=== PATIENT | female | born 1945 | race Caucasian/White ===

== ENCOUNTER 2019-04-17 06:57 | Day surgery (SDC) | payer OTHER ==
--- NOTE | 2019-04-16 11:23 | EKG ---
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
--- OUTSIDE RECORDS SUMMARY | 2019-04-17 07:00 | XMS REPORT | Clinical Summary ---
:1945 Author Organization [facility] Address [address] [place] [address] Care Team Providers Name Role Phone Parish Lopez MD Primary Care Provider Allergies Active Allergy Reactions Severity Noted Date Comments Cefdinir Clarithromycin Penicillins Swelling Low 02/12/2017 Sulfamethoxazole-Trimethoprim Medications Medication Sig Dispensed Refills Start Date End Date Status acyclovir Take 200 mg by 3 01/25/2017 Active (ZOVIRAX) 200 MG mouth once daily. capsule esomeprazole Take 40 mg by 11 01/18/2017 Active (NexIUM) 40 MG mouth once daily. capsule clindamycin TAKE 2 CAPSULES 2 11/21/2016 Active (CLEOCIN) 300 MG BY MOUTH 1 HOUR capsule BEFORE APPOINTMENT BREO ELLIPTA INHALE 1 PUFF BY 11 01/18/2017 Active 100-25 mcg/dose MOUTH EVERY DAY blister with device powder for inhalation gabapentin 0 02/10/2017 Active (NEURONTIN) 300 mg capsule levothyroxine Take 125 mcg by 1 11/21/2016 Active (SYNTHROID, mouth once daily. LEVOXYL) 125 mcg tablet PREPOPIK 10 mg-3.5 See Admin 0 12/27/2016 Active gram-12 gram Instructions. powder in packet SPIRIVA WITH USE 1 PUFF EACH 11 01/18/2017 Active HANDIHALER 18 mcg MORNING per inhalation capsule CALCIUM Take by mouth. 0 Active CARBONATE/VITAMIN D3 (CALCIUM 500 + D, D3, ORAL) vitamin B comp Take by mouth. 0 Active with C no.4 (SUPER B COMPLEX + C) 150 mg tablet [id number] Take by mouth. 0 Active sat sodium 26-1-11-120-50 [id number]-we-[id number]-mg-mg tablet cholecalciferol, Take 5,000 Units 0 Active vitamin D3, by mouth daily. (VITAMIN D3) 1,000 unit tablet HYDROcodone-acetam Take 1 tablet by 0 Active inophen (NORCO) mouth every 6 7.5-325 mg per (six) hours as tablet needed for moderate pain. albuterol (PROAIR Inhale 2 puffs 0 Active HFA) 90 every 6 (six) mcg/actuation hours as needed inhaler for wheezing. SOD CHLOR,SOD into each 0 Active BICARB/NETI POT nostril. (NEILMED NASAFLO NASL) simvastatin Take 1 tablet (40 90 tablet 3 04/09/2018 Active (ZOCOR) 40 MG mg total) by tablet mouth nightly. trimethoprim trimethoprim 100 mg tablet 0 Active (TRIMPEX) 100 mg TAKE 1 TABLET EVERY DAY tablet estradiol Yuvafem 10 mcg 0 Active (YUVAFEM) 10 mcg vaginal tablet vaginal tablet lisinopril-hydroch TAKE 1 TABLET BY 90 tablet 0 03/19/2019 Active lorothiazide MOUTH EVERY DAY (PRINZIDE,ZESTORET IC) 20-25 mg per tabletIndications: Essential hypertension lisinopril-hydroch TAKE 1 TABLET BY 90 tablet 2 03/27/2018 Discontinued lorothiazide MOUTH EVERY DAY 9 (PRINZIDE,ZESTORET IC) 20-25 mg per tabletIndications: Essential hypertension lisinopril-hydroch TAKE 1 TABLET BY 90 tablet 0 12/22/2018 Discontinued lorothiazide MOUTH EVERY DAY 9 (PRINZIDE,ZESTORET IC) 20-25 mg per tabletIndications: Essential hypertension Active Problems Problem Noted Date SOB (shortness of breath) 05/27/2018 Pure hypercholesterolemia 02/12/2017 Annual physical exam 02/12/2017 Essential hypertension 02/12/2017 Encounters Date Type Specialty Care Team Description 03/19/2019 Refill Cardiology Jarek Aldridge MD Med Refill 12/22/2018 Refill Cardiology Jarek Aldridge MD Med Refill 06/13/2018 Orders Only Cardiology Jarek Aldridge MD 05/27/2018 Office Visit Cardiology Jarek Aldridge MD SOB (shortness of breath) (Primary Dx); Essential hypertension after 04/16/2018 Family History Relation Name Status Comments Father Mother Social History Tobacco Use Types Packs/Day Years Used Date Former Smoker Cigarettes Smokeless Tobacco: Never Used Comments: 30 YRS AGO Alcohol Use Drinks/Week oz/Week Comments No Sex Assigned at Date Recorded Not on file Job Start Date Occupation Industry Not on file Not on file Not on file Travel History Travel Start Travel End No recent travel history available. Last Filed Vital Signs Vital Sign Reading Time Taken Blood Pressure 116/60 05/27/2018 8:59 AM CDT Pulse 80 05/27/2018 8:59 AM CDT Temperature - - Respiratory Rate - - Oxygen Saturation - - Inhaled Oxygen Concentration - - Weight 107 kg (236 lb) 05/27/2018 8:59 AM CDT Height 157.5 cm (5' 2") 05/27/2018 8:59 AM CDT Body Mass Index 43.16 05/27/2018 8:59 AM CDT Plan of Treatment Date Type Specialty Care Team Description 05/26/2019 Office Visit Cardiology Jarek Aldridge MD [address] [address] Health Maintenance Due Date Last Done Comments BREAST CANCER SCREENING 11/28/1995 COLONOSCOPY SCREENING 11/28/1995 SHINGLES VACCINES (#1) 11/28/1995 65+ PNEUMOCOCCAL VACCINE (1 of 2 - PCV13) 2010 INFLUENZA VACCINE 04/23/2019 Procedures Procedure Name Priority Date/Time Associated Diagnosis Comments ECHOCARDIOGRAM 2D Routine 06/16/2018 9:54 Essential Results for this COMPLETE W MMODE AM CDT hypertension procedure are in SPECTRAL COLOR DOPPLER SOB (shortness of the results (78849) breath) section. NM MYOCARDIAL Routine 06/12/2018 PERFUSION ECG 12-LEAD Routine 05/27/2018 8:02 Essential Results for this AM CDT hypertension procedure are in the results section. after 04/16/2018 Results Echocardiogram complete w contrast and 3D if needed (06/16/2018 9:54 AM CDT) Specimen Narrative Performed At [facility] Echocardiography Report Pat.Name:GRADY LUCIO Pat.ID:[id number] St.Date: 06/16/2018 Refer.MD:JAREK ALDRIDGE MD Exam Time: 10:12:00 AM Study Type:Routine Echo Height:62inWeight: 236lb BSA: 2.05 m2 DOBAge:1945,72Y Sex: FEMALEBP:116/60 HR:62 bpm Sonogrphr: EMERSON So FASE Pat. Stat.:OutpatientRoom:[facility] Study Status:Final Echo Event ID:[id number] Order ID:[id number] Reason for Study:Hypertension; suspected initial eval, SOB, suspected cardiac etiology Procedures:2D Echo, Colorflow Doppler Race:C SUMMARY: LV EF is normal. RV systolic function is normal. LA volume is moderately enlarged. LV filling pressure is normal. Estimated PA systolic pressure is 40 mmHg, assuming a mean RAP of 5 mmHg. FINDINGS: LV: LV size is normal. LV EF is normal. Overall wall motion is normal.Estimated EF is 60-64%. RV: RV size is normal. RV systolic function is normal. LA: LA volume is moderately enlarged. RA: RA size is normal. AO: Aortic root diameter is normal. MARY: No pericardial effusion. AV: Mild to moderate thickening and calcification of AV leaflets. MV: Moderate mitral annular calcification. Mild mitral regurgitation. PV: No structural PV abnormalities noted. TV: No structural TV abnormalities noted. Slade: LV relaxation is reduced, appropriate for age. LV filling pressureis normal. Other:Estimated PA systolic pressure is 40 mmHg, assuming a mean RAPof 5 mmHg. MEASUREMENTS: 2D Parasternal [place] LVOT 1.8 cmLA Ds4 cm LVIDd5.1 cmIndex2.5 cm/m Ao An1.8 cm LVIDs3 cmAo Rtd 2.9 cm Index1.4 cm/m LV%fs 40.4 % LV Wdjs218.9 g(87-129) IVSd 1.1 cmLVM Index 96.6 g/m2 LVPWd1 cmRWT0.4 LA Sng Plane LA Area 24.7 cm2(8.8-23.4) LA Vol82 ml Index40 ml/m LA LngAx 6.2 cm Signed 06/17/2018 04:36 PM John Gr M.D. Procedure Note Interface, Radiology Results In - 06/17/2018 4:36 PM CDT [facility] Echocardiography Report Pat.Name: GRADY LUCIO Pat.ID: [id number] .Date: 06/16/2018 Refer.MD: JAREK ALDRIDGE MD Exam Time: 10:12:00 AM Study Type:Routine Echo Height: 62in Weight: 236lb BSA: 2.05 m2 Age: 3 1945,72Y Sex: FEMALE BP: 116/60 HR: 62 bpm Sonogrphr: EMERSON So FASE Pat. Stat.:Outpatient Room: [facility] Study Status:Final Echo Event ID:[id number] Order ID: [id number] Reason for Study:Hypertension; suspected initial eval, SOB, suspected cardiac etiology Procedures:2D Echo, Colorflow Doppler Race: C SUMMARY: LV EF is normal. RV systolic function is normal. LA volume is moderately enlarged. LV filling pressure is normal. Estimated PA systolic pressure is 40 mmHg, assuming a mean RAP of 5 mmHg. FINDINGS: LV: LV size is normal. LV EF is normal. Overall wall motion is normal. Estimated EF is 60-64%. RV: RV size is normal. RV systolic function is normal. LA: LA volume is moderately enlarged. RA: RA size is normal. AO: Aortic root diameter is normal. MARY: No pericardial effusion. AV: Mild to moderate thickening and calcification of AV leaflets. MV: Moderate mitral annular calcification. Mild mitral regurgitation. PV: No structural PV abnormalities noted. TV: No structural TV abnormalities noted. [place]: LV relaxation is reduced, appropriate for age. LV filling pressure is normal. Other: Estimated PA systolic pressure is 40 mmHg, assuming a mean RAP of 5 mmHg. MEASUREMENTS: 2D Parasternal [place] LVOT 1.8 cm LA Ds 4 cm LVIDd 5.1 cm Index 2.5 cm/m Ao An 1.8 cm LVIDs 3 cm Ao Rtd 2.9 cm Index 1.4 cm/m LV%fs 40.4 % LV Mass 197.9 g (87-129) IVSd 1.1 cm LVM Index 96.6 g/m2 LVPWd 1 cm RWT 0.4 LA Sng Plane LA Area 24.7 cm2 (8.8-23.4) LA Vol 82 ml Index 40 ml/m LA LngAx 6.2 cm Signed 06/17/2018 04:36 PM John Gr M.D. Performing Organization Address City/State/Zipcode Phone Number [facility] [phone] [place] [address] Nm myocardial perfusion (06/12/2018) Narrative Performed At ECG 12 lead (05/27/2018 8:02 AM CDT) Ventricular rate 76 [facility] Atrial rate 76 [facility] IL interval 122 H [facility] QRSD interval 90 [facility] QT interval 372 [facility] QTC interval 418 [facility] P axis 1 70 [facility] QRS axis 1 46 [facility] T wave axis 50 [facility] EKG impression Normal sinus [facility] rhythm-Normal ECG-In automated comparison with ECG of 12-FEB-2017 09:06,-No significant change was found- Specimen Performing Organization Address City/State/Zipcode Phone Number [facility] [address] [place] [address] after 04/16/2018 Advance Directives Patient has advance care planning documents on file. For more information, please contact:Gene Hodge[address] [place] [address]
--- OUTSIDE RECORDS SUMMARY | 2019-04-17 07:00 | XMS REPORT ---
:1945 [facility] Address [address] [place] [address] Dr. Reynaga[address] [place] [id number] Care Team Providers Name Role Phone Unavailable Unavailable Unavailable Problems This patient has no known problems. Allergies, Adverse Reactions, Alerts This patient has no known allergies or adverse reactions. Medications This patient has no known medications.
[2019-04-17] MEDS ORDERED: Ringers Lactate 1,000 ML IV ONE (07:30)
[2019-04-17] MEDS ORDERED: LIDOCAINE 1.5% W/EPI AMP 5 ML ONE (07:46)
[2019-04-17] MEDS ORDERED: EPINEPHRINE/PF 1 MG/ML AMP ONE (07:46)
[2019-04-17] MEDS ORDERED: MIDAZOLAM HCL 2 MG/2 ML INJ ONE (08:05)
[2019-04-17] MEDS ORDERED: LIDOCAINE 2% MPF 5 ML VIAL ONE (08:12)
[2019-04-17] MEDS ORDERED: FENTANYL CITR 100 MCG/2 ML ONE (08:12)
[2019-04-17] MEDS ORDERED: PROPOFOL 200 MG/20 ML VIAL IV ONE (08:12)
[2019-04-17] MEDS ORDERED: ROCURONIUM 50 MG/5 ML VIAL IV ONE (08:42)
--- NOTE | 2019-04-17 08:59 | P.BOP ---
Preoperative diagnosis: L TVF lesion Postoperative diagnosis: same Primary procedure: DL with telescope and biopsy/removal of lesion Wire Dropper: NONE,NONE Estimated blood loss: <5ml Specimen: L TVF lesion for permanent Findings: round, pink lesion, lifted easy off VF Anesthesia: General Complications: None Fluids & blood products: crystalloid 750ml Transferred to: Recovery Room Condition: Good
[2019-04-17] MEDS ORDERED: GLYCOPYRROLATE 0.2 MG/ML SYR ONE (09:10)
[2019-04-17] MEDS ORDERED: dexAMETHasone 10 MG/ML VIAL ONE (09:10)
[2019-04-17] MEDS ORDERED: NEOSTIGMINE 1 MG/ML -10 ML VIAL ONE (09:12)
[2019-04-17] MEDS ORDERED: MORPHINE 4 MG/ML SYR ONE (09:54)
--- NOTE | 2019-04-17 18:39 | OP ---
Date of Procedure: 04/17/2019 Surgeon: Catherine Dotson MD Preoperative Diagnoses: Dysphonia, left vocal cord lesion. Postoperative Diagnoses: Dysphonia, left vocal cord lesion, pathology pending. Indication For Procedure: Ms. Lnea Lucio presented with chronic dysphonia and chronic cough. She w as evaluated in the clinic in December 2018 and noted to have bilateral vocal fold nodularity with moder ate irritation. She was placed on aggressive proton pump, GERD diet, and reflux precautions. On ree valuation in February, she was noted to have improvement in the overall appearance of inflammation and th e right vocal fold appeared less irritated. She had a persistent round reddish lesion on the anterio r third of the left true vocal fold on the phonating surface. The risks, benefits, and alternatives to the procedure were discussed with the patient. Procedure: Direct laryngoscopy with telescope and biopsy/removal of tumor. Description Of Procedure: A tooth guard was placed on the upper teeth and the [facility] laryngosc ope was fitted with appropriate telescope and used to perform a direct laryngoscopy. The exam was li mited somewhat by patient's body habitus and moderately limited mouth opening. The soft palate, uvul a, base of tongue, tip of the epiglottis, vallecula, and posterior pharyngeal wall were unremarkable. The postcricoid space was unremarkable. The piriform sinuses were difficult to visualize. The lar yngoscope was positioned near the glottic opening and placed in suspension. The posterior to midport ion of the vocal cords was visible. Anterior pressure externally on the larynx provided better visua lization of the anterior aspect of the vocal folds and a photodocumentation of the lesion of concern was obtained. After photo, the up-biting small laryngeal cup forceps was used to grasp the lesion an d the entire lesion was removed in a single bite. Epinephrine-soaked pledget was applied to the biop sy site, and after control of mild bleeding, the area was reexamined. There was no evidence of resid ual lesion and decision was made to forego frozen pathology. The patient was then returned to care o f Anesthesia for awakening and extubation in the operating room. Disposition: Patient will be discharged home later today in the care of her family with strict voice rest for 3 days followed by a confidential voice use only, and return to Dr. Dotson's office in 10 days for evaluation of healing. SH/IVORY Voice ID: [id number] Report ID: [id number]
== END 2019-04-17 10:58 | disposition home or self-care (01) ==
LOC: OR 06:57
PROVIDERS: ATTEND Otolaryngology
PROC: 0CBV8ZX Excision of Left Vocal Cord, Via Natural or Artificial Opening Endoscopic, Diagnostic (ICD-10-PCS; principal; 2019-04-17 08:30)
DX: J38.3 Other diseases of vocal cords (principal); R49.0 Dysphonia; E66.01 Morbid (severe) obesity due to excess calories; Z68.41 Body mass index [BMI] 40.0-44.9, adult; I10 Essential (primary) hypertension; J44.9 Chronic obstructive pulmonary disease, unspecified; K21.9 Gastro-esophageal reflux disease without esophagitis; Z79.82 Long term (current) use of aspirin; Z79.899 Other long term (current) drug therapy; Z86.39 Personal history of other endocrine, nutritional and metabolic disease
CPT/HCPCS: 31540; 93005; 88312; 88305; J2704; J2710; J0171; J2250; J3010; J1100; J2001

== ENCOUNTER 2020-09-16 11:49 | Inpatient (IN) | payer OTHER ==
--- OUTSIDE RECORDS SUMMARY | 2020-09-16 11:51 | XMS REPORT | Clinical Summary ---
:1945 Author Organization [facility] Address [address] [place] [address] Care Team Providers Name Role Phone MD John Primary Care Provider Allergies Active Allergy Reactions Severity Noted Date Comments Cefdinir Clarithromycin Penicillins Swelling Low 02/12/2017 Sulfamethoxazole-Trimethoprim Medications Medication Sig Dispensed Refills Start End Date Status Date acyclovir Take 200 mg by 3 Activ e (ZOVIRAX) 200 MG mouth once 7 capsule daily. esomeprazole Take 40 mg by 11 Act abhijeet (NexIUM) 40 MG mouth once 7 capsule daily. clindamycin TAKE 2 CAPSULES 2 Ac tive (CLEOCIN) 300 MG BY MOUTH 1 HOUR 7 capsule BEFORE APPOINTMENT BREO ELLIPTA INHALE 1 PUFF BY 11 Active 100-25 mcg/dose MOUTH EVERY DAY 7 blister with device powder for inhalation levothyroxine Take 125 mcg by 1 Active (SYNTHROID, mouth once 7 LEVOXYL) 125 mcg daily. tablet PREPOPIK 10 mg-3.5 See Admin 0 A ctive gram-12 gram Instructions. 7 powder in packet SPIRIVA WITH USE 1 PUFF EACH A ctive HANDIHALER 18 mcg MORNING 7 per inhalation capsule CALCIUM Take by mouth. 0 Activ e CARBONATE/VITAMIN D3 (CALCIUM 500 + D, D3, ORAL) vitamin B comp Take by mouth. 0 Active with C no.4 (SUPER B COMPLEX + C) 150 mg tablet [id number] Take by mouth. 0 Active sat sodium 13-2-04-120-50 rw-km-yps-mg-mg tablet cholecalciferol, Take 5,000 Units 0 Active [...] Active BICARB/NETI POT nostril. (NEILMED NASAFLO NASL) trimethoprim trimethoprim 100 mg tablet 0 Active (TRIMPEX) 100 mg TAKE 1 TABLET EVERY DAY tablet estradiol Yuvafem 10 mcg 0 Activ e (YUVAFEM) 10 mcg vaginal tablet vaginal tablet gabapentin gabapentin 600 mg tablet 0 Active (NEURONTIN) 600 mg TAKE 2 TABLETS BY MOUTH MARYCARMEN RY MORNING AND 3 TABLETS EVERY EVENING tablet lisinopriL-hydroch Take 1 tablet by 90 tablet 3 Active lorothiazide mouth daily. 0 (PRINZIDE) 10-12.5 mg per tablet simvastatin Take 1 tablet 90 tablet 3 Acti ve (ZOCOR) 40 mg (40 mg total) by 0 tablet mouth nightly. gabapentin 600 mg. 0 05/31/20 Discontin ued (NEURONTIN) 300 mg 7 20 capsule lisinopril-hydroch Take 1 tablet by 90 tablet 3 11/12 lorothiazide mouth daily. 9 20 (PRINZIDE,ZESTORET IC) 10-12.5 mg per tablet simvastatin TAKE 1 TABLET BY 90 tablet 3 06/24/20 D iscontinued (ZOCOR) 40 MG MOUTH EVERY DAY 9 20 (Reorder) tablet AT NIGHT lisinopriL-hydroch Take 1 tablet by 0 11/12 Discontinued lorothiazide mouth daily. 20 (Reo rder) (PRINZIDE) 10-12.5 mg per tablet Active Problems Problem Noted Date CAD in [place] artery 05/31/2020 Bilateral carotid bruits 05/31/2020 SOB (shortness of breath) 05/27/2018 Pure hypercholesterolemia 02/12/2017 Annual physical exam 02/12/2017 Essential hypertension 02/12/2017 Encounters Date Type Specialty Care Team Description 09/07/2020 Travel 06/28/2020 Travel 06/24/2020 Orders Only Cardiology Vinicius Abbott MA 05/31/2020 Office Visit Cardiology Kurtis Aldridge MD CAD in n ative artery (Primary Dx); Essential hyper tension; Bilateral carot id bruits 05/31/2020 Travel after 09/16/2019 Surgical History Surgery Date Site/Laterality Comments REPLACEMENT TOTAL KNEE 09/23/2007 - BOTH KNEE S 09/22/2008 ARTHROSCOPY, KNEE, 01/21/1998 - left knee OSTEOTOMY, INTERCONDYLAR 02/20/1998 TUBERCLE ARTHROSCOPY, KNEE, 08/23/1998 - right knee OSTEOTOMY, INTERCONDYLAR 09/22/1998 TUBERCLE LUNG REMOVAL, TWO LOBES 12/22/1989 - removel spot upper rt (BILOBECTOMY) 01/20/1990 lobe Medical History Medical History Date Comments Asthma Family History Relation Name Status Comments Father Mother Social History Tobacco Use Types Packs/Day Years Used Date Former Smoker Cigarettes Smokeless Tobacco: Never Used Comments: 30 YRS AGO Alcohol Use Drinks/Week oz/Week Comments No Sex Assigned at Date Recorded Not on file Job Start Date Occupation Industry Not on file Not on file Not on file COVID-19 Exposure Response Date Recorded In the last month, have you been in contact with No / Unsure 09/07/2020 10:41 AM [employer]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 Last Filed Vital Signs Vital Sign Reading Time Taken Comments Blood Pressure 129/61 05/31/2020 10:39 AM CDT Pulse 80 05/31/2020 10:39 AM CDT Temperature - - Respiratory Rate - - Oxygen Saturation - - Inhaled Oxygen Concentration - - Weight 112 kg (246 lb) 05/31/2020 10:39 AM CDT Height 157.5 cm (5' 2") 05/31/2020 10:39 AM CDT Body Mass Index 44.99 05/31/2020 10:39 AM CDT Plan of Treatment Date Type Specialty Care Team Description 09/29/2020 Speech & Language Eval Otolaryngology Hanh Martinez, [employer] [address] [facility] [address] [place], [place] [address] [phone] 09/29/2020 Office Visit Otolaryngology Cheryl Gonzalez MD [address] [place], [place] [address] [phone] 05/30/2021 Office Visit Cardiology Kurtis Aldridge MD [address] [place], [place] [address] [phone] Health Maintenance Due Date Last Done Comments COVID-19 VACCINE (#1) 1961 BREAST CANCER SCREENING 11/28/1995 COLONOSCOPY SCREENING 11/28/1995 SHINGLES VACCINES (#1) 11/28/1995 65+ PNEUMOCOCCAL VACCINE (1 of 1 - PPSV23) 2010 INFLUENZA VACCINE Completed 06/09/2020 Procedures Procedure Name Priority Date/Time Associated Diagnosis Comme nts US CAROTID DUPLEX Routine 06/28/2020 12:00 Bilateral carotid R esults for this BILATERAL PM CDT bruits procedure are in CAD in [place] artery the res ults section. ECG 12-LEAD Routine 05/30/2020 10:47 Essential Results for this PM CDT hypertension procedure are i n the results section. after 09/16/2019 Results Us carotid duplex (06/28/2020 12:00 PM CDT) Specimen Narrative Performed At [facility] Carotid [place] ry Ultrasound Report Pat.Name: GRADY LUCIO Pat.ID: [id number] .Date: 06/28/2020 Refer.MD: KURTIS ALDRIDGE MD Exam Time: 11:06:00 AM Study Type:Ca rotid Age: 3 1945,74Y Sex: FEMALE Sonogrphr: Amanda Evangelista RVT Pat. Stat.:Outp atient Room: [facility] ol: [place], CPT - 4: 44206 Echo Marycarmen nt ID:[id number] Order ID: [id number] Reason for Study:Carotid artery bruit, H x of HTN, CAD in [place] artery Race: C SUMMARY: CAROTID ARTERY SCAN RIGHT: There is smooth intimal lining in the common carotid artery. There is hard plaque noted in the bulb e xtending into the proximal internal carotid artery. Colorflow is disturbed in the mid internal carotid artery where the tortuosity is p resent. There is antegrade flow in the vertebral artery. LEFT: There is smooth intimal li maggie in the common carotid artery. There is hard plaque noted in th e bulb extending into the proximal internal and external carotid a rtery. Colorflow is undisturbed. There is antegrade flow i n the vertebral artery. PRELIMINARY FINDINGS 1. There is <50% stenosis in the bulb/ internal carotid artery, bilaterally. 2. There is antegrade flow in the vert ebral artery, bilaterally. PHYSICIAN INTERPRETATION Bilateral carotid duplex examination dem onstrated atherosclerotic plaques in the bulbs. Less than 50% stenosis in the bulb and t he internal carotid artery, bilaterally. There is tortuosity noted in the right m id internal carotid artery. Both vertebral arteries are antegrade. FINDINGS: Carotid Findings: Right Left Verteb.Flw Antegrade Antegrade Subclavian Triphasic Triphasic MEASUREMENTS: DOPPLER Right CCA Dist CCA Dist PSV 76.6 cm/s CCA Dist EDV 15.3 cm/s Right CCA Mid CCA Mid PSV 84.2 cm/s CCA Mid EDV 19.7 cm/s Right CCA Prox CCA Prox PSV 96.2 cm/s CCA Prox EDV 18.6 cm/s Right Bulb Bulb PSV 48.1 cm/s Bulb EDV 10.9 cm/s Right ECA ECA PSV 63.4 cm/s ECA EDV 6.56 cm/s Right ICA Dist ICA Dist PSV 95.1 cm/s ICA Dist EDV 25.7 cm/s Right ICA Mid ICA Mid PSV 119 cm/s ICA Mid EDV 24.8 cm/s Right ICA Prox ICA Prox PSV 60.1 cm/s ICA Prox EDV 12 cm/s Right Vertebral Vertebral PSV 32.7 cm/s Vertebral EDV 7.79 cm/s Right Subclavian Subclavian PSV 190 cm/s Subclavian EDV 0 cm/s Left CCA Dist CCA Dist PSV 56 cm/s CCA Dist EDV 13.7 cm/s Left CCA Prox CCA Prox PSV 89.7 cm/s CCA Prox EDV 19.7 cm/s Left Bulb Bulb PSV 65.9 cm/s Bulb EDV 16.2 cm/s Left ECA Prox ECA Prox PSV 60.9 cm/s ECA Prox EDV 7.46 cm/s Left ICA Dist ICA Dist PSV 72.6 cm/s ICA Dist EDV 27.1 cm/s Left ICA Mid ICA Mid PSV 72 cm/s ICA Mid EDV 12 cm/s Left ICA Prox ICA Prox PSV 79.6 cm/s ICA Prox EDV 22.4 cm/s Left Vertebral Vertebral PSV 49.4 cm/s Vertebral EDV 11.9 cm/s Left CCA Mid CCA Mid PSV 72 cm/s CCA Mid EDV 12 cm/s Right ECA Prox ECA Prox PSV 63 cm/s ECA Prox EDV 6 cm/s Right SCA Prox SCA Prox PSV 190 cm/s Left SCA Prox SCA Prox PSV 168 cm/s Right ICA/CCA Ratio ICA/CCA PSV 0.714 Left ICA/CCA Ratio ICA/CCA PSV 1.11 Signed 07/01/2020 09:25 AM Kurtis Aldridge MD Procedure Note Interface, Radiology Results In - 2019 9:25 AM CDT [facility] Carotid Artery Ultras ound Report Pat.Name: GRADY LUCIO Pat.I D: [id number] St.Date: 06/28/2020 Refer .MD: KURTIS ALDRIDGE MD Exam Time: 11:06:00 AM Study Type:Carotid Age: 3 1945,74Y Sex: FEMALE Sonogrphr: Amanda Evangelista RVT Pat. Stat.:Outpatient Room: [facility] Vol: [place], [facility] - 4: [address]2474 Echo Event ID:[id number] Order ID: [id number] Reason for Study:Carotid artery bruit, H x of HTN, CAD in [place] artery Race: C SUMMARY: CAROTID ARTERY SCAN RIGHT: There is smooth intimal lining i n the common carotid artery. There is hard plaque noted in the bulb e xtending into the proximal internal carotid artery. Colorflow is d isturbed in the mid internal carotid artery where the tortuosity is p resent. There is antegrade flow in the vertebral artery. LEFT: There is smooth intimal linin g in the common carotid artery. There is hard plaque noted in th e bulb extending into the proximal internal and external carotid a rtery. Colorflow is undisturbed. There is antegrade flow in the vertebral artery. PRELIMINARY FINDINGS 1. There is <50% stenosis in the bulb/i nternal carotid artery, bilaterally. 2. There is antegrade flow in the verte bral artery, bilaterally. PHYSICIAN INTERPRETATION Bilateral carotid duplex examination dem onstrated atherosclerotic plaques in the bulbs. Less than 50% stenosis in the bulb and t he internal carotid artery, bilaterally. There is tortuosity noted in the right m id internal carotid artery. Both vertebral arteries are antegrade. FINDINGS: Carotid Findings: Right Left Verteb.Flw Antegrade Antegrade Subclavian Triphasic Triphasic MEASUREMENTS: DOPPLER Right CCA Dist CCA Dist PSV 76.6 cm/s CCA Dist EDV 15.3 cm/s Right CCA Mid CCA Mid PSV 84.2 cm/s CCA Mid EDV 19.7 cm/s Right CCA Prox CCA Prox PSV 96.2 cm/s CCA Prox EDV 18.6 cm/s Right Bulb Bulb PSV 48.1 cm/s Bulb EDV 10.9 cm/s Right ECA ECA PSV 63.4 cm/s ECA EDV 6.56 cm/s Right ICA Dist ICA Dist PSV 95.1 cm/s ICA Dist EDV 25.7 cm/s Right ICA Mid ICA Mid PSV 119 cm/s ICA Mid EDV 24.8 cm/s Right ICA Prox ICA Prox PSV 60.1 cm/s ICA Prox EDV 12 cm/s Right Vertebral Vertebral PSV 32.7 cm/s Vert ebral EDV 7.79 cm/s Right Subclavian Subclavian PSV 190 cm/s Subc lavian EDV 0 cm/s Left CCA Dist CCA Dist PSV 56 cm/s CCA Dist EDV 13.7 cm/s Left CCA Prox CCA Prox PSV 89.7 cm/s CCA Prox EDV 19.7 cm/s Left Bulb Bulb PSV 65.9 cm/s Bulb EDV 16.2 cm/s Left ECA Prox ECA Prox PSV 60.9 cm/s ECA Prox EDV 7.46 cm/s Left ICA Dist ICA Dist PSV 72.6 cm/s ICA Dist EDV 27.1 cm/s Left ICA Mid ICA Mid PSV 72 cm/s ICA Mid EDV 12 cm/s Left ICA Prox ICA Prox PSV 79.6 cm/s ICA Prox EDV 22.4 cm/s Left Vertebral Vertebral PSV 49.4 cm/s Vert ebral EDV 11.9 cm/s Left CCA Mid CCA Mid PSV 72 cm/s CCA Mid EDV 12 cm/s Right ECA Prox ECA Prox PSV 63 cm/s ECA Prox EDV 6 cm/s Right SCA Prox SCA Prox PSV 190 cm/s Left SCA Prox SCA Prox PSV 168 cm/s Right ICA/CCA Ratio ICA/CCA PSV 0.714 Left ICA/CCA Ratio ICA/CCA PSV 1.11 Signed 07/01/2020 09:25 AM Kurtis Aldridge MD Performing Organization Address City/State/ZIP Code Phon e Number [facility] [address] [place] [address] ECG 12 lead (05/30/2020 10:47 PM CDT) Pathologist Sig nature Ventricular rate 74 [facility] Atrial rate 74 [facility] ID interval 126 [facility] QRSD interval 94 [facility] QT interval 384 [facility] QTC interval 426 [facility] P axis 1 62 [facility] QRS axis 1 36 [facility] T wave axis 32 [facility] EKG impression Normal sinus rhythm [facility] with sinus arrhythmia-Electronical ly Signed By Jonathan Akbar MD ([id number]) on 05/31/2020 2:27:56 PM Specimen Narrative Performed At This result has an attachment that is no t available. 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
--- OUTSIDE RECORDS SUMMARY | 2020-09-16 11:51 | XMS REPORT | Continuity of Care Document ---
:1945 Author Organization [facility] t Address [address] [place] [address] Care Team Providers Name Role Phone John BELL Primary Care Physician OLY Attending Clinician Unavailable Milena DIAZ Attending Clinician Unavailable Doctor Unassigned, Name Attending Clinician Unavailable Gal Jo Attending Clinician Unavailable Therapist, Pulmonary Attending Clinician Unavailable Payers Payer Name Policy Type Policy Effective Date Expiration Date Sour ce Number AETNA MEDICAREAETNA [id number] 2013 [place] MEDICARE HMO/PPO 00:00:00 Methodis t [id number] -PresentHMO Problems Condition Condition Condition Status Onset Resolution Last Treating Co mments Source Name Details Category Date Date Treatment Clinician Date CAD in CAD in Disease Active [place] apache 05-31 [facility] artery artery 00:00: st 00 Bilateral Bilateral Disease Active Lance ston carotid carotid 05-31 [facility] bruits bruits 00:00: st 00 SOB SOB Disease Active [place] (shortness (shortness 9-04 Me th[facility] of breath) of breath) 00:00: st 00 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 5-23 Me thodi sterolemia sterolemia 00:00: st 00 Annual Annual Disease Active [place] physical physical 5-23 Method i exam exam 00:00: st 00 Essential Essential Disease Active Lance ston hypertensi hypertensi 02-12 Me thodi on on 00:00: st 00 Allergies, Adverse Reactions, Alerts Allergy Allergy Status Severity Reaction(s) Onset Inactive Treating Comm ents Source Name Type Date Date Clinician Penicill DA Active MO 2019-09 [facility] [place] cephalex DA Active MO 2019- [facility] in 2-14 [facility] [place] sulfamet DA Active MO 2019-09 [facility] hoxazole 2-14 [facility] [place] trimetho DA Active MO 2019- [facility] prim 2-14 [facility] [place] cefdinir DA Active MO 2019- [facility] 2-14 [facility] [place] TAPE DA Active MO 2019- [facility] 2-14 [facility] [place] Penicill Propensi Active Swelling [place] ins ty to 02-12 [facility] adverse 00:00: st reaction 00 s to drug No Known DA Active U 2007-0 [facility] Contrast 8- [facility] [place] No Known DA Active U 2007-0 [facility] Food 8- [facility]erg[facility] [place] PENICILL DA Active U 2007-0 [facility] IN 8-27 [facility] [place] TAPE DA Active U 2007-0 [facility] 8-27 [facility] [place] Penicill DA Active U 2007-0 [facility] ins 6 [facility] [place] Cefdinir Propensi Active [place] ty to [facility] adverse st reaction s to drug Clarithr Propensi Active [place] omycin ty to Methodi adverse st reaction s to drug Sulfamet Propensi Active [place] hoxazole ty to Method[facility] -Trimeth adverse st oprim reaction s to drug Social History Social Habit Start Date Stop Date Quantity Comments Source History of Cigarette Smoker [facility] tobacco use Sex Assigned At [facility] M ethodist Exposure to Not sure [facility] Metho dist SARS-CoV-2 (event) Tobacco use and 2017-02-12 2017-02-12 Never used [facility] ethodist exposure 00:00:00 00:00:00 Alcohol intake 2017-02-12 2017-02-12 Current [facility] thodist 00:00:00 00:00:00 non-drinker of alcohol (finding) Tobacco Comment 2017-02-12 2017-02-12 30 YRS AGO [facility] ethodist 00:00:00 00:00:00 Smoking Status Start Date Stop Date Source Former smoker 2017-02-12 00:00:00 2017-02-12 00:00:00 [place] [facility] Medications Ordered Filled Start Stop Current Ordering Indication Dosage Frequency Signature Comments Components Source Medication Medication Date Date Medication? Clinician (SIG) Name Name lisinopriL- 2019- 2020- No 1{tbl} QD Take 1 [place] hydrochloro 0-02 10-02 tablet by Mn sunny thiazide 12:20: 00:[address] (PRINZIDE) 02 :00 daily. 10-12.5 mg per tablet lisinopriL- 2019-09 Yes 1{tbl} QD Take 1 [place] hydrochloro 0-02 tablet by Met hodi thiazide 00:00: mouth st (PRINZIDE) 00 daily. 10-12.5 mg per tablet simvastatin 2019- Yes 40mg QD Take 1 [place] (ZOCOR) 40 0-02 tablet (40 Met hodi mg tablet 00:00: mg total) st 00 by mouth nightly. CALCIUM 2020-0 Yes Take by [place] CARBONATE/V 05-31 mouth. Method i ITAMIN D3 10:44: st (CALCIUM 25 500 + D, D3, ORAL) iron-FA-B12 2020-0 Yes Take by Lance Ellingtondocusat 08 mouth. [facility]i sodium 10:44: st 120 25 -50 mg-mg-mcg-m g-mg tablet cholecalcif 2020-0 Yes 5000U QD Take 5,000 [place] ying, 9-08 Units by [facility] vitamin D3, 10:44: mouth st (VITAMIN 25 daily. D3) 1,000 unit tablet albuterol 2020-0 Yes 2{puff} Q6H Inhale 2 [place] (PROAIR 9-08 puffs Methodi HFA) 90 10:44: every 6 st mcg/actuati 25 (six) on inhaler hours as needed for wheezing. SOD 2019- Yes into each [facility] CHLOR,SOD 9-08 nostril. Method i BICARB/NETI 10:44: st POT 25 (NEILMED NASAFLO NASL) trimethopri 2019- Yes trimethopr [place] [facility] (TRIMPEX) 08 im 100 mg Met hodi 100 mg 10:44: tablet st tablet 25 TAKE 1 TABLET EVERY DAY gabapentin Yes gabapentin [place] (NEURONTIN) 908 600 mg Method i 600 mg 10:41: tablet st tablet 32 TAKE 2 TABLETS BY MOUTH EVERY MORNING AND 3 TABLETS EVERY EVENING simvastatin 2018-09 2020- No TAKE 1 Lance ston (ZOCOR) 40 0-01 10-02 TABLET BY Met hodi MG tablet 00:00: 00:[address] 00 :00 EVERY DAY AT NIGHT lisinopril- 2020- No 1{tbl} QD Take 1 [place] hydrochloro 905-25 tablet by Mn sunny thiazide 00:00: 23:[address] (PRINZIDE,Z 00 :00 daily. ESTORETIC) 10-12.5 mg per tablet estradiol Yes Yuvafem 10 [place] (YUVAFEM) 9-04 mcg Methodi 10 mcg 09:01: vaginal st vaginal 50 tablet tablet vitamin B Yes Take by Darnell on comp with C 5-23 mouth. Method i no.4 (SUPER 10:23: st B COMPLEX + 06 C) 150 mg tablet HYDROcodone Yes 1{tbl} Q6H Take 1 [place] -acetaminop 5-23 tablet by Met zackaryi hen (NORCO) 10:23: mouth st 7.5-325 mg 06 every 6 per tablet (six) hours as needed for moderate pain. gabapentin 2020- No 600mg 600 mg. [place] (NEURONTIN) 5-21 08 Method[facility] 300 mg 00:00: 00:00 st capsule 00 :00 acyclovir Yes 200mg QD Take 200 Lance ston (ZOVIRAX) 5-05 mg by [facility] 200 MG 00:00: mouth once st capsule 00 daily. esomeprazol Yes 40mg QD Take 40 mg [facility] e (NexIUM) 4-28 by mouth Metho di 40 MG 00:00: once st capsule 00 daily. BREO Yes INHALE 1 [facility] ELLIPTA 4-28 PUFF BY Methodi 100-25 00:00: MOUTH st mcg/dose 00 EVERY DAY blister with device powder for inhalation SPIRIVA Yes USE 1 PUFF [place] WITH 4-28 EACH Methodi HANDIHALER 00:00: MORNING st 18 mcg per 00 inhalation capsule PREPOPIK 10 Yes See Admin [place] mg-3.5 4-06 Instructio Methodi gram-12 00:00: ns. st gram powder 00 in packet clindamycin Yes TAKE 2 [place] (CLEOCIN) 3-01 CAPSULES Method i 300 MG 00:00: BY MOUTH 1 st capsule 00 HOUR BEFORE APPOINTMEN T levothyroxi Yes 125ug QD Take 125 [place] ne 3-01 mcg by Method[facility] (SYNTHROID, 00:00: mouth once st LEVOXYL) 00 daily. 125 mcg tablet Vital Signs Vital Name Observation Time Observation Value Comments Source Systolic blood 2020-05-31 10:39:00 129 mm[Hg] [place] n [facility] pressure Diastolic blood 2020-05-31 10:39:00 61 mm[Hg] D[place]ell on [facility] pressure Heart rate 2020-05-31 10:39:00 80 /min Gene Hodge Body height 2020-05-31 10:39:00 157.5 cm Gene Hodge Body weight 2020-05-31 10:39:00 111.585 kg Gene Hodge BMI 2020-05-31 10:39:00 44.99 kg/m2 Gene Hodge Procedures Procedure Date / Time Performed Performing Clinician [facility] e US CAROTID DUPLEX 2020-06-28 12:00:00 Kurtis [facility] thodist BILATERAL ECG 12-LEAD 2020-05-30 22:47:08 Kurtis Westbrook odist Plan of Care Planned Activity Planned Date Details Comments Source Future Scheduled 2010 65+ PNEUMOCOCCAL Gene [facility]addadist Test 00:00:00 VACCINE (1 of 1 - PPSV23) [code = 65+ PNEUMOCOCCAL VACCINE (1 of 1 - PPSV23)] Future Scheduled 1995-11-28 BREAST CANCER Gene Mn thodist Test 00:00:00 SCREENING [code = BREAST CANCER SCREENING] Future Scheduled 1995-11-28 COLONOSCOPY SCREENING [place] [facility] Test 00:00:00 [code = COLONOSCOPY SCREENING] Future Scheduled 1995-11-28 SHINGLES VACCINES (#1) [facility] [place] [facility] Test 00:00:00 [code = SHINGLES VACCINES (#1)] Future Scheduled 1961 COVID-19 VACCINE (#1) Ho [facility] Test 00:00:00 [code = COVID-19 VACCINE (#1)] Encounters Start End Encounter Admission Attending Care Care Encounter Source Date/Time Date/Time Type Type Clinicians Facility Department ID 2020-06-28 2020-06-28 [facility] [id number] [place] 00:00:00 00:00:00 KURTIS 125 Method i 2020-05-31 2020-05-31 [id number] [place] 00:00:00 00:00:00 KURTIS 104 Method i 2019-05-14 2019-05-14 Orders Doctor NIMO [id number] 00:00:00 00:00:00 Only Unassigned, JUSTINA [id number] [place] [id number] [phone] [id number] 2019-05-07 2019-05-07 Letter Lev [facility] [id number] 00:00:00 00:00:00 (Out) Linette Rivera [id number] [place] [id number] Professio [phone] [address] 2019-05-01 2019-05-01 Ancillary Therapist, [facility] [id number] 08:28:36 15:09:40 Visit Adc Nicole [id number] Pulmonary [place] [id number] Professio [phone] [address] 2019-03-31 2019-03-31 Orders Doctor NIMO [id number] 00:00:00 00:00:00 Only Unassigned, JUSTINA [id number] [place] [id number] [id number] Results Test Description Test Time Test Comments Results Result Comments Source COVID 19 Asymptomatic IH AG 2020-09-05 15:10:00 Test Item Value Reference Range Interpretation Comme nts COVID 19 Asymptomatic IH AG NEGATIVE NEGATIVE This test has been authorized only (test code = COVNONPUIAG) fo r the detection ofproteins from SARS-CoV-2, not for any other viruses orpatho gens. Negative results should be treated as presumptive and confirmed with a molecular assay , if necessary for patientmanageme nt. Negative results do not rule out COVID-19 andshould not be used as the sole basis for treatment orpat ient management decisions, incl uding infection controldecision s. Negative results should be consi dered in thecontext of a patient's recent exposures, history and the presence of clinical signs and sympt oms consistent withCOVID-19. T his test has not been FDA cleare d or approved; the test hasbeen au thorized by FDA under an Emerge ncy Use Authorization(E UA) for use by laboratories ce rtified under the CLIA thatmeet t he requirements to perform moderat e, high or waivedcomplexit y tests. This test is authorized f or use at thePoint of Care (POC), i.e., in patient care settingsop erating under a CLIA Certificate of Waiver, Certificate ofCompliance, o r Certificate of Accreditation. This test is only authorized for the duration of thedeclaration that circumstances exist justifyin g theauthorization of emergency us e of in vitro diagnostic test sfor detection and/or diagnosi s of COVID-19 under Xcadobg914(b)(1 ) of the Act, 21 U.S.C. 360bbb -3(b)(1), unless theauthorizatio n is terminated or revoked sooner. CHEMISTRY 7 [id number] 14:27:00 Test Item Value Reference Range Interpretation Comments SODIUM (test code = NA) 141 mEq/L 135-145 N POTASSIUM (test code = K) 4.4 mEq/L 3.5-5.0 N CHLORIDE (test code = CL) 101 mEq/L 100-115 N CARBON DIOXIDE (test code = CO2) 28 mEq/L 22-31 N ANION GAP (test code = GAP) 16.00 10-20 N GLUCOSE (test code = GLU) 94 mg/dL 65-110 N BLOOD UREA NITROGEN (test code = 16 mg/dL 7-18 N BUN) GLOMERULAR FILTRATION RATE (test 82 ml/min >60 N code = GFR) CREATININE (test code = CREAT) 0.7 mg/dL 0.5-1.0 N CALCIUM (test code = CA) 9.2 mg/dL 8.4-10.2 N HGB [id number] 14:11:00 Test Item Value Reference Range Interpretation Comments HEMOGLOBIN (test code = HGB) 13.5 g/dL 10.7-13.9 N HEMATOCRIT (test code = HCT) 42.9 % 32.1-42.1 H ECG 12 [id number] 14:28:00 Test Item Value Reference Range Interpretation Comments Ventricular rate (test 74 code = 253) Atrial rate (test code = 74 255) IL interval (test code = 126 266) QRSD interval (test code 94 = 260) QT interval (test code = 384 264) QTC interval (test code = 426 265) P axis 1 (test code = 62 267) QRS axis 1 (test code = 36 268) T wave axis (test code = 32 270) EKG impression (test code Normal sinus rhythm = 273) with sinus arrhythmia-Electroni bruce Signed By Jonathan Akbar MD ([id number]) on 05/31/2020 2:27:56 PM Gene Hodge
[2020-09-16 13:02] LABS: Absolute Lymphocytes (CBC) 0.9 K/uL (0.7-4.9); Basophils % 0.5 % (0-1.3); Hematocrit 39.1 % (36.0-45.0); Lymphocytes % 9.9 % (15.3-44.8); MPV 7.9 fL (7.6-11.3); RBC Red Blood Cell Count 4.19 M/uL (3.86-4.86)
[2020-09-16 13:06] LABS: Protime INR 1.24
--- NOTE | 2020-09-16 13:22 | RAD REPORT ---
EXAM DESCRIPTION: RAD - Chest Single View - 09/16/2020 12:59 pm CLINICAL HISTORY: SOB Chest pain. COMPARISON: Chest Pa And Lat (2 Views) dated 05/21/2019; Chest Pa And Lat (2 Views) dated 11/21/2018; C HEST PA AND LAT 2 VIEW dated 01/15/2013; CHEST PA AND LAT 2 VIEW dated 08/27/2011 FINDINGS: Portable technique limits examination quality. Moderate bilateral pulmonary opacities are seen which are worse on the left and may represent pulmona ry edema or pneumonia. The heart is moderately enlarged in size. No displaced fractures. IMPRESSION: Moderate CHF versus pneumonia pattern.
[2020-09-16 13:26] LABS: Albumin 3.4 g/dL (3.4-5.0); Bilirubin Direct 0.4 mg/dL (0-0.2); Bilirubin Total 0.7 mg/dL (0.2-1.0); Magnesium 2.8 mg/dL (1.8-2.4); Potassium 4.8 mmol/L (3.5-5.1); Protein, Total 8.2 g/dL (6.4-8.2)
[2020-09-16 13:30] LABS: Troponin (Emerg Dept Use Only) 0.68 ng/mL (0.0-0.045)
[2020-09-16] MEDS ORDERED: Levofloxacin 750mg IV 750 MG/150 ML BAG IV ONE (13:36)
[2020-09-16] MEDS ORDERED: NA CHLORIDE 0.9% 2,000 ML ONE (13:43)
[2020-09-16] MEDS ORDERED: ASPIRIN 81 MG CHEWABLE TABLET ONE (14:09)
--- NOTE | 2020-09-16 14:34 | EDPHYS ---
Physician Documentation [facility] Name: Lena Lucio Age: 74 yrs Sex: Female : 1945 Arrival Date: 09/16/2020 Time: 11:50 Bed 3 Private MD: Parish Lopez ED Physician Steve Costa HPI: 09/16 15:57 This 74 yrs old Female presents to ER via Wheelchair with complaints of kdr Breathing Difficulty. 15:57 The patient has shortness of breath at rest, with light activity. Onset: The kdr symptoms/episode began/occurred gradually, 4 day(s) ago. Duration: The symptoms are continuous, and are steadily getting worse. The patient's shortness of breath is aggravated by exertion, light activity, talking, walking, is alleviated by nothing. Associated signs and symptoms: Pertinent positives: nausea, Pertinent negatives: chest pain, non-productive cough, productive cough, diaphoresis, dizziness, fever, hemoptysis, loss of consciousness, numbness in extremities, visual changes, vomiting. Severity of symptoms: At their worst the symptoms were severe incapacitating in the emergency department the symptoms are unchanged. It is unknown whether or not the patient has had similar symptoms in the past. The patient has experienced similar episodes in the past, a few times. The patient has been recently seen by a physician:. The patient has been increasingly SOB the lats few days. Family noted PO at home last night of 85% on a couple of liters of oxygen. Today she seemed more SOB and so the family brought her to the ED. Historical: - Allergies: 12:40 PENICILLINS; aa5 12:40 CEPHALOSPORINS; aa5 12:40 sulfamethoxazole (bulk); aa5 12:40 Trimethoprim; aa5 - Home Meds: 12:59 levothyroxine 125 mcg tab 1 tab once daily [Active]; gabapentin 600 mg oral tab 1 tab 3 iw times per day [Active]; lisinopril-hydrochlorothiazide 10-12.5 mg oral tab 1 tab once daily [Active]; Nexium 20 mg Oral cpDR 1 cap once daily [Active]; simvastatin 40 mg Oral tab 1 tab once daily [Active]; acyclovir 200 mg Oral cap daily [Active]; trelegy ellipta inhaler [Active]; montelukast 10 mg oral tab 1 tab once daily [Active]; tramadol 50 mg Oral tab 1 tab as needed [Active]; ProAir HFA inhalation inhalation 1 puff every 4-6 hours [Active]; Albuterol Inhl as needed [Active]; clindamycin HCl 300 mg Oral cap 2 times per day [Active]; calcium [Active]; - PMHx: 12:40 COPD; Hypertension; aa5 - Immunization history:: Flu vaccine is up to date. - Social history:: Smoking status: Patient denies any tobacco usage or history of. ROS: 15:57 Constitutional: Negative for fever, chills, and weight loss, Eyes: Negative for injury, kdr pain, redness, and discharge, ENT: Negative for injury, pain, and discharge, Neck: Negative for injury, pain, and swelling, Cardiovascular: Negative for chest pain, palpitations, and edema, Abdomen/GI: Negative for abdominal pain, nausea, vomiting, diarrhea, and constipation, Back: Negative for injury and pain, : Negative for injury, bleeding, discharge, and swelling, MS/Extremity: Negative for injury and deformity, Skin: Negative for injury, rash, and discoloration, Neuro: Negative for headache, weakness, numbness, tingling, and seizure activity. Psych: Negative for depression, anxiety, suicide ideation, homicidal ideation, and hallucinations, Allergy/Immunology: Negative for hives, rash, and allergies, Endocrine: Negative for neck swelling, polydipsia, polyuria, polyphagia, and marked weight changes, Hematologic/Lymphatic: Negative for swollen nodes, abnormal bleeding, and unusual bruising. 15:57 Respiratory: Positive for shortness of breath, wheezing, Negative for dyspnea on exertion, hemoptysis, orthopnea, pleurisy, sputum production. Exam: 13:58 ECG was reviewed by the Attending Physician. kdr 16:09 Constitutional: This is a well developed, well nourished patient who is awake, alert, kdr and in moderate distress. Head/Face: Normocephalic, atraumatic. Eyes: Pupils equal round and reactive to light, extra-ocular motions intact. Lids and lashes normal. Conjunctiva and sclera are non-icteric and not injected. Cornea within normal limits. Periorbital areas with no swelling, redness, or edema. Neck: Trachea midline, no thyromegaly or masses palpated, and no cervical lymphadenopathy. Supple, full range of motion without nuchal rigidity, or vertebral point tenderness. No Meningismus. Chest/axilla: Normal chest wall appearance and motion. Nontender with no deformity. No lesions are appreciated. Cardiovascular: Regular rate and rhythm with a normal S1 and S2. No gallops, murmurs, or rubs. Normal PMI, no JVD. No pulse deficits. Abdomen/GI: Soft, non-tender, with normal bowel sounds. No distension or tympany. No guarding or rebound. No evidence of tenderness throughout. Back: No spinal tenderness. No costovertebral tenderness. Full range of motion. Skin: Warm, dry with normal turgor. Normal color with no rashes, no lesions, and no evidence of cellulitis. MS/ Extremity: Pulses equal, no cyanosis. Neurovascular intact. Full, normal range of motion. Neuro: Awake and alert, GCS 15, oriented to person, place, time, and situation. Cranial nerves II-XII grossly intact. Motor strength 5/5 in all extremities. Sensory grossly intact. Cerebellar exam normal. Normal gait. Psych: Awake, alert, with orientation to person, place and time. Behavior, mood, and affect are within normal limits. 16:09 Respiratory: moderate respiratory distress is noted, severe repiratory distress is noted, Respirations: labored breathing, that is mild, Breath sounds: rales, that are mild, are scattered. Vital Signs: 12:40 BP 97 / 46; Pulse 106; Resp 32; Temp 98.5; Pulse Ox 40% on 3 lpm NC; Weight 108.86 kg; aa5 Height 5 ft. 3 in. (160.02 cm); Pain 0/10; 13:14 BP 107 / 58; Pulse 93; Resp 24 S; Pulse Ox 97% on BiPAP; iw 15:48 BP 114 / 62; Pulse 81; Resp 20; Pulse Ox 95% on BiPAP; em 12:40 Body Mass Index 42.51 (108.86 kg, 160.02 cm) aa5 MDM: 14:33 Patient medically screened. kdr 16:10 Data reviewed: vital signs, nurses notes, lab test result(s), EKG, radiologic studies. kdr Counseling: I had a detailed discussion with the patient and/or guardian regarding: the historical points, exam findings, and any diagnostic results supporting the discharge/admit diagnosis, lab results, radiology results, the need for further work-up and treatment in the hospital. 09/16 12:33 Order name: Basic Metabolic Panel; Complete Time: 13:39 [facility] 09/16 12:33 Order name: CBC with Diff; Complete Time: 13:39 kdr 09/16 12:33 Order name: LFT's; Complete Time: 13:39 kdr 09/16 12:33 Order name: Magnesium; Complete Time: 13:39 kdr 09/16 12:33 Order name: NT PRO-BNP; Complete Time: 13:39 kdr 09/16 12:33 Order name: PT-INR; Complete Time: 13:39 kdr 09/16 12:33 Order name: Troponin (emerg Dept Use Only); Complete Time: 13:39 [facility] 09/16 12:49 Order name: Amylase, Serum 09/16 12:49 Order name: Blood Culture Adult (2) 09/16 12:49 Order name: Ckmb 09/16 12:49 Order name: CPK 09/16 12:49 Order name: Lactate; Complete Time: 13:39 09/16 12:49 Order name: Lipase 09/16 12:49 Order name: Procalcitonin; Complete Time: 13:39 09/16 12:33 Order name: XRAY Chest (1 view); Complete Time: 13:39 [facility] 09/16 12:49 Order name: Ptt, Activated 09/16 12:49 Order name: Urine Microscopic Only 09/16 12:54 Order name: COVID-19 09/16 12:54 Order name: Flu 09/16 12:54 Order name: Influenza Screen (A ; Complete Time: 14:16 [facility] 09/16 14:16 Order name: SARS-COV-2 RT PCR; Complete Time: 14:24 [facility] 09/16 16:20 Order name: C-Reactive Protein [facility] 09/16 16:20 Order name: Ferritin [facility] 09/16 16:20 Order name: Lactate [facility] 09/16 16:20 Order name: Protime (+INR) [facility] 09/16 16:20 Order name: PTT, Activated Partial Thromb [facility] 09/16 17:35 Order name: Lactate Sepsis 2 HR Follow-up [facility] 09/16 12:33 Order name: EKG; Complete Time: 12:34 [facility] 09/16 12:33 Order name: Cardiac monitoring; Complete Time: 13:36 kdr 09/16 12:33 Order name: EKG - Nurse/Tech; Complete Time: 13:24 kdr 09/16 12:33 Order name: IV Saline Lock; Complete Time: 13:36 kdr 09/16 12:33 Order name: Labs collected and sent; Complete Time: 13:36 kdr 09/16 12:33 Order name: O2 Per Protocol; Complete Time: 14:01 kdr 09/16 12:33 Order name: O2 Sat Monitoring; Complete Time: 14: kdr 09/16 12:35 Order name: EKG Electrocardiogram EDMS 09/16 12:49 Order name: Accucheck; Complete Time: 14:00 iw 09/16 12:49 Order name: IV Saline Lock - Large Bore; Complete Time: 12:53 iw 09/16 16:20 Order name: Respiratory Therapy Consult EDMS EC:58 Rate is 94 beats/min. Rhythm is regular, Normal Sinus Rhythm with No ectopy. QRS [place] kdr is Normal. MS interval is normal. QRS interval is normal. QT interval is normal. No Q waves. Clinical impression: NSR w/ Non-specific ST/T Changes. Administered Medications: 13:30 Drug: LevaQUIN 750 mg Volume: 150 ml; Route: IVPB; Infused Over: 90 mins; Site: left iw antecubital; 13:36 Drug: NS 0.9% (30 ml/kg) 30 ml/kg Route: IV; Rate: bolus; Site: left antecubital; iw 14:00 Drug: Aspirin Chewable Tablet 324 mg Route: PO; iw 15:00 Follow up: Response: No adverse reaction iw Disposition: 09/16/20 14:33 Hospitalization ordered by Lonnie Lux for Inpatient Admission. Preliminary diagnosis are Shortness of breath, Pneumonia, unspecified organism, Coronavirus infection, unspecified, Chronic systolic (congestive) heart failure, Non-ST elevation (NSTEMI) myocardial infarction. - Bed requested for Intensive Care Unit. - Status is Inpatient Admission. iw - Condition is Fair. - Problem is new. - Symptoms have improved. Signatures: Dispatcher [employer] [facility] Aleah Rush RN RN Steve Costa MD MD [facility] Amalia Vela RN RN Ocampo, Sylwia, RN RN aa5 Corrections: (The following items were deleted from the chart) 13:31 12:54 CORONAVIRUS ordered. [facility] EDMS 15:55 14:33 Hospitalization Ordered by Lonnie Lux DO for Inpatient Admission. Preliminary kdr diagnosis is Shortness of breath; Pneumonia, unspecified organism; Coronavirus infection, unspecified; Chronic systolic (congestive) heart failure. Bed requested for Telemetry/MedSurg (Inpatient). Status is Inpatient Admission. Condition is Fair. Problem is new. Symptoms have improved. kdr 16:19 13:32 BiPap ([employer] Only)+[id number] ordered. [facility] EDMS 16:31 15:55 09/16/2020 14:33 Hospitalization Ordered by Lonnie Lux DO for Inpatient iw Admission. Preliminary diagnosis is Shortness of breath; Pneumonia, unspecified organism; Coronavirus infection, unspecified; Chronic systolic (congestive) heart failure; Non-ST elevation (NSTEMI) myocardial infarction. Bed requested for Telemetry/MedSurg (Inpatient). Status is Inpatient Admission. Condition is Fair. Problem is new. Symptoms have improved. kdr 16:35 16:20 Blood Culture ordered. [facility] EDMS 17:43 16:31 09/16/2020 14:33 Hospitalization Ordered by Lonnie Lux DO for Inpatient dw Admission. Preliminary diagnosis is Shortness of breath; Pneumonia, unspecified organism; Coronavirus infection, unspecified; Chronic systolic (congestive) heart failure; Non-ST elevation (NSTEMI) myocardial infarction. Bed requested for [facility] ER HOLD. Status is Inpatient Admission. Condition is Fair. Problem is new. Symptoms have improved. iw 18:42 17:43 09/16/2020 14:33 Hospitalization Ordered by Lonnie Lux DO for Inpatient iw Admission. Preliminary diagnosis is Shortness of breath; Pneumonia, unspecified organism; Coronavirus infection, unspecified; Chronic systolic (congestive) heart failure; Non-ST elevation (NSTEMI) myocardial infarction. Bed requested for Intensive Care Unit. Status is Inpatient Admission. Condition is Fair. Problem is new. Symptoms have improved. dw
--- NOTE | 2020-09-16 14:34 | ER ---
Nurse's Notes [facility] Name: Lena Lucio Age: 74 yrs Sex: Female : 1945 Arrival Date: 09/16/2020 Time: 11:50 Bed 3 Private MD: Parish Lopez Diagnosis: Shortness of breath;Pneumonia, unspecified organism;Coronavirus infection, unspecified;Chronic systolic (congestive) heart failure;Non-ST elevation (NSTEMI) myocardial infarction Presentation: 09/16 12:40 Chief complaint: Patient states: SOB with any exertion for 4-5 days. Wearing home O2 aa5 constant now. Fever 102 once yesterday, none since. Coronavirus screen: Client denies travel out of the [place] in the last 14 days. difficulty breathing, shortness of breath, Client presents with at least one sign or symptom that may indicate coronavirus-19. Standard/surgical mask placed on the client. Ebola Screen: Patient denies travel to an Ebola-affected area in the 21 days before illness onset. Initial Sepsis Screen: Does the patient meet any 2 criteria? RR > 20 per min. HR > 90 bpm. Yes Does the patient have a suspected source of infection? Yes: Productive cough/pneumonia. Risk Assessment: Do you want to hurt yourself or someone else? Patient reports no desire to harm self or others. Onset of symptoms was September 11, 2020. 12:40 Method Of Arrival: Wheelchair aa5 12:40 Acuity: BILLY 2 aa5 Triage Assessment: 12:40 General: Appears distressed, Behavior is cooperative, anxious. Respiratory: Onset: The iw symptoms/episode began/occurred 4-5 days , the patient has severe shortness of breath. Historical: - Allergies: 12:40 PENICILLINS; aa5 12:40 CEPHALOSPORINS; aa5 12:40 sulfamethoxazole (bulk); aa5 12:40 Trimethoprim; aa5 - Home Meds: 12:59 levothyroxine 125 mcg tab 1 tab once daily [Active]; gabapentin 600 mg oral tab 1 tab 3 iw times per day [Active]; lisinopril-hydrochlorothiazide 10-12.5 mg oral tab 1 tab once daily [Active]; Nexium 20 mg Oral cpDR 1 cap once daily [Active]; simvastatin 40 mg Oral tab 1 tab once daily [Active]; acyclovir 200 mg Oral cap daily [Active]; trelegy ellipta inhaler [Active]; montelukast 10 mg oral tab 1 tab once daily [Active]; tramadol 50 mg Oral tab 1 tab as needed [Active]; ProAir HFA inhalation inhalation 1 puff every 4-6 hours [Active]; Albuterol Inhl as needed [Active]; clindamycin HCl 300 mg Oral cap 2 times per day [Active]; calcium [Active]; - PMHx: 12:40 COPD; Hypertension; aa5 - Immunization history:: Flu vaccine is up to date. - Social history:: Smoking status: Patient denies any tobacco usage or history of. Screenin:15 Abuse screen: Denies threats or abuse. Denies injuries from another. Nutritional iw screening: No deficits noted. Tuberculosis screening: No symptoms or risk factors identified. Assessment: 12:40 Reassessment: RT called to bedside to set up for BiPAP. iw 12:45 Cardiovascular: Rhythm is sinus tachycardia. Respiratory: Airway is patent Respiratory iw effort is labored, Breath sounds are diminished bilaterally. 13:14 Reassessment: symptoms improving, SpO2 up to 97% on BiPAP. iw 14:02 Reassessment: Patient appears in no apparent distress at this time. Patient and/or iw family updated on plan of care and expected duration. Pain level reassessed. Patient is alert, oriented x 3, equal unlabored respirations, skin warm/dry/pink. pt remains on BiPAP. family at bedside. 17:44 Reassessment: pt moved to recliner chair , per pt request, pt states she feels more iw comfortable sitting up in chair , VSS. SpO2 remains 95% on BiPAP. Vital Signs: 12:40 BP 97 / 46; Pulse 106; Resp 32; Temp 98.5; Pulse Ox 40% on 3 lpm NC; Weight 108.86 kg; aa5 Height 5 ft. 3 in. (160.02 cm); Pain 0/10; 13:14 BP 107 / 58; Pulse 93; Resp 24 S; Pulse Ox 97% on BiPAP; iw 15:48 BP 114 / 62; Pulse 81; Resp 20; Pulse Ox 95% on BiPAP; em 12:40 Body Mass Index 42.51 (108.86 kg, 160.02 cm) aa5 ED Course: 11:50 Patient arrived in ED. ag5 11:51 Parish Lopez MD is Private Physician. ag5 11:55 Steve Costa MD is Attending Physician. kdr 12:36 Amalia Vela, RN is Primary Nurse. iw 12:39 Arm band placed on Patient placed in an exam room, on a stretcher. aa5 12:42 Triage completed. aa5 12:42 Initial lab(s) drawn, by mt, sent to lab. Inserted saline lock: 20 gauge in left iw antecubital area, using aseptic technique. Blood collected. 12:50 Patient has correct armband on for positive identification. Placed in gown. Cardiac iw monitor on. Pulse ox on. NIBP on. 12:58 XRAY Chest (1 view) In Process Unspecified. EDMS 13:24 EKG done, by ED staff, reviewed by Steve Costa MD. em1 14:30 Lonnie Lux DO is Hospitalizing Provider. kdr 15:42 initiated transfer to [facility]. bd 16:02 pt denied at [facility] due to lack of capacity in ICU or IMU, per Neha. bd 17:47 No provider procedures requiring assistance completed. Patient admitted, IV remains in iw place. Administered Medications: 13:30 Drug: LevaQUIN 750 mg Volume: 150 ml; Route: IVPB; Infused Over: 90 mins; Site: left iw antecubital; 13:36 Drug: NS 0.9% (30 ml/kg) 30 ml/kg Route: IV; Rate: bolus; Site: left antecubital; iw 14:00 Drug: Aspirin Chewable Tablet 324 mg Route: PO; iw 15:00 Follow up: Response: No adverse reaction iw Outcome: 14:33 Decision to Hospitalize by Provider. kdr 18:41 Admitted to ICU accompanied by tech, via wheelchair, with oxygen. iw 18:41 Condition: good 18:41 Discharge instructions given to patient, family, Instructed on the need for admit. 18:42 Patient left the ED. iw Signatures: Dispatcher [employer] EDMS Carla Stern bd Steve Costa MD MD [facility] Leif Nagel, RN RN em Amalia Vela RN RN iw Dave Dorman em1 Sylwia Ocampo RN RN aa5 Jonathan Downing ag5
[2020-09-16 15:51] LABS: CKMB Creatine Kinase MB 13.2 ng/mL (0.3-3.6)
[2020-09-16] MEDS: OSELTAMIVIR PHOSPHATE 30 MG/5 ML SUSPENSION UD PO SCH (16:18)
[2020-09-16] MEDS: METHYLPREDNISOLONE 125 MG INJ IV SCH ×2 (16:18→21:07)
--- NOTE | 2020-09-16 16:25 | P.HP ---
Certification for Inpatient Patient admitted to: Inpatient With expected LOS: >2 Midnights Patient will require the following post-hospital care: None Practitioner: I am a practitioner with admitting privileges, knowledge of patient current condition, hospital course, and medical plan of care. Services: Services provided to patient in accordance with Admission requirements found in Title 42 Section 412.3 of the Code of Federal Regulations Patient History Date of Service: 09/16/20 Primary Care Provider: Dr. Lopez; Pulmonary-Dr. Cristobal; Cardiology-Dr. Westbrook Reason for admission: Shortness of breath History of Present Illness: 74-year-old female with history of hypothyroidism, hypertension, GERD, hyperlipidemia, shingles, COPD. Patient presented to the emergency room with increasing shortness of breath. She also reported cough. Shortness of breath had been present for several days in got worse today. Patient mentions that she has had a fever. No significant chest pain noted. No nausea, vomiting, diarrhea or constipation. Patient came to the ER for further evaluation and treatment. Patient was found to be hypoxic. In the ER patient was evaluated. Patient found to be slightly hypotensive. Fluid bolus given. Patient was found to be positive for influenza B and COVID 19. Chest x-ray shows COVID pattern. Lab significant for elevated BNP above 4000. Troponin 0.68. Lactic acid 3.6. Pro calcitonin 0.17. White count 9.5, hemoglobin 13. Platelet count 300. Sodium 133, potassium 4.8. BUN of 42, creatinine 2.14 with a GFR of 23. Glucose 153. As mentioned above patient given fluid bolus. Patient also started on Levaquin. Patient required BiPAP in the emergency room. Patient admitted for further evaluation and treatment. Prior to admission transfer to [facility] for continuity as the majority of her specialists are there. No beds available. Patient admitted to the hospital. When I saw the patient ER, patient appeared stable on BiPAP. Blood pressure 109 systolic. Patient appears stable. Family at bedside.. Allergies Cephalosporins Allergy (Verified 04/15/19 16:48) GI upset, diarrhea Penicillins Allergy (Verified 04/15/19 16:48) facial swelling, shortness of breath, itching sulfamethoxazole [From Bactrim] Allergy (Verified 04/15/19 16:48) swelling, itching trimethoprim [From Bactrim] Allergy (Verified 04/15/19 16:48) swelling, itching Home medications list reviewed: Yes Home Medications: Acyclovir [Zovirax] 200 mg PO BID 11/15/15 Albuterol Sulfate [Proair Hfa] 8.5 gm IH PRN PRN 11/15/15 Aspirin [Aspirin EC] 81 mg PO SEECOM 11/15/15 Calcium Carbonate/Vitamin D3 [Calcium 600 + D Tablet] 1 each PO BID 11/15/15 Cranberry Fruit Extract [Cranberry] 405 mg PO DAILY 11/15/15 Gabapentin [Gralise] 1,200 mg PO BID 11/15/15 Lisinopril/Hydrochlorothiazide [Zestoretic 20-25 mg Tablet] 1 each PO DAILY 11/15/15 Multivit-Min/Iron/Folic/Lutein [Centrum Silver Women Tablet] 1 each PO DAILY 11/15/15 Vit C/E/Zn/Coppr/Lutein/Zeaxan [Preservision Areds 2 Softgel] 1 each PO BID Zolpidem Tartrate [Ambien Cr] 6.25 mg PO BEDTIME 11/15/15 Albuterol Sulfate 1.25 mg IH Q6H 04/15/19 B-Complex with Vitamin C [Super B Complex-Vitamin C] 1 each PO DAILY 04/15/19 Cholecalciferol (Vitamin D3) [Vitamin D 5,000 Iu Cap] 5,000 unit PO DAILY 04/15/19 Cyanocobalamin (Vitamin B-12) [Vitamin B12] 2,500 mcg PO DAILY 04/15/19 D-Mannose 500 mg PO BID 04/15/19 Esomeprazole Magnesium [Nexium] 20 mg PO DAILY 04/15/19 Fluticasone/Umeclidin/Vilanter [Trelegy Ellipta 100-62.5-25] 1 each IH DAILY 04/15/19 Levothyroxine [Synthroid] 125 mcg PO [id number] 04/15/19 Magnesium Oxide [Magnesium] 500 mg PO BID 04/15/19 Simvastatin 40 mg PO DAILY 04/15/19 Sodium Chloride/Sodium Bicarb [Neilmed Sinus Rinse Kit Refill] 1 each NS PRN PRN 04/15/19 Tramadol HCl [Ultram] 50 mg PO PRN PRN 04/15/19 - Past Medical/Surgical History Diabetic: No -: Hypertension -: GERD -: Hypothyroidism -: COPD -: Chronic shingles -: Vocal cord nodule -: Patient has had lung spot removed to the right upper lung -: Bilateral knee replacements -: Removal of nodule to the vocal cord Psychosocial/ Personal History: Patient is a - Family History Family History: Reviewed- Non-Contributory - Social History Smoking Status: Unknown if ever smoked Alcohol use: No CD- Drugs: No Caffeine use: No Place of Residence: Home Review of Systems General: Fever, Chills, As per HPI Eyes: Unremarkable ENT: Nose Congestion, As per HPI Respiratory: Cough, Shortness of Breath, SOB with Excertion, As per HPI Cardiovascular: Unremarkable Gastrointestinal: Unremarkable Genitourinary: Unremarkable Musculoskeletal: Unremarkable Integumentary: Unremarkable Neurological: Unremarkable Lymphatics: Unremarkable Physical Examination - Physical Exam General: Alert, Oriented x3, Cooperative, Other (Patient on BiPAP. Patient appears stable) HEENT: Atraumatic, Other (Dry mucous membranes) Neck: Supple Respiratory: Expiratory wheezes (Bilateral) Cardiovascular: Normal pulses, Regular rate/rhythm Gastrointestinal: Normal bowel sounds, No tenderness, No masses, No rebound, No guarding Musculoskeletal: No erythema, No tenderness, No warmth Integumentary: No tenderness/swelling, No erythema, No warmth, No cyanosis Neurological: Normal speech, Normal strength at 5/5 x4 extr, Normal tone, Normal affect - Studies Laboratory Data (last 24 hrs) 09/16/20 12:50: APTT 28.0 09/16/20 12:50: PT 14.6 H, INR 1.24 09/16/20 12:50: WBC 9.5, Hgb 13.3, Hct 39.1, Plt Count 300 09/16/20 12:50: Sodium 133 L, Potassium 4.8, BUN 42 H, Creatinine 2.14 H, Glucose 153 H, Magnesium 2.8 H, Total Bilirubin 0.7, AST 132 H, ALT 76, Alkaline Phosphatase 67 09/16/20 12:49: Amylase 33, Lipase 131 Microbiology Data (last 24 hrs): 09/16/20 13:05 Nasopharnyx Influenza Type A Antigen Screen - Final 09/16/20 13:05 Nasopharnyx Influenza Type B Antigen Screen - Final Assessment and Plan - Plan Impression: Dyspnea secondary to acute respiratory failure related to Bilateral COVID19 pneumonia/Influenza B NSTEMI, suspect CAD Acute renal failure secondary to above Hypothyroidism Hyperlipidemia GERD History of chronic shingles History of vocal cord nodules Plan: Dyspnea secondary to acute respiratory failure related to Bilateral COVID19 pneumonia/Influenza B: Patient will be admitted to the hospital. Transfer was tried to [facility] as most of her specialists are there. No beds available. Patient given IV fluid bolus. Will provide another bolus of fluids. Will discuss with nephrology. Will try to keep the patient on the dry side due to her COVID. Patient given Levaquin in the emergency room. Will continue with IV Levaquin. Start Tamiflu. Will also start IV Solu-Medrol. Case discussed with pulmonology. Continue BiPAP in wean. Will continue monitor the patient closely. May need to give boluses of 250 cc if blood pressure drops. Case discussed with cardiology. Will start heparin drip, pharmacy to monitor and adjust. No need for intervention at this time due to her pneumonia. Will order echocardiogram to further evaluate. Case discussed with her PCP-Dr. Lopez. Continue with plan of care. Advanced care planning addressed-30 min. Patient is full code. I will turn the service over to the hospitalist team tomorrow. I will go plan of care with him. NSTEMI, suspect CAD: Case discussed with cardiology. Will start heparin drip. Pharmacy to monitor and adjust. Start aspirin and Lipitor. Will hold off on blood pressure medication due to hypotension related to dehydration. Once elevated will start beta-amol therapy. Acute renal failure secondary to above: Suspect dehydration. Patient given IV fluid bolus 1 L. Will give another 250 bolus. Patient does not appear septic at this time even though lactic acid elevated. This is likely from all above. Will monitor labs closely. As mentioned above will try to keep the patient on the dry side. Will consult nephrology for further recommendation. Hypothyroidism: Restart home medication. Hyperlipidemia: Restart home medication. GERD: Restart medication. History of chronic shingles: Will hold off on acyclovir since the patient will be on antiviral. History of vocal cord nodules: This was recently evaluated at [facility]. Patient to have surgery in the future for this. Discharge Plan: Home Plan to discharge in: Greater than 2 days - Advance Directives Does patient have a Living Will: Yes Does patient have a Durable POA for Healthcare: Yes - Code Status/Comfort Care Code Status Assessed: Yes (Patient is full code) Time Spent Managing Pts Care (In Minutes): 60
[2020-09-16] MEDS ORDERED: ONDANSETRON 4 MG/2 ML VIAL IV PRN (17:12)
[2020-09-16] MEDS ORDERED: ALBUTEROL 2.5 MG/3 ML NEB SOL NEB PRN (17:12)
[2020-09-16 17:26] LABS: Protime INR 1.32
[2020-09-16 18:13] LABS: C-Reactive Protein 63.4 mg/L (<3.00); Ferritin 1650.8 ng/mL (8-388)
[2020-09-16] MEDS ORDERED: METHYLPREDNISOLONE 125 MG INJ ONE (18:23)
[2020-09-16] MEDS ORDERED: OSELTAMIVIR PHOSPHATE 30 MG/5 ML SUSPENSION UD ONE (18:23)
[2020-09-16] MEDS: ARFORMOTEROL TARTRATE 15 MCG/2 ML VIAL.NEB NEB SCH (19:15)
[2020-09-16] MEDS ORDERED: ATORVASTATIN 20 MG TAB PO SCH (21:00)
[2020-09-16] MEDS: ASCORBIC ACID 500 MG TABLET PO SCH (21:08)
[2020-09-16 22:20] LABS: CKMB Creatine Kinase MB 19.6 ng/mL (0.3-3.6); Troponin I 0.52 ng/mL (0.0-0.045)
[2020-09-17 05:56] LABS: Absolute Lymphocytes (CBC) 0.8 K/uL (0.7-4.9); Basophils % 0.2 % (0-1.3); Hematocrit 36.4 % (36.0-45.0); Lymphocytes % 13.1 % (15.3-44.8); MPV 7.5 fL (7.6-11.3); RBC Red Blood Cell Count 3.95 M/uL (3.86-4.86)
[2020-09-17] MEDS: LEVOTHYROXINE SOD 0.125 MG TAB PO SCH (06:12)
[2020-09-17 06:33] LABS: Albumin 2.9 g/dL (3.4-5.0); Bilirubin Total 0.5 mg/dL (0.2-1.0); C-Reactive Protein 63.4 mg/L (<3.00); CKMB Creatine Kinase MB 20.4 ng/mL (0.3-3.6); Ferritin 1118.6 ng/mL (8-388); Magnesium 2.5 mg/dL (1.8-2.4); Potassium 4.6 mmol/L (3.5-5.1); Protein, Total 7.3 g/dL (6.4-8.2); Thyroid Stimulating Hormone 0.15 uIU/mL (0.360-3.740); Troponin I 0.42 ng/mL (0.0-0.045)
[2020-09-17] MEDS: IPRATROPIUM BROM 0.5MG/2.5ML NEB PRN ×2 (07:55→20:30)
[2020-09-17] MEDS: ARFORMOTEROL TARTRATE 15 MCG/2 ML VIAL.NEB NEB SCH ×2 (07:55→20:30)
[2020-09-17] MEDS: METHYLPREDNISOLONE 125 MG INJ IV SCH ×3 (09:00→21:41)
--- NOTE | 2020-09-17 09:57 | P.PN ---
Subjective Date of Service: 09/17/20 Primary Care Provider: Dr. Lopez; Pulmonary-Dr. Cristobal; Cardiology-Dr. Westbrook Chief Complaint: Shortness of breath Subjective: No new changes (patient feels a little better this morning. BIPAP overnight. On HFNC this morning, SpO2: ~85% while talking) Review of Systems 10-point ROS is otherwise unremarkable Physical Examination - Vital Signs Temperature: 96.9 F Blood Pressure: 97/46 Pulse: 69 Respirations: 18 Pulse Ox (%): 92 - Physical Exam General: Alert, In no apparent distress HEENT: Sclerae nonicteric Respiratory: Other (mildly labored on HFNC) Cardiovascular: No edema, Regular rate/rhythm Gastrointestinal: Soft and benign, No tenderness Musculoskeletal: No tenderness Neurological: Normal speech, Normal affect - Studies Laboratory Data (last 24 hrs) 09/16/20 12:50: APTT 28.0 09/16/20 12:50: PT 14.6 H, INR 1.24 09/16/20 12:50: WBC 9.5, Hgb 13.3, Hct 39.1, Plt Count 300 09/16/20 12:50: Sodium 133 L, Potassium 4.8, BUN 42 H, Creatinine 2.14 H, Glucose 153 H, Magnesium 2.8 H, Total Bilirubin 0.7, AST 132 H, ALT 76, Alkaline Phosphatase 67 09/16/20 12:49: Amylase 33, Lipase 131 Microbiology Data (last 24 hrs): 09/16/20 13:05 Nasopharnyx Influenza Type A Antigen Screen - Final 09/16/20 13:05 Nasopharnyx Influenza Type B Antigen Screen - Final Assessment & Plan Physician Review Additional Text: Dyspnea secondary to acute respiratory failure related to Bilateral COVID19 pneumonia/Influenza B NSTEMI, suspect CAD Acute renal failure secondary to above Hypothyroidism Hyperlipidemia GERD History of chronic shingles History of vocal cord nodules Plan: Dyspnea secondary to acute respiratory failure related to Bilateral COVID19 pneumonia/Influenza B: -continue IV Levaquin, Tamiflu -CRP same as yesterday, pt requiring HFNC/BIPAP, will increase Solumedrol 60 -> 80 TID -on HFNC, may need BIPAP if SpO2 continues to stay low / drop. Pulmonology following -trend CRP/ferritin NSTEMI, suspect CAD: Case discussed with cardiology. aspirin, lipitor echo ordered start lovenox hold off on BB for now, pt with hypotension - improved, but still remains, will start once BP improves Acute renal failure secondary to above: Nephrology consulted, seem prerenal - due to dehydration, improved significantly after IVF bolus yesterday. Received 1250 ml. Hypothyroidism, HLD, GERD, Chronic Shingles, h/o vocal cord nodules: appear stable, restart home meds once confirmed. Dispo: anticipate hospitalization > 2 days Time Spent Managing Pts Care (In Minutes): 40
[2020-09-17] MEDS: VITAMIN D 1000 UNIT TAB PO SCH (10:56)
[2020-09-17] MEDS: ASPIRIN EC 81 MG TAB PO SCH (10:57)
[2020-09-17] MEDS: FOLIC ACID 1 MG TABLET PO SCH (10:57)
[2020-09-17] MEDS: ENOXAPARIN 100 MG/ML SYR SQ SCH ×2 (10:57→21:40)
[2020-09-17] MEDS: ASCORBIC ACID 500 MG TABLET PO SCH ×3 (10:57→21:40)
[2020-09-17] MEDS: THIAMINE HCL 100 MG TABLET PO SCH (10:57)
[2020-09-17] MEDS ORDERED: METHYLPREDNISOLONE 40 MG INJ ONE (11:14)
--- NOTE | 2020-09-17 11:58 | P.CNS ---
Date of Consult: 09/17/20 Primary Care Provider: Dr. Lopez; Pulmonary-Dr. Cristobal; Cardiology-Dr. Westbrook Chief Complaint: Respiratory failure from parnell virus History of Present Illness: Patient is 74 years of age with history of hypothyroidism hypertension COPD presents with increasing shortness of breath he is parnell virus pneumonia initially found to be hypotensive evidence of some rhabdomyolysis elevated troponins she is still requiring high concentrations of oxygen alert responsive cooperative Allergies Cephalosporins Allergy (Verified 04/15/19 16:48) GI upset, diarrhea Penicillins Allergy (Verified 04/15/19 16:48) facial swelling, shortness of breath, itching sulfamethoxazole [From Bactrim] Allergy (Verified 04/15/19 16:48) swelling, itching trimethoprim [From Bactrim] Allergy (Verified 04/15/19 16:48) swelling, itching Home Medications: Acyclovir [Zovirax] 200 mg PO BEDTIME 09/17/20 Aspirin 81 mg PO DAILY 09/17/20 Calcium Carbonate/Vitamin D3 [Calcium 500 + Vit D 400 Tablet] 1 tab PO BID 09/17/20 Esomeprazole Mag Trihydrate [Nexium] 20 mg PO DAILY 09/17/20 Fluticasone/Umeclidin/Vilanter [Trelegy Ellipta 200-62.5-25] 1 puff IH DAILY 09/17/20 Gabapentin [Neurontin] 2 tab PO DAILY 09/17/20 Gabapentin [Neurontin] 3 tab PO BEDTIME 09/17/20 Levothyroxine [Synthroid] 125 mcg PO [id number] 09/17/20 Lisinopril/Hydrochlorothiazide [Lisinopril-Hctz 10-12.5 mg Tab] 1 each PO BEDTIME 09/17/20 Montelukast Sodium [Singulair] 10 mg PO BEDTIME 09/17/20 Simvastatin 40 mg PO BEDTIME 09/17/20 - Past Medical/Surgical History Diabetic: No -: Hypertension -: GERD -: Hypothyroidism -: COPD -: Chronic shingles -: Vocal cord nodule -: Patient has had lung spot removed to the right upper lung -: Bilateral knee replacements -: Removal of nodule to the vocal cord Psychosocial/ Personal History: Patient is a - Social History Alcohol use: No CD- Drugs: No Caffeine use: Yes Place of Residence: Home Review of Systems General: Weakness Respiratory: Cough, Shortness of Breath Physical Examination Temp Pulse Resp BP Pulse Ox 96.9 F 84 23 H 105/60 82 L 09/17/20 10:07 09/17/20 11:00 09/17/20 11:00 09/17/20 11:00 09/17/20 11:00 General: Alert, Moderate distress Respiratory: Expiratory wheezes Cardiovascular: No edema, Normal S1 S2 Laboratory Data (last 24 hrs) 09/16/20 12:50: APTT 28.0 09/16/20 12:50: PT 14.6 H, INR 1.24 09/16/20 12:50: WBC 9.5, Hgb 13.3, Hct 39.1, Plt Count 300 09/16/20 12:50: Sodium 133 L, Potassium 4.8, BUN 42 H, Creatinine 2.14 H, Glucose 153 H, Magnesium 2.8 H, Total Bilirubin 0.7, AST 132 H, ALT 76, Alkaline Phosphatase 67 09/16/20 12:49: Amylase 33, Lipase 131 - Problems (1) Acute respiratory failure due to severe acute respiratory syndrome coronavirus 2 (SARS-CoV-2) infection Current Visit: Yes Status: Acute Plan: Patient is 74 years of age admitted with ammonia from parnell virus she is very hypoxic appears to have rhabdo waited troponin also positive for influenza B blood pressure is stable on high concentrations of oxygen patient also has COPD ferritin levels declining due to rhabdomyolysis on IV fluid
[2020-09-17] MEDS ORDERED: NACHLORIDE 0.45% 1,000 ML IV SCH (12:00)
[2020-09-17] MEDS ORDERED: Remdesivir 200 MG in NA CHLORIDE 0.9% 250 ML IV ONE (13:15)
--- NOTE | 2020-09-17 13:41 | P.CNS ---
Date of Consult: 09/17/20 Reason for Consult: VIDAL Primary Care Provider: Dr. Lopez; Pulmonary-Dr. Cristobal; Cardiology-Dr. Westbrook Chief Complaint: Respiratory failure from parnell virus History of Present Illness: 74-year-old female with history of hypothyroidism, hypertension, GERD, hyperlipidemia, shingles, COPD on Home O2 Patient presented to the emergency room with increasing shortness of breath with Cough BP was borderline Fluid bolus given. Patient was found to be positive for influenza B and COVID 19. 4000. Troponin 0.68. Lactic acid 3.6. Pro calcitonin 0.17. White count 9.5, hemoglobin 13. Platelet count 300. Sodium 133, potassium 4.8. BUN of 42, creatinine 2.14 Review of Systems: Head and Neck: No red eye. No ear pain. GI: No nausea, no vomiting. : No polyuria, no dysuria, no hematuria. Crowning Inspector: Not applicable. Respiratory: shortness of breath improved Cardiovascular: No chest pain. Endocrine: No polydipsia. Skin: No rash. Neuro: Has neuropathy. Musculoskeletal: No back pain . Physical exam general: AAOX3, NAD , obese on oxygen Neck; Supple, No elevated JVD hear: RRR, normal S1,2 no murmur or rub Chest: CTAB, no rales or wheezes Abdomen: Soft , Nt Extremities trace edema, VIDAL possibly due to dehydration and rhabdo resolved will cont IVF for now renal dos meds rhabdomyolysis will hold statin IVF fluid carfeully monitor for fluid stastus NSTEMI cardiology consulted elevated CPK possibly due to ehabdomyolysis COVID 19 pneumnoia starte don steroids and Remdesiver COPD cont O2 biPAP prn elevated LFT will hold lipitor Allergies Cephalosporins Allergy (Verified 04/15/19 16:48) GI upset, diarrhea Penicillins Allergy (Verified 04/15/19 16:48) facial swelling, shortness of breath, itching sulfamethoxazole [From Bactrim] Allergy (Verified 04/15/19 16:48) swelling, itching trimethoprim [From Bactrim] Allergy (Verified 04/15/19 16:48) swelling, itching Home Medications: Acyclovir [Zovirax] 200 mg PO BEDTIME 09/17/20 Aspirin 81 mg PO DAILY 09/17/20 Calcium Carbonate/Vitamin D3 [Calcium 500 + Vit D 400 Tablet] 1 tab PO BID 09/17/20 Esomeprazole Mag Trihydrate [Nexium] 20 mg PO DAILY 09/17/20 Fluticasone/Umeclidin/Vilanter [Trelegy Ellipta 200-62.5-25] 1 puff IH DAILY 09/17/20 Gabapentin [Neurontin] 2 tab PO DAILY 09/17/20 Gabapentin [Neurontin] 3 tab PO BEDTIME 09/17/20 Levothyroxine [Synthroid] 125 mcg PO [id number] 09/17/20 Lisinopril/Hydrochlorothiazide [Lisinopril-Hctz 10-12.5 mg Tab] 1 each PO BEDTIME 09/17/20 Montelukast Sodium [Singulair] 10 mg PO BEDTIME 09/17/20 Simvastatin 40 mg PO BEDTIME 09/17/20 - Past Medical/Surgical History Diabetic: No -: Hypertension -: GERD -: Hypothyroidism -: COPD -: Chronic shingles -: Vocal cord nodule -: Patient has had lung spot removed to the right upper lung -: Bilateral knee replacements -: Removal of nodule to the vocal cord Psychosocial/ Personal History: Patient is a - Social History Alcohol use: No CD- Drugs: No Caffeine use: Yes Place of Residence: Home Physical Examination Temp Pulse Resp BP Pulse Ox 96.9 F 84 23 H 105/60 82 L 09/17/20 10:07 09/17/20 11:00 09/17/20 11:00 09/17/20 11:00 09/17/20 11:00 Laboratory Data (last 24 hrs) 09/16/20 12:50: APTT 28.0 09/16/20 12:49: Amylase 33, Lipase 131
[2020-09-17] MEDS: OSELTAMIVIR PHOSPHATE 30 MG/5 ML SUSPENSION UD PO SCH (13:52)
[2020-09-17] MEDS: NA CHLORIDE 0.9% 1,000 ML IV SCH (14:39)
--- NOTE | 2020-09-17 18:57 | CON ---
Date of Consultation: 09/17/2020 Reason For Consultation: Elevated troponin. History Of Present Illness: A 74-year-old female was admitted with respiratory failure due to bilate ral pneumonia, COVID-19, and influenza B induced, admitted to ICU on high-pressure BiPAP and high-amber w oxygen. She found to have elevated troponin at 0.5 and hence, I was consulted. Patient is having some chest discomfort. She has shortness of breath and coughing. Past Medical History: Dyslipidemia, acid reflux, hypertension, hypothyroidism, COPD. Medication: Refer to reconciliation sheet for detailed list. Allergies: CEPHALOSPORIN, PENICILLIN, SULFA, AND TRIMETHOPRIM. Family History: No premature coronary artery disease or cancer. Social History: Does not smoke or drink. Does not use any drugs. Review of Systems: All systems were reviewed and they were negative except what mentioned in the HPI. Physical Examination: Vital Signs: Temperature is 97.2, pulse 82, breathing at 19, blood pressure 106/66, saturating 92%. General: This is an elderly female, in no apparent distress. Head and Neck: Pupils are equal, react to light. Intact eye movements. No JVD. No cervical lymphadenopathy. Neck: Supple. Thyroid is not enlarged. LUNGS: Decreased breathing sounds with rhonchi. Heart: Regular rate and rhythm. No extra sounds. Abdomen: Soft, nontender. Bowel sounds positive. No organomegaly. No masses or hernia. No rigidi ty or rebound. Extremities: No edema, clubbing, cyanosis. Intact pulses. SKIN: No rashes. Neurologic: Alert, awake, and oriented x3. No acute focal deficits appreciated. Investigations: Troponin peaked at 0.52 and it is coming down. Creatinine 1.02. CRP is 63. White blood cell count 6, hemoglobin 12.4. Assessment And Plan: Elevated troponin suggesting non-ST elevation myocardial infarction, likely thi s is demand ischemia. Recommend to obtain echocardiogram to evaluate for wall motion abnormality and once the patient is more stable, a nuclear stress test to further evaluate for the presence of a amber w-limiting coronary artery disease. Started on aspirin. Recommend anticoagulation with heparin or L ovenox, and oxygen therapy. Thank you for the consult. /IVORY Voice ID: [id number] Report ID: [id number]
[2020-09-17] MEDS ORDERED: ATORVASTATIN 20 MG TAB PO SCH (21:00)
[2020-09-17] MEDS: MELATONIN 5 MG TABLET PO SCH (21:00)
[2020-09-18] MEDS: NA CHLORIDE 0.9% 1,000 ML IV SCH ×3 (03:20→10:49)
[2020-09-18 05:26] LABS: Absolute Lymphocytes (CBC) 0.9 K/uL (0.7-4.9); Basophils % 0.1 % (0-1.3); Hematocrit 38.1 % (36.0-45.0); Lymphocytes % 8.4 % (15.3-44.8); MPV 7.5 fL (7.6-11.3); RBC Red Blood Cell Count 4.12 M/uL (3.86-4.86)
[2020-09-18] MEDS: LEVOTHYROXINE SOD 0.125 MG TAB PO SCH (05:29)
[2020-09-18 06:01] LABS: Albumin 2.8 g/dL (3.4-5.0); Bilirubin Total 0.5 mg/dL (0.2-1.0); C-Reactive Protein 32.5 mg/L (<3.00); Ferritin 829.4 ng/mL (8-388); Magnesium 2.7 mg/dL (1.8-2.4); Potassium 4.6 mmol/L (3.5-5.1); Protein, Total 7.2 g/dL (6.4-8.2)
--- NOTE | 2020-09-18 07:47 | RAD REPORT ---
EXAM DESCRIPTION: RAD - Chest Single View - 09/18/2020 7:08 am CLINICAL HISTORY: SOB, COVID COMPARISON: Portable September 16 TECHNIQUE: AP portable chest image was obtained 09/18/2020 7:08 am . FINDINGS: Bilateral interstitial and airspace opacities are present generally sparing the right uppe r lobe. Pattern is improved slightly but significant opacification remains. Heart and vasculature are normal. No measurable pleural effusion and no pneumothorax. No acute bony abnormality seen. No acute aortic findings suspected. IMPRESSION: Slight improvement in the bilateral airspace opacification since September 16.
[2020-09-18] MEDS: ARFORMOTEROL TARTRATE 15 MCG/2 ML VIAL.NEB NEB SCH ×2 (08:00→20:30)
[2020-09-18] MEDS: ASCORBIC ACID 500 MG TABLET PO SCH ×3 (09:00→20:08)
[2020-09-18] MEDS: FOLIC ACID 1 MG TABLET PO SCH (09:00)
[2020-09-18] MEDS: ENOXAPARIN 100 MG/ML SYR SQ SCH ×2 (09:36→20:08)
[2020-09-18] MEDS: Remdesivir 100 MG in NA CHLORIDE 0.9% 250 ML IV SCH (09:36)
[2020-09-18] MEDS: VITAMIN D 1000 UNIT TAB PO SCH (09:37)
[2020-09-18] MEDS: THIAMINE HCL 100 MG TABLET PO SCH (09:37)
[2020-09-18] MEDS: METHYLPREDNISOLONE 125 MG INJ IV SCH ×3 (09:37→20:08)
[2020-09-18] MEDS: ASPIRIN EC 81 MG TAB PO SCH (09:37)
[2020-09-18] MEDS: OSELTAMIVIR PHOSPHATE 30 MG/5 ML SUSPENSION UD PO SCH (10:19)
[2020-09-18] MEDS ORDERED: FUROSEMIDE 40 MG/4 ML VIAL IV ONE (10:49)
--- NOTE | 2020-09-18 10:51 | P.PN ---
Subjective Date of Service: 09/18/20 Primary Care Provider: Dr. Lopez; Pulmonary-Dr. Cristobal; Cardiology-Dr. Westbrook Chief Complaint: Respiratory failure from parnell virus Subjective: No new changes (reports feeling about same, on BIPAP since yesterday, reportedly unable to tolerate HFNC last night denies any new complaints, no n/v/d) Review of Systems 10-point ROS is otherwise unremarkable Physical Examination - Vital Signs Temperature: 97.4 F Blood Pressure: 147/79 Pulse: 95 Respirations: 25 Pulse Ox (%): 89 - Physical Exam General: Alert HEENT: Sclerae nonicteric Respiratory: Other (nonlabored, on BIPAP) Cardiovascular: No edema, Other (sinus tachycardia 90s) Gastrointestinal: Soft and benign, Non-distended, No tenderness Musculoskeletal: No tenderness Integumentary: No significant lesion Neurological: Normal speech, Normal affect Assessment & Plan Physician Review Additional Text: Dyspnea secondary to acute respiratory failure related to Bilateral COVID19 pneumonia/Influenza B NSTEMI, suspect CAD Acute renal failure secondary to above Hypothyroidism Hyperlipidemia GERD History of chronic shingles History of vocal cord nodules Plan: Dyspnea secondary to acute respiratory failure related to Bilateral COVID19 pneumonia/Influenza B: -continue IV Levaquin, Tamiflu -CRP & Ferritin improving, however she is still requiring BIPAP -CXR ordered for this morning -continue high dose solumedrol, started remdesevir yesterday -trend CRP/ferritin -pulmonology following NSTEMI, suspect CAD: Case discussed with cardiology. aspirin statin dc'd due to rhabdo echo ordered continue lovenox 1mg/kg BID BP improved, will start beta amol Acute renal failure secondary to above: Nephrology consulted, improved with IVF Hypothyroidism, HLD, GERD, Chronic Shingles, h/o vocal cord nodules: appear stable, restarted home meds Dispo: anticipate hospitalization > 2 days Time Spent Managing Pts Care (In Minutes): 35
--- NOTE | 2020-09-18 10:52 | P.PN ---
Subjective Date of Service: 09/18/20 Primary Care Provider: Dr. Lopez; Pulmonary-Dr. Cristobal; Cardiology-Dr. Westbrook Chief Complaint: Respiratory failure from parnell virus 74-year-old female with history of hypothyroidism, hypertension, GERD, hyperlipidemia, shingles, COPD on Home O2 Patient presented to the emergency room with increasing shortness of breath with Cough BP was borderline Fluid bolus given. Patient was found to be positive for influenza B and COVID 19. 4000. Troponin 0.68. Lactic acid 3.6. Pro calcitonin 0.17. White count 9.5, hemoglobin 13. Platelet count 300. Sodium 133, potassium 4.8. BUN of 42, creatinine 2.14 Today Started on BiPAP CXr reviewed CPK trending down , will reduce IVF rate lasix X1 Review of Systems: Head and Neck: No red eye. No ear pain. GI: No nausea, no vomiting. : No polyuria, no dysuria, no hematuria. Methods Examiner: Not applicable. Respiratory: shortness of breath improved Cardiovascular: No chest pain. Endocrine: No polydipsia. Skin: No rash. Neuro: Has neuropathy. Musculoskeletal: No back pain . Physical exam general: AAOX3, NAD , obese on oxygen Neck; Supple, No elevated JVD hear: RRR, normal S1,2 no murmur or rub Chest: CTAB, no rales or wheezes Abdomen: Soft , Nt Extremities trace edema, VIDAL possibly due to dehydration and rhabdo resolved will reduce IVF rate for now and consider to stop tomorrow if CPK <1000 renal dos meds rhabdomyolysis will hold statin will reduce IVF rate for now and consider to stop tomorrow if CPK <1000 carfeully monitor for fluid stastus NSTEMI cardiology consulted elevated CPK possibly due to ehabdomyolysis COVID 19 pneumnoia starte don steroids and Remdesiver COPD cont O2 biPAP prn elevated LFT will hold lipitor total time spent 35min Physical Examination - Vital Signs Temperature: 97.4 F Blood Pressure: 147/79 Pulse: 95 Respirations: 25 Pulse Ox (%): 89
[2020-09-18] MEDS ORDERED: Levofloxacin500mg IV 500 MG/100 ML BAG IV SCH (12:00)
[2020-09-18] MEDS: METOPROLOL TAR 25 MG TAB PO SCH (17:30)
[2020-09-18] MEDS: MELATONIN 5 MG TABLET PO SCH (20:08)
[2020-09-18] MEDS ORDERED: HOME MED 1 EA UNK (Simvastatin [Simvastatin] 40 MG Tablet) PO SCH (21:00)
[2020-09-19] MEDS: LEVOTHYROXINE SOD 0.125 MG TAB PO SCH (06:20)
[2020-09-19] MEDS: METOPROLOL TAR 25 MG TAB PO SCH ×2 (06:20→17:12)
[2020-09-19] MEDS: NA CHLORIDE 0.9% 1,000 ML IV SCH (06:28)
[2020-09-19 06:50] LABS: Absolute Lymphocytes (CBC) 0.9 K/uL (0.7-4.9); Basophils % 0.1 % (0-1.3); Hematocrit 39.1 % (36.0-45.0); Lymphocytes % 6.8 % (15.3-44.8); MPV 7.6 fL (7.6-11.3); RBC Red Blood Cell Count 4.19 M/uL (3.86-4.86)
[2020-09-19 07:23] LABS: Albumin 2.7 g/dL (3.4-5.0); Bilirubin Total 0.6 mg/dL (0.2-1.0); C-Reactive Protein 15.8 mg/L (<3.00); Ferritin 486.2 ng/mL (8-388); Magnesium 2.3 mg/dL (1.8-2.4); Potassium 4.1 mmol/L (3.5-5.1); Protein, Total 6.9 g/dL (6.4-8.2)
[2020-09-19 09:59] LABS: Blood Morphology Comment NOT SEEN (NOT SEEN); Platelet Estimate ADEQ
[2020-09-19] MEDS: ARFORMOTEROL TARTRATE 15 MCG/2 ML VIAL.NEB NEB SCH ×2 (10:10→20:00)
[2020-09-19] MEDS: METHYLPREDNISOLONE 125 MG INJ IV SCH ×3 (10:25→21:28)
[2020-09-19] MEDS: OSELTAMIVIR PHOSPHATE 30 MG/5 ML SUSPENSION UD PO SCH (10:25)
[2020-09-19] MEDS: FOLIC ACID 1 MG TABLET PO SCH (10:26)
[2020-09-19] MEDS: ASPIRIN EC 81 MG TAB PO SCH (10:26)
[2020-09-19] MEDS: ENOXAPARIN 100 MG/ML SYR SQ SCH ×2 (10:26→21:27)
[2020-09-19] MEDS: ASCORBIC ACID 500 MG TABLET PO SCH ×3 (10:26→21:27)
[2020-09-19] MEDS: VITAMIN D 1000 UNIT TAB PO SCH (10:26)
[2020-09-19] MEDS: THIAMINE HCL 100 MG TABLET PO SCH (10:26)
[2020-09-19] MEDS: Remdesivir 100 MG in NA CHLORIDE 0.9% 250 ML IV SCH (10:27)
--- NOTE | 2020-09-19 11:37 | P.PN ---
Subjective Date of Service: 09/19/20 Primary Care Provider: Dr. Lopez; Pulmonary-Dr. Cristobal; Cardiology-Dr. Westbrook Chief Complaint: Respiratory failure from parnell virus Subjective: Improving (Patient is improving feeling better) Review of Systems General: Weakness Respiratory: Shortness of Breath Physical Examination - Vital Signs Temperature: 97.4 F Blood Pressure: 144/73 Pulse: 99 Respirations: 28 Pulse Ox (%): 84 - Physical Exam General: Alert, In no apparent distress, Oriented x3 Assessment & Plan - Problems (Diagnosis) (1) Acute respiratory failure due to severe acute respiratory syndrome coronavirus 2 (SARS-CoV-2) infection Current Visit: Yes Status: Acute Plan: Patient admitted with respiratory failure due to parnell virus CRP and ferritin levels have improved significantly chest x-rays also improving continue with prone position ventilation change to Eliquis all the inflammatory parameters are improving month likely patient had a non STEMI continue with full anticoagulation on Lovenox
--- NOTE | 2020-09-19 17:46 | P.PN ---
Subjective Date of Service: 09/19/20 Primary Care Provider: Dr. Lopez; Pulmonary-Dr. Cristobal; Cardiology-Dr. Westbrook Chief Complaint: Respiratory failure from parnell virus Subjective: No new changes (Patient reports feeling better. Requiring BiPAP, SpO2: mid 80s despite this) Review of Systems 10-point ROS is otherwise unremarkable Physical Examination - Vital Signs Temperature: 97.0 F Blood Pressure: 163/86 Pulse: 99 Respirations: 31 Pulse Ox (%): 85 - Physical Exam General: Alert, In no apparent distress HEENT: Other (facial flushing), Sclerae nonicteric Respiratory: Other (labored on BIPAP) Cardiovascular: Regular rate/rhythm Gastrointestinal: Soft and benign, No tenderness Musculoskeletal: No tenderness Assessment & Plan Physician Review Additional Text: Dyspnea secondary to acute respiratory failure related to Bilateral COVID19 pneumonia/Influenza B NSTEMI, suspect CAD Acute renal failure secondary to above Hypothyroidism Hyperlipidemia GERD History of chronic shingles History of vocal cord nodules Plan: Dyspnea secondary to acute respiratory failure related to Bilateral COVID19 pneumonia/Influenza B: -continue IV Levaquin, Tamiflu -CRP & Ferritin improving, however she is still requiring BIPAP -continue high dose solumedrol, started remdesevir 09/17 -trend CRP/ferritin -pulmonology following NSTEMI, suspect CAD: Case discussed with cardiology. aspirin statin dc'd due to rhabdo echo ordered continue lovenox 1mg/kg BID BP improved, on beta amol Acute renal failure secondary to above: Nephrology consulted, improved with IVF Hypothyroidism, HLD, GERD, Chronic Shingles, h/o vocal cord nodules: stable, restarted home meds Dispo: anticipate hospitalization > 2 days Time Spent Managing Pts Care (In Minutes): 35
[2020-09-19] MEDS: MELATONIN 5 MG TABLET PO SCH (21:28)
--- NOTE | 2020-09-19 22:06 | PN ---
Date of Progress Note: 09/19/2020 Chief Complaint: Acute kidney injury. History Of Present Illness: The patient is a 74-year-old woman with history of hypothyroidism, hyper tension, GERD, hyperlipidemia, shingles, COPD on home oxygen. The patient presented to emergency heath with progressively worse shortness of breath associated with cough. Blood pressure was borderline hypotensive episode, was treated with fluid bolus. The patient was found to have test positive for i nfluenza B and COVID-19. Troponin level was 0.68 and there was elevated lactic acid. Creatinine lev el was up to 2.14, BUN 42, sodium 133, potassium 4.8. The patient is started on BiPAP. She has acut e on chronic kidney injury. The patient received IV fluids. Subsequently, fluids were stopped due t o mild fluid overload and Lasix dose was administered. Review of Systems: No chest pain. No shortness of breath today. No PND or orthopnea. Physical Examination: Heart: Regular rate and rhythm. S1, S2. Abdomen: Soft, benign. Extremities: Trace edema. Impression And Plan: 1.Acute kidney injury secondary to volume depletion and rhabdomyolysis. IV fluids rate is reduced a nd the patient would be weaned off IV fluid due to mild fluid overload. CPK level is trending down. Continue to monitor. The patient developed acute kidney injury secondary to rhabdomyolysis. Statin is on hold. Lasix dose was administered from fluid overload. 2.The patient was found to have non-ST elevation myocardial infarction. Cardiology consultation is obtained. 3.COVID pneumonia. The patient is on steroids and remdesivir. Continue treatment. 4.Chronic obstructive pulmonary disease. Continue O2 and BiPAP. EB/MODL Voice ID: [id number] Report ID: [id number]
[2020-09-20 05:23] LABS: Absolute Lymphocytes (CBC) 0.7 K/uL (0.7-4.9); Basophils % 0.2 % (0-1.3); Hematocrit 40.3 % (36.0-45.0); Lymphocytes % 5.4 % (15.3-44.8); MPV 7.5 fL (7.6-11.3); RBC Red Blood Cell Count 4.36 M/uL (3.86-4.86)
[2020-09-20 05:44] LABS: ALT/SGPT 57 U/L (12-78); AST/SGOT 53 U/L (15-37); Albumin 2.7 g/dL (3.4-5.0); Alkaline Phosphatase 185 U/L (45-117); BUN Blood Urea Nitrogen 24 mg/dL (7-18); Bicarbonate 30 mmol/L (21-32); Bilirubin Total 0.6 mg/dL (0.2-1.0); Creatine Phosphokinase 151 U/L (26-192); Ferritin 469.7 ng/mL (8-388); Glucose Level 145 mg/dL (74-106); Magnesium 2.4 mg/dL (1.8-2.4); Potassium 4.1 mmol/L (3.5-5.1); Protein, Total 6.9 g/dL (6.4-8.2); Sodium Level 142 mmol/L (136-145)
[2020-09-20] MEDS: METOPROLOL TAR 25 MG TAB PO SCH ×2 (06:21→17:06)
[2020-09-20] MEDS: LEVOTHYROXINE SOD 0.125 MG TAB PO SCH (06:52)
[2020-09-20] MEDS: ARFORMOTEROL TARTRATE 15 MCG/2 ML VIAL.NEB NEB SCH ×2 (08:00→19:38)
--- NOTE | 2020-09-20 08:12 | ECHO ---
HEIGHT: 5 ft 3 in WEIGHT: 240 lb 14.4 oz DATE OF STUDY: 09/19/[address]: Lonnie Lux DO 2-DIMENSIONAL: YES M.MODE: YES DOPPLER: YES COLOR FLOW: YES TDS: PORTABLE: DEFINITY: BUBBLE STUDY: DIAGNOSIS: NON ST ELEVATION MYOCARDIAL INFARCTION CARDIAC HISTORY: CATHERIZATION: SURGERY: PROSTHETIC VALVE: PACEMAKER: MEASUREMENTS (cm) DIASTOLIC (NORMALS) SYSTOLIC (NORMALS) IVSd 1.1 (0.6-1.2) LA Diam 3.2 (1.9-4.0) LVEF 63% LVIDd 4.4 (3.5-5.7) LVIDs 2.9 (2.0-3.5) %FS 34% LVPWd 1.1 (0.6-1.2) Ao Diam 2.8 (2.0-3.7) 2 DIMENSIONAL ASSESSMENT: RIGHT ATRIUM: NORMAL LEFT ATRIUM: NORMAL RIGHT VENTRICLE: NORMAL LEFT VENTRICLE: NORMAL TRICUSPID VALVE: NORMAL MITRAL VALVE: MITRAL ANNULAR CALCIFICATION, MODERATE MITRAL STENOSIS, MILD MITRAL REGURGITATION PULMONIC VALVE: NORMAL AORTIC VALVE: MILD AORTIC STENOSIS PERICARDIAL EFFUSION: NONE AORTIC ROOT: NORMAL LEFT VENTRICULAR WALL MOTION: NORMAL DOPPLER/COLOR FLOW: SEE BELOW COMMENTS: NORMAL LEFT VENTRICULAR EJECTION FRACTION 55-60% WITH NORMAL WALL MOTION. MITRAL ANNULAR CALCIFICATION WITH MILD TO MODERATE MITRAL STENOSIS. MILD AORTIC STENOSIS. PULMONARY HYPERTENSION (MODERATE) WITH RIGHT VENTRICULAR SYSTOLIC PRESSURE OF 50-55mmHg. DIASTOLIC DYSFUNCTION. TECHNOLOGIST: FLY SOLANO
[2020-09-20] MEDS: METHYLPREDNISOLONE 125 MG INJ IV SCH ×3 (08:22→20:18)
[2020-09-20] MEDS: THIAMINE HCL 100 MG TABLET PO SCH (08:22)
[2020-09-20] MEDS: ASPIRIN EC 81 MG TAB PO SCH (08:22)
[2020-09-20] MEDS: FOLIC ACID 1 MG TABLET PO SCH (08:22)
[2020-09-20] MEDS: VITAMIN D 1000 UNIT TAB PO SCH (08:22)
[2020-09-20] MEDS: ENOXAPARIN 100 MG/ML SYR SQ SCH (08:23)
[2020-09-20] MEDS: ASCORBIC ACID 500 MG TABLET PO SCH ×4 (08:23→20:17)
[2020-09-20] MEDS: Remdesivir 100 MG in NA CHLORIDE 0.9% 250 ML IV SCH (08:40)
[2020-09-20] MEDS: FUROSEMIDE 20 MG/ 2ML VIAL IV SCH (09:00)
--- NOTE | 2020-09-20 11:34 | P.PN ---
Subjective Date of Service: 09/20/20 Primary Care Provider: Dr. Lopez; Pulmonary-Dr. Cristobal; Cardiology-Dr. Westbrook Chief Complaint: Respiratory failure from parnell virus No change patient is feeling better still requiring significant amount of oxygen inflammatory parameters are improving significant desat off BiPAP Review of Systems General: Weakness Respiratory: Cough, Shortness of Breath Physical Examination - Vital Signs Temperature: 96.6 F Blood Pressure: 141/90 Pulse: 86 Respirations: 27 Pulse Ox (%): 93 Assessment & Plan - Problems (Diagnosis) (1) Acute respiratory failure due to severe acute respiratory syndrome coronavirus 2 (SARS-CoV-2) infection Current Visit: Yes Status: Acute Plan: Respiratory failure subjectively feeling better chest x-ray still show significant changes will repeat 1 tomorrow inflammatory parameters or declining stable cardiovascular function I have added small dose of Lasix in [place] his slight negative fluid balance and trial of for Dobhoff tube for feeding continue with steroids full anticoagulation
[2020-09-20] MEDS ORDERED: FUROSEMIDE 40 MG/4 ML VIAL IV ONE (11:58)
--- NOTE | 2020-09-20 12:04 | P.PN ---
Subjective Date of Service: 09/20/20 Primary Care Provider: Dr. Lopez; Pulmonary-Dr. Cristobal; Cardiology-Dr. Westbrook Chief Complaint: Respiratory failure from parnell virus 74-year-old female with history of hypothyroidism, hypertension, GERD, hyperlipidemia, shingles, COPD on Home O2 Patient presented to the emergency room with increasing shortness of breath with Cough BP was borderline Fluid bolus given. Patient was found to be positive for influenza B and COVID 19. 4000. Troponin 0.68. Lactic acid 3.6. Pro calcitonin 0.17. White count 9.5, hemoglobin 13. Platelet count 300. Sodium 133, potassium 4.8. BUN of 42, creatinine 2.14 Now Hypoxic , on BiPAP , started Remdisver Today Still on BiPPA will give extra dose of lasix CXR tomorrow Physical exam general: AAOX3, in moderate distress ,on BiPAP Neck; Supple, No elevated JVD hear: RRR, normal S1,2 no murmur or rub Chest: increase Echophony Abdomen: Soft , Nt Extremities No edema, VIDAL possibly due to dehydration and rhabdomyolysis resolved off IVF renal dos meds rhabdomyolysis off statin resolved NSTEMI cardiology consulted elevated CPK possibly due to rahabdomyolysis COVID 19 pneumonia started on steroids and Remdesiver COPD cont O2 biPAP prn cont lasix elevated LFT improving total time spent 35min Physical Examination - Vital Signs Temperature: 96.6 F Blood Pressure: 141/90 Pulse: 86 Respirations: 27 Pulse Ox (%): 93
--- NOTE | 2020-09-20 14:04 | P.PN ---
Subjective Date of Service: 09/20/20 Primary Care Provider: Dr. Lopez; Pulmonary-Dr. Cristobal; Cardiology-Dr. Westbrook Chief Complaint: Respiratory failure from parnell virus No major changes from yesterday. Patient is on BiPAP. She has not tolerated high-flow oxygen today. Physical Examination - Vital Signs Temperature: 96.6 F Blood Pressure: 141/90 Pulse: 86 Respirations: 27 Pulse Ox (%): 93 - Physical Exam General: Alert, Moderate distress Neck: Supple Respiratory: Crackles/rales (Bibasilar) Cardiovascular: No edema, Regular rate/rhythm, Normal S1 S2 Gastrointestinal: Soft and benign, Non-distended Musculoskeletal: No swelling Integumentary: No rashes Neurological: Normal strength at 5/5 x4 extr, Cranial nerves 3-12 intact Assessment And Plan - Current Problems (Diagnosis) (1) Pneumonia due to COVID-19 virus Current Visit: Yes Status: Acute (2) Influenza B Current Visit: Yes Status: Acute (3) NSTEMI (non-ST elevated myocardial infarction) Current Visit: Yes Status: Acute (4) Acute respiratory failure due to severe acute respiratory syndrome coronavirus 2 (SARS-CoV-2) infection Current Visit: Yes Status: Acute (5) Acute kidney injury Current Visit: Yes Status: Acute Physician Review Additional Text: Dyspnea secondary to acute respiratory failure related to Bilateral COVID19 pneumonia/Influenza B NSTEMI, suspect CAD Acute renal failure secondary to above Hypothyroidism Hyperlipidemia GERD History of chronic shingles History of vocal cord nodules Plan: Dyspnea secondary to acute respiratory failure related to Bilateral COVID19 pneumonia/Influenza B: -continue IV Levaquin for possible bacterial superinfection, Tamiflu -CRP & Ferritin improving, -patient requiring BiPAP. She is not tolerating high-flow oxygen -continue high dose solumedrol, started remdesevir 09/17 -trend CRP/ferritin -pulmonology following NSTEMI, suspect CAD: -aspirin statin dc'd due to rhabdo echo ordered Change Lovenox to Eliquis Acute renal failure secondary to above: Acute renal failure resolved. Hypothyroidism, HLD, GERD, Chronic Shingles, h/o vocal cord nodules: stable, continue home meds
[2020-09-20] MEDS: OSELTAMIVIR PHOSPHATE 30 MG/5 ML SUSPENSION UD PO SCH (14:22)
[2020-09-20] MEDS ORDERED: ARFORMOTEROL TARTRATE 15 MCG/2 ML VIAL.NEB ONE (19:50)
[2020-09-20] MEDS: MELATONIN 5 MG TABLET PO SCH (20:17)
[2020-09-20] MEDS: APIXABAN 5 MG TABLET PO SCH (20:17)
[2020-09-21 05:05] LABS: Absolute Lymphocytes (CBC) 0.6 K/uL (0.7-4.9); Hematocrit 39.9 % (36.0-45.0); MPV 7.5 fL (7.6-11.3); RBC Red Blood Cell Count 4.34 M/uL (3.86-4.86)
[2020-09-21 05:34] LABS: Albumin 2.5 g/dL (3.4-5.0); Bilirubin Total 0.6 mg/dL (0.2-1.0); C-Reactive Protein 18.4 mg/L (<3.00); Ferritin 623.2 ng/mL (8-388); Magnesium 2.4 mg/dL (1.8-2.4); Protein, Total 6.8 g/dL (6.4-8.2)
[2020-09-21] MEDS: LEVOTHYROXINE SOD 0.125 MG TAB PO SCH (06:10)
[2020-09-21] MEDS: METOPROLOL TAR 25 MG TAB PO SCH ×2 (06:10→17:15)
--- NOTE | 2020-09-21 07:51 | RAD REPORT ---
EXAM DESCRIPTION: Deepthi Single View09/21/2020 5:53 am CLINICAL HISTORY: Shortness of breath COMPARISON: September 18 FINDINGS: No significant change in moderate bilateral pulmonary opacities. The heart remains enlarge d
[2020-09-21] MEDS: THIAMINE HCL 100 MG TABLET PO SCH (08:02)
[2020-09-21] MEDS: METHYLPREDNISOLONE 125 MG INJ IV SCH ×3 (08:02→20:05)
[2020-09-21] MEDS: APIXABAN 5 MG TABLET PO SCH ×2 (08:02→20:04)
[2020-09-21] MEDS: ASPIRIN EC 81 MG TAB PO SCH (08:02)
[2020-09-21] MEDS: FUROSEMIDE 20 MG/ 2ML VIAL IV SCH (08:02)
[2020-09-21] MEDS: ASCORBIC ACID 500 MG TABLET PO SCH ×3 (08:02→20:04)
[2020-09-21] MEDS: FOLIC ACID 1 MG TABLET PO SCH (08:02)
[2020-09-21] MEDS: VITAMIN D 1000 UNIT TAB PO SCH (08:02)
[2020-09-21] MEDS: OSELTAMIVIR PHOSPHATE 30 MG/5 ML SUSPENSION UD PO SCH (09:00)
[2020-09-21] MEDS: Remdesivir 100 MG in NA CHLORIDE 0.9% 250 ML IV SCH (10:01)
--- NOTE | 2020-09-21 11:40 | PN ---
We have followed Mrs. Lucio for respiratory failure COVID related, elevated troponin, non-ST elevatio n myocardial infarction considered to be demand ischemia with plan to do an echocardiogram and a stre ss test as an outpatient. The patient was on aspirin, oxygen. Echocardiogram was ordered by Dr. Himanshu rios. It showed normal left ventricular ejection fraction of 60%. She had [id number] mitral st enosis, mild aortic stenosis, moderate pulmonary hypertension with a right ventricular systolic press ure of 50-55 mmHg as well as diastolic dysfunction. There were no focal wall motion abnormalities. We agreed with her present regimen. No plan for any workup at this point from a coronary standpoint. We will plan to do an outpatient stress test after she goes home. GERARDO/IVORY Voice ID: [id number] Report ID: [id number]
--- NOTE | 2020-09-21 11:56 | P.PN ---
Subjective Date of Service: 09/30/20 Primary Care Provider: Dr. Lopez; Pulmonary-Dr. Cristobal; Cardiology-Dr. Westbrook Chief Complaint: Respiratory failure from parnell virus Not doing well still requiring high concentrations of oxygen ferritin level is increased slightly white count declining alert refused NG tube Review of Systems Respiratory: Shortness of Breath Physical Examination - Vital Signs Temperature: 97.6 F Blood Pressure: 132/80 Pulse: 83 Respirations: 23 Pulse Ox (%): 82 Assessment & Plan - Problems (Diagnosis) (1) Acute respiratory failure due to severe acute respiratory syndrome coronavirus 2 (SARS-CoV-2) infection Current Visit: Yes Status: Acute Plan: Respiratory failure still requiring high concentrations of oxygen increase Solu-Medrol to 125 IV q.8 ferritin level still elevated labs reviewed white count is declining chest x-ray no change
--- NOTE | 2020-09-21 15:00 | P.PN ---
Subjective Date of Service: 09/21/20 Primary Care Provider: Dr. Lopez; Pulmonary-Dr. Cristobal; Cardiology-Dr. Westbrook Chief Complaint: Respiratory failure from parnell virus No major changes from yesterday. Patient is on BiPAP. She does not tolerate high-flow oxygen. She has been afebrile. Physical Examination - Vital Signs Temperature: 99.8 F Blood Pressure: 139/90 Pulse: 87 Respirations: 29 Pulse Ox (%): 84 - Physical Exam General: Alert, In no apparent distress Respiratory: Crackles/rales Cardiovascular: No edema, Regular rate/rhythm Gastrointestinal: Soft and benign, Non-distended Musculoskeletal: No swelling Integumentary: No rashes - Studies Microbiology Data (last 24 hrs): 09/16/20 13:10 Blood - Blood Aerobic Blood Culture - Final No growth in 5 days. 09/16/20 13:10 Blood - Blood Anaerobic Blood Culture - Final No growth in 5 days. 09/16/20 12:50 Blood - Blood Aerobic Blood Culture - Final No growth in 5 days. 09/16/20 12:50 Blood - Blood Anaerobic Blood Culture - Final No growth in 5 days. Assessment And Plan - Current Problems (Diagnosis) (1) Pneumonia due to COVID-19 virus Current Visit: Yes Status: Acute (2) Influenza B Current Visit: Yes Status: Acute (3) NSTEMI (non-ST elevated myocardial infarction) Current Visit: Yes Status: Acute (4) Acute respiratory failure due to severe acute respiratory syndrome coronavirus 2 (SARS-CoV-2) infection Current Visit: Yes Status: Acute (5) Acute kidney injury Current Visit: Yes Status: Acute Physician Review Additional Text: Dyspnea secondary to acute respiratory failure related to Bilateral COVID19 pneumonia/Influenza B NSTEMI, suspect CAD Acute renal failure secondary to above Hypothyroidism Hyperlipidemia GERD History of chronic shingles History of vocal cord nodules Plan: Dyspnea secondary to acute respiratory failure related to Bilateral COVID19 pneumonia/Influenza B: -continue antibiotics and Tamiflu -CRP significantly improved but not translating into improvement in shortness of breath. -continue BiPAP. -weaned off BiPAP to high-flow as tolerated -continue high dose solumedrol. -trend CRP/ferritin -pulmonology following -social service to evaluate for LTAC placement. NSTEMI, suspect CAD: -aspirin -Echo: Normal EF, moderate pulmonary hypertension. statin dc'd due to rhabdo Continue Eliquis Acute renal failure secondary to above: Acute renal failure resolved. Hypothyroidism, HLD, GERD, Chronic Shingles, h/o vocal cord nodules: stable, continue home meds
[2020-09-21] MEDS: MELATONIN 5 MG TABLET PO SCH (20:04)
--- NOTE | 2020-09-21 21:53 | PN ---
Date of Progress Note: 09/21/2020 Chief Complaint: Acute kidney injury. Subjective: The patient is currently 74-year-old woman with history of hypothyroidism, hypertension, GERD, hyperlipidemia, COPD, on home oxygen. She presented to emergency room with progressively worse shortness of breath associated with nonproductive cough. Blood pressure was borderline low and the patient received IV fluids to prevent acute kidney injury, although creatinine level was elevated up to 2.14. Sodium was 133, potassium 4.8, BUN 42. The patient was positive for influenza B and COVID-19. Troponin was up to 0.68. The patient had lactic acidosis. The patient is on BiPAP and was started on remdesivir. Objective: Cardiovascular: S1, S2. Extremities: No edema. Impression And Plan: 1. Acute kidney injury, possibly due to volume depletion and rhabdomyolysis in the setting COVID infection. Currently, the patient is off IV fluids, acute kidney injury secondary to rhabdomyolysis. Currently, off statin to prevent worsening of the rhabdomyolysis. CK level is improving. 2. Non ST elevation myocardial infarction. Continue recommendation from Cardiology. 3. COVID-19 pneumonia. The patient is on steroids and remdesivir. 4. Elevated liver function test, improving. Workup for liver function test. 5. Chronic obstructive pulmonary disease. Continue Lasix for volume control. EB/MODL Voice ID: [id number] Report ID: [id number] KEVIN
[2020-09-22] MEDS: METOPROLOL TAR 25 MG TAB PO SCH ×2 (05:15→17:06)
[2020-09-22] MEDS: LEVOTHYROXINE SOD 0.125 MG TAB PO SCH (05:15)
[2020-09-22 05:38] LABS: C-Reactive Protein 13.4 mg/L (<3.00); Ferritin 633.7 ng/mL (8-388); Magnesium 2.6 mg/dL (1.8-2.4); Potassium 4.1 mmol/L (3.5-5.1)
[2020-09-22] MEDS: THIAMINE HCL 100 MG TABLET PO SCH (08:19)
[2020-09-22] MEDS: METHYLPREDNISOLONE 125 MG INJ IV SCH ×3 (08:19→20:17)
[2020-09-22] MEDS: VITAMIN D 1000 UNIT TAB PO SCH (08:19)
[2020-09-22] MEDS: ASPIRIN EC 81 MG TAB PO SCH (08:19)
[2020-09-22] MEDS: APIXABAN 5 MG TABLET PO SCH ×2 (08:19→20:16)
[2020-09-22] MEDS: FUROSEMIDE 20 MG/ 2ML VIAL IV SCH (08:19)
[2020-09-22] MEDS: ASCORBIC ACID 500 MG TABLET PO SCH ×3 (08:19→20:16)
[2020-09-22] MEDS: FOLIC ACID 1 MG TABLET PO SCH (08:19)
--- NOTE | 2020-09-22 08:44 | RAD REPORT ---
EXAM DESCRIPTION: RAD - Chest Single View - 09/22/2020 6:04 am CLINICAL HISTORY: Pneumonia Chest pain. COMPARISON: Chest Single View dated 09/21/2020; Chest Single View dated 09/18/2020; Chest Single Vie w dated 09/16/2020; Chest Pa And Lat (2 Views) dated 05/21/2019 FINDINGS: Portable technique limits examination quality. Moderate bilateral pulmonary opacities are again noted, unchanged. The heart is mildly enlarged in si ze. No displaced fractures. IMPRESSION: Stable chest since 09/21/2020.
--- NOTE | 2020-09-22 11:18 | P.PN ---
Subjective Date of Service: 09/22/20 Primary Care Provider: Dr. Lopez; Pulmonary-Dr. Cristobal; Cardiology-Dr. Westbrook Chief Complaint: Respiratory failure from parnell virus Feeling somewhat better oxygen requirements have decreased compliant with BiPAP better on her sides Review of Systems Respiratory: Shortness of Breath Physical Examination - Vital Signs Temperature: 98 F Blood Pressure: 120/72 Pulse: 97 Respirations: 29 Pulse Ox (%): 93 - Studies Microbiology Data (last 24 hrs): 09/16/20 13:10 Blood - Blood Aerobic Blood Culture - Final No growth in 5 days. 09/16/20 13:10 Blood - Blood Anaerobic Blood Culture - Final No growth in 5 days. 09/16/20 12:50 Blood - Blood Aerobic Blood Culture - Final No growth in 5 days. 09/16/20 12:50 Blood - Blood Anaerobic Blood Culture - Final No growth in 5 days. Assessment & Plan - Problems (Diagnosis) (1) Acute respiratory failure due to severe acute respiratory syndrome coronavirus 2 (SARS-CoV-2) infection Current Visit: Yes Status: Acute Plan: Respiratory failure continue with weaning down on oxygen patient subjectively feels better ferritin levels no chain CRP is declining white count is also declining chest x-ray no change renal function normal
--- NOTE | 2020-09-22 13:47 | P.PN ---
Subjective Date of Service: 09/22/20 Primary Care Provider: Dr. Lopez; Pulmonary-Dr. Cristobal; Cardiology-Dr. Westbrook Chief Complaint: Respiratory failure from parnell virus Respiratory therapy is weaning down FiO2. Patient is maintained on BiPAP. She was seen sitting by the side of her bed. Physical Examination - Vital Signs Temperature: 98.2 F Blood Pressure: 129/76 Pulse: 86 Respirations: 28 Pulse Ox (%): 95 - Physical Exam General: Alert, In no apparent distress HEENT: Other (BiPAP) Respiratory: Crackles/rales Cardiovascular: No edema, Regular rate/rhythm, Normal S1 S2 Gastrointestinal: Soft and benign, Non-distended Musculoskeletal: No swelling Integumentary: No rashes Neurological: Normal strength at 5/5 x4 extr - Studies Microbiology Data (last 24 hrs): 09/16/20 13:10 Blood - Blood Aerobic Blood Culture - Final No growth in 5 days. 09/16/20 13:10 Blood - Blood Anaerobic Blood Culture - Final No growth in 5 days. 09/16/20 12:50 Blood - Blood Aerobic Blood Culture - Final No growth in 5 days. 09/16/20 12:50 Blood - Blood Anaerobic Blood Culture - Final No growth in 5 days. Assessment And Plan - Current Problems (Diagnosis) (1) Pneumonia due to COVID-19 virus Current Visit: Yes Status: Acute (2) Influenza B Current Visit: Yes Status: Acute (3) NSTEMI (non-ST elevated myocardial infarction) Current Visit: Yes Status: Acute (4) Acute respiratory failure due to severe acute respiratory syndrome coronavirus 2 (SARS-CoV-2) infection Current Visit: Yes Status: Acute (5) Acute kidney injury Current Visit: Yes Status: Acute Physician Review Additional Text: Dyspnea secondary to acute respiratory failure related to Bilateral COVID19 pneumonia/Influenza B NSTEMI, suspect CAD Acute renal failure secondary to above Hypothyroidism Hyperlipidemia GERD History of chronic shingles History of vocal cord nodules Plan: Dyspnea secondary to acute respiratory failure related to Bilateral COVID19 pneumonia/Influenza B: -patient completed antibiotics and Tamiflu. -CRP significantly improved but not translating into improvement in shortness of breath. -continue BiPAP. Wean FiO2 and he eventually BiPAP as tolerated. -continue high dose solumedrol. -trend CRP/ferritin -pulmonology following -social service evaluating for LTAC placement. NSTEMI, suspect CAD: -aspirin -Echo: Normal EF, moderate pulmonary hypertension. -Continue Eliquis Acute renal failure secondary to above: Acute renal failure resolved. Hypothyroidism, HLD, GERD, Chronic Shingles, h/o vocal cord nodules: stable, continue home meds
--- NOTE | 2020-09-22 19:54 | PN ---
Date of Progress Note: 09/22/2020 Chief Complaint: Acute kidney injury. Subjective: The patient has multiple medical problems including history of hypothyroidism, hypertension, hyperlipidemia, GERD, COPD, on home oxygen. She presented to emergency room with progressively worse shortness of breath associated with nonproductive cough. Blood pressure was on low side. The patient received IV fluids for volume resuscitation to prevent renal hypoperfusion and acute kidney injury. On a preliminary workup, creatinine level was 2.14. Baseline creatinine level is 1.1, BUN was 48. The patient has prerenal azotemia, nonoliguric acute tubular necrosis. The patient has positive test for influenza B and COVID-19. Troponin level was up to 0.68. The patient had lactic acidosis. Subsequently, she responded to IV fluids and fluid balance is adequately controlled and the patient completed treatment for flu and completed antibiotics. She has been followed by Pulmonary team. Objective: Extremities: No edema. Cardiovascular: S1, S2. The patient is on BiPAP. She was started on remdesivir. Impression And Plan: 1. Acute kidney injury, possibly due to volume depletion and rhabdomyolysis in setting of COVID infection. Currently, the patient is off IV fluids. Acute kidney injury is secondary to rhabdomyolysis, is resolving gradually. Currently, the patient is off statin to prevent worsening of the rhabdomyolysis. CK level is improving. 2. Non ST elevation myocardial infarction. Continue recommendations from Cardiology. 3. COVID pneumonia. The patient is on steroids and remdesivir. 4. Elevated liver function test, improving. 5. Chronic obstructive pulmonary disease. Continue Lasix for volume control. EB/MODL Voice ID: [id number] Report ID: [id number] [facility]
[2020-09-22] MEDS: MELATONIN 5 MG TABLET PO SCH (20:17)
[2020-09-23] MEDS: LORazepam 2 MG/ML VIAL IV PRN ×2 (01:39→21:56)
[2020-09-23] MEDS: METOPROLOL TAR 25 MG TAB PO SCH ×2 (06:12→17:22)
[2020-09-23] MEDS: LEVOTHYROXINE SOD 0.125 MG TAB PO SCH (06:17)
--- NOTE | 2020-09-23 07:17 | RAD REPORT ---
EXAM DESCRIPTION: RAD - Chest Single View - 09/23/2020 6:56 am CLINICAL HISTORY: Pneumonia COMPARISON: September 22, September 21 TECHNIQUE: AP portable chest image was obtained 09/23/2020 6:56 am . FINDINGS: Lung volume is reduced. Interstitial and alveolar opacities are present in both lower lung rivas with increased interstitial prominence in the upper lung rivas. Mild enlargement of the card iac silhouette is present similar to comparison. No pneumothorax or enlarging pleural effusion. No ac ced bony abnormality seen. No acute aortic findings suspected. IMPRESSION: Stable chest September 22.
[2020-09-23] MEDS: VITAMIN D 1000 UNIT TAB PO SCH (09:01)
[2020-09-23] MEDS: ASCORBIC ACID 500 MG TABLET PO SCH ×3 (09:04→21:00)
[2020-09-23] MEDS: FUROSEMIDE 20 MG/ 2ML VIAL IV SCH (09:04)
[2020-09-23] MEDS: ASPIRIN EC 81 MG TAB PO SCH (09:04)
[2020-09-23] MEDS: APIXABAN 5 MG TABLET PO SCH ×2 (09:04→21:00)
[2020-09-23] MEDS: THIAMINE HCL 100 MG TABLET PO SCH (09:04)
[2020-09-23] MEDS: FOLIC ACID 1 MG TABLET PO SCH (09:04)
[2020-09-23] MEDS: METHYLPREDNISOLONE 125 MG INJ IV SCH ×3 (09:05→21:56)
--- NOTE | 2020-09-23 09:25 | P.PN ---
Subjective Date of Service: 09/30/20 Primary Care Provider: Dr. Lopez; Pulmonary-Dr. Cristobal; Cardiology-Dr. Westbrook Chief Complaint: Respiratory failure from parnell virus No change still experiencing significant desaturation Review of Systems Respiratory: Cough, Shortness of Breath Physical Examination - Vital Signs Temperature: 97.4 F Blood Pressure: 109/62 Pulse: 69 Respirations: 20 Pulse Ox (%): 90 Assessment & Plan - Problems (Diagnosis) (1) Acute respiratory failure due to severe acute respiratory syndrome coronavirus 2 (SARS-CoV-2) infection Current Visit: Yes Status: Acute Plan: Respiratory failure from coronal viral I have increased her steroids still very hypoxic white count is declining I have added Diflucan patient is is slight negative fluid balance labs chest x-ray reviewed still has bilateral haziness
--- NOTE | 2020-09-23 09:59 | P.PN ---
Subjective Date of Service: 09/23/20 Primary Care Provider: Dr. Lopez; Pulmonary-Dr. Cristobal; Cardiology-Dr. Westbrook Chief Complaint: Respiratory failure from parnell virus No major changes from yesterday Patient is maintained on BiPAP. Physical Examination - Vital Signs Temperature: 97.4 F Blood Pressure: 109/62 Pulse: 69 Respirations: 20 Pulse Ox (%): 90 - Physical Exam General: In no apparent distress, Oriented x3 Respiratory: Crackles/rales Cardiovascular: No edema, Regular rate/rhythm, Normal S1 S2 Gastrointestinal: Soft and benign, Non-distended Musculoskeletal: No swelling Integumentary: No rashes Neurological: Normal speech, Normal strength at 5/5 x4 extr Assessment And Plan - Current Problems (Diagnosis) (1) Pneumonia due to COVID-19 virus Current Visit: Yes Status: Acute (2) Influenza B Current Visit: Yes Status: Acute (3) NSTEMI (non-ST elevated myocardial infarction) Current Visit: Yes Status: Acute (4) Acute respiratory failure due to severe acute respiratory syndrome coronavirus 2 (SARS-CoV-2) infection Current Visit: Yes Status: Acute (5) Acute kidney injury Current Visit: Yes Status: Acute Physician Review Additional Text: Dyspnea secondary to acute respiratory failure related to Bilateral COVID19 pneumonia/Influenza B NSTEMI, suspect CAD Acute renal failure secondary to above Hypothyroidism Hyperlipidemia GERD History of chronic shingles History of vocal cord nodules Plan: Dyspnea secondary to acute respiratory failure related to Bilateral COVID19 pn e[place]/Influenza B: -patient completed antibiotics and Tamiflu. -continue BiPAP. Wean FiO2 and he eventually BiPAP as tolerated. -continue high dose solumedrol. -trend CRP/ferritin -pulmonology following -social service evaluating for LTAC placement. NSTEMI, suspect CAD: -aspirin -Echo: Normal EF, moderate pulmonary hypertension. -Continue Eliquis Acute renal failure secondary to above: Acute renal failure resolved. Hypothyroidism, HLD, GERD, Chronic Shingles, h/o vocal cord nodules: stable, continue home meds
[2020-09-23 10:42] LABS: Absolute Lymphocytes (CBC) 0.7 K/uL (0.7-4.9); Basophils % 0.1 % (0-1.3); Hematocrit 41.7 % (36.0-45.0); Lymphocytes % 5.3 % (15.3-44.8); MPV 7.7 fL (7.6-11.3); RBC Red Blood Cell Count 4.48 M/uL (3.86-4.86)
[2020-09-23 10:55] LABS: Albumin 2.5 g/dL (3.4-5.0); Bilirubin Total 0.6 mg/dL (0.2-1.0); C-Reactive Protein 8.7 mg/L (<3.00); Ferritin 591.7 ng/mL (8-388)
[2020-09-23] MEDS: FLUCONAZOLE 100 MG TAB PO SCH (12:29)
[2020-09-23 15:32] LABS: Arterial Blood Carboxyhemoglob 1.5 % (0-1.5); Blood Gas Oxyhemoglobin 86.1 % (94-97); Blood O2 Saturation 88.2 % (92-98.5)
[2020-09-23] MEDS: MELATONIN 5 MG TABLET PO SCH (21:00)
--- NOTE | 2020-09-23 22:16 | PN ---
Date of Progress Note: 09/23/2020 Chief Complaint: Acute on chronic kidney injury. History Of Present Illness: Patient is in ICU. She has multiple medical problems including GERD, [place] on home oxygen, hypothyroidism, hypertension. Patient has positive test for influenza B and COVID -19. Troponin level was up to 0.68. Renal function has declined and prior to this admission, creati nine level was up to 2.14 and improved subsequently to 1.1. BUN is elevated and there is high BUN/cr eatinine ratio. Patient has lactic acidosis and responded to IV fluids with volume resuscitation. R enal function has improved. Objective: Extremities: No edema. Cardiovascular: S1 and S2. Patient is on BiPAP. Impression And Plan: 1.Acute on chronic kidney injury due to volume depletion and complicated by rhabdomyolysis in settin g of COVID infection. Patient is currently off IV fluids. Monitor CK level. 2.Non ST elevation myocardial infarction, cardiorenal syndrome. Continue recommendation from Cardio logy. 3.COVID pneumonia. The patient is on steroids and remdesivir. 4.Elevated liver function tests likely in the setting of infection and [facility]. 5.Hypertensive kidney disease, chronic kidney disease, stage 3. Avoid nephrotoxic medication. 6.Acute respiratory failure due to severe acute respiratory syndrome, coronavirus 2, SARS-CoV-2 infe ction. Patient is on steroid. White count is declining. Patient is currently started on Diflucan. Chest x-ray showed bilateral infiltrates. Pulmonary service is following the patient. MEMO/IVORY Voice ID: [id number] Report ID: [id number]
[2020-09-24 05:15] LABS: C-Reactive Protein 7.05 mg/L (<3.00); Ferritin 650.9 ng/mL (8-388)
[2020-09-24] MEDS: METOPROLOL TAR 25 MG TAB PO SCH ×2 (06:15→17:14)
[2020-09-24] MEDS: LEVOTHYROXINE SOD 0.125 MG TAB PO SCH (06:16)
--- NOTE | 2020-09-24 08:26 | RAD REPORT ---
EXAM DESCRIPTION: Deepthi Single View09/24/2020 6:21 am CLINICAL HISTORY: Shortness of breath COMPARISON: September 23, 2020 FINDINGS: No significant change in the bilateral pulmonary opacities. Heart is mildly enlarged
[2020-09-24] MEDS: ASPIRIN EC 81 MG TAB PO SCH (08:33)
[2020-09-24] MEDS: VITAMIN D 1000 UNIT TAB PO SCH (08:33)
[2020-09-24] MEDS: APIXABAN 5 MG TABLET PO SCH ×2 (08:34→20:17)
[2020-09-24] MEDS: FLUCONAZOLE 100 MG TAB PO SCH (08:34)
[2020-09-24] MEDS: ASCORBIC ACID 500 MG TABLET PO SCH ×3 (08:34→20:17)
[2020-09-24] MEDS: FOLIC ACID 1 MG TABLET PO SCH (08:34)
[2020-09-24] MEDS: FUROSEMIDE 20 MG/ 2ML VIAL IV SCH ×3 (08:35→17:14)
[2020-09-24] MEDS: METHYLPREDNISOLONE 125 MG INJ IV SCH ×2 (08:36→20:17)
[2020-09-24] MEDS: THIAMINE HCL 100 MG TABLET PO SCH (09:00)
--- NOTE | 2020-09-24 11:19 | P.PN ---
Subjective Date of Service: 09/24/20 Primary Care Provider: Dr. Lopez; Pulmonary-Dr. Cristobal; Cardiology-Dr. Westbrook Chief Complaint: Respiratory failure from parnell virus No major changes. Patient is still requiring BiPAP with 100% FiO2. Physical Examination - Vital Signs Temperature: 96.5 F Blood Pressure: 143/100 Pulse: 87 Respirations: 28 Pulse Ox (%): 88 - Physical Exam General: Alert, In no apparent distress Respiratory: Diminished, Crackles/rales Cardiovascular: Regular rate/rhythm, Normal S1 S2 Gastrointestinal: Soft and benign, Non-distended Musculoskeletal: No swelling Integumentary: No rashes Neurological: Other (Nonfocal) Assessment And Plan - Current Problems (Diagnosis) (1) Pneumonia due to COVID-19 virus Current Visit: Yes Status: Acute (2) Influenza B Current Visit: Yes Status: Acute (3) NSTEMI (non-ST elevated myocardial infarction) Current Visit: Yes Status: Acute (4) Acute respiratory failure due to severe acute respiratory syndrome coronavirus 2 (SARS-CoV-2) infection Current Visit: Yes Status: Acute (5) Acute kidney injury Current Visit: Yes Status: Acute Physician Review Additional Text: Dyspnea secondary to acute respiratory failure related to Bilateral COVID19 pneumonia/Influenza B NSTEMI, suspect CAD Acute renal failure secondary to above Hypothyroidism Hyperlipidemia GERD History of chronic shingles History of vocal cord nodules Plan: Dyspnea secondary to acute respiratory failure related to Bilateral COVID19 pneumonia/Influenza B: -continue BiPAP. Wean FiO2 and he eventually BiPAP as tolerated. -continue high dose solumedrol. -trend CRP/ferritin -social service evaluating for LTAC placement. NSTEMI, suspect CAD: -aspirin -Echo: Normal EF, moderate pulmonary hypertension. -Continue Eliquis Acute renal failure secondary to above: Acute renal failure resolved. Hypothyroidism, HLD, GERD, Chronic Shingles, h/o vocal cord nodules: stable, continue home meds
--- NOTE | 2020-09-24 18:08 | RAD REPORT ---
EXAM DESCRIPTION: RAD - Chest Single View - 09/24/2020 5:51 pm CLINICAL HISTORY: Device placement PICC line placement IMPRESSION: PICC line with its tip 1 centimeter into the right atrium
[2020-09-24] MEDS: MELATONIN 5 MG TABLET PO SCH (20:17)
[2020-09-24] MEDS ORDERED: METHYLPREDNISOLONE 40 MG INJ IV SCH (21:00)
[2020-09-25] MEDS: CEFTRIAXONE 1 GM/NS 50 ML 1 GM/50 ML BAG IV SCH ×2 (01:00→01:59)
[2020-09-25] MEDS ORDERED: VANCOMYCIN 1.5 GM in NA CHLORIDE 0.9% 500 ML IVPB SCH (01:00)
[2020-09-25] MEDS ORDERED: CEFTRIAXONE/SWI 1gm 1 GM/10 ML SYR IV SCH (02:00)
[2020-09-25] MEDS ORDERED: VANCOMYCIN 1 GM/VIAL ONE (02:11)
[2020-09-25] MEDS ORDERED: CEFTRIAXONE/SWI 1gm 1 GM/10 ML SYR ONE (02:12)
[2020-09-25] MEDS ORDERED: NA CHLORIDE 0.9% 500 ML ONE (02:13)
[2020-09-25] MEDS: METOPROLOL TAR 25 MG TAB PO SCH ×2 (05:35→17:26)
[2020-09-25] MEDS: LEVOTHYROXINE SOD 0.125 MG TAB PO SCH (05:35)
[2020-09-25 06:12] LABS: ALT/SGPT 52 U/L (12-78); AST/SGOT 38 U/L (15-37); Albumin 2.2 g/dL (3.4-5.0); Alkaline Phosphatase 119 U/L (45-117); BUN Blood Urea Nitrogen 25 mg/dL (7-18); Bicarbonate 40 mmol/L (21-32); Bilirubin Total 0.6 mg/dL (0.2-1.0); Ferritin 636.8 ng/mL (8-388); Glucose Level 203 mg/dL (74-106); Magnesium 2.3 mg/dL (1.8-2.4); Potassium 4.3 mmol/L (3.5-5.1); Protein, Total 6.5 g/dL (6.4-8.2); Sodium Level 139 mmol/L (136-145)
[2020-09-25 07:43] LABS: Absolute Lymphocytes (CBC) 0.3 K/uL (0.7-4.9); Basophils % 0.2 % (0-1.3); Hematocrit 40.4 % (36.0-45.0); Lymphocytes % 2.4 % (15.3-44.8); MPV 7.8 fL (7.6-11.3); RBC Red Blood Cell Count 4.36 M/uL (3.86-4.86)
[2020-09-25] MEDS: APIXABAN 5 MG TABLET PO SCH ×2 (08:50→20:08)
[2020-09-25] MEDS: THIAMINE HCL 100 MG TABLET PO SCH (08:50)
[2020-09-25] MEDS: ASPIRIN EC 81 MG TAB PO SCH (08:50)
[2020-09-25] MEDS: FLUCONAZOLE 100 MG TAB PO SCH (08:50)
[2020-09-25] MEDS: VITAMIN D 1000 UNIT TAB PO SCH (08:51)
[2020-09-25] MEDS: FOLIC ACID 1 MG TABLET PO SCH (08:51)
[2020-09-25] MEDS: METHYLPREDNISOLONE 125 MG INJ IV SCH ×2 (08:51→20:11)
[2020-09-25] MEDS: ASCORBIC ACID 500 MG TABLET PO SCH ×3 (08:51→20:09)
[2020-09-25] MEDS: FUROSEMIDE 20 MG/ 2ML VIAL IV SCH ×2 (08:51→17:26)
[2020-09-25] MEDS ORDERED: VANCOMYCIN 2 GM in NA CHLORIDE 0.9% 500 ML IVPB SCH (09:00)
--- NOTE | 2020-09-25 10:20 | P.PN ---
Subjective Date of Service: 09/25/20 Primary Care Provider: Dr. Lopez; Pulmonary-Dr. Cristobal; Cardiology-Dr. Westbrook Chief Complaint: Respiratory failure from parnell virus AIt has been difficult to wean down FiO2 from 100% Patient is still requiring BiPAP too. Physical Examination - Vital Signs Temperature: 97.3 F Blood Pressure: 132/62 Pulse: 84 Respirations: 25 Pulse Ox (%): 89 - Physical Exam General: Alert, Moderate distress Respiratory: Diminished, Crackles/rales Cardiovascular: No edema, Regular rate/rhythm, Normal S1 S2 Gastrointestinal: Soft and benign, Non-distended Musculoskeletal: No swelling Integumentary: No rashes Neurological: Normal speech, Normal strength at 5/5 x4 extr Assessment And Plan - Current Problems (Diagnosis) (1) Pneumonia due to COVID-19 virus Current Visit: Yes Status: Acute (2) Influenza B Current Visit: Yes Status: Acute (3) NSTEMI (non-ST elevated myocardial infarction) Current Visit: Yes Status: Acute (4) Acute respiratory failure due to severe acute respiratory syndrome coronavirus 2 (SARS-CoV-2) infection Current Visit: Yes Status: Acute (5) Acute kidney injury Current Visit: Yes Status: Acute Physician Review Additional Text: Dyspnea secondary to acute respiratory failure related to Bilateral COVID19 pneumonia/Influenza B NSTEMI, suspect CAD Acute renal failure secondary to above Hypothyroidism Hyperlipidemia GERD History of chronic shingles History of vocal cord nodules Plan: Dyspnea secondary to acute respiratory failure related to Bilateral COVID19 pneumonia/Influenza B: -continue BiPAP. Wean FiO2 from 100% as possible. -continue high dose solumedrol. -trend CRP/ferritin -social service evaluating for LTAC placement. -pulmonary is following. NSTEMI -aspirin -Echo: Normal EF, moderate pulmonary hypertension. -Continue Eliquis Acute renal failure secondary to above: Acute renal failure resolved. Hypothyroidism, HLD, GERD, Chronic Shingles, h/o vocal cord nodules: stable, continue home meds
[2020-09-25 10:53] LABS: Blood Morphology Comment NOT SEEN (NOT SEEN); Platelet Estimate ADEQ; White Blood Cell Scan OK (OK)
[2020-09-25] MEDS ORDERED: ENSURE HIGH PROTEIN 237 ML CAN PO PRN (12:07)
--- NOTE | 2020-09-25 12:57 | RAD REPORT ---
EXAM DESCRIPTION: RAD - Chest Single View - 09/25/2020 7:19 am CLINICAL HISTORY: covid Chest pain. COMPARISON: Chest Single View dated 09/24/2020; Chest Single View dated 09/24/2020; Chest Single View da niurka 09/23/2020; Chest Single View dated 09/22/2020 FINDINGS: Portable technique limits examination quality. Moderate improvement lung aeration is seen since comparative study with mild interstitial opacities p ersisting. The heart is moderately enlarged. Right-sided PICC line is stable. IMPRESSION: Mild improvement in lung aeration is noted since comparative study.
[2020-09-25] MEDS: LORazepam 2 MG/ML VIAL IV PRN ×2 (13:02→18:24)
[2020-09-25] MEDS: VANCOMYCIN 2 GM in NA CHLORIDE 0.9% 500 ML IVPB SCH (13:02)
--- NOTE | 2020-09-25 19:27 | P.PN ---
Subjective Date of Service: 09/30/20 Primary Care Provider: Dr. Lopez; Pulmonary-Dr. Cristobal; Cardiology-Dr. Westbrook Chief Complaint: Respiratory failure from parnell virus No change requiring significant amount of oxygen Review of Systems Respiratory: Shortness of Breath Physical Examination - Vital Signs Temperature: 97.4 F Blood Pressure: 122/75 Pulse: 95 Respirations: 28 Pulse Ox (%): 87 Assessment & Plan - Problems (Diagnosis) (1) Acute respiratory failure due to severe acute respiratory syndrome coronavirus 2 (SARS-CoV-2) infection Current Visit: Yes Status: Acute Plan: Respiratory failure still requiring significant amount of oxygen ferritin levels is CRP levels declining chest x-ray shows an improvement no change
[2020-09-25] MEDS: MELATONIN 5 MG TABLET PO SCH (20:09)
--- NOTE | 2020-09-25 22:24 | PN ---
Date of Progress Note: 09/24/2020 Chief Complaint: Acute on chronic kidney injury, nonoliguric. Patient did not require dialysis. Kameron crawford has had multiple medical problems including GERD. She is admitted to ICU for COVID pneumonia. She has had history of COPD, on home oxygen; hypothyroidism; hypertension; renal function has gradually improved and stabilized. Upon admission, creatinine level was up to 2.14, improved subsequently to 1 .1, but her BUN/creatinine ratio corresponding with prerenal azotemia. Patient although responded to IV fluids and lactic acidosis resolved with IV fluids and volume resuscitation. Review of Systems: Unobtainable. Impression And Plan: 1.Acute on chronic kidney injury due to volume depletion and complicated by rhabdomyolysis in settin g of COVID infection. Patient is currently off IV fluids. Monitor CK level. 2.Non ST elevation myocardial infarction, cardiorenal syndrome. Continue recommendation from Cardio logy. 3.COVID pneumonia. The patient is on steroids and remdesivir. 4.Elevated liver function tests likely in the setting of infection and [facility] 5.Acute respiratory failure due to severe acute respiratory syndrome, coronavirus 2, SARS-CoV-2 infe ction. Treatment via primary team. Patient is on steroids. Patient is started on Diflucan. EB/MODL Voice ID: [id number] Report ID: [id number]
--- NOTE | 2020-09-26 00:23 | PN ---
Date of Progress Note: 09/25/2020 Chief Complaint: Acute on chronic kidney injury, nonoliguric. History Of Present Illness: The patient did not require dialysis. She has multiple medical problems including history pf COVID pneumonia. She remains in ICU. She has advanced COPD on home oxygen, hy pothyroidism, hypertension. Renal function has gradually improved, stabilized. Creatinine level is at baseline. There is high BUN and creatinine ratio corresponding with prerenal azotemia. Lactic ac idosis resolved after IV fluids and volume resuscitation was ordered. Review of Systems: Unobtainable. Impression And Plan: 1.Acute on chronic kidney injury due to volume depletion, complicated by rhabdomyolysis in the setti ng of COVID infection. The patient is currently is off IV fluids. Monitor CK level and fluid balanc e. 2.Non-ST elevation myocardial infarction and cardiorenal syndrome. Continue recommendation from Car diology. 3.COVID pneumonia. The patient is on steroids and remdesivir. 4.Acute respiratory failure due to severe pneumonia secondary to COVID-19 infection. Treatment by [facility] team. MEMO/HARLEYL Voice ID: [id number] Report ID: [id number]
[2020-09-26] MEDS: VANCOMYCIN 2 GM in NA CHLORIDE 0.9% 500 ML IVPB SCH ×2 (01:29→14:44)
[2020-09-26 05:22] LABS: Absolute Lymphocytes (CBC) 0.2 K/uL (0.7-4.9); Basophils % 0.3 % (0-1.3); Hematocrit 39.1 % (36.0-45.0); Lymphocytes % 1.2 % (15.3-44.8); RBC Red Blood Cell Count 4.23 M/uL (3.86-4.86)
[2020-09-26] MEDS: METOPROLOL TAR 25 MG TAB PO SCH ×2 (05:34→18:22)
[2020-09-26] MEDS: LEVOTHYROXINE SOD 0.125 MG TAB PO SCH (05:35)
[2020-09-26 05:57] LABS: ALT/SGPT 65 U/L (12-78); AST/SGOT 44 U/L (15-37); Albumin 2.1 g/dL (3.4-5.0); Alkaline Phosphatase 115 U/L (45-117); BUN Blood Urea Nitrogen 28 mg/dL (7-18); Bicarbonate 40 mmol/L (21-32); Bilirubin Total 0.5 mg/dL (0.2-1.0); Glucose Level 206 mg/dL (74-106); Potassium 4.7 mmol/L (3.5-5.1); Protein, Total 6.4 g/dL (6.4-8.2); Sodium Level 139 mmol/L (136-145)
[2020-09-26] MEDS: APIXABAN 5 MG TABLET PO SCH ×2 (09:43→20:49)
[2020-09-26] MEDS: VITAMIN D 1000 UNIT TAB PO SCH (09:43)
[2020-09-26] MEDS: FLUCONAZOLE 100 MG TAB PO SCH (09:43)
[2020-09-26] MEDS: METHYLPREDNISOLONE 125 MG INJ IV SCH ×2 (09:43→20:51)
[2020-09-26] MEDS: ASCORBIC ACID 500 MG TABLET PO SCH ×3 (09:43→20:51)
[2020-09-26] MEDS: THIAMINE HCL 100 MG TABLET PO SCH (09:43)
[2020-09-26] MEDS: FUROSEMIDE 20 MG/ 2ML VIAL IV SCH ×2 (09:44→18:23)
[2020-09-26] MEDS: ASPIRIN EC 81 MG TAB PO SCH (09:44)
[2020-09-26] MEDS: FOLIC ACID 1 MG TABLET PO SCH (09:44)
--- NOTE | 2020-09-26 14:53 | P.PN ---
Subjective Date of Service: 09/26/20 Primary Care Provider: Dr. Lopez; Pulmonary-Dr. Cristobal; Cardiology-Dr. Westbrook Chief Complaint: Respiratory failure from parnell virus It has been difficult to wean down FiO2 from 100% Patient is still requiring BiPAP. No major changes over the last several days. Physical Examination - Vital Signs Temperature: 96.8 F Blood Pressure: 131/72 Pulse: 113 Respirations: 24 Pulse Ox (%): 91 - Physical Exam General: Alert, In no apparent distress, Obese Respiratory: Diminished Cardiovascular: Regular rate/rhythm, Normal S1 S2 (Tachycardic) Gastrointestinal: Soft and benign, Non-distended Musculoskeletal: No swelling Integumentary: No rashes Neurological: Normal strength at 5/5 x4 extr Assessment And Plan - Current Problems (Diagnosis) (1) Pneumonia due to COVID-19 virus Current Visit: Yes Status: Acute (2) Influenza B Current Visit: Yes Status: Acute (3) NSTEMI (non-ST elevated myocardial infarction) Current Visit: Yes Status: Acute (4) Acute respiratory failure due to severe acute respiratory syndrome coronavirus 2 (SARS-CoV-2) infection Current Visit: Yes Status: Acute (5) Acute kidney injury Current Visit: Yes Status: Acute Physician Review Additional Text: Dyspnea secondary to acute respiratory failure related to Bilateral COVID19 pneumonia/Influenza B NSTEMI, suspect CAD Acute renal failure secondary to above Hypothyroidism Hyperlipidemia GERD History of chronic shingles History of vocal cord nodules Plan: Dyspnea secondary to acute respiratory failure related to Bilateral COVID19 pneumonia/Influenza B: -continue BiPAP. Wean FiO2 from 100% as possible. -continue high dose solumedrol. -trend CRP/ferritin -social service evaluating for LTAC placement. -pulmonary is following. -I had a discussion with the patient regarding intubation and CPR. -patient stated she wants to remain full code and wanted her son to decide on intubation -I called her son Wallace at [phone] and discussed intubation and mechanical ventilation. -Wallace stated he had a discussion with her other son regarding intubation and mechanical ventilation. -they want all aggressive measures including intubation and mechanical ventilation to be done if needed. NSTEMI -aspirin -Echo: Normal EF, moderate pulmonary hypertension. -Continue Eliquis Acute renal failure secondary to above: Acute renal failure resolved. Hypothyroidism, HLD, GERD, Chronic Shingles, h/o vocal cord nodules: stable, continue home meds
[2020-09-26] MEDS: MELATONIN 5 MG TABLET PO SCH (20:50)
--- NOTE | 2020-09-26 20:51 | PN ---
Date of Progress Note: 09/26/2020 Subjective: Acute on chronic kidney injury, nonoliguric. Patient did not require dialysis. Renal f unction has improved gradually. There is high BUN and creatinine ratio corresponding with prerenal a zotemia, although overall kidney function has significantly improved over last several days. Patient has COVID pneumonia. She remains in ICU. She has advanced COPD and on home oxygen, hypertension, h ypothyroidism. Review of Systems: Unobtainable. Impression And Plan: 1.Acute on chronic kidney injury complicated by rhabdomyolysis in the setting of COVID infection. P alvaro was currently on IV fluids. Monitor CK level and fluid balance. 2.Non-ST elevation myocardial infarction and cardiorenal syndrome. Continue recommendation from [facility] diology. The patient may benefit from Lasix. 3.COVID pneumonia. Continue steroids and remdesivir. 4.Acute respiratory failure due to severe COVID pneumonia infection with COVID-19 treatment by [facility]. EB/MODL Voice ID: [id number] Report ID: [id number]
[2020-09-27] MEDS: VANCOMYCIN 2 GM in NA CHLORIDE 0.9% 500 ML IVPB SCH (01:18)
[2020-09-27 05:21] LABS: Absolute Lymphocytes (CBC) 0.2 K/uL (0.7-4.9); Basophils % 0.6 % (0-1.3); Lymphocytes % 1.5 % (15.3-44.8); MPV 8.2 fL (7.6-11.3); RBC Red Blood Cell Count 4.02 M/uL (3.86-4.86)
[2020-09-27] MEDS: METOPROLOL TAR 25 MG TAB PO SCH ×2 (05:44→17:54)
[2020-09-27] MEDS: LEVOTHYROXINE SOD 0.125 MG TAB PO SCH (05:44)
[2020-09-27 05:54] LABS: BUN Blood Urea Nitrogen 34 mg/dL (7-18); Ferritin 776.8 ng/mL (8-388); Glucose Level 235 mg/dL (74-106); Magnesium 2.4 mg/dL (1.8-2.4); Sodium Level 140 mmol/L (136-145)
[2020-09-27 05:56] LABS: Bicarbonate 43 mmol/L (21-32)
[2020-09-27] MEDS: FUROSEMIDE 20 MG/ 2ML VIAL IV SCH (09:00)
[2020-09-27 10:09] LABS: Arterial Blood Carboxyhemoglob 1.6 % (0-1.5); Blood Gas Oxyhemoglobin 84.7 % (94-97)
[2020-09-27] MEDS: FUROSEMIDE 40 MG/4 ML VIAL IV SCH ×2 (11:41→17:54)
[2020-09-27] MEDS: APIXABAN 5 MG TABLET PO SCH ×2 (11:42→20:51)
[2020-09-27] MEDS: METHYLPREDNISOLONE 125 MG INJ IV SCH ×2 (11:42→20:51)
[2020-09-27] MEDS: FOLIC ACID 1 MG TABLET PO SCH (11:42)
[2020-09-27] MEDS: VITAMIN D 1000 UNIT TAB PO SCH (11:42)
[2020-09-27] MEDS: FLUCONAZOLE 100 MG TAB PO SCH (11:42)
[2020-09-27] MEDS: ASCORBIC ACID 500 MG TABLET PO SCH ×3 (11:43→20:51)
[2020-09-27] MEDS: ASPIRIN EC 81 MG TAB PO SCH (11:43)
[2020-09-27] MEDS: THIAMINE HCL 100 MG TABLET PO SCH (11:43)
--- NOTE | 2020-09-27 12:04 | P.PN ---
Subjective Date of Service: 09/27/20 Primary Care Provider: Dr. Lopez; Pulmonary-Dr. Cristobal; Cardiology-Dr. Westbrook Chief Complaint: Respiratory failure from parnell virus Patient is 74 years of age with respiratory failure is not improving becoming more hypercapnic his if her ferritin levels are declining Review of Systems is unable to be obtained Physical Examination - Vital Signs Temperature: 96.8 F Blood Pressure: 124/62 Pulse: 84 Respirations: 21 Pulse Ox (%): 92 - Physical Exam General: Alert, Moderate distress Respiratory: Clear to auscultation bilaterally Cardiovascular: No edema, Normal S1 S2 Gastrointestinal: Normal bowel sounds, Soft and benign Assessment & Plan - Problems (Diagnosis) (1) Acute respiratory failure due to severe acute respiratory syndrome coronavirus 2 (SARS-CoV-2) infection Current Visit: Yes Status: Acute Plan: Respiratory failure still requiring significant amount of oxygen ferritin levels is CRP levels declining chest x-ray shows an improvement no change discuss with family regarding intubation becoming progressive more hypercapnic patient on 100% FiO2 recommend Dobhoff with tube feeds
--- NOTE | 2020-09-27 13:02 | PN ---
Date of Progress Note: 09/27/2020 Subjective: The patient was admitted to the hospital with COVID pneumonia, rhabdomyolysis, acute kid keren injury secondary to COVID nephropathy/rhabdo. The patient still in respiratory distress. The jemma haddad required increasing her FiO2. The patient on BiPAP currently. Objective: Vital Signs: When I saw the patient, blood pressure 124/62, pulse of 82, afebrile. The patient had good urine output of 2300, negative of 700. Chest: Crackles bilateral. Heart: S1, S2. Systolic murmur. Abdomen: Soft, nontender, obese. Extremities: +1 edema. Neurologic: Alert, oriented, nonfocal. Laboratory Data: WBC 13.3, H and H 12.1/38, platelet 233. Sodium 140, potassium 5, bicarb 43, BUN 3 4, creatinine 0.5, calcium of 8.4, magnesium 2.4. Ferritin 776. C-reactive protein trending down to 15. TSH of 0.1. ABG done today, pH 7.38, CO2 74, O2 53. Chest x-ray done day before yesterday on the showing congestion with marginal cardiomegaly. Current Medications: The patient on include: 1.Fluconazole. 2.Aspirin. 3.Eliquis. 4.Metoprolol 12.5. 5.Lasix 20 b.i.d. 6.Folic acid. 7.Levothyroxine. 8.Solu-Medrol. 9.Thiamine. 10.Cholecalciferol. Assessment And Plan: 1.Acute kidney injury, multifactorial secondary to COVID nephropathy/rhabdomyolysis, recover, [facility] ed. Currently, looks to me on the over volume side. I am going to go ahead and increase her Lasix t o 40 mg b.i.d. We will go ahead and send for UA and urine electrolyte to evaluate the fluid status f or the patient and I am going to send for uric acid. 2.Rhabdomyolysis, resolved. 3.Alkalosis compensation for the respiratory acidosis. We will follow up with Pulmonary. 4.Hyperkalemia, marginal, resolved. 5.Non ST elevation myocardial infarction. Follow up with Cardiology. 6.Respiratory failure, multifactorial, secondary to chronic obstructive pulmonary disease exacerbati on/COVID pneumonia/over volume. We will try to establish better volume control. Follow up with Pulm santhosh. Follow up with hospitalist. Time spent discussing the case with the patient [id number], placing order, discussing the case with the other subspecialty including Pulmonary and hospitalist, 45 minutes. MARQUITA Voice ID: [id number] Report ID: [id number]
--- NOTE | 2020-09-27 13:05 | RAD REPORT ---
EXAM DESCRIPTION: RAD - Abdomen 1 View (KUB) - 09/27/2020 12:51 pm CLINICAL HISTORY: Dobbhoff placement COMPARISON: <Comparisons> FINDINGS: Feeding tube has been placed. Tip is in the medial aspect of the left upper quadrant corre sponding to body of the stomach. No bowel obstruction. No free air or pneumatosis. IMPRESSION: Feeding tube has been placed with tip in the body of the stomach.
[2020-09-27] MEDS ORDERED: JEVITY 1.5 CAL LIQUID 1,000 ML BOT RTH SCH (14:00)
[2020-09-27] MEDS: VITAL HP 1,000 ML BOT RTH SCH (17:55)
--- NOTE | 2020-09-27 18:22 | P.PN ---
Subjective Date of Service: 09/27/20 Primary Care Provider: Dr. Lopez; Pulmonary-Dr. Cristobal; Cardiology-Dr. Westbrook Chief Complaint: Respiratory failure from parnell virus Subjective: No new changes (continues to require BIPAP, unable to wean, feels about the same, denies pain) Review of Systems 10-point ROS is otherwise unremarkable Physical Examination - Vital Signs Temperature: 96.8 F Blood Pressure: 136/83 Pulse: 97 Respirations: 24 Pulse Ox (%): 90 - Physical Exam General: Alert, In no apparent distress HEENT: Sclerae nonicteric Respiratory: Other (labored, on BIPAP) Cardiovascular: Regular rate/rhythm Gastrointestinal: Soft and benign, No tenderness Musculoskeletal: No tenderness Integumentary: No rashes Neurological: Other (frustrated) Assessment & Plan Physician Review Additional Text: Dyspnea secondary to acute respiratory failure related to Bilateral COVID19 pneumonia/Influenza B NSTEMI, suspect CAD Acute renal failure secondary to above Hypothyroidism Hyperlipidemia GERD History of chronic shingles History of vocal cord nodules Plan: Dyspnea secondary to acute respiratory failure related to Bilateral COVID19 pneumonia/Influenza B: -continue BiPAP. Wean FiO2 from 100% as possible. continue solumedrol, trend CRP / ferritin -SS eval for LTAC placement -pulmonology following. ABG today with elevated CO2, review of past few days show CO2 trending up -had long discussion regarding intubation/mechanical ventilation with Jagjit (son) - said had prior conversations, and continue to want aggressive measures, but decision is up to their mom -discussed with patient, she was very tearful, unsure what she wants, stated she will talk to her sons. For now she remains full code / intubate if necessary - pt agreed NSTEMI -aspirin, Echo: Normal EF, moderate pulmonary hypertension. -Continue Eliquis Acute renal failure secondary to above: Acute renal failure resolved. Nephrology following, appreciate assistance Hypothyroidism, HLD, GERD, Chronic Shingles, h/o vocal cord nodules: stable, continue home meds Dispo: poor prognosis / guarded right now. may need intubation if CO2 continues to climb Time Spent Managing Pts Care (In Minutes): 50
[2020-09-27] MEDS: LORazepam 2 MG/ML VIAL IV PRN (20:51)
[2020-09-27] MEDS: MELATONIN 5 MG TABLET PO SCH (20:51)
[2020-09-27 21:59] LABS: Urine Appearance CLEAR; Urine Bilirubin NEGATIVE (NEG); Urine Blood NEGATIVE (NEG); Urine Color YELLOW; Urine Glucose NEGATIVE (NEG); Urine Microscopic Reflex NO UMIC; Urine Protein NEGATIVE (NEG); Urine Urobilinogen 0.2 mg/dL (0.2-1.0)
[2020-09-27 22:06] LABS: Urine Protein/Creatinine Ratio 0.47 ratio (<0.15)
[2020-09-28 06:06] LABS: Absolute Lymphocytes (CBC) 0.2 K/uL (0.7-4.9); Basophils % 0.4 % (0-1.3); Hematocrit 38.6 % (36.0-45.0); Lymphocytes % 1.6 % (15.3-44.8); MPV 8.2 fL (7.6-11.3); RBC Red Blood Cell Count 4.09 M/uL (3.86-4.86)
[2020-09-28] MEDS: METOPROLOL TAR 25 MG TAB PO SCH ×2 (06:13→16:59)
[2020-09-28] MEDS: LEVOTHYROXINE SOD 0.125 MG TAB PO SCH (06:13)
[2020-09-28 06:32] LABS: Albumin 2.2 g/dL (3.4-5.0); BUN Blood Urea Nitrogen 42 mg/dL (7-18); C-Reactive Protein 8.44 mg/L (<3.00); Ferritin 677.3 ng/mL (8-388); Glucose Level 281 mg/dL (74-106); Phosphorus 4.7 mg/dL (2.5-4.9); Potassium 4.6 mmol/L (3.5-5.1); Sodium Level 139 mmol/L (136-145); Uric Acid 4.7 mg/dL (2.6-6.0)
[2020-09-28 06:35] LABS: Platelet Estimate ADEQ; White Blood Cell Scan OK (OK)
[2020-09-28 06:36] LABS: Blood Morphology Comment NOT SEEN (NOT SEEN)
[2020-09-28 06:47] LABS: Bicarbonate > 45 mmol/L (21-32)
--- NOTE | 2020-09-28 07:40 | RAD REPORT ---
EXAM DESCRIPTION: RAD - Chest Single View - 09/28/2020 7:18 am CLINICAL HISTORY: covid, pneumonia COMPARISON: Portable September 25 TECHNIQUE: AP portable chest image was obtained 09/28/2020 7:18 am . FINDINGS: Bilateral interstitial and alveolar opacities are still present. Findings are not substant ially different from the comparison. Feeding tube has been placed extending below the diaphragm, off the field of view. Heart and vasculature are normal. No measurable pleural effusion and no pneumothor ax. No acute bony abnormality seen. No acute aortic findings suspected. IMPRESSION: Bilateral lung infiltrates are not substantially different from September 25.
[2020-09-28] MEDS: FLUCONAZOLE 100 MG TAB PO SCH (08:52)
[2020-09-28] MEDS: ASCORBIC ACID 500 MG TABLET PO SCH ×3 (08:53→20:17)
[2020-09-28] MEDS: APIXABAN 5 MG TABLET PO SCH ×2 (08:53→20:17)
[2020-09-28] MEDS: VITAMIN D 1000 UNIT TAB PO SCH (08:54)
[2020-09-28] MEDS: ASPIRIN EC 81 MG TAB PO SCH (08:54)
[2020-09-28] MEDS: THIAMINE HCL 100 MG TABLET PO SCH (08:54)
[2020-09-28] MEDS: FOLIC ACID 1 MG TABLET PO SCH (08:54)
[2020-09-28] MEDS: METHYLPREDNISOLONE 125 MG INJ IV SCH ×2 (08:56→20:17)
[2020-09-28] MEDS: NACHLORIDE 0.45% 1,000 ML IV SCH ×2 (09:04→20:18)
--- NOTE | 2020-09-28 12:08 | P.PN ---
Subjective Date of Service: 09/28/20 Primary Care Provider: Dr. Lopez; Pulmonary-Dr. Cristobal; Cardiology-Dr. Westbrook Chief Complaint: Respiratory failure from parnell virus Nor change patient is eating better still on high concentrations of oxygen in tube feeds Review of Systems Respiratory: Shortness of Breath Physical Examination - Vital Signs Temperature: 96.9 F Blood Pressure: 122/78 Pulse: 79 Respirations: 18 Pulse Ox (%): 92 Assessment & Plan - Problems (Diagnosis) (1) Acute respiratory failure due to severe acute respiratory syndrome coronavirus 2 (SARS-CoV-2) infection Current Visit: Yes Status: Acute Plan: Respiratory failure from parnell virus and patient's bicarbonate is very elevated probably due to contraction alkalosis start on IV fluids Dc Lasix patient's ferritin level is declining continue with present treatment tolerating tube feeds no progression
--- NOTE | 2020-09-28 17:56 | P.PN ---
Subjective Date of Service: 09/28/20 Primary Care Provider: Dr. Lopez; Pulmonary-Dr. Cristobal; Cardiology-Dr. Westbrook Chief Complaint: Respiratory failure from parnell virus Subjective: No new changes (doing ok this morning, reports feeling the same, CXR unchanged) Review of Systems 10-point ROS is otherwise unremarkable Physical Examination - Vital Signs Temperature: 97.2 F Blood Pressure: 127/75 Pulse: 83 Respirations: 18 Pulse Ox (%): 93 - Physical Exam General: Alert, In no apparent distress HEENT: Sclerae nonicteric Respiratory: Other (on BIPAP) Cardiovascular: No edema, Regular rate/rhythm Gastrointestinal: Soft and benign, No tenderness Integumentary: No rashes Assessment & Plan Physician Review Additional Text: Dyspnea secondary to acute respiratory failure related to Bilateral COVID19 pneumonia/Influenza B NSTEMI, suspect CAD Acute renal failure secondary to above Hypothyroidism Hyperlipidemia GERD History of chronic shingles History of vocal cord nodules Plan: Dyspnea secondary to acute respiratory failure related to Bilateral COVID19 pneumonia/Influenza B: -continue BiPAP. Wean FiO2 from 100% as possible. continue solumedrol, trend CRP / ferritin -pulmonology following. -prior discussion with family/patient, ok for intubation if needed for last resort, confirmed today with patient, full code -elevated CO2 from retention/respiratory and possibly contraction alkalosis, started on IVF NSTEMI -aspirin, Echo: Normal EF, moderate pulmonary hypertension. -Continue Eliquis Acute renal failure secondary to above, resolved: Acute renal failure resolved. Nephrology following, appreciate assistance Hypothyroidism, HLD, GERD, Chronic Shingles, h/o vocal cord nodules: stable, continue home meds Dispo: poor prognosis / guarded right now. may need intubation if CO2 continues to climb Time Spent Managing Pts Care (In Minutes): 35
[2020-09-28] MEDS: MELATONIN 5 MG TABLET PO SCH (20:17)
[2020-09-28] MEDS: LORazepam 2 MG/ML VIAL IV PRN (20:53)
--- NOTE | 2020-09-28 22:06 | PN ---
Date of Progress Note: 09/28/2020 Subjective: The patient was admitted with COVID pneumonia, over volume, respiratory failure. The pa tient did not require any intubation. The patient had borderline COPD and had acute kidney injury. Physical Examination: Vital Signs: When I saw the patient, blood pressure 128/73, pulse of 86, afebrile. The patient is s till on BiPAP, but her FiO2 better. The patient had urine output of 3400, negative of 2800. Chest: Faint rales bilateral. Heart: S1, S2. Systolic murmur. Abdomen: Soft, nontender. Extremities: Plus edema. Neuro: Alert, oriented follow full command. No focality. Laboratory Data: WBC 12.2, H and H 12.3/38.6, platelets 246. Sodium 139, potassium 4.6, bicarb abov e 45, BUN 42, creatinine 0.6, uric acid 4.7, calcium 8.6 phos 4.7, ferritin 677. C-reactive protein 8.4, albumin 2.2. ABG; pH 7.38, CO2 74, O2 53. Current Medications: The patient on include: 1.Aspirin. 2.Fluconazole. 3.Eliquis. 4.Metoprolol 12.5 mg b.i.d. 5.Ensure. 6.Jevity. 7.Zofran. 8.Folic acid. 9.Half normal at 70 per hour. 10.Levothyroxine. 11.Solu-Medrol. 12.Vitamin C. 13.Thiamine. 14.Ergocalciferol. Assessment And Plan: 1.Acute kidney injury, multi factorial secondary to COVID nephropathy/toxic acute tubular necrosis/r habdomyolysis, recover, resolve. Currently, close to normal volume. I agree with holding the Lasix given the severe alkalosis. We will monitor the patient. 2.Rhabdomyolysis, resolved. 3.Alkalosis secondary compensation to hypercapnic respiratory acidosis. The patient on BiPAP. The patient was switch to half-normal to decrease the chloride load. I am going to give the patient acet azolamide to assist and we will follow up. 4.Hyperkalemia, resolve. 5.Severe disproportion BUN creatinine secondary to catabolic state superimposed with steroid use. N o uremic symptoms. We will monitor. 6.Respiratory failure secondary to COVID pneumonia, chronic obstructive pulmonary disease exacerbati on. We will follow up with Pulmonary. Continue current treatment. Time spent discussing the case with the staff, examining the patient face to face, placing order, dis cussing the case with the other consulting including hospitalist and Pulmonary, 45 minutes. MARQUITA Voice ID: [id number] Report ID: [id number]
[2020-09-29 05:35] LABS: Absolute Lymphocytes (CBC) 0.2 K/uL (0.7-4.9); Basophils % 0.2 % (0-1.3); Hematocrit 37.5 % (36.0-45.0); Lymphocytes % 1.4 % (15.3-44.8); MPV 8.3 fL (7.6-11.3); RBC Red Blood Cell Count 4.01 M/uL (3.86-4.86)
[2020-09-29] MEDS: LEVOTHYROXINE SOD 0.125 MG TAB PO SCH (05:46)
[2020-09-29] MEDS: METOPROLOL TAR 25 MG TAB PO SCH ×2 (05:46→17:22)
[2020-09-29 05:49] LABS: Albumin 2.2 g/dL (3.4-5.0); BUN Blood Urea Nitrogen 34 mg/dL (7-18); C-Reactive Protein 3.47 mg/L (<3.00); Glucose Level 339 mg/dL (74-106); Magnesium 2.3 mg/dL (1.8-2.4); Phosphorus 3.7 mg/dL (2.5-4.9); Sodium Level 136 mmol/L (136-145)
[2020-09-29 05:50] LABS: Bicarbonate > 45 mmol/L (21-32)
[2020-09-29] MEDS: METHYLPREDNISOLONE 125 MG INJ IV SCH ×2 (08:44→20:47)
[2020-09-29] MEDS: FOLIC ACID 1 MG TABLET PO SCH (08:44)
[2020-09-29] MEDS: THIAMINE HCL 100 MG TABLET PO SCH (08:45)
[2020-09-29] MEDS: FLUCONAZOLE 100 MG TAB PO SCH (08:45)
[2020-09-29] MEDS: ACETAZOLAMIDE 500 MG IV IV SCH ×2 (08:45→20:46)
[2020-09-29] MEDS: ASCORBIC ACID 500 MG TABLET PO SCH ×3 (08:45→20:46)
[2020-09-29] MEDS: APIXABAN 5 MG TABLET PO SCH ×2 (08:45→20:46)
--- NOTE | 2020-09-29 08:57 | RAD REPORT ---
EXAM DESCRIPTION: RAD - Chest Single View - 09/29/2020 6:42 am CLINICAL HISTORY: covid Chest pain. COMPARISON: Chest Single View dated 09/28/2020; Abdomen 1 View (KUB) dated 09/27/2020; Chest Single View dated 09/25/2020; Chest Single View dated 09/24/2020 FINDINGS: Portable technique limits examination quality. Interstitial lung opacities are noted bilaterally, unchanged. The heart is upper limit normal in size . Enteric tube descends into the stomach. Right-sided PICC line is unchanged in position. IMPRESSION: Stable chest since yesterday's examination.
[2020-09-29 09:30] LABS: Blood Morphology Comment NOT SEEN (NOT SEEN); Platelet Estimate ADEQ; White Blood Cell Scan OK (OK)
[2020-09-29] MEDS: VITAMIN D 1000 UNIT TAB PO SCH (09:38)
[2020-09-29] MEDS: ASPIRIN 81 MG CHEWABLE TABLET PO SCH (09:38)
[2020-09-29] MEDS ORDERED: GLUCAGON 1 MG/VIAL IM PRN (10:08)
[2020-09-29] MEDS ORDERED: D50W 25 GM/50 ML SYRINGE IV PRN (10:08)
[2020-09-29 11:54] LABS: Arterial Blood Carboxyhemoglob 1.6 % (0-1.5); Blood Gas Oxyhemoglobin 87.3 % (94-97); Blood O2 Saturation 89.8 % (92-98.5)
--- NOTE | 2020-09-29 12:30 | PN ---
Date of Progress Note: 09/29/2020 Subjective: The patient was admitted with COVID pneumonia. The patient had respiratory failure, did not require intubation; the patient on BiPAP. The patient had severe alkalosis yesterday. We changed IV fluid to half normal, started on acetazolamide. Did not receive any dose yet started today. Physical Examination: Vital Signs: When I saw the patient, blood pressure 137/85, pulse of 89. The patient had good urine output of 3400, negative of 2800. Medications: Current medication the patient on includes; fluconazole, aspirin, Eliquis, metoprolol 12.5, Jevity, folic acid, Solu-Medrol, levothyroxine, normal saline 70, acetazolamide, cholecalciferol, thiamine. Assessment And Plan: 1. Acute kidney injury secondary to multifactorial prerenal dehydration superimposed with COVID nephropathy and rhabdomyolysis. Continue to recover. Currently, kidney function normal. Normal volume. I agree with current IV fluid. Continue acetazolamide and we will monitor the patient closely. 2. Rhabdomyolysis, resolved. 3. Alkalosis secondary to hypercapnic respiratory failure. Continue BiPAP. The patient just started on acetazolamide. Continue half-normal to overcome the hyperchloremia. 4. Hyperkalemia, resolved. No need to change the feeding. 5. Severe disproportion BUN and creatinine secondary to catabolic state/steroid. No uremic symptoms. Continue to monitor. Continue IV fluid. 6. Respiratory failure, multifactorial, secondary to COVID pneumonia, chronic obstructive pulmonary disease. The patient's requirement of FiO2 has been decreased. Continue current antibiotic treatment. Follow up with Pulmonary. Time spent discussing with the patient, [id number], using the translation, discussing with the staff and placing an order, discussing with over subspecialty and hospitalist 45 minutes. MARQUITA Voice ID: [id number] Report ID: [id number] KEVIN
[2020-09-29] MEDS: INSULIN -REGULAR HUMAN 50 UNIT/0.5 ML ML SQ SCH ×2 (12:33→17:27)
--- NOTE | 2020-09-29 12:34 | P.PN ---
Subjective Date of Service: 09/30/20 Primary Care Provider: Dr. Lopez; Pulmonary-Dr. Cristobal; Cardiology-Dr. Westbrook Chief Complaint: Respiratory failure from parnell virus Patient feels is slightly better oxygen requirements have been declining bicarbonate very elevated Review of Systems Respiratory: Shortness of Breath Physical Examination - Vital Signs Temperature: 97.3 F Blood Pressure: 137/85 Pulse: 89 Respirations: 18 Pulse Ox (%): 89 Assessment & Plan - Problems (Diagnosis) (1) Acute respiratory failure due to severe acute respiratory syndrome coronavirus 2 (SARS-CoV-2) infection Current Visit: Yes Status: Acute Plan: Respiratory failure from parnell virus bicarbonate very elevated probably a combination of volume depletion of stop the Lasix start on PEG tube flushes Diamox has been added continue with IV fluids
[2020-09-29] MEDS: NACHLORIDE 0.45% 1,000 ML IV SCH (14:13)
--- NOTE | 2020-09-29 15:29 | P.PN ---
Subjective Date of Service: 09/29/20 Primary Care Provider: Dr. Lopez; Pulmonary-Dr. Cristobal; Cardiology-Dr. Westbrook Chief Complaint: Respiratory failure from parnell virus Subjective: Other (feels slightly better this morning. Fio2 down to 90% on BIPAP. no other complaints, receiving tube feeds via NG) Review of Systems 10-point ROS is otherwise unremarkable Physical Examination - Vital Signs Temperature: 97.3 F Blood Pressure: 126/69 Pulse: 84 Respirations: 23 Pulse Ox (%): 90 - Physical Exam General: Alert, In no apparent distress HEENT: Sclerae nonicteric Respiratory: Other (nonlabored on BIPAP) Cardiovascular: No edema, Regular rate/rhythm Gastrointestinal: Soft and benign, No tenderness Musculoskeletal: No tenderness Integumentary: No rashes Neurological: Normal speech Assessment & Plan Physician Review Additional Text: Dyspnea secondary to acute respiratory failure related to Bilateral COVID19 pneumonia/Influenza B NSTEMI, suspect CAD Acute renal failure secondary to above Hypothyroidism Hyperlipidemia GERD History of chronic shingles History of vocal cord nodules Plan: Dyspnea secondary to acute respiratory failure related to Bilateral COVID19 pneumonia/Influenza B: -continue BiPAP. Wean FiO2 / BIPAP. continue solumedrol -pulmonology following. on IVF and diamox for elevated CO2 - possible contraction alkalosis -prior discussion with family/patient, ok for intubation if needed for last resort NSTEMI -aspirin, Echo: Normal EF, moderate pulmonary hypertension. no plans for further intervention at this time -Continue Eliquis Acute renal failure secondary to above, resolved: Acute renal failure resolved. Nephrology following, appreciate assistance Hypothyroidism, HLD, GERD, Chronic Shingles, h/o vocal cord nodules: stable, continue home meds Dispo: hospitalization > 2 days, somewhat improved today, possible LTAC once better Time Spent Managing Pts Care (In Minutes): 35
[2020-09-29] MEDS: MELATONIN 5 MG TABLET PO SCH (20:46)
[2020-09-29] MEDS: LORazepam 2 MG/ML VIAL IV PRN (20:47)
[2020-09-29] MEDS: VITAL HP 1,000 ML BOT RTH SCH (20:48)
[2020-09-30] MEDS: INSULIN -REGULAR HUMAN 50 UNIT/0.5 ML ML SQ SCH ×5 (00:17→17:50)
[2020-09-30] MEDS: LORazepam 2 MG/ML VIAL IV PRN (00:18)
[2020-09-30] MEDS ORDERED: METOPROLOL TARTRATE 5 MG/5 ML INJ IV ONE ×2 (03:55→04:11)
[2020-09-30] MEDS: NACHLORIDE 0.45% 1,000 ML IV SCH (04:48)
[2020-09-30] MEDS: METOPROLOL TAR 25 MG TAB PO SCH ×2 (05:37→17:51)
[2020-09-30] MEDS: LEVOTHYROXINE SOD 0.125 MG TAB PO SCH (05:38)
[2020-09-30 06:13] LABS: Albumin 2.3 g/dL (3.4-5.0); BUN Blood Urea Nitrogen 32 mg/dL (7-18); Bicarbonate 39 mmol/L (21-32); Ferritin 963.2 ng/mL (8-388); Glucose Level 359 mg/dL (74-106); Phosphorus 3.8 mg/dL (2.5-4.9); Potassium 4.3 mmol/L (3.5-5.1); Sodium Level 137 mmol/L (136-145)
[2020-09-30 06:14] LABS: C-Reactive Protein < 2.90 mg/L (<3.00)
--- NOTE | 2020-09-30 09:16 | RAD REPORT ---
EXAM DESCRIPTION: RAD - Chest Single View - 09/30/2020 6:38 am CLINICAL HISTORY: covid Chest pain. COMPARISON: Chest Single View dated 09/29/2020; Chest Single View dated 09/28/2020; Abdomen 1 View (KUB) dated 09/27/2020; Chest Single View dated 09/25/2020 FINDINGS: Portable technique limits examination quality. Mild bilateral interstitial lung opacities are present, unchanged. Enteric tube descends into the sto mach. Right-sided PICC line is stable in position. The heart is mildly enlarged in size No displaced fractures. IMPRESSION: Stable chest since 09/29/2020.
[2020-09-30] MEDS: APIXABAN 5 MG TABLET PO SCH ×2 (09:38→21:42)
[2020-09-30] MEDS: METHYLPREDNISOLONE 125 MG INJ IV SCH ×2 (09:38→21:42)
[2020-09-30] MEDS: FLUCONAZOLE 100 MG TAB PO SCH (09:39)
[2020-09-30] MEDS: ACETAZOLAMIDE 500 MG IV IV SCH (09:39)
[2020-09-30] MEDS: ASCORBIC ACID 500 MG TABLET PO SCH ×3 (09:39→21:42)
[2020-09-30] MEDS: FOLIC ACID 1 MG TABLET PO SCH (09:39)
[2020-09-30] MEDS: VITAMIN D 1000 UNIT TAB PO SCH (09:39)
[2020-09-30] MEDS: THIAMINE HCL 100 MG TABLET PO SCH (09:39)
[2020-09-30] MEDS: ASPIRIN 81 MG CHEWABLE TABLET PO SCH (09:39)
--- NOTE | 2020-09-30 11:08 | P.PN ---
Subjective Date of Service: 09/30/20 Primary Care Provider: Dr. Lopez; Pulmonary-Dr. Cristobal; Cardiology-Dr. Westbrook Chief Complaint: Respiratory failure from parnell virus Patient is feeling better oxygen requirements are down slightly she is down to 80% Review of Systems General: Weakness Respiratory: Shortness of Breath Physical Examination - Vital Signs Temperature: 97.1 F Blood Pressure: 137/74 Pulse: 88 Respirations: 20 Pulse Ox (%): 89 Assessment & Plan - Problems (Diagnosis) (1) Acute respiratory failure due to severe acute respiratory syndrome coronavirus 2 (SARS-CoV-2) infection Current Visit: Yes Status: Acute Plan: Respiratory failure continue with Diamox blood sugars are very high any to be controlled aggressively patient is hypoxic hypercapnic patient is at a peep of 16
--- NOTE | 2020-09-30 12:16 | P.PN ---
Subjective Date of Service: 09/30/20 Primary Care Provider: Dr. Lopez; Pulmonary-Dr. Cristobal; Cardiology-Dr. Westbrook Chief Complaint: Respiratory failure from parnell virus 74-year-old female with history of hypothyroidism, hypertension, GERD, hyperlipidemia, shingles, COPD on Home O2 Patient presented to the emergency room with increasing shortness of breath with Cough BP was borderline Fluid bolus given. Patient was found to be positive for influenza B and COVID 19. 4000. Troponin 0.68. Lactic acid 3.6. Pro calcitonin 0.17. White count 9.5, hemoglobin 13. Platelet count 300. Sodium 133, potassium 4.8. BUN of 42, creatinine 2.14 Now Hypoxic , on BiPAP , started Remdisver Today Still on BiPAP will dc IVF cont tube feeding awaiting LTAC acceptance Bicarb elevated but stable Physical exam general: Alert ,on BiPAP Neck; Supple, No elevated JVD hear: RRR, normal S1,2 no murmur or rub Chest: increase Echophony Abdomen: Soft , Nt Extremities No edema, VIDAL possibly due to dehydration and rhabdomyolysis resolved off IVF renal dos meds rhabdomyolysis off statin resolved NSTEMI cardiology consulted elevated CPK possibly due to rahabdomyolysis COVID 19 pneumonia started on steroids and Remdesiver COPD cont O2 biPAP prn cont lasix elevated LFT resolved total time spent 35min Physical Examination - Vital Signs Temperature: 97.1 F Blood Pressure: 137/74 Pulse: 88 Respirations: 20 Pulse Ox (%): 89
[2020-09-30] MEDS ORDERED: FLEET ENEMA ADULT PR ONE (12:58)
[2020-09-30] MEDS ORDERED: D50W 25 GM/50 ML VIAL IV PRN (17:32)
[2020-09-30] MEDS: VITAL HP 1,000 ML BOT RTH SCH (18:30)
--- NOTE | 2020-09-30 20:30 | P.PN ---
Subjective Date of Service: 09/30/20 Primary Care Provider: Dr. Lopez; Pulmonary-Dr. Cristobal; Cardiology-Dr. Westbrook Chief Complaint: Respiratory failure from parnell virus Subjective: Improving (feels slighty better this morning, down to 80% FIo2 on bipap. nursing report pt had 1 small hard stool last night, concern for impaction) Review of Systems 10-point ROS is otherwise unremarkable Physical Examination - Vital Signs Temperature: 98.7 F Blood Pressure: 151/113 Pulse: 100 Respirations: 30 Pulse Ox (%): 86 - Physical Exam General: Alert, In no apparent distress, Obese HEENT: Sclerae nonicteric Respiratory: Other (nonlabored on BIPAP) Cardiovascular: No edema, Regular rate/rhythm Gastrointestinal: Soft and benign, Non-distended, No tenderness Musculoskeletal: No tenderness Integumentary: No rashes Neurological: Normal speech, Normal affect Assessment & Plan Physician Review Additional Text: Dyspnea secondary to acute respiratory failure related to Bilateral COVID19 pneumonia/Influenza B Hyperglycemia Constipation Acute renal failure,resolved Hypothyroidism Hyperlipidemia GERD History of chronic shingles History of vocal cord nodules Plan: Dyspnea secondary to acute respiratory failure related to Bilateral COVID19 pneumonia/Influenza B: -continue BiPAP. Wean FiO2 / BIPAP. continue solumedrol -pulmonology following. diamox for elevated CO2 - possible contraction alkalosis -prior discussion with family/patient, ok for intubation if needed for last resort Hyperglycemia -secondary to steroids and worsened with recent initiation of tube feeds -increase SSI in medium dosing, start lantus 15 u BID, titrate for better glc control Constipation -patient has not gotten out of bed in several days due to desaturations with movement -will order enema, discussed with pharmacy unable to give stool softeners via tube NSTEMI -aspirin, Echo: Normal EF, moderate pulmonary hypertension. no plans for further intervention at this time -Continue Eliquis Acute renal failure secondary to above, resolved: Acute renal failure resolved. Nephrology following, appreciate assistance Hypothyroidism, HLD, GERD, Chronic Shingles, h/o vocal cord nodules: stable, continue home meds Dispo: hospitalization > 2 days, slight improvement today. LTAC once better - was denied, waiting for call Time Spent Managing Pts Care (In Minutes): 40
[2020-09-30] MEDS ORDERED: INSULIN GLARGINE 100 UNITS/ML SQ SCH (21:00)
[2020-09-30] MEDS: INSULIN GLARGINE 100 UNITS/ML SQ SCH (21:00)
[2020-09-30] MEDS: MELATONIN 5 MG TABLET PO SCH (21:42)
[2020-09-30] MEDS: acetaZOLAMIDE 250 MG TAB PO SCH (21:52)
[2020-10-01] MEDS: INSULIN -REGULAR HUMAN 50 UNIT/0.5 ML ML SQ SCH ×4 (00:26→17:41)
[2020-10-01] MEDS: ACETAMINOPHEN 500 MG TAB PO PRN (01:34)
[2020-10-01] MEDS: METOPROLOL TAR 25 MG TAB PO SCH ×2 (06:11→17:43)
[2020-10-01] MEDS: LEVOTHYROXINE SOD 0.125 MG TAB PO SCH (06:12)
--- NOTE | 2020-10-01 08:45 | RAD REPORT ---
EXAM DESCRIPTION: RAD - Chest Single View - 10/01/2020 6:26 am CLINICAL HISTORY: covid COMPARISON: Portable September 30 TECHNIQUE: AP portable chest image was obtained 10/01/2020 6:26 am . FINDINGS: Right-sided PICC line and enteric tube remain in place. Bilateral interstitial and alveola r opacities are still present. Exam is degraded by respiratory motion. Lung parenchyma not clearly di fferent from prior day study. Heart and vasculature are normal. No measurable pleural effusion and no pneumothorax. No acute bony abnormality seen. No acute aortic findings suspected. IMPRESSION: Stable chest.
[2020-10-01 08:53] LABS: ALT/SGPT 113 U/L (12-78); AST/SGOT 50 U/L (15-37); Albumin 2.4 g/dL (3.4-5.0); Alkaline Phosphatase 84 U/L (45-117); BUN Blood Urea Nitrogen 34 mg/dL (7-18); Bicarbonate 38 mmol/L (21-32); Bilirubin Total 0.7 mg/dL (0.2-1.0); Ferritin 1035.4 ng/mL (8-388); Glucose Level 333 mg/dL (74-106); Magnesium 2.2 mg/dL (1.8-2.4); Phosphorus 3.6 mg/dL (2.5-4.9); Potassium 4.3 mmol/L (3.5-5.1); Protein, Total 6.3 g/dL (6.4-8.2); Sodium Level 138 mmol/L (136-145)
[2020-10-01 08:56] LABS: C-Reactive Protein < 2.90 mg/L (<3.00)
[2020-10-01] MEDS: FLUCONAZOLE 100 MG TAB PO SCH (08:56)
[2020-10-01] MEDS: APIXABAN 5 MG TABLET PO SCH ×2 (08:56→20:32)
[2020-10-01] MEDS: acetaZOLAMIDE 250 MG TAB PO SCH ×2 (08:56→20:32)
[2020-10-01] MEDS: ASCORBIC ACID 500 MG TABLET PO SCH ×3 (08:57→20:32)
[2020-10-01] MEDS: THIAMINE HCL 100 MG TABLET PO SCH (08:57)
[2020-10-01] MEDS: FOLIC ACID 1 MG TABLET PO SCH (08:57)
[2020-10-01] MEDS: ASPIRIN 81 MG CHEWABLE TABLET PO SCH (08:57)
[2020-10-01] MEDS: VITAMIN D 1000 UNIT TAB PO SCH (08:57)
[2020-10-01] MEDS: METHYLPREDNISOLONE 125 MG INJ IV SCH ×2 (08:57→20:33)
[2020-10-01] MEDS: INSULIN GLARGINE 100 UNITS/ML SQ SCH ×2 (09:03→20:33)
[2020-10-01] MEDS ORDERED: INSULIN -REGULAR HUMAN 50 UNIT/0.5 ML ML SQ SCH (10:07)
--- NOTE | 2020-10-01 11:10 | P.PN ---
Subjective Date of Service: 10/01/20 Primary Care Provider: Dr. Lopez; Pulmonary-Dr. Cristobal; Cardiology-Dr. Westbrook Chief Complaint: Respiratory failure from parnell virus Subjective: No new changes (continues with feeling about the same, reports some slight restlessness this morning. Fio2 down to 80%) Review of Systems 10-point ROS is otherwise unremarkable Physical Examination - Vital Signs Temperature: 97.2 F Blood Pressure: 120/63 Pulse: 105 Respirations: 27 Pulse Ox (%): 91 - Physical Exam General: Alert HEENT: Sclerae nonicteric Respiratory: Other (on BIPAP, non-labored) Cardiovascular: No edema, Regular rate/rhythm Gastrointestinal: Soft and benign, No tenderness Musculoskeletal: No tenderness Integumentary: No rashes Neurological: Normal speech Assessment & Plan Physician Review Additional Text: Dyspnea secondary to acute respiratory failure related to Bilateral COVID19 pneumonia/Influenza B Hyperglycemia Constipation Acute renal failure,resolved Hypothyroidism Hyperlipidemia GERD History of chronic shingles History of vocal cord nodules Plan: Dyspnea secondary to acute respiratory failure related to Bilateral COVID19 pneumonia/Influenza B: -continue BiPAP. Wean FiO2 / BIPAP. continue solumedrol -pulmonology following. diamox for elevated CO2 - possible contraction alkalosis -patient/family have stated ok with intubation if absolutely needed -ferritin increasing Hyperglycemia -secondary to steroids and worsened with recent initiation of tube feeds -increase SSI further to aggressive. received 15u lantus yesterday, start 15u BID, may need to increase further Constipation -patient has not gotten out of bed in several days due to desaturations with movement -enema yesterday, had BM yesterday, pt reports feeling better -will discuss with pharmacy for stool softener via tube. Will start daily laxative for daily to every other day BM NSTEMI -aspirin, Echo: Normal EF, moderate pulmonary hypertension. no plans for further intervention at this time -Continue Eliquis Acute renal failure secondary to above, resolved: Acute renal failure resolved. Nephrology following, appreciate assistance Hypothyroidism, HLD, GERD, Chronic Shingles, h/o vocal cord nodules: stable, continue home meds Dispo: guarded prognosis, hospitalization > 2 days. LTAC once better - was denied, waiting for call Time Spent Managing Pts Care (In Minutes): 40
--- NOTE | 2020-10-01 17:09 | P.PN ---
Subjective Date of Service: 10/01/20 Primary Care Provider: Dr. Lopez; Pulmonary-Dr. Cristobal; Cardiology-Dr. Westbrook Chief Complaint: Respiratory failure from parnell virus 74-year-old female with history of hypothyroidism, hypertension, GERD, hyperlipidemia, shingles, COPD on Home O2 Patient presented to the emergency room with increasing shortness of breath with Cough BP was borderline Fluid bolus given. Patient was found to be positive for influenza B and COVID 19. 4000. Troponin 0.68. Lactic acid 3.6. Pro calcitonin 0.17. White count 9.5, hemoglobin 13. Platelet count 300. Sodium 133, potassium 4.8. BUN of 42, creatinine 2.14 Now Hypoxic , on BiPAP , started Remdisver Today Still on BiPAP awaiting LTAC acceptance Bicarb elevated but stable , Cont diamox Physical exam general: Alert ,on BiPAP Neck; Supple, No elevated JVD hear: RRR, normal S1,2 no murmur or rub Chest: increase Echophony Abdomen: Soft , Nt Extremities No edema, VIDAL possibly due to dehydration and rhabdomyolysis resolved off IVF renal dos meds rhabdomyolysis off statin resolved NSTEMI cardiology consulted elevated CPK possibly due to rahabdomyolysis COVID 19 pneumonia started on steroids and Remdesiver COPD cont O2 biPAP prn cont lasix elevated LFT resolved total time spent 35min Physical Examination - Vital Signs Temperature: 97.2 F Blood Pressure: 136/81 Pulse: 109 Respirations: 24 Pulse Ox (%): 91
[2020-10-01] MEDS: MELATONIN 5 MG TABLET PO SCH (20:32)
[2020-10-01] MEDS: LORazepam 2 MG/ML VIAL IV PRN (20:45)
[2020-10-01] MEDS ORDERED: POLYETHYL GLY 3350 17 GM/DOSE PO PRN (21:00)
[2020-10-02] MEDS: INSULIN -REGULAR HUMAN 50 UNIT/0.5 ML ML SQ SCH ×4 (00:28→17:40)
[2020-10-02] MEDS: METOPROLOL TAR 25 MG TAB PO SCH ×2 (06:22→17:43)
[2020-10-02] MEDS: LEVOTHYROXINE SOD 0.125 MG TAB PO SCH (06:22)
[2020-10-02 07:24] LABS: Albumin 2.5 g/dL (3.4-5.0); BUN Blood Urea Nitrogen 31 mg/dL (7-18); Bicarbonate 35 mmol/L (21-32); Ferritin 1375.4 ng/mL (8-388); Glucose Level 316 mg/dL (74-106); Phosphorus 2.6 mg/dL (2.5-4.9); Sodium Level 135 mmol/L (136-145)
[2020-10-02] MEDS: ASPIRIN 81 MG CHEWABLE TABLET PO SCH (07:58)
[2020-10-02] MEDS: THIAMINE HCL 100 MG TABLET PO SCH (07:58)
[2020-10-02] MEDS: FLUCONAZOLE 100 MG TAB PO SCH (07:58)
[2020-10-02] MEDS: APIXABAN 5 MG TABLET PO SCH ×2 (07:58→20:45)
[2020-10-02] MEDS: FOLIC ACID 1 MG TABLET PO SCH (07:58)
[2020-10-02] MEDS: acetaZOLAMIDE 250 MG TAB PO SCH ×2 (07:59→20:45)
[2020-10-02] MEDS: ASCORBIC ACID 500 MG TABLET PO SCH ×3 (07:59→20:46)
[2020-10-02] MEDS: METHYLPREDNISOLONE 125 MG INJ IV SCH (07:59)
[2020-10-02] MEDS: VITAMIN D 1000 UNIT TAB PO SCH (07:59)
[2020-10-02] MEDS: INSULIN GLARGINE 100 UNITS/ML SQ SCH ×2 (08:24→20:45)
--- NOTE | 2020-10-02 11:42 | P.PN ---
Subjective Date of Service: 10/02/20 Primary Care Provider: Dr. Lopez; Pulmonary-Dr. Cristobal; Cardiology-Dr. Westbrook Chief Complaint: Respiratory failure from parnell virus No changes patient has a sweating the left parotid regain use: Very tender Review of Systems General: Weakness Respiratory: Shortness of Breath Physical Examination - Vital Signs Temperature: 97.8 F Blood Pressure: 150/90 Pulse: 98 Respirations: 25 Pulse Ox (%): 90 - Physical Exam General: Alert Respiratory: Clear to auscultation bilaterally Cardiovascular: No edema, Regular rate/rhythm Assessment & Plan - Problems (Diagnosis) (1) Acute respiratory failure due to severe acute respiratory syndrome coronavirus 2 (SARS-CoV-2) infection Current Visit: Yes Status: Acute Plan: Patient has got swelling in the left parotid region probably infected gland agree with broad-spectrum antibiotics including Mr SA coverage he she is on 75% FiO2 will recheck blood gases continue with Diamox repeat ABGs consult ENT
--- NOTE | 2020-10-02 11:52 | P.PN ---
Subjective Date of Service: 10/02/20 Primary Care Provider: Dr. Lopez; Pulmonary-Dr. Cristobal; Cardiology-Dr. Westbrook Chief Complaint: Respiratory failure from parnell virus Not doing well still requiring high concentrations of oxygen ferritin level is increased slightly white count declining alert refused NG tube Physical Examination - Vital Signs Temperature: 97.8 F Blood Pressure: 150/90 Pulse: 98 Respirations: 25 Pulse Ox (%): 90 Assessment & Plan - Problems (Diagnosis) (1) Acute respiratory failure due to severe acute respiratory syndrome coronavirus 2 (SARS-CoV-2) infection Current Visit: Yes Status: Acute Plan: Respiratory failure still requiring high concentrations of oxygen increase Solu- Medrol to 125 IV q.8 ferritin level still elevated labs reviewed white count is declining chest x-ray no change Physician Review Additional Text: Dyspnea secondary to acute respiratory failure related to Bilateral COVID19 pneumonia/Influenza B Hyperglycemia Constipation Acute renal failure,resolved Hypothyroidism Hyperlipidemia GERD History of chronic shingles History of vocal cord nodules Plan: Dyspnea secondary to acute respiratory failure related to Bilateral COVID19 pneumonia/Influenza B: -continue BiPAP. Wean FiO2 / BIPAP. continue solumedrol -pulmonology following. diamox for elevated CO2 - possible contraction alkalosis -patient/family have stated ok with intubation if absolutely needed -ferritin increasing Hyperglycemia -secondary to steroids and worsened with recent initiation of tube feeds -increase SSI further to aggressive. received 15u lantus yesterday, start 15u BID, may need to increase further Constipation -patient has not gotten out of bed in several days due to desaturations with movement -enema yesterday, had BM yesterday, pt reports feeling better -will discuss with pharmacy for stool softener via tube. Will start daily laxative for daily to every other day BM NSTEMI -aspirin, Echo: Normal EF, moderate pulmonary hypertension. no plans for further intervention at this time -Continue Eliquis Acute renal failure secondary to above, resolved: Acute renal failure resolved. Nephrology following, appreciate assistance Hypothyroidism, HLD, GERD, Chronic Shingles, h/o vocal cord nodules: stable, continue home meds Dispo: guarded prognosis, hospitalization > 2 days. LTAC once better - was denied, waiting for call
--- NOTE | 2020-10-02 12:34 | P.PN ---
Subjective Date of Service: 10/02/20 Primary Care Provider: Dr. Lopez; Pulmonary-Dr. Cristobal; Cardiology-Dr. Westbrook Chief Complaint: Respiratory failure from parnell virus 74-year-old female with history of hypothyroidism, hypertension, GERD, hyperlipidemia, shingles, COPD on Home O2 Patient presented to the emergency room with increasing shortness of breath with Cough BP was borderline Fluid bolus given. Patient was found to be positive for influenza B and COVID 19. 4000. Troponin 0.68. Lactic acid 3.6. Pro calcitonin 0.17. White count 9.5, hemoglobin 13. Platelet count 300. Sodium 133, potassium 4.8. BUN of 42, creatinine 2.14 Now Hypoxic , on BiPAP , started Remdisver Today Still on BiPAP 75% FIO Now Lt facial swelling, started on Abx , pending US Cont current management Physical exam general: Alert ,on BiPAP Neck; Supple, No elevated JVD hear: RRR, normal S1,2 no murmur or rub Chest: increase Echophony Abdomen: Soft , Nt Extremities No edema, VIDAL possibly due to dehydration and rhabdomyolysis resolved off IVF renal dos meds rhabdomyolysis off statin resolved NSTEMI cardiology consulted elevated CPK possibly due to rahabdomyolysis COVID 19 pneumonia started on steroids and Remdesiver COPD cont O2 biPAP prn cont lasix elevated LFT resolved Lt parotid swelling? F/u US cont Abx total time spent 35min Physical Examination - Vital Signs Temperature: 97.8 F Blood Pressure: 150/90 Pulse: 98 Respirations: 25 Pulse Ox (%): 90
[2020-10-02] MEDS: Meropenem 1,000 MG in NA CHLORIDE 0.9% 100 ML IV SCH ×2 (12:55→20:48)
[2020-10-02] MEDS: VANCOMYCIN 2 GM in NA CHLORIDE 0.9% 500 ML IVPB SCH (13:04)
[2020-10-02] MEDS ORDERED: METOPROLOL TARTRATE 5 MG/5 ML INJ IV PRN (14:17)
[2020-10-02] MEDS: METOPROLOL TARTRATE 5 MG/5 ML INJ IV STA ×2 (14:30)
--- NOTE | 2020-10-02 14:30 | P.PN ---
Subjective Date of Service: 10/02/20 Primary Care Provider: Dr. Lopez; Pulmonary-Dr. Cristobal; Cardiology-Dr. Westbrook Chief Complaint: Respiratory failure from parnell virus Subjective: Other (Feels a little better, oxygen requirement slightly decreased. Now well with left facial swelling and pain in the parotid area, very tender. denies ear pain or decreased hearing. Had a bowel movement yesterday) Review of Systems 10-point ROS is otherwise unremarkable Physical Examination - Vital Signs Temperature: 97.8 F Blood Pressure: 139/79 Pulse: 112 Respirations: 28 Pulse Ox (%): 86 - Physical Exam General: Alert, In no apparent distress HEENT: Other (Significant swelling and tenderness to left face / jaw, warm, no erythema) Respiratory: Other (nonlabored on BIPAP) Cardiovascular: No edema, Regular rate/rhythm Gastrointestinal: Soft and benign, No tenderness Musculoskeletal: No tenderness Integumentary: No rashes Assessment & Plan Physician Review Additional Text: Dyspnea secondary to acute respiratory failure related to Bilateral COVID19 pneumonia/Influenza B Hyperglycemia L facial swelling Constipation Acute renal failure,resolved Hypothyroidism Hyperlipidemia GERD History of chronic shingles History of vocal cord nodules Plan: Dyspnea secondary to acute respiratory failure related to Bilateral COVID19 pneumonia/Influenza B: -continue BiPAP. Wean FiO2 / BIPAP. Decrease Solu-Medrol to 40 b.i.d. -pulmonology following -patient/family have stated ok with intubation if absolutely needed -ferritin increasing Hyperglycemia -secondary to steroids and worsened with recent initiation of tube feeds -continue aggressive sliding scale, increased from 15 units to 25 units b.i.d. Lantus, will further adjust as needed L facial swelling Concern for parotitis will obtain stat U/S for further evaluation will start merropenem and vanc - given pt's allergies and hospital acquired (if parotitis) Constipation -patient has not gotten out of bed in several days due to desaturations with movement -improved with enema, daily laxative NSTEMI -aspirin, Echo: Normal EF, moderate pulmonary hypertension. no plans for further intervention at this time -Continue Eliquis Acute renal failure secondary to above, resolved: Acute renal failure resolved. Nephrology following, appreciate assistance Hypothyroidism, HLD, GERD, Chronic Shingles, h/o vocal cord nodules: stable, continue home meds Dispo: guarded prognosis, hospitalization > 2 days. LTAC once better - was denied, still waiting for call back Time Spent Managing Pts Care (In Minutes): 35
--- NOTE | 2020-10-02 14:35 | RAD REPORT ---
EXAM DESCRIPTION: US - Thyroid Para Parotid Gland - 10/02/2020 1:05 pm CLINICAL HISTORY: L facial swelling, pain, tenderness Left parotid gland pain and swelling COMPARISON: No comparisons FINDINGS: Limited sonographic evaluation of the left parotid gland is submitted. No fluid collection or mass id entified. IMPRESSION: Negative study.
[2020-10-02 14:49] LABS: Arterial Blood Carboxyhemoglob 1.7 % (0-1.5); Blood Gas Oxyhemoglobin 86.1 % (94-97); Blood O2 Saturation 88.1 % (92-98.5)
[2020-10-02] MEDS ORDERED: Meropenem 1000 MG/VIAL IV SCH (17:00)
[2020-10-02] MEDS: LORazepam 2 MG/ML VIAL IV PRN (18:32)
[2020-10-02] MEDS: METHYLPREDNISOLONE 40 MG INJ IV SCH (20:46)
[2020-10-02] MEDS: CALCIUM CARBONATE 500 MG TAB PO SCH (20:46)
[2020-10-02] MEDS: MELATONIN 5 MG TABLET PO SCH (20:46)
[2020-10-02] MEDS ORDERED: INSULIN GLARGINE 100 UNITS/ML SQ ONE (21:30)
[2020-10-03] MEDS: INSULIN -REGULAR HUMAN 50 UNIT/0.5 ML ML SQ SCH ×5 (00:16→23:56)
[2020-10-03 05:55] LABS: Absolute Lymphocytes (CBC) 0.5 K/uL (0.7-4.9); Basophils % 0.4 % (0-1.3); Hematocrit 39.6 % (36.0-45.0); Lymphocytes % 1.6 % (15.3-44.8); MPV 8.6 fL (7.6-11.3); RBC Red Blood Cell Count 4.26 M/uL (3.86-4.86)
[2020-10-03] MEDS: LEVOTHYROXINE SOD 0.125 MG TAB PO SCH (06:18)
[2020-10-03] MEDS: METOPROLOL TAR 25 MG TAB PO SCH ×2 (06:19→18:13)
[2020-10-03 06:26] LABS: BUN Blood Urea Nitrogen 31 mg/dL (7-18); Bicarbonate 36 mmol/L (21-32); Ferritin 1239.6 ng/mL (8-388); Glucose Level 289 mg/dL (74-106); Magnesium 2.1 mg/dL (1.8-2.4); Potassium 4.4 mmol/L (3.5-5.1); Sodium Level 133 mmol/L (136-145)
[2020-10-03] MEDS: VITAMIN D 1000 UNIT TAB PO SCH (08:24)
[2020-10-03] MEDS: acetaZOLAMIDE 250 MG TAB PO SCH ×2 (08:24→20:36)
[2020-10-03] MEDS: CALCIUM CARBONATE 500 MG TAB PO SCH ×2 (08:24→20:39)
[2020-10-03] MEDS: ASCORBIC ACID 500 MG TABLET PO SCH ×3 (08:24→20:40)
[2020-10-03] MEDS: THIAMINE HCL 100 MG TABLET PO SCH (08:24)
[2020-10-03] MEDS: FOLIC ACID 1 MG TABLET PO SCH (08:25)
[2020-10-03] MEDS: FLUCONAZOLE 100 MG TAB PO SCH (08:25)
[2020-10-03] MEDS: APIXABAN 5 MG TABLET PO SCH ×2 (08:25→20:37)
[2020-10-03] MEDS: INSULIN GLARGINE 100 UNITS/ML SQ SCH ×2 (08:25→20:37)
[2020-10-03] MEDS: ASPIRIN 81 MG CHEWABLE TABLET PO SCH (08:25)
[2020-10-03] MEDS: Meropenem 1,000 MG in NA CHLORIDE 0.9% 100 ML IV SCH ×2 (08:26→20:39)
[2020-10-03] MEDS: METHYLPREDNISOLONE 40 MG INJ IV SCH ×2 (08:27→20:39)
[2020-10-03 09:57] LABS: Blood Morphology Comment NOT SEEN (NOT SEEN); Platelet Estimate DECR
[2020-10-03] MEDS: VANCOMYCIN 2 GM in NA CHLORIDE 0.9% 500 ML IVPB SCH (12:16)
--- NOTE | 2020-10-03 12:21 | P.PN ---
Subjective Date of Service: 10/03/20 Primary Care Provider: Dr. Lopez; Pulmonary-Dr. Cristobal; Cardiology-Dr. Westbrook Chief Complaint: Respiratory failure from parnell virus Condition stable oxygen requirements are declining Review of Systems General: Weakness Respiratory: Shortness of Breath Physical Examination - Vital Signs Temperature: 97.1 F Blood Pressure: 124/78 Pulse: 92 Respirations: 22 Pulse Ox (%): 97 - Physical Exam General: Alert, Moderate distress Respiratory: Clear to auscultation bilaterally, Diminished Cardiovascular: Normal S1 S2, Edema Assessment & Plan - Problems (Diagnosis) (1) Acute respiratory failure due to severe acute respiratory syndrome coronavirus 2 (SARS-CoV-2) infection Current Visit: Yes Status: Acute Plan: Respiratory failure ferritin levels are declining her white count is elevated in maybe infection of for parotid gland continue with broad-spectrum antibiotics the left side of the face is very swollen ENT has been consulted renal function is now normal ferritin level is declining oxygen requirement is now down to 85%
--- NOTE | 2020-10-03 17:02 | P.PN ---
Subjective Date of Service: 10/03/20 Primary Care Provider: Dr. Lopez; Pulmonary-Dr. Cristobal; Cardiology-Dr. Westbrook Chief Complaint: Respiratory failure from parnell virus Subjective: Other (More tired today, left facial swelling continues, tender, denies ear pain, denies hearing loss) Review of Systems 10-point ROS is otherwise unremarkable Physical Examination - Vital Signs Temperature: 97.1 F Blood Pressure: 99/50 Pulse: 95 Respirations: 21 Pulse Ox (%): 94 - Physical Exam General: Alert, Other (appears tired) HEENT: Other (L facial swelling, warm to touch, TTP, overling L jaw) Respiratory: Other (labored on BIPAP) Cardiovascular: No edema, Regular rate/rhythm Gastrointestinal: Soft and benign, No tenderness Integumentary: No rashes Assessment & Plan Physician Review Additional Text: Dyspnea secondary to acute respiratory failure related to Bilateral COVID19 pneumonia/Influenza B Hyperglycemia L facial swelling Constipation Acute renal failure,resolved Hypothyroidism Hyperlipidemia GERD History of chronic shingles History of vocal cord nodules Plan: Dyspnea secondary to acute respiratory failure related to Bilateral COVID19 pneumonia/Influenza B: -continue BiPAP. Wean FiO2 / BIPAP. Solu-Medrol to 40 b.i.d. -pulmonology following -patient/family have stated ok with intubation if absolutely needed -ferritin remains elevated Hyperglycemia -secondary to steroids and worsened with recent initiation of tube feeds -continue aggressive sliding scale, increased Lantus -switch tube feeds to glucerna, consult billet heater L facial swelling Concern for parotitis U/S yesterday without evidence of mass/abscess contniue meropenem and vanc - given pt's allergies and hospital acquired (if parotitis) Constipation -patient has not gotten out of bed in several days due to desaturations with movement -improved with enema, continue daily laxative NSTEMI -aspirin, Echo: Normal EF, moderate pulmonary hypertension. no plans for further intervention at this time -Continue Eliquis Acute renal failure secondary to above, resolved: Acute renal failure resolved. Hypothyroidism, HLD, GERD, Chronic Shingles, h/o vocal cord nodules: stable, continue home meds Dispo: guarded prognosis, hospitalization > 2 days. LTAC once better/stable - was denied, still waiting for call back Time Spent Managing Pts Care (In Minutes): 35
[2020-10-03] MEDS: MELATONIN 5 MG TABLET PO SCH (20:37)
[2020-10-03] MEDS ORDERED: GLUCERNA 1.2 CAL 1,000 ML BOT FT SCH (21:00)
[2020-10-04 05:17] LABS: Absolute Lymphocytes (CBC) 0.4 K/uL (0.7-4.9); Basophils % 0.3 % (0-1.3); Hematocrit 36.4 % (36.0-45.0); Lymphocytes % 1.9 % (15.3-44.8); MPV 9.2 fL (7.6-11.3); RBC Red Blood Cell Count 3.95 M/uL (3.86-4.86)
[2020-10-04 05:40] LABS: BUN Blood Urea Nitrogen 28 mg/dL (7-18); Bicarbonate 37 mmol/L (21-32); Ferritin 1482.7 ng/mL (8-388); Glucose Level 211 mg/dL (74-106); Magnesium 2.2 mg/dL (1.8-2.4); Potassium 4.4 mmol/L (3.5-5.1); Sodium Level 135 mmol/L (136-145)
[2020-10-04] MEDS: METOPROLOL TAR 25 MG TAB PO SCH ×2 (06:00→18:06)
[2020-10-04] MEDS: INSULIN -REGULAR HUMAN 50 UNIT/0.5 ML ML SQ SCH ×3 (06:00→18:27)
[2020-10-04] MEDS: LEVOTHYROXINE SOD 0.125 MG TAB PO SCH (06:02)
--- NOTE | 2020-10-04 07:37 | RAD REPORT ---
EXAM DESCRIPTION: RAD - Chest Single View - 10/04/2020 6:15 am CLINICAL HISTORY: hypoxia, COVID COMPARISON: October 01 TECHNIQUE: AP portable chest image was obtained 10/04/2020 6:15 am . FINDINGS: Lung volumes are very low. Patchy airspace opacification in both lung rivas not substanti ally different when adjusting for the low lung volumes. Low lung volumes also accentuate each hilar r egion. Heart and vasculature are normal. No measurable pleural effusion and no pneumothorax. No acute bony abnormality seen. No acute aortic findings suspected. IMPRESSION: Bilateral infiltrates accentuated by shallow inspiration. No substantial change from comparison.
[2020-10-04] MEDS: FLUCONAZOLE 100 MG TAB PO SCH (08:23)
[2020-10-04] MEDS: THIAMINE HCL 100 MG TABLET PO SCH (08:23)
[2020-10-04] MEDS: METHYLPREDNISOLONE 40 MG INJ IV SCH ×2 (08:23→20:46)
[2020-10-04] MEDS: VITAMIN D 1000 UNIT TAB PO SCH (08:23)
[2020-10-04] MEDS: acetaZOLAMIDE 250 MG TAB PO SCH (08:30)
[2020-10-04] MEDS: CALCIUM CARBONATE 500 MG TAB PO SCH ×2 (08:30→20:45)
[2020-10-04] MEDS: APIXABAN 5 MG TABLET PO SCH ×2 (08:30→20:45)
[2020-10-04] MEDS: ASCORBIC ACID 500 MG TABLET PO SCH ×3 (08:30→20:46)
[2020-10-04] MEDS: ASPIRIN 81 MG CHEWABLE TABLET PO SCH (08:30)
[2020-10-04] MEDS: INSULIN GLARGINE 100 UNITS/ML SQ SCH ×2 (08:32→20:44)
[2020-10-04] MEDS: FOLIC ACID 1 MG TABLET PO SCH (08:32)
[2020-10-04] MEDS: Meropenem 1,000 MG in NA CHLORIDE 0.9% 100 ML IV SCH ×2 (08:33→20:44)
--- NOTE | 2020-10-04 11:26 | P.PN ---
Subjective Date of Service: 10/04/20 Primary Care Provider: Dr. Lopez; Pulmonary-Dr. Cristobal; Cardiology-Dr. Westbrook Chief Complaint: Respiratory failure from parnell virus Patient is gradually improving oxygen requirements are declining feels a little better Review of Systems General: Weakness Respiratory: Shortness of Breath Physical Examination - Vital Signs Temperature: 97.0 F Blood Pressure: 90/62 Pulse: 106 Respirations: 27 Pulse Ox (%): 86 Assessment & Plan - Problems (Diagnosis) (1) Acute respiratory failure due to severe acute respiratory syndrome coronavirus 2 (SARS-CoV-2) infection Current Visit: Yes Status: Acute Plan: Respiratory failure continue to titrate O2 down patient he is eating ferritin level still high white count declining chest x-rays labs reviewed vital signs stable reduce dose of Diamox renal function is normal chest x-ray no significant chain
--- NOTE | 2020-10-04 12:26 | P.PN ---
Subjective Date of Service: 10/04/20 Primary Care Provider: Dr. Lopez; Pulmonary-Dr. Cristobal; Cardiology-Dr. Westbrook Chief Complaint: Respiratory failure from parnell virus No major changes. Patient is still on BiPAP and tolerating 80% FiO2. Physical Examination - Vital Signs Temperature: 97.0 F Blood Pressure: 90/62 Pulse: 106 Respirations: 27 Pulse Ox (%): 86 - Physical Exam General: In no apparent distress, Oriented x3 Neck: Supple Cardiovascular: No edema, Normal S1 S2, Other (Tachycardic) Gastrointestinal: Non-distended Musculoskeletal: No swelling, No erythema Integumentary: No rashes Neurological: Other (No focal deficit.) Assessment And Plan - Current Problems (Diagnosis) (1) Pneumonia due to COVID-19 virus Current Visit: Yes Status: Acute (2) Influenza B Current Visit: Yes Status: Acute (3) NSTEMI (non-ST elevated myocardial infarction) Current Visit: Yes Status: Acute (4) Acute respiratory failure due to severe acute respiratory syndrome coronavirus 2 (SARS-CoV-2) infection Current Visit: Yes Status: Acute (5) Acute kidney injury Current Visit: Yes Status: Acute Physician Review Additional Text: Dyspnea secondary to acute respiratory failure related to Bilateral COVID19 pneumonia/Influenza B Hyperglycemia L facial swelling Constipation Acute renal failure,resolved Hypothyroidism Hyperlipidemia GERD History of chronic shingles History of vocal cord nodules Plan: Dyspnea secondary to acute respiratory failure related to Bilateral COVID19 pneumonia/Influenza B: -continue BiPAP. Wean FiO2 / BIPAP. Solu-Medrol to 40 b.i.d. -pulmonology following -patient/family have stated ok with intubation if absolutely needed Hyperglycemia -secondary to steroids and worsened with recent initiation of tube feeds -continue aggressive sliding scale, titrate Lantus -Glucerna. L facial swelling Concern for parotitis U/S yesterday without evidence of mass/abscess contniue meropenem and vanc - given pt's allergies and hospital acquired (if parotitis) -consult to ENT. Constipation -patient has not gotten out of bed in several days due to desaturations with movement -improved with enema, continue daily laxative NSTEMI -aspirin, Echo: Normal EF, moderate pulmonary hypertension. no plans for further intervention at this time -Continue Eliquis Acute renal failure secondary to above, resolved: Acute renal failure resolved. Hypothyroidism, HLD, GERD, Chronic Shingles, h/o vocal cord nodules: stable, continue home meds Dispo: guarded prognosis, hospitalization > 2 days. LTAC once better/stable. Social service looking at appealing the LTAC denial.
[2020-10-04] MEDS: VANCOMYCIN 2 GM in NA CHLORIDE 0.9% 500 ML IVPB SCH ×2 (13:00→15:32)
[2020-10-04] MEDS: HYDROCODONE/APAP 5/325 MG TAB PO PRN (14:03)
[2020-10-04] MEDS: MELATONIN 5 MG TABLET PO SCH (20:44)
[2020-10-04] MEDS: ACETAMINOPHEN 500 MG TAB PO PRN ×2 (20:50)
[2020-10-05] MEDS: INSULIN -REGULAR HUMAN 50 UNIT/0.5 ML ML SQ SCH ×4 (00:10→17:19)
[2020-10-05] MEDS: VANCOMYCIN 2 GM in NA CHLORIDE 0.9% 500 ML IVPB SCH ×2 (03:00→14:56)
[2020-10-05 05:32] LABS: Absolute Lymphocytes (CBC) 0.4 K/uL (0.7-4.9); Basophils % 0.4 % (0-1.3); Hematocrit 36.9 % (36.0-45.0); MPV 8.9 fL (7.6-11.3); RBC Red Blood Cell Count 3.94 M/uL (3.86-4.86)
[2020-10-05 05:46] LABS: BUN Blood Urea Nitrogen 27 mg/dL (7-18); Bicarbonate 39 mmol/L (21-32); Glucose Level 189 mg/dL (74-106); Potassium 4.5 mmol/L (3.5-5.1); Sodium Level 138 mmol/L (136-145)
[2020-10-05] MEDS: METOPROLOL TAR 25 MG TAB PO SCH ×2 (05:59→17:12)
[2020-10-05] MEDS: LEVOTHYROXINE SOD 0.125 MG TAB PO SCH (06:00)
[2020-10-05] MEDS: THIAMINE HCL 100 MG TABLET PO SCH (07:24)
[2020-10-05] MEDS: acetaZOLAMIDE 250 MG TAB PO SCH (07:24)
[2020-10-05] MEDS: CALCIUM CARBONATE 500 MG TAB PO SCH ×2 (07:24→20:16)
[2020-10-05] MEDS: ASCORBIC ACID 500 MG TABLET PO SCH ×3 (07:24→20:16)
[2020-10-05] MEDS: VITAMIN D 1000 UNIT TAB PO SCH (07:24)
[2020-10-05] MEDS: ASPIRIN 81 MG CHEWABLE TABLET PO SCH (07:24)
[2020-10-05] MEDS: FOLIC ACID 1 MG TABLET PO SCH (07:25)
[2020-10-05] MEDS: FLUCONAZOLE 100 MG TAB PO SCH (07:25)
[2020-10-05] MEDS: Meropenem 1,000 MG in NA CHLORIDE 0.9% 100 ML IV SCH ×2 (07:25→20:16)
[2020-10-05] MEDS: APIXABAN 5 MG TABLET PO SCH ×2 (07:25→20:15)
[2020-10-05] MEDS: INSULIN GLARGINE 100 UNITS/ML SQ SCH ×2 (07:25→20:18)
[2020-10-05] MEDS: METHYLPREDNISOLONE 40 MG INJ IV SCH ×2 (07:28→20:16)
--- NOTE | 2020-10-05 11:33 | P.PN ---
Subjective Date of Service: 10/05/20 Primary Care Provider: Dr. Lopez; Pulmonary-Dr. Cristobal; Cardiology-Dr. Westbrook Chief Complaint: Respiratory failure from parnell virus Patient is improving oxygen requirements are declining Review of Systems Respiratory: Shortness of Breath Physical Examination - Vital Signs Temperature: 98.1 F Blood Pressure: 126/72 Pulse: 86 Respirations: 17 Pulse Ox (%): 93 Assessment & Plan - Problems (Diagnosis) (1) Acute respiratory failure due to severe acute respiratory syndrome coronavirus 2 (SARS-CoV-2) infection Current Visit: Yes Status: Acute Plan: Respiratory failure oxygen levels declining consider transfer to the 4th floor patient is stable white count is declining blood sugars are still elevated awaiting ENT consult still experiencing significant desaturation
--- NOTE | 2020-10-05 13:06 | P.PN ---
Subjective Date of Service: 10/05/20 Primary Care Provider: Dr. Lopez; Pulmonary-Dr. Cristobal; Cardiology-Dr. Westbrook Chief Complaint: Respiratory failure from parnell virus No major changes. Patient tolerated high-flow oxygen briefly this morning and later switched to BiPAP. FiO2 is being weaned down. Physical Examination - Vital Signs Temperature: 97.0 F Blood Pressure: 110/71 Pulse: 99 Respirations: 30 Pulse Ox (%): 87 - Physical Exam General: Alert, Mild distress Respiratory: Diminished Cardiovascular: No edema, Regular rate/rhythm Gastrointestinal: Soft and benign, Non-distended Musculoskeletal: No swelling Neurological: Other (No focal deficits) Assessment And Plan - Current Problems (Diagnosis) (1) Pneumonia due to COVID-19 virus Current Visit: Yes Status: Acute (2) Influenza B Current Visit: Yes Status: Acute (3) NSTEMI (non-ST elevated myocardial infarction) Current Visit: Yes Status: Acute (4) Acute respiratory failure due to severe acute respiratory syndrome coronavirus 2 (SARS-CoV-2) infection Current Visit: Yes Status: Acute (5) Acute kidney injury Current Visit: Yes Status: Acute Physician Review Additional Text: Dyspnea secondary to acute respiratory failure related to Bilateral COVID19 pneumonia/Influenza B Hyperglycemia L facial swelling Constipation Acute renal failure,resolved Hypothyroidism Hyperlipidemia GERD History of chronic shingles History of vocal cord nodules Plan: Dyspnea secondary to acute respiratory failure related to Bilateral COVID19 pneumonia/Influenza B: -continue BiPAP. Wean FiO2 / BIPAP. Continue Solu-Medrol to 40 b.i.d. -pulmonology following Hyperglycemia -secondary to steroids and worsened with recent initiation of tube feeds -continue aggressive sliding scale, titrate Lantus -Glucerna. L facial swelling Concern for parotitis U/S without evidence of mass/abscess contniue meropenem and vanc - given pt's allergies and hospital acquired (if parotitis) -ENT evaluation is pending. Constipation -patient has not gotten out of bed in several days due to desaturations with movement -improved with enema, continue daily laxative NSTEMI -aspirin, Echo: Normal EF, moderate pulmonary hypertension. no plans for further intervention at this time -Continue Eliquis Acute renal failure secondary to above, resolved: Acute renal failure resolved. Hypothyroidism, HLD, GERD, Chronic Shingles, h/o vocal cord nodules: stable, continue home meds Dispo: guarded prognosis, hospitalization > 2 days. LTAC once better/stable. Social service assisting with appeal for the LTAC denial.
[2020-10-05] MEDS: MELATONIN 5 MG TABLET PO SCH (20:16)
[2020-10-06] MEDS: VANCOMYCIN 2 GM in NA CHLORIDE 0.9% 500 ML IVPB SCH (03:00)
[2020-10-06] MEDS: LEVOTHYROXINE SOD 0.125 MG TAB PO SCH (06:09)
[2020-10-06] MEDS: INSULIN -REGULAR HUMAN 50 UNIT/0.5 ML ML SQ SCH ×4 (06:10→17:39)
[2020-10-06] MEDS: METOPROLOL TAR 25 MG TAB PO SCH ×2 (06:10→17:39)
[2020-10-06 06:33] LABS: Absolute Lymphocytes (CBC) 0.5 K/uL (0.7-4.9); Basophils % 0.1 % (0-1.3); Hematocrit 33.5 % (36.0-45.0); Lymphocytes % 3.3 % (15.3-44.8); MPV 8.4 fL (7.6-11.3)
[2020-10-06 06:56] LABS: BUN Blood Urea Nitrogen 23 mg/dL (7-18); Bicarbonate 39 mmol/L (21-32); Glucose Level 168 mg/dL (74-106); Potassium 4.6 mmol/L (3.5-5.1); Sodium Level 138 mmol/L (136-145)
[2020-10-06 07:56] LABS: Platelet Estimate DECR; White Blood Cell Scan OK (OK)
[2020-10-06 07:57] LABS: Blood Morphology Comment NOT SEEN (NOT SEEN)
[2020-10-06] MEDS ORDERED: IVERMECTIN 3 MG TABLETS PO ONE (08:15)
[2020-10-06] MEDS: INSULIN GLARGINE 100 UNITS/ML SQ SCH ×2 (08:40→20:28)
[2020-10-06] MEDS: ASPIRIN 81 MG CHEWABLE TABLET PO SCH (08:40)
[2020-10-06] MEDS: FOLIC ACID 1 MG TABLET PO SCH (08:40)
[2020-10-06] MEDS: CALCIUM CARBONATE 500 MG TAB PO SCH (08:40)
[2020-10-06] MEDS: FLUCONAZOLE 100 MG TAB PO SCH (08:40)
[2020-10-06] MEDS: acetaZOLAMIDE 250 MG TAB PO SCH (08:40)
[2020-10-06] MEDS: APIXABAN 5 MG TABLET PO SCH ×2 (08:40→20:26)
[2020-10-06] MEDS: METHYLPREDNISOLONE 40 MG INJ IV SCH ×2 (08:41→20:25)
[2020-10-06] MEDS: Meropenem 1,000 MG in NA CHLORIDE 0.9% 100 ML IV SCH ×2 (08:41→22:26)
[2020-10-06] MEDS: THIAMINE 200 MG/2 ML INJ IVP SCH ×2 (08:41→20:26)
[2020-10-06] MEDS: VITAMIN D 1000 UNIT TAB PO SCH (10:47)
[2020-10-06] MEDS: ASCORBIC ACID 500 MG TABLET PO SCH ×3 (10:47→20:31)
--- NOTE | 2020-10-06 12:41 | P.PN ---
Subjective Date of Service: 10/06/20 Primary Care Provider: Dr. Lopez; Pulmonary-Dr. Cristobal; Cardiology-Dr. Westbrook Chief Complaint: Respiratory failure from parnell virus patient is still requiring BiPAP significant desaturation off BiPAP otherwise she is very alert Review of Systems General: Weakness Respiratory: Shortness of Breath Physical Examination - Vital Signs Temperature: 97 F Blood Pressure: 106/55 Pulse: 85 Respirations: 22 Pulse Ox (%): 92 Assessment & Plan - Problems (Diagnosis) (1) Acute respiratory failure due to severe acute respiratory syndrome coronavirus 2 (SARS-CoV-2) infection Current Visit: Yes Status: Acute Plan: respiratory failure from coronal virus white count is declining patient had a swelling on the left parotid region the ENT consult pending on maximum therapy right not trial of invermectin still on high concentrations of oxygen
[2020-10-06 15:18] LABS: Arterial Blood Carboxyhemoglob 1.9 % (0-1.5); Blood Gas Oxyhemoglobin 77.4 % (94-97); Blood O2 Saturation 79.7 % (92-98.5)
--- NOTE | 2020-10-06 15:39 | P.PN ---
Subjective Date of Service: 10/06/20 Primary Care Provider: Dr. Lopez; Pulmonary-Dr. Cristobal; Cardiology-Dr. Westbrook Chief Complaint: Respiratory failure from parnell virus No major changes. Patient tolerated high-flow oxygen only briefly and was back on BiPAP. She has been tolerating 70% FiO2. Physical Examination - Vital Signs Temperature: 97 F Blood Pressure: 110/67 Pulse: 93 Respirations: 23 Pulse Ox (%): 93 - Physical Exam General: In no apparent distress, Oriented x3 Neck: Supple Respiratory: Diminished Cardiovascular: No edema, Regular rate/rhythm Gastrointestinal: Soft and benign, Non-distended Musculoskeletal: No swelling Integumentary: No rashes Neurological: Other (No focal deficit.) Assessment And Plan - Current Problems (Diagnosis) (1) Pneumonia due to COVID-19 virus Current Visit: Yes Status: Acute (2) Influenza B Current Visit: Yes Status: Acute (3) NSTEMI (non-ST elevated myocardial infarction) Current Visit: Yes Status: Acute (4) Acute respiratory failure due to severe acute respiratory syndrome coronavirus 2 (SARS-CoV-2) infection Current Visit: Yes Status: Acute (5) Acute kidney injury Current Visit: Yes Status: Acute Physician Review Additional Text: Dyspnea secondary to acute respiratory failure related to Bilateral COVID19 pneumonia/Influenza B Hyperglycemia L facial swelling Constipation Acute renal failure,resolved Hypothyroidism Hyperlipidemia GERD History of chronic shingles History of vocal cord nodules Plan: Dyspnea secondary to acute respiratory failure related to Bilateral COVID19 pneumonia/Influenza B: -continue BiPAP. Wean FiO2 / BIPAP. Continue Solu-Medrol to 40 b.i.d. -pulmonology following Hyperglycemia -steroid induced. -continue aggressive sliding scale, titrate Lantus L facial swelling Concern for parotitis U/S without evidence of mass/abscess contniue meropenem and vanc - given pt's allergies and hospital acquired (if parotitis) -ENT seen patient. Hot compresses recommended. Constipation -improved with enema, continue daily laxative NSTEMI -aspirin, Echo: Normal EF, moderate pulmonary hypertension. no plans for further intervention at this time -Continue Eliquis Acute renal failure secondary to above, resolved: Acute renal failure resolved. Hypothyroidism, HLD, GERD, Chronic Shingles, h/o vocal cord nodules: stable, continue home meds Dispo: guarded prognosis. LTAC once better/stable. Social service assisting with appeal for the LTAC denial.
--- NOTE | 2020-10-06 19:47 | P.CNS ---
Date of Consult: 10/05/20 Reason for Consult: parotitis Primary Care Provider: Dr. Lopez; Pulmonary-Dr. Cristobal; Cardiology-Dr. Westbrook Chief Complaint: Consult requested for parotitis History of Present Illness: Patient admitted for respiratory distress from [facility]. She is known to me from outpatient practice and vocal cord lesions. She does have a history of being difficult to intubate with a small mouth and jaw, limited mouth opening and anterior placed larynx. If she required intubation in the future, I recommend having a [place] Scope or similar assisting device available. She is not able to provide history at this time due to fatigue and use of BiPAP. The medical records, including outpatient and inpatient records and nurses are questioned to provide history. She was noted to have some left parotid swelling on Saturday and was started on antibiotics. She underwent an ultrasound which demonstrates soft tissue swelling without organized fluid collection. There was no mention of any shadowing that would suggest a sialolith. Allergies Cephalosporins Allergy (Verified 04/15/19 16:48) GI upset, diarrhea Penicillins Allergy (Verified 04/15/19 16:48) facial swelling, shortness of breath, itching sulfamethoxazole [From Bactrim] Allergy (Verified 04/15/19 16:48) swelling, itching trimethoprim [From Bactrim] Allergy (Verified 04/15/19 16:48) swelling, itching Home medications list reviewed: No Home Medications: Acyclovir [Zovirax] 200 mg PO BEDTIME 09/17/20 Albuterol Inhaler [Ventolin Inhaler] 2 puff IH Q6H PRN 09/17/20 Albuterol Sulfate [Proair Hfa] 8.5 gm IH Q6HP PRN 09/17/20 Aspirin 81 mg PO DAILY 09/17/20 B-Complex with Vitamin C [Super B Complex-Vitamin C] 1 each PO DAILY 09/17/20 Calcium Carbonate/Vitamin D3 [Calcium 500 + Vit D 400 Tablet] 1 tab PO BID 09/17/20 Cholecalciferol (Vitamin D3) [Vitamin D 5,000 Iu Cap] 5,000 unit PO DAILY 09/17/20 Cranberry Fruit Extract [Cranberry] 425 mg PO BID 09/17/20 Cyanocobalamin (Vitamin B-12) [Vitamin B12] 2,500 mcg PO DAILY 09/17/20 Esomeprazole Mag Trihydrate [Nexium] 20 mg PO DAILY 09/17/20 Fluticasone/Umeclidin/Vilanter [Trelegy Ellipta 200-62.5-25] 1 puff IH DAILY 1 11/18/19 Gabapentin [Neurontin] 2 tab PO DAILY 09/17/20 Gabapentin [Neurontin] 3 tab PO BEDTIME 09/17/20 Levothyroxine [Synthroid] 125 mcg PO [id number] 09/17/20 Lisinopril/Hydrochlorothiazide [Lisinopril-Hctz 10-12.5 mg Tab] 1 each PO BEDTIME 09/17/20 Magnesium Oxide 500 mg PO DAILY 09/17/20 Montelukast Sodium [Singulair] 10 mg PO BEDTIME 09/17/20 Simvastatin 40 mg PO BEDTIME 09/17/20 Sodium Chloride/Sodium Bicarb [Neilmed Sinus Rinse Kit Refill] 1 each NS PRN PRN 09/17/20 Tramadol HCl [Ultram] 50 mg PO DAILYPRN PRN 09/17/20 Viteyes Areds 2 1 tab PO BID 09/17/20 - Past Medical/Surgical History Diabetic: No -: Hypertension -: GERD -: Hypothyroidism -: COPD -: Chronic shingles -: Vocal cord nodule -: Patient has had lung spot removed to the right upper lung -: Bilateral knee replacements -: Removal of nodule to the vocal cord Psychosocial/ Personal History: Patient is a - Social History Smoking Status: Never smoker Alcohol use: No CD- Drugs: No Caffeine use: Yes Place of Residence: Home Physical Examination Temp Pulse Resp BP Pulse Ox 97 F 96 H 23 H 122/97 H 95 10/06/20 16:00 10/06/20 18:00 10/06/20 18:00 10/06/20 18:00 10/06/20 18:00 General: Alert HEENT: Atraumatic, Other (BiPAP in place and oral exam not performed. ) Neck: Other (right parotid soft with slight enlargement. left parotid firm. No redness of overlying skin. Consistant with parotitis) Imagings Data: US from Saturday10/02/20 report and images reviewed - Problems (1) Parotitis not due to mumps Current Visit: Yes Status: Acute Plan: Warm compresses to left side of face x 20 minutes every 4 hours Firm massage starting behind the mass/swelling and pushing firmly toward the corner of the mouth as often as feasible - this helps "milk" the gland toward/along the drainage pathway Oral/salivary stimulation - as clinically possible, use of hard or sour candies, oral swabs, chewing gum, sip or water/PO intake to help stimulate flow of saliva will help to "flush" the gland. Continue Antibiotics Due to lack of fluid collection on imaging, no surgical intervention is indicated I reviewed my findings and recommendations in detail with the nurses on duty Oral exam is limited due to clinical condition Conclusions/Impression: Acute parotitis
[2020-10-06] MEDS: MELATONIN 5 MG TABLET PO SCH (20:26)
[2020-10-06] MEDS: HYDROCODONE/APAP 5/325 MG TAB PO PRN (22:21)
[2020-10-07] MEDS: INSULIN -REGULAR HUMAN 50 UNIT/0.5 ML ML SQ SCH ×4 (00:15→17:54)
[2020-10-07 06:00] LABS: Absolute Lymphocytes (CBC) 0.5 K/uL (0.7-4.9); Basophils % 0.3 % (0-1.3); Hematocrit 36.5 % (36.0-45.0); Lymphocytes % 2.4 % (15.3-44.8); MPV 8.8 fL (7.6-11.3); RBC Red Blood Cell Count 3.88 M/uL (3.86-4.86)
[2020-10-07 06:03] LABS: BUN Blood Urea Nitrogen 25 mg/dL (7-18); Bicarbonate 38 mmol/L (21-32); Glucose Level 190 mg/dL (74-106); Potassium 4.7 mmol/L (3.5-5.1); Sodium Level 138 mmol/L (136-145)
[2020-10-07] MEDS: METOPROLOL TAR 25 MG TAB PO SCH ×2 (06:20→06:22)
[2020-10-07] MEDS: LEVOTHYROXINE SOD 0.125 MG TAB PO SCH (06:30)
--- NOTE | 2020-10-07 07:48 | RAD REPORT ---
EXAM DESCRIPTION: Deepthi Single View10/07/2020 5:50 am CLINICAL HISTORY: Respiratory failure COMPARISON: October 04 FINDINGS: No significant change in the bilateral pulmonary opacities. The heart remains enlarged. Feeding tube enters the stomach. The tip is not included in the field of view IMPRESSION: No significant change in the bilateral pulmonary opacities
[2020-10-07] MEDS: INSULIN GLARGINE 100 UNITS/ML SQ SCH ×2 (09:00→21:18)
[2020-10-07] MEDS: APIXABAN 5 MG TABLET PO SCH ×2 (09:04→21:03)
[2020-10-07] MEDS: ASPIRIN 81 MG CHEWABLE TABLET PO SCH (09:04)
[2020-10-07] MEDS: FOLIC ACID 1 MG TABLET PO SCH (09:04)
[2020-10-07] MEDS: ASCORBIC ACID 500 MG TABLET PO SCH ×3 (09:04→21:03)
[2020-10-07] MEDS: acetaZOLAMIDE 250 MG TAB PO SCH (09:04)
[2020-10-07] MEDS: THIAMINE 200 MG/2 ML INJ IVP SCH ×2 (09:04→21:01)
[2020-10-07] MEDS: METHYLPREDNISOLONE 40 MG INJ IV SCH ×2 (09:04→21:01)
[2020-10-07] MEDS: VITAMIN D 1000 UNIT TAB PO SCH (09:04)
[2020-10-07] MEDS: Meropenem 1,000 MG in NA CHLORIDE 0.9% 100 ML IV SCH ×2 (09:07→21:01)
--- NOTE | 2020-10-07 13:51 | P.PN ---
Subjective Date of Service: 10/07/20 Primary Care Provider: Dr. Lopez; Pulmonary-Dr. Cristobal; Cardiology-Dr. Westbrook Chief Complaint: Respiratory failure Patient is still very hypoxic Review of Systems is unable to be obtained Physical Examination - Vital Signs Temperature: 96.9 F Blood Pressure: 117/62 Pulse: 92 Respirations: 20 Pulse Ox (%): 84 Assessment & Plan - Problems (Diagnosis) (1) Acute respiratory failure due to severe acute respiratory syndrome coronavirus 2 (SARS-CoV-2) infection Current Visit: Yes Status: Acute Plan: Respiratory failure continue with supportive therapy she is on maximum multi vitamin supplementation better acute parotitis is improving change to p.o. doxycycline count elevated will requiring high concentrations of oxygen chest x-ray no significant change
[2020-10-07] MEDS ORDERED: VANCOMYCIN 2 GM in NA CHLORIDE 0.9% 500 ML IVPB SCH ×4 (15:00)
[2020-10-07] MEDS: ACETAMINOPHEN 500 MG TAB PO PRN (21:02)
[2020-10-07] MEDS: MELATONIN 5 MG TABLET PO SCH (21:02)
[2020-10-07] MEDS: DOXYCYCLINE 100 MG CAP PO SCH (21:03)
--- NOTE | 2020-10-07 21:09 | P.PN ---
Subjective Date of Service: 10/07/20 Primary Care Provider: Dr. Lopez; Pulmonary-Dr. Cristobal; Cardiology-Dr. Westbrook Chief Complaint: Respiratory failure 74-year-old female with history of hypothyroidism, hypertension, GERD, hyperlipidemia, shingles, COPD on Home O2 Patient presented to the emergency room with increasing shortness of breath with Cough BP was borderline Fluid bolus given. Patient was found to be positive for influenza B and COVID 19. 4000. Troponin 0.68. Lactic acid 3.6. Pro calcitonin 0.17. White count 9.5, hemoglobin 13. Platelet count 300. Sodium 133, potassium 4.8. BUN of 42, creatinine 2.14 Now Hypoxic , on BiPAP , started Remdisver Today Still on BiPAP WBC elevated , possibly setroids induced Bicarb stable Cont current management Physical exam general:NAD ,on BiPAP Neck; Supple, No elevated JVD hear: RRR, normal S1,2 no murmur or rub Chest: increase Echophony Abdomen: Soft , Nt Extremities No edema, VIDAL possibly due to dehydration and rhabdomyolysis resolved off IVF renal dos meds COVID 19 pneumonia started on steroids completed Remdesiver cont to require BiPAP COPD cont O2 and biPAP elevated LFT resolved Lt facial swelling US no mass cont Abx total time spent 35min Physical Examination - Vital Signs Temperature: 98 F Blood Pressure: 123/74 Pulse: 101 Respirations: 24 Pulse Ox (%): 98
[2020-10-08] MEDS: INSULIN -REGULAR HUMAN 50 UNIT/0.5 ML ML SQ SCH ×4 (05:30→18:00)
[2020-10-08] MEDS: METOPROLOL TAR 25 MG TAB PO SCH ×2 (05:31→18:42)
[2020-10-08] MEDS: LEVOTHYROXINE SOD 0.125 MG TAB PO SCH (05:32)
[2020-10-08 05:41] LABS: Absolute Lymphocytes (CBC) 0.6 K/uL (0.7-4.9); Basophils % 0.1 % (0-1.3); Hematocrit 35.2 % (36.0-45.0); Lymphocytes % 3.4 % (15.3-44.8); MPV 8.5 fL (7.6-11.3); RBC Red Blood Cell Count 3.73 M/uL (3.86-4.86)
[2020-10-08 06:00] LABS: BUN Blood Urea Nitrogen 29 mg/dL (7-18); Bicarbonate 39 mmol/L (21-32); Ferritin 783.2 ng/mL (8-388); Glucose Level 188 mg/dL (74-106); Potassium 4.6 mmol/L (3.5-5.1); Sodium Level 138 mmol/L (136-145)
[2020-10-08 06:01] LABS: C-Reactive Protein < 2.90 mg/L (<3.00)
[2020-10-08] MEDS: THIAMINE 200 MG/2 ML INJ IVP SCH (09:00)
[2020-10-08] MEDS: DOXYCYCLINE 100 MG CAP PO SCH ×2 (09:30→20:22)
[2020-10-08] MEDS: HYDROCODONE/APAP 5/325 MG TAB PO PRN ×2 (09:31→20:54)
[2020-10-08] MEDS: METHYLPREDNISOLONE 40 MG INJ IV SCH ×2 (09:31→20:24)
[2020-10-08] MEDS: ASPIRIN 81 MG CHEWABLE TABLET PO SCH (09:31)
[2020-10-08] MEDS: ASCORBIC ACID 500 MG TABLET PO SCH ×3 (09:32→20:24)
[2020-10-08] MEDS: FOLIC ACID 1 MG TABLET PO SCH (09:32)
[2020-10-08] MEDS: APIXABAN 5 MG TABLET PO SCH ×2 (09:32→20:23)
[2020-10-08] MEDS: acetaZOLAMIDE 250 MG TAB PO SCH (09:32)
[2020-10-08] MEDS: Meropenem 1,000 MG in NA CHLORIDE 0.9% 100 ML IV SCH ×2 (09:39→20:22)
[2020-10-08] MEDS: INSULIN GLARGINE 100 UNITS/ML SQ SCH ×2 (09:40→20:24)
--- NOTE | 2020-10-08 11:02 | P.PN ---
Subjective Date of Service: 10/08/20 Primary Care Provider: Dr. Lopez; Pulmonary-Dr. Cristobal; Cardiology-Dr. Westbrook Chief Complaint: Respiratory failure No changes from yesterday Patient sometimes tolerate high-flow oxygen but remain BiPAP most of the day. Physical Examination - Vital Signs Temperature: 97.9 F Blood Pressure: 113/56 Pulse: 83 Respirations: 21 Pulse Ox (%): 92 - Physical Exam General: Alert, In no apparent distress HEENT: Other (BiPAP applied) Neck: Supple Respiratory: Diminished Cardiovascular: No edema, Regular rate/rhythm Gastrointestinal: Soft and benign, Non-distended Musculoskeletal: No swelling Integumentary: No rashes Neurological: Normal strength at 5/5 x4 extr, Other (Nonfocal) Assessment And Plan - Current Problems (Diagnosis) (1) Pneumonia due to COVID-19 virus Current Visit: Yes Status: Acute (2) Influenza B Current Visit: Yes Status: Acute (3) NSTEMI (non-ST elevated myocardial infarction) Current Visit: Yes Status: Acute (4) Acute respiratory failure due to severe acute respiratory syndrome coronavirus 2 (SARS-CoV-2) infection Current Visit: Yes Status: Acute (5) Acute kidney injury Current Visit: Yes Status: Acute Physician Review Additional Text: Dyspnea secondary to acute respiratory failure related to Bilateral COVID19 pneumonia/Influenza B Hyperglycemia L facial swelling Constipation Acute renal failure,resolved Hypothyroidism Hyperlipidemia GERD History of chronic shingles History of vocal cord nodules Plan: Dyspnea secondary to acute respiratory failure related to Bilateral COVID19 pneumonia/Influenza B: -continue BiPAP. Wean FiO2 / BIPAP. Continue Solu-Medrol to 40 b.i.d. -pulmonology following Hyperglycemia -steroid induced. -continue aggressive sliding scale, titrate Lantus L facial swelling Concern for parotitis U/S without evidence of mass/abscess contniue meropenem and vanc - given pt's allergies and hospital acquired (if parotitis) -ENT seen patient. Hot compresses recommended. Constipation -improved with enema, continue daily laxative NSTEMI -aspirin, Echo: Normal EF, moderate pulmonary hypertension. no plans for further intervention at this time -Continue Eliquis Acute renal failure secondary to above, resolved: Acute renal failure resolved. Hypothyroidism, HLD, GERD, Chronic Shingles, h/o vocal cord nodules: stable, continue home meds Dispo: guarded prognosis. LTAC once better/stable. Social service assisting with appeal for the LTAC denial.
[2020-10-08] MEDS: VITAMIN D 1000 UNIT TAB PO SCH (13:49)
[2020-10-08] MEDS ORDERED: VANCOMYCIN 2 GM in NA CHLORIDE 0.9% 500 ML IVPB SCH (15:00)
[2020-10-08] MEDS: MELATONIN 5 MG TABLET PO SCH (20:24)
[2020-10-09] MEDS: MORPHINE 2 MG/ML SYR IV PRN (01:12)
[2020-10-09] MEDS: INSULIN -REGULAR HUMAN 50 UNIT/0.5 ML ML SQ SCH ×4 (05:25→17:22)
[2020-10-09] MEDS: LEVOTHYROXINE SOD 0.125 MG TAB PO SCH (05:25)
[2020-10-09] MEDS: METOPROLOL TAR 25 MG TAB PO SCH ×2 (05:25→17:45)
[2020-10-09 05:46] LABS: Absolute Lymphocytes (CBC) 0.5 K/uL (0.7-4.9); Basophils % 0.1 % (0-1.3); Hematocrit 35.3 % (36.0-45.0); MPV 8.3 fL (7.6-11.3); RBC Red Blood Cell Count 3.74 M/uL (3.86-4.86)
[2020-10-09 06:03] LABS: BUN Blood Urea Nitrogen 29 mg/dL (7-18); Bicarbonate 39 mmol/L (21-32); Glucose Level 194 mg/dL (74-106); Potassium 4.6 mmol/L (3.5-5.1); Sodium Level 137 mmol/L (136-145)
[2020-10-09 06:13] LABS: C-Reactive Protein < 2.90 mg/L (<3.00)
[2020-10-09 07:10] LABS: Blood Morphology Comment NOTED (NOT SEEN); Platelet Estimate ADEQ; Polychromasia 1+; Stomatocytes 1+; White Blood Cell Scan OK (OK)
[2020-10-09] MEDS: ASCORBIC ACID 500 MG TABLET PO SCH ×3 (08:19→20:47)
[2020-10-09] MEDS: acetaZOLAMIDE 250 MG TAB PO SCH (08:20)
[2020-10-09] MEDS: APIXABAN 5 MG TABLET PO SCH ×2 (08:20→20:26)
[2020-10-09] MEDS: ASPIRIN 81 MG CHEWABLE TABLET PO SCH (08:20)
[2020-10-09] MEDS: VITAMIN D 1000 UNIT TAB PO SCH (08:20)
[2020-10-09] MEDS: THIAMINE HCL 100 MG TABLET PO SCH (08:20)
[2020-10-09] MEDS: FOLIC ACID 1 MG TABLET PO SCH (08:21)
[2020-10-09] MEDS: METHYLPREDNISOLONE 40 MG INJ IV SCH ×2 (08:21→20:26)
[2020-10-09] MEDS: DOXYCYCLINE 100 MG CAP PO SCH (08:21)
[2020-10-09] MEDS: INSULIN GLARGINE 100 UNITS/ML SQ SCH ×2 (08:21→20:26)
[2020-10-09] MEDS: Meropenem 1,000 MG in NA CHLORIDE 0.9% 100 ML IV SCH (09:50)
--- NOTE | 2020-10-09 09:53 | P.PN ---
Subjective Date of Service: 10/09/20 Primary Care Provider: Dr. Lopez; Pulmonary-Dr. Cristobal; Cardiology-Dr. Westbrook Chief Complaint: Respiratory failure Patient sometimes tolerate high-flow oxygen but remain BiPAP most of the day. Physical Examination - Vital Signs Temperature: 96.7 F Blood Pressure: 110/62 Pulse: 86 Respirations: 14 Pulse Ox (%): 93 - Physical Exam General: Alert, In no apparent distress HEENT: Other (BiPAP applied) Respiratory: Diminished Cardiovascular: Regular rate/rhythm Gastrointestinal: Soft and benign, No tenderness Musculoskeletal: No swelling Integumentary: No rashes Neurological: Other (No focal deficit) Assessment And Plan - Current Problems (Diagnosis) (1) Pneumonia due to COVID-19 virus Current Visit: Yes Status: Acute (2) Influenza B Current Visit: Yes Status: Acute (3) NSTEMI (non-ST elevated myocardial infarction) Current Visit: Yes Status: Acute (4) Acute respiratory failure due to severe acute respiratory syndrome coronavirus 2 (SARS-CoV-2) infection Current Visit: Yes Status: Acute (5) Acute kidney injury Current Visit: Yes Status: Acute Physician Review Additional Text: Dyspnea secondary to acute respiratory failure related to Bilateral COVID19 pneumonia/Influenza B Hyperglycemia L facial swelling Constipation Acute renal failure,resolved Hypothyroidism Hyperlipidemia GERD History of chronic shingles History of vocal cord nodules Plan: Dyspnea secondary to acute respiratory failure related to Bilateral COVID19 pneumonia/Influenza B: -continue BiPAP and high-flow oxygen. Difficult to wean. Continue Solu-Medrol to 40 b.i.d. -pulmonology following Hyperglycemia -steroid induced. -blood sugar readings are better. -continue aggressive sliding scale, titrate Lantus L facial swelling Concern for parotitis U/S without evidence of mass/abscess continue meropenem and vanc - given pt's allergies and hospital acquired (if parotitis) -ENT seen patient. Hot compresses recommended. Constipation -improved with enema, continue daily laxative NSTEMI -aspirin, Echo: Normal EF, moderate pulmonary hypertension. no plans for further intervention at this time -Continue Eliquis Acute renal failure secondary to above, resolved: Acute renal failure resolved. Hypothyroidism, HLD, GERD, Chronic Shingles, h/o vocal cord nodules: stable, continue home meds Dispo: guarded prognosis. LTAC once better/stable. Social service assisting with appeal for the LTAC denial.
--- NOTE | 2020-10-09 10:31 | P.PN ---
Subjective Date of Service: 10/09/20 Primary Care Provider: Dr. Lopez; Pulmonary-Dr. Cristobal; Cardiology-Dr. Westbrook Chief Complaint: Respiratory failure Patient is still very hypoxic/condition is improving still less some swelling on the left side Review of Systems Respiratory: Shortness of Breath Physical Examination - Vital Signs Temperature: 96.7 F Blood Pressure: 110/62 Pulse: 86 Respirations: 14 Pulse Ox (%): 93 - Physical Exam General: Alert, Oriented x1, Moderate distress Respiratory: Clear to auscultation bilaterally, Diminished Assessment And Plan - Current Problems (Diagnosis) (1) Acute respiratory failure due to severe acute respiratory syndrome coronavirus 2 (SARS-CoV-2) infection Current Visit: Yes Status: Acute Plan: Respiratory failure from parnell virus oxygen requirements have been declining still has some swelling on the left side of the face change to Levaquin another dose of ivermectin labs reviewed add low-dose Diflucan for fungal prophylaxis patient is on Diamox
[2020-10-09] MEDS ORDERED: SPECIAL ORDER MED 1 EA UNK PO ONE (16:00)
[2020-10-09] MEDS: MELATONIN 5 MG TABLET PO SCH (20:26)
[2020-10-09] MEDS ORDERED: ASCORBIC ACID 500 MG TABLET ONE (20:54)
[2020-10-10] MEDS: MORPHINE 2 MG/ML SYR IV PRN (00:08)
[2020-10-10 05:08] LABS: Absolute Lymphocytes (CBC) 0.4 K/uL (0.7-4.9); Basophils % 0.1 % (0-1.3); Hematocrit 33.2 % (36.0-45.0); Lymphocytes % 3.3 % (15.3-44.8); MPV 8.2 fL (7.6-11.3); RBC Red Blood Cell Count 3.53 M/uL (3.86-4.86)
[2020-10-10 05:34] LABS: BUN Blood Urea Nitrogen 30 mg/dL (7-18); Bicarbonate 40 mmol/L (21-32); Ferritin 756.6 ng/mL (8-388); Glucose Level 175 mg/dL (74-106); Potassium 4.3 mmol/L (3.5-5.1); Sodium Level 136 mmol/L (136-145)
[2020-10-10] MEDS: LEVOTHYROXINE SOD 0.125 MG TAB PO SCH (05:40)
[2020-10-10] MEDS: METOPROLOL TAR 25 MG TAB PO SCH ×2 (05:41→17:21)
[2020-10-10 05:43] LABS: C-Reactive Protein < 2.90 mg/L (<3.00)
[2020-10-10] MEDS: INSULIN -REGULAR HUMAN 50 UNIT/0.5 ML ML SQ SCH ×5 (06:21→23:59)
[2020-10-10] MEDS: acetaZOLAMIDE 250 MG TAB PO SCH (08:32)
[2020-10-10] MEDS: FLUCONAZOLE 100 MG TAB PO SCH (08:32)
[2020-10-10] MEDS: APIXABAN 5 MG TABLET PO SCH (08:32)
[2020-10-10] MEDS: VITAMIN D 1000 UNIT TAB PO SCH (08:32)
[2020-10-10] MEDS: ASPIRIN 81 MG CHEWABLE TABLET PO SCH (08:32)
[2020-10-10] MEDS: FOLIC ACID 1 MG TABLET PO SCH (08:33)
[2020-10-10] MEDS: THIAMINE HCL 100 MG TABLET PO SCH (08:33)
[2020-10-10] MEDS: METHYLPREDNISOLONE 40 MG INJ IV SCH ×2 (08:33→20:19)
[2020-10-10] MEDS: ASCORBIC ACID 500 MG TABLET PO SCH ×3 (08:36→20:19)
[2020-10-10] MEDS: levoFLOXacin 500 MG TAB PO SCH (08:36)
[2020-10-10] MEDS: INSULIN GLARGINE 100 UNITS/ML SQ SCH ×2 (08:37→21:00)
--- NOTE | 2020-10-10 12:08 | P.PN ---
Subjective Date of Service: 10/10/20 Primary Care Provider: Dr. Lopez; Pulmonary-Dr. Cristobal; Cardiology-Dr. Westbrook Chief Complaint: Respiratory failure No change patient is non 85% FiO2 requiring high doses of BiPAP Review of Systems General: Weakness Respiratory: Shortness of Breath Physical Examination - Vital Signs Temperature: 97.7 F Blood Pressure: 124/66 Pulse: 103 Respirations: 20 Pulse Ox (%): 94 Assessment & Plan - Problems (Diagnosis) (1) Acute respiratory failure due to severe acute respiratory syndrome coronavirus 2 (SARS-CoV-2) infection Current Visit: Yes Status: Acute Plan: Respiratory failure no change continued titrate oxygen down on maximum therapy patient's ferritin level is declining white count is also declining blood sugars under control no change in present therapy
[2020-10-10] MEDS ORDERED: VITAL HP 1,000 ML BOT RTH SCH (13:00)
--- NOTE | 2020-10-10 13:09 | P.PN ---
Subjective Date of Service: 10/10/20 Primary Care Provider: Dr. Lopez; Pulmonary-Dr. Cristobal; Cardiology-Dr. Westbrook Chief Complaint: Respiratory failure Patient seen tolerate high-flow oxygen and 100% non-rebreather mask. She appears comfortable. Physical Examination - Vital Signs Temperature: 97.7 F Blood Pressure: 124/66 Pulse: 103 Respirations: 20 Pulse Ox (%): 94 - Physical Exam General: Alert, In no apparent distress, Obese Neck: Supple, JVD not distended Respiratory: Diminished Cardiovascular: No edema, Regular rate/rhythm, Normal S1 S2 Gastrointestinal: Soft and benign, Non-distended, No tenderness Musculoskeletal: No swelling, No tenderness Integumentary: No rashes Neurological: Normal strength at 5/5 x4 extr Assessment And Plan - Current Problems (Diagnosis) (1) Pneumonia due to COVID-19 virus Current Visit: Yes Status: Acute (2) Influenza B Current Visit: Yes Status: Acute (3) NSTEMI (non-ST elevated myocardial infarction) Current Visit: Yes Status: Acute (4) Acute respiratory failure due to severe acute respiratory syndrome co ronavirus 2 (SARS-CoV-2) infection Current Visit: Yes Status: Acute (5) Acute kidney injury Current Visit: Yes Status: Acute Physician Review Additional Text: Dyspnea secondary to acute respiratory failure related to Bilateral COVID19 pneumonia/Influenza B Hyperglycemia L facial swelling Constipation Acute renal failure,resolved Hypothyroidism Hyperlipidemia GERD History of chronic shingles History of vocal cord nodules Plan: Dyspnea secondary to acute respiratory failure related to Bilateral COVID19 pneumonia/Influenza B: -continue BiPAP and high-flow oxygen. Difficult to wean. Continue Solu-Medrol to 40 b.i.d. -pulmonology following Hyperglycemia -steroid induced. -blood sugar readings are better. Patient is getting tube feeding in addition to oral feeding. -continue aggressive sliding scale, titrate Lantus L facial swelling Concern for parotitis U/S without evidence of mass/abscess continue meropenem and vanc - given pt's allergies and hospital acquired (if parotitis) -ENT seen patient. Hot compresses recommended. -clinically improved. Constipation -improved with enema, continue daily laxative NSTEMI -aspirin, Echo: Normal EF, moderate pulmonary hypertension. no plans for further intervention at this time -Continue Eliquis Acute renal failure secondary to above, resolved: Acute renal failure resolved. Hypothyroidism, HLD, GERD, Chronic Shingles, h/o vocal cord nodules: stable, continue home meds Dispo: guarded prognosis. LTAC once better/stable. Social service assisting with appeal for the LTAC denial.
[2020-10-10 19:18] LABS: Protime INR 1.33
[2020-10-10] MEDS: MELATONIN 5 MG TABLET PO SCH (20:19)
[2020-10-10] MEDS: ACETAMINOPHEN 500 MG TAB PO PRN (21:45)
[2020-10-10] MEDS: hydrOXYzine HCL 25 MG TAB PO PRN (23:41)
[2020-10-11 04:52] LABS: Absolute Lymphocytes (CBC) 0.2 K/uL (0.7-4.9); Basophils % 0.1 % (0-1.3); Hematocrit 32.6 % (36.0-45.0); RBC Red Blood Cell Count 3.47 M/uL (3.86-4.86)
[2020-10-11] MEDS: METOPROLOL TAR 25 MG TAB PO SCH ×2 (05:09→17:20)
[2020-10-11 05:11] LABS: BUN Blood Urea Nitrogen 27 mg/dL (7-18); Bicarbonate 37 mmol/L (21-32); Ferritin 883.5 ng/mL (8-388); Glucose Level 224 mg/dL (74-106); Potassium 4.1 mmol/L (3.5-5.1); Sodium Level 136 mmol/L (136-145)
[2020-10-11] MEDS: LEVOTHYROXINE SOD 0.125 MG TAB PO SCH (05:40)
[2020-10-11] MEDS: INSULIN -REGULAR HUMAN 50 UNIT/0.5 ML ML SQ SCH ×3 (05:40→17:18)
[2020-10-11] MEDS: ASPIRIN 81 MG CHEWABLE TABLET PO SCH (08:14)
[2020-10-11] MEDS: FLUCONAZOLE 100 MG TAB PO SCH (08:14)
[2020-10-11] MEDS: levoFLOXacin 500 MG TAB PO SCH (08:17)
[2020-10-11] MEDS: acetaZOLAMIDE 250 MG TAB PO SCH (08:17)
[2020-10-11] MEDS: VITAMIN D 1000 UNIT TAB PO SCH (08:17)
[2020-10-11] MEDS: THIAMINE HCL 100 MG TABLET PO SCH (08:18)
[2020-10-11] MEDS: FOLIC ACID 1 MG TABLET PO SCH (08:18)
[2020-10-11] MEDS: METHYLPREDNISOLONE 40 MG INJ IV SCH ×2 (08:18→21:20)
[2020-10-11] MEDS: INSULIN GLARGINE 100 UNITS/ML SQ SCH ×2 (08:19→21:21)
[2020-10-11] MEDS: ASCORBIC ACID 500 MG TABLET PO SCH ×3 (08:24→21:20)
--- NOTE | 2020-10-11 09:00 | P.PN ---
Subjective Date of Service: 10/11/20 Primary Care Provider: Dr. Lopez; Pulmonary-Dr. Cristobal; Cardiology-Dr. Westbrook Chief Complaint: Respiratory failure Subjective: Other (no significant changes. feeling slightly better. slowly seems to need less O2, however desats quickly with minimal movement. reporting buttock discomfort) Physical Examination - Vital Signs Temperature: 97.5 F Blood Pressure: 110/67 Pulse: 103 Respirations: 23 Pulse Ox (%): 93 Assessment & Plan Physician Review Additional Text: Physical Exam: HEENT: no scleral icterus, swelling of L face improved, no tenderness Pulm: non-labored on BIPAP CV: RRR, no edema Abd: soft, nontender, nondistended Ext: no rash Neuro: AAOx3 Problem List: Dyspnea secondary to acute respiratory failure related to Bilateral COVID19 pneumonia/Influenza B Hyperglycemia Partotitis Constipation, resolved Acute renal failure,resolved Hypothyroidism Hyperlipidemia GERD History of chronic shingles History of vocal cord nodules Plan: Dyspnea secondary to acute respiratory failure related to Bilateral COVID19 pneumonia/Influenza B: -continue BiPAP and high-flow oxygen. Difficult to wean. Continue Solu-Medrol to 40 b.i.d. -pulmonology following Hyperglycemia -steroid induced. -blood sugar readings are better. continue tube feeds -continue aggressive sliding scale, titrate Lantus Parotitis U/S without evidence of mass/abscess ENT consulted - recommended hot compresses clinically improved Constipation, resolved -reports 2 BM yesterday NSTEMI -aspirin, Echo: Normal EF, moderate pulmonary hypertension. no plans for further intervention at this time -Continue Eliquis Acute renal failure secondary to above, resolved: Acute renal failure resolved. Hypothyroidism, HLD, GERD, Chronic Shingles, h/o vocal cord nodules: stable, continue home meds Dispo: guarded prognosis. LTAC once better/stable. SS/CM consulted - working on appeal for LTAC denial Time Spent Managing Pts Care (In Minutes): 35
--- NOTE | 2020-10-11 11:14 | P.PN ---
Subjective Date of Service: 10/11/20 Primary Care Provider: Dr. Lopez; Pulmonary-Dr. Cristobal; Cardiology-Dr. Westbrook Chief Complaint: Respiratory failure 74-year-old female with history of hypothyroidism, hypertension, GERD, hyperlipidemia, shingles, COPD on Home O2 Patient presented to the emergency room with increasing shortness of breath with Cough BP was borderline Fluid bolus given. Patient was found to be positive for influenza B and COVID 19. 4000. Troponin 0.68. Lactic acid 3.6. Pro calcitonin 0.17. White count 9.5, hemoglobin 13. Platelet count 300. Sodium 133, potassium 4.8. BUN of 42, creatinine 2.14 Now Hypoxic , on BiPAP , started Remdisver Today no change in clinical status Cr stable awaiting for LTAC bed Physical exam general: NAD, obese ,on BiPAP Neck; Supple, No elevated JVD hear: RRR, normal S1,2 no murmur or rub Chest: increase Echophony Abdomen: Soft , Nt Extremities No edema, Assessment and plan VIDAL resolved off IVF renal dos meds COVID 19 pneumonia started on steroids completed Remdesiver cont to require BiPAP COPD cont O2 and biPAP elevated LFT resolved Lt facial swelling US no mass cont Abx total time spent 35min Physical Examination - Vital Signs Temperature: 97.5 F Blood Pressure: 128/76 Pulse: 89 Respirations: 23 Pulse Ox (%): 95
--- NOTE | 2020-10-11 11:44 | P.PN ---
Subjective Date of Service: 10/11/20 Primary Care Provider: Dr. Lopez; Pulmonary-Dr. Cristobal; Cardiology-Dr. Westbrook Chief Complaint: Respiratory failure Patient's condition and has not changed still on high concentrations of oxygen seems to be improving Review of Systems is unable to be obtained Physical Examination - Vital Signs Temperature: 97.5 F Blood Pressure: 128/76 Pulse: 89 Respirations: 23 Pulse Ox (%): 95 Assessment & Plan - Problems (Diagnosis) (1) Acute respiratory failure due to severe acute respiratory syndrome coronavirus 2 (SARS-CoV-2) infection Current Visit: Yes Status: Acute Plan: Respiratory failure continue to titrate oxygen down white count is normal continue titrate O2 to sat of 88-90%
[2020-10-11] MEDS: MELATONIN 5 MG TABLET PO SCH (21:20)
[2020-10-12] MEDS: hydrOXYzine HCL 25 MG TAB PO PRN (00:15)
[2020-10-12] MEDS: INSULIN -REGULAR HUMAN 50 UNIT/0.5 ML ML SQ SCH ×5 (00:15→23:32)
[2020-10-12 05:14] LABS: Absolute Lymphocytes (CBC) 0.2 K/uL (0.7-4.9); Basophils % 0.1 % (0-1.3); Hematocrit 31.9 % (36.0-45.0); Lymphocytes % 2.1 % (15.3-44.8); RBC Red Blood Cell Count 3.37 M/uL (3.86-4.86)
[2020-10-12 05:26] LABS: BUN Blood Urea Nitrogen 26 mg/dL (7-18); Bicarbonate 38 mmol/L (21-32); Ferritin 731.8 ng/mL (8-388); Glucose Level 197 mg/dL (74-106); Magnesium 2.2 mg/dL (1.8-2.4); Potassium 4.1 mmol/L (3.5-5.1); Sodium Level 138 mmol/L (136-145)
[2020-10-12] MEDS: METOPROLOL TAR 25 MG TAB PO SCH ×2 (06:01→17:25)
[2020-10-12] MEDS: LEVOTHYROXINE SOD 0.125 MG TAB PO SCH (06:01)
[2020-10-12] MEDS: ACETAMINOPHEN 500 MG TAB PO PRN ×2 (06:05→21:13)
[2020-10-12] MEDS: acetaZOLAMIDE 250 MG TAB PO SCH (08:36)
[2020-10-12] MEDS: FLUCONAZOLE 100 MG TAB PO SCH (08:36)
[2020-10-12] MEDS: VITAMIN D 1000 UNIT TAB PO SCH (08:36)
[2020-10-12] MEDS: THIAMINE HCL 100 MG TABLET PO SCH (08:36)
[2020-10-12] MEDS: ASPIRIN 81 MG CHEWABLE TABLET PO SCH (08:36)
[2020-10-12] MEDS: METHYLPREDNISOLONE 40 MG INJ IV SCH ×2 (08:36→21:13)
[2020-10-12] MEDS: FOLIC ACID 1 MG TABLET PO SCH (08:37)
[2020-10-12] MEDS: INSULIN GLARGINE 100 UNITS/ML SQ SCH ×2 (08:37→21:14)
[2020-10-12] MEDS: ASCORBIC ACID 500 MG TABLET PO SCH ×3 (08:37→21:14)
[2020-10-12] MEDS: levoFLOXacin 500 MG TAB PO SCH (09:00)
--- NOTE | 2020-10-12 09:45 | P.PN ---
Subjective Date of Service: 10/12/20 Primary Care Provider: Dr. Lopez; Pulmonary-Dr. Cristobal; Cardiology-Dr. Westbrook Chief Complaint: Respiratory failure Subjective: No new changes (no significant changes, feels ok this morning, without any new complaints FiO2 at 85%) Review of Systems 10-point ROS is otherwise unremarkable Physical Examination - Vital Signs Temperature: 97.2 F Blood Pressure: 109/55 Pulse: 89 Respirations: 24 Pulse Ox (%): 89 Assessment & Plan Physician Review Additional Text: Physical Exam: Gen: NAD HEENT: no scleral icterus, no tenderness of L face Pulm: non-labored on BIPAP CV: RRR, no edema Abd: soft, nontender, nondistended Ext: no rash Neuro: AAOx3 Problem List: Dyspnea secondary to acute respiratory failure related to Bilateral COVID19 pneumonia/Influenza B Hyperglycemia Partotitis Constipation, resolved Acute renal failure,resolved Hypothyroidism Hyperlipidemia GERD History of chronic shingles History of vocal cord nodules Plan: Dyspnea secondary to acute respiratory failure related to Bilateral COVID19 pneumonia/Influenza B: -continue BiPAP and high-flow oxygen. Difficult/slow to wean. Continue Solu- Medrol to 40 b.i.d. -ferritin/CRP downtrending -pulmonology following Hyperglycemia -steroid induced. -blood sugar readings are better. continue tube feeds -continue aggressive sliding scale, titrate Lantus, currently 35u BID Parotitis U/S without evidence of mass/abscess ENT consulted - recommended hot compresses clinically improved Constipation, resolved -miralax PRN NSTEMI -aspirin, Echo: Normal EF, moderate pulmonary hypertension. no plans for further intervention at this time -Continue Eliquis Acute renal failure secondary to above, resolved: Acute renal failure resolved. Hypothyroidism, HLD, GERD, Chronic Shingles, h/o vocal cord nodules: stable, continue home meds Dispo: slowly improving now. LTAC once better/stable. SS/CM consulted - working on appeal for LTAC denial Time Spent Managing Pts Care (In Minutes): 35
--- NOTE | 2020-10-12 16:40 | P.PN ---
Subjective Date of Service: 10/14/20 Primary Care Provider: Dr. Lopez; Pulmonary-Dr. Cristobal; Cardiology-Dr. Westbrook Chief Complaint: Respiratory failure No change. Weaning Fio2 Review of Systems is unable to be obtained Physical Examination - Vital Signs Temperature: 97.4 F Blood Pressure: 116/68 Pulse: 85 Respirations: 15 Pulse Ox (%): 90 - Physical Exam General: Alert Respiratory: Clear to auscultation bilaterally Cardiovascular: No edema, Regular rate/rhythm Assessment & Plan - Problems (Diagnosis) (1) Acute respiratory failure due to severe acute respiratory syndrome coronavirus 2 (SARS-CoV-2) infection Current Visit: Yes Status: Acute Plan: Stable. Slight improvement, Ferrtin livels declining. WBC normal
[2020-10-12] MEDS: MELATONIN 5 MG TABLET PO SCH (21:13)
[2020-10-13] MEDS: ACETAMINOPHEN 500 MG TAB PO PRN (02:12)
[2020-10-13] MEDS: hydrOXYzine HCL 25 MG TAB PO PRN ×2 (02:13→22:37)
[2020-10-13] MEDS: METOPROLOL TAR 25 MG TAB PO SCH ×2 (05:13→18:00)
[2020-10-13] MEDS: LEVOTHYROXINE SOD 0.125 MG TAB PO SCH (05:13)
[2020-10-13] MEDS: INSULIN -REGULAR HUMAN 50 UNIT/0.5 ML ML SQ SCH ×3 (05:14→18:00)
[2020-10-13 05:32] LABS: BUN Blood Urea Nitrogen 33 mg/dL (7-18); Bicarbonate 37 mmol/L (21-32); C-Reactive Protein 4.52 mg/L (<3.00); Ferritin 617.7 ng/mL (8-388); Glucose Level 190 mg/dL (74-106); Potassium 4.6 mmol/L (3.5-5.1); Sodium Level 141 mmol/L (136-145)
--- NOTE | 2020-10-13 07:22 | RAD REPORT ---
EXAM DESCRIPTION: RAD - Chest Single View - 10/13/2020 5:40 am CLINICAL HISTORY: hypoxia, COVID pneumonia COMPARISON: Portable October 07 TECHNIQUE: AP portable chest image was obtained 10/13/2020 5:40 am . FINDINGS: Partial clearing of the right-side infiltrate since October 07. Left lung field is not sub stantially different. Feeding tube remains in place. Tip is below the diaphragm, off the field of view. Heart and vasculatu re are normal. No measurable pleural effusion and no pneumothorax. IMPRESSION: Partial clearing of right-sided pneumonia findings. Left lung field is not significantly different.
[2020-10-13] MEDS: FOLIC ACID 1 MG TABLET PO SCH (08:18)
[2020-10-13] MEDS: METHYLPREDNISOLONE 40 MG INJ IV SCH ×2 (08:18→20:44)
[2020-10-13] MEDS: ASCORBIC ACID 500 MG TABLET PO SCH ×3 (08:19→20:44)
[2020-10-13] MEDS: ASPIRIN 81 MG CHEWABLE TABLET PO SCH (08:19)
[2020-10-13] MEDS: FLUCONAZOLE 100 MG TAB PO SCH (08:19)
[2020-10-13] MEDS: VITAMIN D 1000 UNIT TAB PO SCH (08:21)
[2020-10-13] MEDS: THIAMINE HCL 100 MG TABLET PO SCH (08:21)
[2020-10-13] MEDS: acetaZOLAMIDE 250 MG TAB PO SCH (08:22)
[2020-10-13] MEDS: INSULIN GLARGINE 100 UNITS/ML SQ SCH ×2 (08:24→20:56)
[2020-10-13] MEDS: levoFLOXacin 500 MG TAB PO SCH (09:00)
--- NOTE | 2020-10-13 11:57 | P.PN ---
Subjective Date of Service: 10/14/20 Primary Care Provider: Dr. Lopez; Pulmonary-Dr. Cristobal; Cardiology-Dr. Westbrook Chief Complaint: Respiratory failure No change. Weaning Fio2, s/p ivermectin Physical Examination - Vital Signs Temperature: 96.9 F Blood Pressure: 126/70 Pulse: 100 Respirations: 25 Pulse Ox (%): 90 Assessment & Plan - Problems (Diagnosis) (1) Acute respiratory failure due to severe acute respiratory syndrome coronavirus 2 (SARS-CoV-2) infection Current Visit: Yes Status: Acute Plan: Stable. Slight improvement, Ferrtin livels declining. WBC normal, NC Labs reviewed, Yulissa was DC on 10/10. Need to resume ALICIA. FER Brown
--- NOTE | 2020-10-13 15:16 | P.PN ---
Subjective Date of Service: 10/13/20 Primary Care Provider: Dr. Lopez; Pulmonary-Dr. Cristobal; Cardiology-Dr. Westbrook Chief Complaint: Respiratory failure Subjective: Other (NAD, tolerated HFNC/Nonrebreather for short times, +BM, no new complaints/issues per patient) Physical Examination - Vital Signs Temperature: 96.9 F Blood Pressure: 126/70 Pulse: 100 Respirations: 25 Pulse Ox (%): 90 Assessment & Plan Physician Review Additional Text: Physical Exam: Gen: NAD HEENT: no scleral icterus, no swelling/tenderness of L face Pulm: non-labored on BIPAP CV: RRR, no edema Abd: soft, nontender, nondistended Ext: no rash Problem List: Dyspnea secondary to acute respiratory failure related to Bilateral COVID19 pneumonia/Influenza B Hyperglycemia Partotitis Constipation, resolved Acute renal failure,resolved Hypothyroidism Hyperlipidemia GERD History of chronic shingles History of vocal cord nodules Plan: Dyspnea secondary to acute respiratory failure related to Bilateral COVID19 pneumonia/Influenza B: -continue BiPAP and high-flow oxygen as tolerated. Continue Solu-Medrol to 40 b.i.d. -ferritin/CRP downtrending, on levaquin per Pulm -pulmonology following Hyperglycemia -steroid induced. -blood sugar readings are better. continue tube feeds -continue aggressive sliding scale, titrate Lantus, currently 35u BID Parotitis U/S without evidence of mass/abscess, ENT consulted - recommended hot compresses clinically improved, resolved Constipation, resolved -miralax PRN NSTEMI -aspirin, Echo: Normal EF, moderate pulmonary hypertension. no plans for further intervention at this time -Continue Eliquis - review of EMR reveals this was dc'd for unknown reason 3 days ago, restart today Acute renal failure secondary to above, resolved: Acute renal failure resolved. Hypothyroidism, HLD, GERD, Chronic Shingles, h/o vocal cord nodules: stable, continue home meds Dispo: slowly improving now. LTAC once better/stable. SS/CM consulted - working on appeal for LTAC denial, no updates yet Time Spent Managing Pts Care (In Minutes): 40
[2020-10-13] MEDS: MELATONIN 5 MG TABLET PO SCH (20:44)
[2020-10-13] MEDS: APIXABAN 5 MG TABLET PO SCH (20:44)
[2020-10-14] MEDS: METOPROLOL TAR 25 MG TAB PO SCH ×2 (06:25→18:34)
[2020-10-14] MEDS: LEVOTHYROXINE SOD 0.125 MG TAB PO SCH (06:26)
[2020-10-14] MEDS: INSULIN -REGULAR HUMAN 50 UNIT/0.5 ML ML SQ SCH ×4 (06:54→18:37)
[2020-10-14] MEDS: VITAMIN D 1000 UNIT TAB PO SCH (08:22)
[2020-10-14] MEDS: THIAMINE HCL 100 MG TABLET PO SCH (08:22)
[2020-10-14] MEDS: levoFLOXacin 500 MG TAB PO SCH (08:22)
[2020-10-14] MEDS: APIXABAN 5 MG TABLET PO SCH ×2 (08:23→22:20)
[2020-10-14] MEDS: FLUCONAZOLE 100 MG TAB PO SCH (08:23)
[2020-10-14] MEDS: acetaZOLAMIDE 250 MG TAB PO SCH (08:23)
[2020-10-14] MEDS: INSULIN GLARGINE 100 UNITS/ML SQ SCH ×2 (08:23→22:20)
[2020-10-14] MEDS: FOLIC ACID 1 MG TABLET PO SCH (08:23)
[2020-10-14] MEDS: ASPIRIN 81 MG CHEWABLE TABLET PO SCH (08:23)
[2020-10-14] MEDS: ASCORBIC ACID 500 MG TABLET PO SCH ×3 (08:23→22:20)
[2020-10-14] MEDS: METHYLPREDNISOLONE 40 MG INJ IV SCH (09:48)
--- NOTE | 2020-10-14 10:30 | P.PN ---
Subjective Date of Service: 10/14/20 Primary Care Provider: Dr. Lopez; Pulmonary-Dr. Cristobal; Cardiology-Dr. Westbrook Chief Complaint: Respiratory failure 74-year-old female with history of hypothyroidism, hypertension, GERD, hyperlipidemia, shingles, COPD on Home O2 Patient presented to the emergency room with increasing shortness of breath with Cough BP was borderline Fluid bolus given. Patient was found to be positive for influenza B and COVID 19. 4000. Troponin 0.68. Lactic acid 3.6. Pro calcitonin 0.17. White count 9.5, hemoglobin 13. Platelet count 300. Sodium 133, potassium 4.8. BUN of 42, creatinine 2.14 Now Hypoxic , on BiPAP , started Remdisver Today no overnight events Bicarb elevatd but stable Cont Diamox Physical exam general: NAD, obese ,on BiPAP Neck; Supple, No elevated JVD hear: RRR, normal S1,2 no murmur or rub Chest: increase Echophony Abdomen: Soft , Nt Extremities No edema, Assessment and plan VIDAL resolved off IVF renal dos meds COVID 19 pneumonia started on steroids completed Remdesiver cont to require BiPAP COPD cont O2 and biPAP elevated LFT resolved Lt facial swellingdue to parotitis US no mass cont Abx total time spent 35min Physical Examination - Vital Signs Temperature: 98.9 F Blood Pressure: 117/79 Pulse: 98 Respirations: 29 Pulse Ox (%): 100
--- NOTE | 2020-10-14 11:39 | P.PN ---
Subjective Date of Service: 10/14/20 Primary Care Provider: Dr. Lopez; Pulmonary-Dr. Cristobal; Cardiology-Dr. Westbrook Chief Complaint: Respiratory failure Patient is improving oxygen requirements are declining she is very alert still little short of breath Review of Systems General: Weakness Respiratory: Shortness of Breath Physical Examination - Vital Signs Temperature: 97.4 F Blood Pressure: 116/68 Pulse: 85 Respirations: 15 Pulse Ox (%): 90 Assessment & Plan - Problems (Diagnosis) (1) Acute respiratory failure due to severe acute respiratory syndrome coronavirus 2 (SARS-CoV-2) infection Current Visit: Yes Status: Acute Plan: Respiratory failure doing much better oxygen requirements are declining repeat parnell virus test patient can be transferred added to the 4th of the 2nd floor depending upon the status of her test ferritin levels declining repeated another dose of ivermectin/change to p.o. prednisone
[2020-10-14] MEDS ORDERED: IVERMECTIN 3 MG TABLET PO ONE (12:00)
--- NOTE | 2020-10-14 21:49 | P.PN ---
Subjective Date of Service: 10/14/20 Primary Care Provider: Dr. Lopez; Pulmonary-Dr. Cristobal; Cardiology-Dr. Westbrook Chief Complaint: Respiratory failure Subjective: Improving (feeling better, no complaints, tolerating HFNC/nonrebreather for short periods of time) Review of Systems 10-point ROS is otherwise unremarkable Physical Examination - Vital Signs Temperature: 97.1 F Blood Pressure: 116/68 Pulse: 76 Respirations: 16 Pulse Ox (%): 86 Assessment & Plan Physician Review Additional Text: Physical Exam: Gen: NAD HEENT: no scleral icterus, no swelling/tenderness of L face Pulm: non-labored on BIPAP CV: RRR, no edema Abd: soft, nontender, nondistended Ext: no rash Problem List: Dyspnea secondary to acute respiratory failure related to Bilateral COVID19 pneumonia/Influenza B Hyperglycemia Partotitis, resolved Constipation, resolved Acute renal failure,resolved Hypothyroidism Hyperlipidemia GERD History of chronic shingles History of vocal cord nodules Plan: Dyspnea secondary to acute respiratory failure related to Bilateral COVID19 pneumonia/Influenza B: -continue BiPAP and high-flow oxygen as tolerated. decrease steroids to prednisone 20 BID -ferritin/CRP downtrending - repeat tomorrow, on levaquin x 7 days per Pulm -pulmonology following Hyperglycemia -steroid induced. -continue tube feeds -continue aggressive sliding scale, titrate Lantus, currently 35u BID Parotitis clinically improved, resolved, to complete 7 days total of levaquin Constipation, resolved -miralax PRN NSTEMI -aspirin, Echo: Normal EF, moderate pulmonary hypertension. no plans for further intervention at this time -Continue Eliquis Acute renal failure secondary to above, resolved: Acute renal failure resolved. Hypothyroidism, HLD, GERD, Chronic Shingles, h/o vocal cord nodules: stable, continue home meds Dispo: slowly improving now. Is very appropriate for LTAC, however denied by insurance, no peer to peer done, no reason given despite appeals likely transfer to floor later today Time Spent Managing Pts Care (In Minutes): 40
[2020-10-14] MEDS: predniSONE 20 MG TAB PO SCH (22:20)
[2020-10-14] MEDS: ACETAMINOPHEN 500 MG TAB PO PRN (22:20)
[2020-10-14] MEDS: MELATONIN 5 MG TABLET PO SCH (22:20)
[2020-10-14] MEDS: hydrOXYzine HCL 25 MG TAB PO PRN ×2 (22:20)
[2020-10-15] MEDS: LEVOTHYROXINE SOD 0.125 MG TAB PO SCH (05:28)
[2020-10-15] MEDS: METOPROLOL TAR 25 MG TAB PO SCH ×2 (05:38→19:12)
[2020-10-15] MEDS ORDERED: LEVOTHYROXINE SOD 0.125 MG TAB ONE (05:42)
[2020-10-15] MEDS: INSULIN -REGULAR HUMAN 50 UNIT/0.5 ML ML SQ SCH ×4 (06:00→18:00)
[2020-10-15 06:46] LABS: Absolute Lymphocytes (CBC) 0.8 K/uL (0.7-4.9); Basophils % 0.1 % (0-1.3); Hematocrit 31.6 % (36.0-45.0); Lymphocytes % 12.8 % (15.3-44.8); MPV 7.8 fL (7.6-11.3); RBC Red Blood Cell Count 3.32 M/uL (3.86-4.86)
[2020-10-15 07:06] LABS: BUN Blood Urea Nitrogen 27 mg/dL (7-18); Bicarbonate 38 mmol/L (21-32); C-Reactive Protein 4.09 mg/L (<3.00); Ferritin 653.6 ng/mL (8-388); Glucose Level 140 mg/dL (74-106); Magnesium 2.1 mg/dL (1.8-2.4); Sodium Level 137 mmol/L (136-145)
[2020-10-15 08:51] LABS: Platelet Estimate ADEQ
[2020-10-15 08:52] LABS: Anisocytosis 1+; Basophilic Stippling 1+; Blood Morphology Comment NOTED (NOT SEEN); Polychromasia 1+; Stomatocytes 1+
[2020-10-15] MEDS: FLUCONAZOLE 100 MG TAB PO SCH (10:14)
[2020-10-15] MEDS: predniSONE 20 MG TAB PO SCH ×2 (10:14→21:59)
[2020-10-15] MEDS: levoFLOXacin 500 MG TAB PO SCH (10:14)
[2020-10-15] MEDS: APIXABAN 5 MG TABLET PO SCH (10:14)
[2020-10-15] MEDS: VITAMIN D 1000 UNIT TAB PO SCH (10:14)
[2020-10-15] MEDS: ASCORBIC ACID 500 MG TABLET PO SCH ×3 (10:15→21:59)
[2020-10-15] MEDS: ASPIRIN 81 MG CHEWABLE TABLET PO SCH (10:15)
[2020-10-15] MEDS: THIAMINE HCL 100 MG TABLET PO SCH (10:15)
[2020-10-15] MEDS: FOLIC ACID 1 MG TABLET PO SCH (10:15)
[2020-10-15] MEDS: INSULIN GLARGINE 100 UNITS/ML SQ SCH ×2 (10:15→21:59)
[2020-10-15] MEDS: acetaZOLAMIDE 250 MG TAB PO SCH (10:15)
--- NOTE | 2020-10-15 16:42 | P.PN ---
Subjective Date of Service: 10/15/20 Primary Care Provider: Dr. Lopez; Pulmonary-Dr. Cristobal; Cardiology-Dr. Westbrook Chief Complaint: Respiratory failure 74-year-old female with history of hypothyroidism, hypertension, GERD, hyperlipidemia, shingles, COPD on Home O2 Patient presented to the emergency room with increasing shortness of breath with Cough BP was borderline Fluid bolus given. Patient was found to be positive for influenza B and COVID 19. 4000. Troponin 0.68. Lactic acid 3.6. Pro calcitonin 0.17. White count 9.5, hemoglobin 13. Platelet count 300. Sodium 133, potassium 4.8. BUN of 42, creatinine 2.14 Now Hypoxic , on BiPAP , started Remdisver Today no overnight events less o2 requirements today cont O2 weaning Physical exam general: AAOX3, NAD , on o2 Neck; Supple, No elevated JVD hear: RRR, normal S1,2 no murmur or rub Chest: increase Echophony Abdomen: Soft , Nt Extremities No edema, Assessment and plan VIDAL resolved off IVF renal dos meds COVID 19 pneumonia completed Remdesiver now requiress less O2 COPD cont O2 and biPAP elevated LFT resolved Lt facial swellingdue to parotitis US no mass cont Abx total time spent 35min Physical Examination - Vital Signs Temperature: 97.6 F Blood Pressure: 102/56 Pulse: 97 Respirations: 24 Pulse Ox (%): 94
--- NOTE | 2020-10-15 20:08 | P.PN ---
Subjective Date of Service: 10/15/20 Primary Care Provider: Dr. Lopez; Pulmonary-Dr. Cristobal; Cardiology-Dr. Westbrook Chief Complaint: Respiratory failure Subjective: Improving (feeling better, breathing better, had good night of sleep last night. nursing report patient had small maroon blood with BM early this morning) Review of Systems 10-point ROS is otherwise unremarkable Physical Examination - Vital Signs Temperature: 97.6 F Blood Pressure: 102/56 Pulse: 97 Respirations: 24 Pulse Ox (%): 94 Assessment & Plan Physician Review Additional Text: Physical Exam: Gen: NAD HEENT: no scleral icterus, no swelling/tenderness of L face Pulm: non-labored on BIPAP CV: RRR, no edema Abd: soft, nontender, nondistended Ext: no rash Problem List: Dyspnea secondary to acute respiratory failure related to Bilateral COVID19 pneumonia/Influenza B possible Lower GI bleed Hyperglycemia Partotitis, resolved Constipation, resolved Acute renal failure,resolved Hypothyroidism Hyperlipidemia GERD History of chronic shingles History of vocal cord nodules Plan: Dyspnea secondary to acute respiratory failure related to Bilateral COVID19 pneumonia/Influenza B: -continue BiPAP and high-flow oxygen as tolerated. prednisone 20 BID -ferritin/CRP downtrending - repeat tomorrow, on levaquin x 7 days per Pulm -pulmonology following -transferred out of ICU yesterday possible Lower GI bleed on aspirin and eliquis will dc aspirin, pt at high risk of clotting will send stool to confirm blood if worsens, may need to hold eliquis Hyperglycemia -steroid induced. -continue tube feeds -continue aggressive sliding scale, titrate Lantus, currently 35u BID Parotitis clinically improved, resolved, to complete 7 days total of levaquin Constipation, resolved -miralax PRN NSTEMI -Echo: Normal EF, moderate pulmonary hypertension. no plans for further intervention at this time Acute renal failure secondary to above, resolved: Acute renal failure resolved. Hypothyroidism, HLD, GERD, Chronic Shingles, h/o vocal cord nodules: stable, continue home meds Dispo: improving. . Is very appropriate for LTAC, however denied by insurance, no peer to peer done, no reason given despite appeals Time Spent Managing Pts Care (In Minutes): 35
[2020-10-15] MEDS: hydrOXYzine HCL 25 MG TAB PO PRN (21:59)
[2020-10-15] MEDS: MELATONIN 5 MG TABLET PO SCH (21:59)
[2020-10-15] MEDS: ACETAMINOPHEN 500 MG TAB PO PRN (22:01)
[2020-10-16 04:58] LABS: Absolute Lymphocytes (CBC) 0.8 K/uL (0.7-4.9); Basophils % 0.5 % (0-1.3); Hematocrit 34.7 % (36.0-45.0); Lymphocytes % 12.4 % (15.3-44.8); MPV 7.7 fL (7.6-11.3); RBC Red Blood Cell Count 3.61 M/uL (3.86-4.86)
[2020-10-16 05:47] LABS: BUN Blood Urea Nitrogen 28 mg/dL (7-18); Bicarbonate 36 mmol/L (21-32); Ferritin 669.6 ng/mL (8-388); Glucose Level 168 mg/dL (74-106); Potassium 4.4 mmol/L (3.5-5.1); Sodium Level 136 mmol/L (136-145)
[2020-10-16] MEDS: METOPROLOL TAR 25 MG TAB PO SCH ×2 (06:28→17:00)
[2020-10-16] MEDS: INSULIN -REGULAR HUMAN 50 UNIT/0.5 ML ML SQ SCH ×4 (06:29→16:53)
[2020-10-16] MEDS: LEVOTHYROXINE SOD 0.125 MG TAB PO SCH (06:29)
[2020-10-16] MEDS ORDERED: LEVOTHYROXINE SOD 0.125 MG TAB ONE (06:36)
[2020-10-16 07:22] LABS: Platelet Estimate ADEQ
[2020-10-16 07:24] LABS: Anisocytosis SLIGHT; Basophilic Stippling 1+; Blood Morphology Comment NOTED (NOT SEEN); Polychromasia 1+; Stomatocytes 1+
[2020-10-16] MEDS: VITAMIN D 1000 UNIT TAB PO SCH (09:38)
[2020-10-16] MEDS: FLUCONAZOLE 100 MG TAB PO SCH (09:38)
[2020-10-16] MEDS: THIAMINE HCL 100 MG TABLET PO SCH (09:38)
[2020-10-16] MEDS: FOLIC ACID 1 MG TABLET PO SCH (09:39)
[2020-10-16] MEDS: levoFLOXacin 500 MG TAB PO SCH (09:39)
[2020-10-16] MEDS: predniSONE 20 MG TAB PO SCH ×2 (09:39→21:14)
[2020-10-16] MEDS: acetaZOLAMIDE 250 MG TAB PO SCH (09:39)
[2020-10-16] MEDS: ASCORBIC ACID 500 MG TABLET PO SCH ×3 (09:40→21:14)
[2020-10-16] MEDS: INSULIN GLARGINE 100 UNITS/ML SQ SCH ×2 (10:04→21:14)
--- NOTE | 2020-10-16 10:44 | P.PN ---
Subjective Date of Service: 10/16/20 Primary Care Provider: Dr. Lopez; Pulmonary-Dr. Cristobal; Cardiology-Dr. Westbrook Chief Complaint: Respiratory failure 74-year-old female with history of hypothyroidism, hypertension, GERD, hyperlipidemia, shingles, COPD on Home O2 Patient presented to the emergency room with increasing shortness of breath with Cough BP was borderline Fluid bolus given. Patient was found to be positive for influenza B and COVID 19. 4000. Troponin 0.68. Lactic acid 3.6. Pro calcitonin 0.17. White count 9.5, hemoglobin 13. Platelet count 300. Sodium 133, potassium 4.8. BUN of 42, creatinine 2.14 Now Hypoxic , on BiPAP , started Remdisver Today no overnight events On Vapotherm now still on tube feeding Cr stable Physical exam general: AAOX3, NAD , on o2 Neck; Supple, No elevated JVD hear: RRR, normal S1,2 no murmur or rub Chest: increase Echophony Abdomen: Soft , Nt Extremities No edema, Assessment and plan VIDAL resolved off IVF renal dos meds COVID 19 pneumonia completed Remdesiver now requiress less O2 COPD cont O2 and biPAP elevated LFT resolved Lt facial swellingdue to parotitis US no mass cont Abx total time spent 35min Physical Examination - Vital Signs Temperature: 97.2 F Blood Pressure: 125/60 Pulse: 76 Respirations: 17 Pulse Ox (%): 88
--- NOTE | 2020-10-16 12:29 | P.PN ---
Subjective Date of Service: 10/16/20 Primary Care Provider: Dr. Lopez; Pulmonary-Dr. Cristobal; Cardiology-Dr. Westbrook Chief Complaint: Respiratory failure Subjective: No new changes (No acute events overnight. Patient reports not sleeping well. Tolerating short periods of high-flow nasal cannula.) Review of Systems 10-point ROS is otherwise unremarkable Physical Examination - Vital Signs Temperature: 97.2 F Blood Pressure: 125/60 Pulse: 76 Respirations: 17 Pulse Ox (%): 88 Assessment & Plan Physician Review Additional Text: Physical Exam: Gen: NAD HEENT: no swelling/tenderness of L face CV: RRR, no edema Pulm: non-labored on BIPAP Abd: soft, nontender, nondistended Ext: no rash Problem List: Dyspnea secondary to acute respiratory failure related to Bilateral COVID19 pneumonia/Influenza B possible Lower GI bleed Hyperglycemia Partotitis, resolved Constipation, resolved Acute renal failure,resolved Hypothyroidism Hyperlipidemia GERD History of chronic shingles History of vocal cord nodules Plan: Dyspnea secondary to acute respiratory failure related to Bilateral COVID19 pneumonia/Influenza B: -continue BiPAP and high-flow oxygen as tolerated. prednisone 20 BID. improved -ferritin/CRP downtrending -, completed 7 days levaquin per Pulm -pulmonology following -transferred out of ICU on 10/14 possible Lower GI bleed reported 2-3 small maroonish clots on aspirin and eliquis will dc aspirin, pt at high risk of clotting. discussed risks/benefits. Hgb stable. H/o hemorrhoids if worsens, may need to hold eliquis Hyperglycemia -steroid induced. -continue tube feeds -continue aggressive sliding scale, titrate Lantus, currently 35u BID Parotitis, resolved resolved, completed 7 days total of levaquin Constipation, resolved -miralax PRN NSTEMI -Echo: Normal EF, moderate pulmonary hypertension. no plans for further intervention at this time Acute renal failure secondary to above, resolved: Acute renal failure resolved. Hypothyroidism, HLD, GERD, Chronic Shingles, h/o vocal cord nodules: stable, continue home meds Dispo: improving. Pt is very appropriate for LTAC, however denied by insurance, no peer to peer done, no reason given despite appeals Time Spent Managing Pts Care (In Minutes): 35
[2020-10-16 13:33] LABS: Arterial Blood Carboxyhemoglob 2.8 % (0-1.5); Blood Gas Oxyhemoglobin 87.3 % (94-97); Blood O2 Saturation 90.7 % (92-98.5)
[2020-10-16] MEDS ORDERED: HYDROCODONE/APAP 5/325 MG TAB PO ONE (20:58)
[2020-10-16] MEDS: MELATONIN 5 MG TABLET PO SCH (21:14)
[2020-10-17] MEDS ORDERED: VITAL FT SCH (00:13)
[2020-10-17] MEDS: hydrOXYzine HCL 25 MG TAB PO PRN ×2 (00:55→22:27)
[2020-10-17 05:55] LABS: BUN Blood Urea Nitrogen 21 mg/dL (7-18); Bicarbonate 36 mmol/L (21-32); C-Reactive Protein 5.79 mg/L (<3.00); Ferritin 621.2 ng/mL (8-388); Glucose Level 142 mg/dL (74-106); Potassium 4.3 mmol/L (3.5-5.1); Sodium Level 134 mmol/L (136-145)
[2020-10-17 05:58] LABS: Hematocrit 33.3 % (36.0-45.0); MPV 7.6 fL (7.6-11.3); RBC Red Blood Cell Count 3.44 M/uL (3.86-4.86)
[2020-10-17] MEDS: INSULIN -REGULAR HUMAN 50 UNIT/0.5 ML ML SQ SCH ×4 (06:00→17:53)
[2020-10-17] MEDS: LEVOTHYROXINE SOD 0.125 MG TAB PO SCH (06:08)
[2020-10-17] MEDS: METOPROLOL TAR 25 MG TAB PO SCH ×2 (06:08→17:08)
[2020-10-17] MEDS: ASCORBIC ACID 500 MG TABLET PO SCH ×3 (07:47→21:16)
[2020-10-17] MEDS: VITAMIN D 1000 UNIT TAB PO SCH (07:47)
[2020-10-17] MEDS: acetaZOLAMIDE 250 MG TAB PO SCH (07:48)
[2020-10-17] MEDS: THIAMINE HCL 100 MG TABLET PO SCH (07:48)
[2020-10-17] MEDS: predniSONE 20 MG TAB PO SCH ×2 (07:48→21:15)
[2020-10-17] MEDS: FOLIC ACID 1 MG TABLET PO SCH (07:49)
[2020-10-17] MEDS: INSULIN GLARGINE 100 UNITS/ML SQ SCH ×2 (07:49→21:16)
[2020-10-17] MEDS: APIXABAN 5 MG TABLET PO SCH ×2 (09:34→21:13)
[2020-10-17] MEDS ORDERED: GLUCERNA 1.2 CAL 1,000 ML BOT FT SCH (15:00)
--- NOTE | 2020-10-17 15:07 | P.PN ---
Subjective Date of Service: 10/17/20 Primary Care Provider: Dr. Lopez; Pulmonary-Dr. Cristobal; Cardiology-Dr. Westbrook Chief Complaint: Respiratory failure Subjective: No new changes (on HFNC most of yesterday and overnight. Patient reports feeling well, maybe a little bit tired. Nursing reports 2 bowel movement overnight without any blood.) Review of Systems 10-point ROS is otherwise unremarkable Physical Examination - Vital Signs Temperature: 98.1 F Blood Pressure: 121/60 Pulse: 89 Respirations: 17 Pulse Ox (%): 95 Assessment & Plan Physician Review Additional Text: Physical Exam: Gen: NAD HEENT: no swelling CV: RRR, no edema Pulm: non-labored on BIPAP Abd: soft, nontender, nondistended Ext: no rash Problem List: Dyspnea secondary to acute respiratory failure related to Bilateral COVID19 pneumonia/Influenza B Lower GI bleed Hyperglycemia Partotitis, resolved Constipation, resolved Acute renal failure,resolved Hypothyroidism Hyperlipidemia GERD History of chronic shingles History of vocal cord nodules Plan: Dyspnea secondary to acute respiratory failure related to Bilateral COVID19 pneumonia/Influenza B: -continue BiPAP and high-flow oxygen as tolerated. prednisone 20 BID. improved -ferritin/CRP downtrending -, completed 7 days levaquin per Pulm -pulmonology following -transferred out of ICU on 10/14 possible Lower GI bleed reported 2-3 small maroonish clots a few days ago on aspirin and eliquis dc'd aspirin, pt at high risk of clotting. discussed risks/benefits. Hgb stable. H/o hemorrhoids eliquis held for a day, restarted Hyperglycemia -steroid induced. -continue tube feeds -continue aggressive sliding scale, titrate Lantus, currently 35u BID Parotitis, resolved resolved, completed initial IV Abx and then 7 days total of levaquin Constipation, resolved -miralax PRN NSTEMI -Echo: Normal EF, moderate pulmonary hypertension. no plans for further intervention at this time Acute renal failure secondary to above, resolved: Acute renal failure resolved. Hypothyroidism, HLD, GERD, Chronic Shingles, h/o vocal cord nodules: stable, continue home meds Dispo: improving. Pt is very appropriate for LTAC, however denied by insurance, no peer to peer done, no reason given despite appeals Time Spent Managing Pts Care (In Minutes): 35
[2020-10-17] MEDS: MELATONIN 5 MG TABLET PO SCH (21:14)
--- NOTE | 2020-10-17 21:16 | PN ---
Date of Progress Note: 10/17/2020 Chief Complaint: Acute on chronic kidney injury. History Of Present Illness: The patient has multiple medical problems including history of COVID inf ection, COPD. The patient has chronic COPD with home oxygen requirement. The patient came to this h ospital because of shortness of breath and cough. She was found to have influenza B and COVID infect ion. Procalcitonin was 0.17. Lactic acid was up to 3.6. Sodium level was 133, BUN 42, creatinine 2 .14. The patient was started on remdesivir. Review of Systems: Denies complaints. Physical Examination: LUNGS: Normal respiratory effort. Heart: S1, S2. Abdomen: Soft, benign. Extremities: No edema. Impression And Plan: 1.Acute kidney injury. Renal function stabilized at baseline. The patient currently is off IV flui ds. Continue renally adjusted medication. 2.COVID-19 pneumonia. The patient requires less oxygen and monitor pulse oximeter. 3.Elevated liver function test due to COVID infection, possible shock liver. Improvement of liver f unction test over last several days was already observed. 4.Hypertension. Blood pressure controlled. Continue current treatment. EB/MODL Voice ID: [id number] Report ID: [id number]
[2020-10-17] MEDS: HYDROCODONE/APAP 5/325 MG TAB PO PRN (22:26)
[2020-10-18 05:12] LABS: BUN Blood Urea Nitrogen 19 mg/dL (7-18); Bicarbonate 38 mmol/L (21-32); C-Reactive Protein 8.59 mg/L (<3.00); Ferritin 589.1 ng/mL (8-388); Glucose Level 122 mg/dL (74-106); Potassium 4.4 mmol/L (3.5-5.1); Sodium Level 134 mmol/L (136-145)
[2020-10-18] MEDS: METOPROLOL TAR 25 MG TAB PO SCH ×2 (05:48→16:39)
[2020-10-18] MEDS: INSULIN -REGULAR HUMAN 50 UNIT/0.5 ML ML SQ SCH ×5 (05:50→22:51)
[2020-10-18] MEDS: predniSONE 20 MG TAB PO SCH (08:35)
[2020-10-18] MEDS: ASCORBIC ACID 500 MG TABLET PO SCH ×3 (08:35→22:50)
[2020-10-18] MEDS: APIXABAN 5 MG TABLET PO SCH ×2 (08:35→22:50)
[2020-10-18] MEDS: acetaZOLAMIDE 250 MG TAB PO SCH (08:36)
[2020-10-18] MEDS: THIAMINE HCL 100 MG TABLET PO SCH (08:36)
[2020-10-18] MEDS: FOLIC ACID 1 MG TABLET PO SCH (08:36)
[2020-10-18] MEDS: VITAMIN D 1000 UNIT TAB PO SCH (08:36)
[2020-10-18] MEDS: INSULIN GLARGINE 100 UNITS/ML SQ SCH ×2 (09:00→21:00)
--- NOTE | 2020-10-18 16:25 | PN ---
Date of Progress Note: 10/18/2020 Subjective: The patient was admitted with acute kidney injury secondary to COVID nephropathy, non-ST elevation TN, severe alkalosis, and hyperkalemia. The patient recovered very well. Physical Examination: Vital Signs: Blood pressure 111/52, pulse of 100, afebrile. Chest: Crackles bilateral base. Heart: S1, S2. Regular. Abdomen: Soft, nontender. Extremities: Trace edema. Neuro: The patient is sleepy. Laboratory Data: WBC 4.9, H and H 11/33.3. Sodium 134, potassium 4.4, bicarb 38, BUN 19, creatinine 0.2, calcium 8.1. Current Medications: The patient on include hydroxyzine, Eliquis, metoprolol 25 b.i.d., acetazolamide 250 daily, insulin, thiamin, vitamin D. Assessment And Plan: 1. 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 2. Hyponatremia, resolved. 3. Hyperkalemia, resolved. 4. Anasarca. Continue current diuresis. 5. Alkalosis secondary to hypercapnic respiratory acidosis. Continue acetazolamide. 6. COVID pneumonia. Follow up with primary. The patient cleared from the Renal standpoint for discharge planning. time spend discussing with the patient face to face , placing order , discusse with the patient and other crew team member including hospitalist 45 min. MARQUITA Voice ID: [id number] Report ID: [id number] KEVIN
--- NOTE | 2020-10-18 17:07 | P.PN ---
Subjective Date of Service: 10/18/20 Primary Care Provider: Dr. Lopez; Pulmonary-Dr. Cristobal; Cardiology-Dr. Westbrook Chief Complaint: Respiratory failure Patient patient tolerating non-rebreather mask. Patient appeared depressed from the protracted course of her illness. Nursing staff report patient made a statement about pursuing comfort measures. I had a discussion with the patient and explained the comfort measure process. Patient stated she does not want want to pursue comfort measures and . She also wishes to remain full code. Physical Examination - Vital Signs Temperature: 97.6 F Blood Pressure: 109/59 Pulse: 101 Respirations: 26 Pulse Ox (%): 86 - Physical Exam General: Alert, Mild distress, Obese, Other (Awake) HEENT: Other (Wound on bridge of nose from constant BIPAP use.) Neck: Supple Respiratory: Diminished Cardiovascular: No edema, Normal S1 S2, Other (Tachycardia) Gastrointestinal: Soft and benign, Non-distended Musculoskeletal: No swelling Integumentary: No rashes Neurological: Normal strength at 5/5 x4 extr Assessment And Plan - Current Problems (Diagnosis) (1) Pneumonia due to COVID-19 virus Current Visit: Yes Status: Acute (2) Influenza B Current Visit: Yes Status: Acute (3) NSTEMI (non-ST elevated myocardial infarction) Current Visit: Yes Status: Acute (4) Acute respiratory failure due to severe acute respiratory syndrome coronavirus 2 (SARS-CoV-2) infection Current Visit: Yes Status: Acute (5) Acute kidney injury Current Visit: Yes Status: Acute Physician Review Additional Text: Physical Exam: Gen: NAD HEENT: no swelling CV: RRR, no edema Pulm: non-labored on BIPAP Abd: soft, nontender, nondistended Ext: no rash Problem List: Dyspnea secondary to acute respiratory failure related to Bilateral COVID19 pneumonia/Influenza B Lower GI bleed Hyperglycemia Partotitis, resolved Constipation, resolved Acute renal failure,resolved Hypothyroidism Hyperlipidemia GERD History of chronic shingles History of vocal cord nodules Plan: Dyspnea secondary to acute respiratory failure related to Bilateral COVID19 pneumonia/Influenza B: -continue BiPAP, non-rebreather mask and high-flow oxygen as tolerated. prednisone 20 BID. -overall she's had some clinical improvement. -ferritin/CRP downtrending -, completed 7 days levaquin per Pulm -pulmonology following -transferred out of ICU on 1/22 possible Lower GI bleed reported 2-3 small maroonish clots a few days ago on aspirin and eliquis dc'd aspirin, pt at high risk of clotting. discussed risks/benefits. Hgb stable. H/o hemorrhoids eliquis held for a day. Continue Eliquis Hyperglycemia -steroid induced. -NG tube accidentally came out today. -insulin sliding scale, titrate Lantus. -oral feeding. Parotitis, resolved resolved, completed initial IV Abx and then 7 days total of levaquin Constipation, resolved -miralax PRN NSTEMI -Echo: Normal EF, moderate pulmonary hypertension. no plans for further intervention at this time Acute renal failure secondary to above, resolved: Acute renal failure resolved. Hypothyroidism, HLD, GERD, Chronic Shingles, h/o vocal cord nodules: stable, continue home meds
[2020-10-18] MEDS: METHYLPREDNISOLONE 125 MG INJ IV SCH (22:50)
[2020-10-18] MEDS: MELATONIN 5 MG TABLET PO SCH (22:50)
[2020-10-18] MEDS ORDERED: FUROSEMIDE 20 MG/ 2ML VIAL IV ONE (23:39)
[2020-10-19] MEDS: METOPROLOL TAR 25 MG TAB PO SCH ×2 (05:18→17:58)
[2020-10-19 06:19] LABS: Magnesium 2.1 mg/dL (1.8-2.4); Phosphorus 4.5 mg/dL (2.5-4.9); Thyroid Stimulating Hormone 0.361 uIU/mL (0.360-3.740)
[2020-10-19] MEDS: INSULIN -REGULAR HUMAN 50 UNIT/0.5 ML ML SQ SCH ×5 (07:30→21:00)
[2020-10-19] MEDS: THIAMINE HCL 100 MG TABLET PO SCH (09:00)
[2020-10-19] MEDS: VITAMIN D 1000 UNIT TAB PO SCH (09:00)
[2020-10-19] MEDS: FOLIC ACID 1 MG TABLET PO SCH (09:00)
[2020-10-19] MEDS: APIXABAN 5 MG TABLET PO SCH ×2 (09:00→21:37)
[2020-10-19] MEDS: acetaZOLAMIDE 250 MG TAB PO SCH (09:00)
[2020-10-19] MEDS: METHYLPREDNISOLONE 125 MG INJ IV SCH ×2 (09:00→21:38)
[2020-10-19] MEDS: ASCORBIC ACID 500 MG TABLET PO SCH ×3 (09:00→21:37)
[2020-10-19] MEDS: INSULIN GLARGINE 100 UNITS/ML SQ SCH ×2 (09:00→21:00)
--- NOTE | 2020-10-19 12:47 | P.PN ---
Subjective Date of Service: 10/19/20 Primary Care Provider: Dr. Lopez; Pulmonary-Dr. Cristobal; Cardiology-Dr. Westbrook Chief Complaint: Respiratory failure Patient is still continues to remain hypoxic sliding decline in oxygen requirement Review of Systems General: Weakness Respiratory: Shortness of Breath Physical Examination - Vital Signs Temperature: 97.7 F Blood Pressure: 120/69 Pulse: 88 Respirations: 23 Pulse Ox (%): 89 Assessment & Plan - Problems (Diagnosis) (1) Acute respiratory failure due to severe acute respiratory syndrome coronavirus 2 (SARS-CoV-2) infection Current Visit: Yes Status: Acute Plan: Respiratory failure still requiring significant oxygen treatment chest x-ray she does show some significant change in chest x-ray prognosis poor consider LTAC no evidence of sepsis add Diflucan Physician Review Additional Text: Physical Exam: Gen: NAD HEENT: no swelling CV: RRR, no edema Pulm: non-labored on BIPAP Abd: soft, nontender, nondistended Ext: no rash Problem List: Dyspnea secondary to acute respiratory failure related to Bilateral COVID19 pneumonia/Influenza B Lower GI bleed Hyperglycemia Partotitis, resolved Constipation, resolved Acute renal failure,resolved Hypothyroidism Hyperlipidemia GERD History of chronic shingles History of vocal cord nodules Plan: Dyspnea secondary to acute respiratory failure related to Bilateral COVID19 pneumonia/Influenza B: -continue BiPAP, non-rebreather mask and high-flow oxygen as tolerated. prednisone 20 BID. -overall she's had some clinical improvement. -ferritin/CRP downtrending -, completed 7 days levaquin per Pulm -pulmonology following -transferred out of ICU on 10/14 possible Lower GI bleed reported 2-3 small maroonish clots a few days ago on aspirin and eliquis dc'd aspirin, pt at high risk of clotting. discussed risks/benefits. Hgb stable. H/o hemorrhoids eliquis held for a day. Continue Eliquis Hyperglycemia -steroid induced. -NG tube accidentally came out today. -insulin sliding scale, titrate Lantus. -oral feeding. Parotitis, resolved resolved, completed initial IV Abx and then 7 days total of levaquin Constipation, resolved -miralax PRN NSTEMI -Echo: Normal EF, moderate pulmonary hypertension. no plans for further intervention at this time Acute renal failure secondary to above, resolved: Acute renal failure resolved. Hypothyroidism, HLD, GERD, Chronic Shingles, h/o vocal cord nodules: stable, continue home meds
--- NOTE | 2020-10-19 13:06 | RAD REPORT ---
EXAM DESCRIPTION: RAD - Chest Single View - 10/19/2020 12:10 pm CLINICAL HISTORY: sob, COVID positive COMPARISON: Portable October 13 TECHNIQUE: AP portable chest image was obtained 10/19/2020 12:10 pm . FINDINGS: Lung volumes are low. Alveolar opacification has worsened in both lung rivas component ad justing for a low lung volume. Heart size and vasculature are stable. Trachea is midline. No pneumoth orax identified. Small pleural effusions cannot be excluded. Feeding tube has been removed. No acute bony abnormality seen. No acute aortic findings suspected. IMPRESSION: Worsening bilateral airspace opacification since October 13
[2020-10-19] MEDS: FLUCONAZOLE 100 MG TAB PO SCH (13:17)
[2020-10-19] MEDS: MELATONIN 5 MG TABLET PO SCH (21:37)
--- NOTE | 2020-10-19 21:38 | PN ---
Date of Progress Note: 10/19/2020 Subjective: The patient was admitted with COVID pneumonia, respiratory failure. The patient has been on BiPAP. Yesterday had episode of hypoxemia. Objective: Vital Signs: When I saw the patient, the patient is lying in bed on BiPAP. Vital Signs: Blood pressure of 104/59, pulse of 87. The patient had 1600 of urine output, was negative balance of 440. Chest: Crackles bilateral. Heart: S1, S2. Systolic murmur. Abdomen: Soft, nontender. Extremities: +2 edema. Neuro: The patient is sleepy. No focality. Laboratory Data: H and H .3. Sodium 134, potassium 4.4, bicarb 38, BUN 19, creatinine 0.9, calcium 8.1. Current Medications: The patient on include, 1. Metoprolol 25 b.i.d. 2. Eliquis. 3. Fluconazole. 4. Lasix. 5. Acetazolamide. 6. Solu-Medrol. 7. Melatonin. Assessment And Plan: 1. Acute kidney injury secondary to COVID nephropathy, over volume. I am going to continue Lasix. We will give the patient extra dose of Lasix today to establish more negative balance. 2. Hypertension. We will utilize the Better diuresis. 3. Hypernatremia, resolved. 4. Hyperkalemia, resolved. 5. Respiratory failure secondary to COVID pneumonia/over volume. We will diurese the patient. We will follow up with Pulmonary. time spend discussing with the patient face to face , placing order , discusse with the patient and other operations team leader including hospitalist 45 min. MARQUITA Voice ID: [id number] Report ID: [id number] [facility]OSPITALHeydi
[2020-10-20] MEDS: HYDROCODONE/APAP 5/325 MG TAB PO PRN ×2 (01:00→21:39)
[2020-10-20] MEDS: METOPROLOL TAR 25 MG TAB PO SCH ×2 (05:41→16:52)
[2020-10-20] MEDS: INSULIN -REGULAR HUMAN 50 UNIT/0.5 ML ML SQ SCH ×4 (07:30→21:00)
[2020-10-20] MEDS ORDERED: GLUCAGON 1 MG/VIAL IM PRN (07:39)
[2020-10-20] MEDS ORDERED: D50W 25 GM/50 ML SYRINGE IV PRN (07:39)
[2020-10-20] MEDS: INSULIN GLARGINE 100 UNITS/ML SQ SCH ×2 (07:41→21:00)
[2020-10-20] MEDS: ASCORBIC ACID 500 MG TABLET PO SCH ×3 (09:16→21:39)
[2020-10-20] MEDS: VITAMIN D 1000 UNIT TAB PO SCH (09:16)
[2020-10-20] MEDS: FLUCONAZOLE 100 MG TAB PO SCH (09:17)
[2020-10-20] MEDS: THIAMINE HCL 100 MG TABLET PO SCH (09:17)
[2020-10-20] MEDS: METHYLPREDNISOLONE 125 MG INJ IV SCH ×2 (09:17→21:39)
[2020-10-20] MEDS: FOLIC ACID 1 MG TABLET PO SCH (09:18)
[2020-10-20] MEDS: APIXABAN 5 MG TABLET PO SCH ×2 (09:19→21:39)
[2020-10-20] MEDS: acetaZOLAMIDE 250 MG TAB PO SCH (09:19)
[2020-10-20] MEDS ORDERED: FUROSEMIDE 20 MG/ 2ML VIAL IV ONE (10:56)
[2020-10-20] MEDS ORDERED: clonazePAM 0.5 MG TAB PO PRN (12:59)
--- NOTE | 2020-10-20 13:02 | P.PN ---
Subjective Date of Service: 10/29/20 Primary Care Provider: Dr. Lopez; Pulmonary-Dr. Cristobal; Cardiology-Dr. Westbrook Chief Complaint: Respiratory failure Maybe a slight improvement still requiring high concentration of oxygen is on BiPAP Physical Examination - Vital Signs Temperature: 98.0 F Blood Pressure: 118/67 Pulse: 97 Respirations: 22 Pulse Ox (%): 88 - Physical Exam General: Alert, Mild distress Respiratory: Clear to auscultation bilaterally Assessment & Plan - Problems (Diagnosis) (1) Acute respiratory failure due to severe acute respiratory syndrome coronavirus 2 (SARS-CoV-2) infection Current Visit: Yes Status: Acute Plan: Respiratory failure continue to titrate O2 down chest x-ray no significant changes vital signs stable labs reviewed prognosis poor patient is on Diamox
--- NOTE | 2020-10-20 17:35 | P.PN ---
Subjective Date of Service: 10/20/20 Primary Care Provider: Dr. Lopez; Pulmonary-Dr. Cristobal; Cardiology-Dr. Westbrook Chief Complaint: Respiratory failure No changes from yesterday. Patient is on BiPAP. Physical Examination - Vital Signs Temperature: 97.9 F Blood Pressure: 119/61 Pulse: 111 Respirations: 24 Pulse Ox (%): 88 - Physical Exam General: In no apparent distress Respiratory: Diminished Cardiovascular: No edema, Regular rate/rhythm, Normal S1 S2 Gastrointestinal: Non-distended Musculoskeletal: No swelling Integumentary: No rashes Neurological: Other (No focal motor deficit.) Assessment And Plan - Current Problems (Diagnosis) (1) Pneumonia due to COVID-19 virus Current Visit: Yes Status: Acute (2) Influenza B Current Visit: Yes Status: Acute (3) NSTEMI (non-ST elevated myocardial infarction) Current Visit: Yes Status: Acute (4) Acute respiratory failure due to severe acute respiratory syndrome coronavirus 2 (SARS-CoV-2) infection Current Visit: Yes Status: Acute (5) Acute kidney injury Current Visit: Yes Status: Acute Physician Review Additional Text: Physical Exam: Gen: NAD HEENT: no swelling CV: RRR, no edema Pulm: non-labored on BIPAP Abd: soft, nontender, nondistended Ext: no rash Problem List: Dyspnea secondary to acute respiratory failure related to Bilateral COVID19 pneumonia/Influenza B Lower GI bleed Hyperglycemia Partotitis, resolved Constipation, resolved Acute renal failure,resolved Hypothyroidism Hyperlipidemia GERD History of chronic shingles History of vocal cord nodules Plan: Dyspnea secondary to acute respiratory failure related to Bilateral COVID19 pneumonia/Influenza B: -continue BiPAP, non-rebreather mask and high-flow oxygen as tolerated. prednisone 20 BID. -overall she's had some clinical improvement. -completed 7 days levaquin per Pulm -pulmonology following -transferred out of ICU on 10/14 possible Lower GI bleed reported 2-3 small maroonish clots a few days ago on aspirin and eliquis Aspirin discontinued. Patient at high risk for thromboembolism.. H/o hemorrhoids. Continue Eliquis Monitor CBC. Hyperglycemia -steroid induced. -NG tube accidentally came out today. -insulin sliding scale, titrate Lantus. -encoutage oral feeding. Parotitis, resolved resolved, completed initial IV Abx and then 7 days total of levaquin Constipation, resolved -miralax PRN NSTEMI -Echo: Normal EF, moderate pulmonary hypertension. no plans for further intervention at this time Acute renal failure secondary to above, resolved: Acute renal failure resolved. Hypothyroidism, HLD, GERD, Chronic Shingles, h/o vocal cord nodules: stable, continue home meds
[2020-10-20] MEDS: MELATONIN 5 MG TABLET PO SCH (21:39)
--- NOTE | 2020-10-21 01:10 | PN ---
Date of Progress Note: 10/20/2020 Subjective: The patient was admitted with acute kidney injury secondary to COVID pneumonia, respiratory failure. The patient had worsened mental status yesterday. We started the patient on diuresis. Again, patient today is slightly more awake. Objective: Vital Signs: Blood pressure 192/61, pulse of 100, afebrile. Chest: Crackles bilateral. Heart: S1, S2. Systolic murmur. Abdomen: Soft, nontender. Extremities: +1 edema. Neuro: Alert. No focality. The patient had urine output yesterday of 700, the patient negative of 200. Laboratory Data: WBC 4.9, H and H 11/33.3. Sodium 134, potassium 4.4, bicarb 38, BUN 19, creatinine 0.9, calcium 8.1. Current Medications: The patient on include, 1. Fluconazole. 2. Atarax. 3. Eliquis. 4. Metoprolol 25 b.i.d. 5. Lasix p.r.n. 6. Acetazolamide. 7. Insulin. 8. Vitamin D. 9. Thiamin. Assessment And Plan: 1. 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 I am going to give the patient another dose of Lasix today and we will monitor the patient. We will place the patient on standard regular dose of Lasix. 2. Hypertension, controlled, optimal. Continue current medication and Lasix. 3. Respiratory failure secondary to COVID pneumonia/over volume. We will start diuresing. Continue current supportive treatment. 4. [place] pneumonia recovered, resolved. We will follow up lab. time spend discussing with the patient face to face , placing order , discusse with the patient and other steam plant operator including hospitalist 45 min. MARQUITA Voice ID: [id number] Report ID: [id number] KEVIN
[2020-10-21 05:29] LABS: Absolute Lymphocytes (CBC) 0.6 K/uL (0.7-4.9); Basophils % 0.4 % (0-1.3); Hematocrit 30.4 % (36.0-45.0); Lymphocytes % 11.1 % (15.3-44.8); MPV 7.3 fL (7.6-11.3); RBC Red Blood Cell Count 3.14 M/uL (3.86-4.86)
[2020-10-21 05:39] LABS: ALT/SGPT 65 U/L (12-78); AST/SGOT 32 U/L (15-37); Albumin 2.4 g/dL (3.4-5.0); Alkaline Phosphatase 54 U/L (45-117); BUN Blood Urea Nitrogen 29 mg/dL (7-18); Bilirubin Total 0.6 mg/dL (0.2-1.0); Glucose Level 156 mg/dL (74-106); Potassium 4.1 mmol/L (3.5-5.1); Protein, Total 5.9 g/dL (6.4-8.2); Sodium Level 135 mmol/L (136-145)
[2020-10-21 05:45] LABS: Bicarbonate 43 mmol/L (21-32)
[2020-10-21] MEDS: METOPROLOL TAR 25 MG TAB PO SCH ×2 (06:32→17:36)
[2020-10-21] MEDS: INSULIN -REGULAR HUMAN 50 UNIT/0.5 ML ML SQ SCH ×4 (07:30→20:47)
[2020-10-21] MEDS: INSULIN GLARGINE 100 UNITS/ML SQ SCH ×2 (09:14→20:46)
[2020-10-21] MEDS: ASCORBIC ACID 500 MG TABLET PO SCH ×3 (09:16→20:41)
[2020-10-21] MEDS: acetaZOLAMIDE 250 MG TAB PO SCH (09:16)
[2020-10-21] MEDS: VITAMIN D 1000 UNIT TAB PO SCH (09:16)
[2020-10-21] MEDS: APIXABAN 5 MG TABLET PO SCH ×2 (09:17→20:41)
[2020-10-21] MEDS: FOLIC ACID 1 MG TABLET PO SCH (09:17)
[2020-10-21] MEDS: FUROSEMIDE 20 MG/ 2ML VIAL IV SCH (09:17)
[2020-10-21] MEDS: FLUCONAZOLE 100 MG TAB PO SCH (09:17)
[2020-10-21] MEDS: THIAMINE HCL 100 MG TABLET PO SCH (09:17)
[2020-10-21] MEDS: METHYLPREDNISOLONE 125 MG INJ IV SCH ×2 (09:18→20:41)
--- NOTE | 2020-10-21 11:07 | P.PN ---
Subjective Date of Service: 10/21/20 Primary Care Provider: Dr. Lopez; Pulmonary-Dr. Cristobal; Cardiology-Dr. Westbrook Chief Complaint: Respiratory failure 74-year-old female with history of hypothyroidism, hypertension, GERD, hyperlipidemia, shingles, COPD on Home O2 Patient presented to the emergency room with increasing shortness of breath with Cough BP was borderline Fluid bolus given. Patient was found to be positive for influenza B and COVID 19. 4000. Troponin 0.68. Lactic acid 3.6. Pro calcitonin 0.17. White count 9.5, hemoglobin 13. Platelet count 300. Sodium 133, potassium 4.8. BUN of 42, creatinine 2.14 Pt transferred out from ICU on 10/14 FiO2 was down to 65% , now she requires 85% Today lethargic , but arousable to verbal stimuli edema resolved and bicarb up to 43 , will hold lasix for now will consider gentle hydration if still with poor oral intake cont Diamox Physical exam general: arousable to verbal stimuli Neck; Supple, No elevated JVD hear: RRR, normal S1,2 no murmur or rub Chest: increase Echophony Abdomen: Soft , Nt Extremities No edema, Assessment and plan VIDAL resolved off IVF renal dos meds metabolic alkalosis with respiratory acidosis Hold lasix BiPAP support cont diamox COVID 19 pneumonia completed Remdesiver now requiress less O2 COPD cont O2 and biPAP elevated LFT resolved parotitis resolved total time spent 35min Physical Examination - Vital Signs Temperature: 96.7 F Blood Pressure: 141/64 Pulse: 82 Respirations: 22 Pulse Ox (%): 96
--- NOTE | 2020-10-21 13:22 | P.PN ---
Subjective Date of Service: 10/21/20 Primary Care Provider: Dr. Lopez; Pulmonary-Dr. Cristobal; Cardiology-Dr. Westbrook Chief Complaint: Respiratory failure Maybe a slight improvement still requiring high concentration of oxygen is on BiPAP is sickly patient is status quo low she was hypoxic on blood gases done 5 days ago he still is on 100% FiO2 Review of Systems General: Weakness Physical Examination - Vital Signs Temperature: 97.2 F Blood Pressure: 118/62 Pulse: 86 Respirations: 21 Pulse Ox (%): 99 Assessment & Plan - Problems (Diagnosis) (1) Acute respiratory failure due to severe acute respiratory syndrome coronavirus 2 (SARS-CoV-2) infection Current Visit: Yes Status: Acute Plan: Respiratory failure no chain pill continues to remain on high concentrations of oxygen requiring BiPAP bicarb L elevated may be due to CO2 retention ABGs ordered agree with stopping Lasix continue with Diamox discuss with the house calls nurse practitioner S she is parnell virus negative consider transferring her to the 2nd floor discuss with the son
[2020-10-21 15:22] LABS: Arterial Blood Carboxyhemoglob 2.7 % (0-1.5); Blood O2 Saturation 87.8 % (92-98.5)
--- NOTE | 2020-10-21 15:55 | RAD REPORT ---
EXAM DESCRIPTION: RAD - Abdomen 1 View (KUB) - 10/21/2020 3:38 pm CLINICAL HISTORY: feeding tube placement Pain COMPARISON: Abdomen 1 View (KUB) dated 09/27/2020 FINDINGS: Tip of the enteric tube is in the stomach.
--- NOTE | 2020-10-21 17:31 | P.PN ---
Subjective Date of Service: 10/21/20 Primary Care Provider: Dr. Lopez; Pulmonary-Dr. Cristobal; Cardiology-Dr. Westbrook Chief Complaint: Respiratory failure No changes from yesterday. Urine appear concentrated Patient is alternating between BiPAP and high-flow oxygen today. NG tube reinserted for feeding today. Physical Examination - Vital Signs Temperature: 97.2 F Blood Pressure: 118/62 Pulse: 86 Respirations: 21 Pulse Ox (%): 99 - Physical Exam General: Other (Awake) HEENT: Other (BiPAP) Respiratory: Diminished Cardiovascular: Regular rate/rhythm Gastrointestinal: Soft and benign, Non-distended Musculoskeletal: No swelling Neurological: Other (No focal deficit) Assessment And Plan - Current Problems (Diagnosis) (1) Pneumonia due to COVID-19 virus Current Visit: Yes Status: Acute (2) Influenza B Current Visit: Yes Status: Acute (3) NSTEMI (non-ST elevated myocardial infarction) Current Visit: Yes Status: Acute (4) Acute respiratory failure due to severe acute respiratory syndrome coronavirus 2 (SARS-CoV-2) infection Current Visit: Yes Status: Acute (5) Acute kidney injury Current Visit: Yes Status: Acute Physician Review Additional Text: Physical Exam: Gen: NAD HEENT: no swelling CV: RRR, no edema Pulm: non-labored on BIPAP Abd: soft, nontender, nondistended Ext: no rash Problem List: Dyspnea secondary to acute respiratory failure related to Bilateral COVID19 pneumonia/Influenza B Lower GI bleed Hyperglycemia Partotitis, resolved Constipation, resolved Acute renal failure,resolved Hypothyroidism Hyperlipidemia GERD History of chronic shingles History of vocal cord nodules Plan: Dyspnea secondary to acute respiratory failure related to Bilateral COVID19 pneumonia/Influenza B: -continue BiPAP, non-rebreather mask and high-flow oxygen as tolerated. prednisone 20 BID. -prolonged hospitalization. -overall she's had some clinical improvement. -completed 7 days levaquin per Pulm -pulmonology following -transferred out of ICU on 10/14 Lower GI bleed on aspirin and eliquis Aspirin discontinued. Patient at high risk for thromboembolism.. H/o hemorrhoids. Continue Eliquis Monitor CBC. Monitor for active bleeding. Hyperglycemia -steroid induced. -NG tube for feeding replaced. -start Glucerna -insulin sliding scale, titrate Lantus. Parotitis, resolved resolved, completed initial IV Abx and then 7 days total of levaquin Constipation, resolved -miralax PRN NSTEMI -Echo: Normal EF, moderate pulmonary hypertension. no plans for further intervention at this time Acute renal failure secondary to above, resolved: Acute renal failure resolved. Hypothyroidism, HLD, GERD, Chronic Shingles, h/o vocal cord nodules: stable, continue home meds
[2020-10-21] MEDS: HYDROCODONE/APAP 5/325 MG TAB PO PRN (21:51)
[2020-10-22 04:35] LABS: Absolute Lymphocytes (CBC) 0.5 K/uL (0.7-4.9); Basophils % 0.6 % (0-1.3); Hematocrit 32.3 % (36.0-45.0); MPV 7.1 fL (7.6-11.3); RBC Red Blood Cell Count 3.32 M/uL (3.86-4.86)
[2020-10-22] MEDS: METOPROLOL TAR 25 MG TAB PO SCH ×2 (06:00→18:00)
[2020-10-22] MEDS: INSULIN -REGULAR HUMAN 50 UNIT/0.5 ML ML SQ SCH ×4 (07:30→21:00)
[2020-10-22] MEDS: VITAMIN D 1000 UNIT TAB PO SCH (09:00)
[2020-10-22] MEDS: THIAMINE HCL 100 MG TABLET PO SCH (09:00)
[2020-10-22] MEDS: METHYLPREDNISOLONE 125 MG INJ IV SCH (09:48)
[2020-10-22] MEDS: FLUCONAZOLE 100 MG TAB PO SCH (09:48)
[2020-10-22] MEDS: acetaZOLAMIDE 250 MG TAB PO SCH (09:48)
[2020-10-22] MEDS: ASCORBIC ACID 500 MG TABLET PO SCH ×3 (09:49→22:26)
[2020-10-22] MEDS: APIXABAN 5 MG TABLET PO SCH ×2 (09:49→22:27)
[2020-10-22] MEDS: FOLIC ACID 1 MG TABLET PO SCH (09:49)
[2020-10-22] MEDS: INSULIN GLARGINE 100 UNITS/ML SQ SCH ×2 (09:50→22:27)
--- NOTE | 2020-10-22 12:39 | P.PN ---
Subjective Date of Service: 10/22/20 Primary Care Provider: Dr. Lopez; Pulmonary-Dr. Cristobal; Cardiology-Dr. Westbrook Chief Complaint: Respiratory failure No changes from yesterday. Dobhoff reinserted. Patient seen to be eating her breakfast on high-flow oxygen and using non- rebreather mask intermittently. Physical Examination - Vital Signs Temperature: 96.9 F Blood Pressure: 132/66 Pulse: 89 Respirations: 23 Pulse Ox (%): 95 - Physical Exam General: Alert, Oriented x3 Respiratory: Diminished, Crackles/rales Cardiovascular: No edema, Regular rate/rhythm Gastrointestinal: Soft and benign Musculoskeletal: No swelling Neurological: Normal strength at 5/5 x4 extr Assessment And Plan - Current Problems (Diagnosis) (1) Pneumonia due to COVID-19 virus Current Visit: Yes Status: Acute (2) Influenza B Current Visit: Yes Status: Acute (3) NSTEMI (non-ST elevated myocardial infarction) Current Visit: Yes Status: Acute (4) Acute respiratory failure due to severe acute respiratory syndrome coronavirus 2 (SARS-CoV-2) infection Current Visit: Yes Status: Acute (5) Acute kidney injury Current Visit: Yes Status: Acute Physician Review Additional Text: Physical Exam: Gen: NAD HEENT: no swelling CV: RRR, no edema Pulm: non-labored on BIPAP Abd: soft, nontender, nondistended Ext: no rash Problem List: Dyspnea secondary to acute respiratory failure related to Bilateral COVID19 pneumonia/Influenza B Lower GI bleed Hyperglycemia Partotitis, resolved Constipation, resolved Acute renal failure,resolved Hypothyroidism Hyperlipidemia GERD History of chronic shingles History of vocal cord nodules Plan: Dyspnea secondary to acute respiratory failure related to Bilateral COVID19 pneumonia/Influenza B: -continue BiPAP, non-rebreather mask and high-flow oxygen as tolerated. prednisone 20 BID. -prolonged hospitalization. -overall she's had some clinical improvement. -completed 7 days levaquin per Pulm -pulmonology following -transferred out of ICU on 10/14 Lower GI bleed on aspirin and eliquis Aspirin discontinued. Patient at high risk for thromboembolism.. H/o hemorrhoids. Continue Eliquis Monitor CBC. Monitor for active bleeding. Hyperglycemia -steroid induced. -NG tube for feeding replaced. -start Glucerna -insulin sliding scale, titrate Lantus. -oral feeding as tolerated. Parotitis, resolved resolved, completed initial IV Abx and then 7 days total of levaquin Constipation, resolved -miralax PRN NSTEMI -Echo: Normal EF, moderate pulmonary hypertension. no plans for further intervention at this time Acute renal failure secondary to above, resolved: Acute renal failure resolved. Hypothyroidism, HLD, GERD, Chronic Shingles, h/o vocal cord nodules: stable, continue home meds
[2020-10-22] MEDS ORDERED: NA CHLORIDE 0.9% 1,000 ML IV SCH (19:00)
[2020-10-22 20:53] LABS: BUN Blood Urea Nitrogen 24 mg/dL (7-18); Glucose Level 183 mg/dL (74-106); Potassium 3.8 mmol/L (3.5-5.1); Sodium Level 135 mmol/L (136-145)
[2020-10-22 20:54] LABS: Bicarbonate 43 mmol/L (21-32)
[2020-10-22] MEDS: HYDROCODONE/APAP 5/325 MG TAB PO PRN (22:25)
[2020-10-22] MEDS: METHYLPREDNISOLONE 40 MG INJ IV SCH (22:27)
--- NOTE | 2020-10-22 23:11 | PN ---
Date of Progress Note: 10/22/2020 Chief Complaint: Acute on chronic kidney injury. BUN is up to 42, creatinine 2.14. History Of Present Illness: The patient COVID pneumonia and influenza B. Troponin level was up to 0 .68. White count 9.5, hemoglobin 13. The patient is a 74-year-old woman with history of hypothyroid ism, hypertension, GERD, hyperlipidemia, shingles. She has COPD, on home oxygen. Review of Systems: The patient is lethargic and review of systems is unobtainable. Physical Examination: Lungs: Normal respiratory effort. Abdomen: Soft. Extremities: No edema. Impression And Plan: 1.Acute kidney injury. Renal function has improved to baseline. The patient is off IV fluids. Adj ust medication to renal dose. 2.Metabolic alkalosis with respiratory acidosis. Hold Lasix. The patient may need BiPAP support. Continue Diamox. 3.Chronic obstructive pulmonary disease, on O2 and BiPAP. 4.COVID pneumonia. The patient completed remdesivir and the patient is on O2 treatment. EB/MODL Voice ID: [id number] Report ID: [id number]
[2020-10-23] MEDS: METOPROLOL TAR 25 MG TAB PO SCH ×2 (06:00→17:27)
[2020-10-23 06:08] LABS: Albumin 2.3 g/dL (3.4-5.0); BUN Blood Urea Nitrogen 27 mg/dL (7-18); Bicarbonate 38 mmol/L (21-32); Glucose Level 181 mg/dL (74-106); Phosphorus 3.3 mg/dL (2.5-4.9); Potassium 3.7 mmol/L (3.5-5.1); Sodium Level 137 mmol/L (136-145)
[2020-10-23] MEDS: INSULIN -REGULAR HUMAN 50 UNIT/0.5 ML ML SQ SCH ×4 (07:30→21:00)
[2020-10-23] MEDS ORDERED: POTASSIUM 25 MEQ EFFERV TAB PO ONE (08:00)
[2020-10-23] MEDS: THIAMINE HCL 100 MG TABLET PO SCH (08:42)
[2020-10-23] MEDS: FLUCONAZOLE 100 MG TAB PO SCH (08:42)
[2020-10-23] MEDS: FOLIC ACID 1 MG TABLET PO SCH (08:42)
[2020-10-23] MEDS: FUROSEMIDE 20 MG/ 2ML VIAL IV SCH (08:43)
[2020-10-23] MEDS: APIXABAN 5 MG TABLET PO SCH ×2 (08:43→22:48)
[2020-10-23] MEDS: ASCORBIC ACID 500 MG TABLET PO SCH ×3 (08:43→22:47)
[2020-10-23] MEDS: INSULIN GLARGINE 100 UNITS/ML SQ SCH ×2 (08:43→22:48)
[2020-10-23] MEDS: acetaZOLAMIDE 250 MG TAB PO SCH (08:44)
[2020-10-23] MEDS: METHYLPREDNISOLONE 40 MG INJ IV SCH ×2 (08:52→22:48)
[2020-10-23] MEDS: VITAMIN D 1000 UNIT TAB PO SCH (08:55)
--- NOTE | 2020-10-23 10:53 | P.PN ---
Subjective Date of Service: 10/23/20 Primary Care Provider: Dr. Lopez; Pulmonary-Dr. Cristobal; Cardiology-Dr. Westbrook Chief Complaint: Respiratory failure Patient is more alert today she claims that she is feeling better breathing is also improved Review of Systems General: Weakness Physical Examination - Vital Signs Temperature: 98.1 F Blood Pressure: 127/73 Pulse: 105 Respirations: 20 Pulse Ox (%): 93 Assessment & Plan - Problems (Diagnosis) (1) Acute respiratory failure due to severe acute respiratory syndrome coronavirus 2 (SARS-CoV-2) infection Current Visit: Yes Status: Acute Plan: Respiratory failure continue to titrate O2 down to 88-90% labs all reviewed blood sugars slightly elevated vital signs stable discuss with respiratory Physician Review Additional Text: Physical Exam: Gen: NAD HEENT: no swelling CV: RRR, no edema Pulm: non-labored on BIPAP Abd: soft, nontender, nondistended Ext: no yanni
[2020-10-23] MEDS ORDERED: IVERMECTIN 3 MG TABLET PO ONE (11:04)
--- NOTE | 2020-10-23 11:41 | P.PN ---
Subjective Date of Service: 10/23/20 Primary Care Provider: Dr. Lopez; Pulmonary-Dr. Cristobal; Cardiology-Dr. Westbrook Chief Complaint: Respiratory failure No changes from yesterday. Currently on BiPAP. Physical Examination - Vital Signs Temperature: 98.1 F Blood Pressure: 127/73 Pulse: 105 Respirations: 20 Pulse Ox (%): 93 - Physical Exam General: Alert, In no apparent distress HEENT: Other (BiPAP) Respiratory: Diminished Cardiovascular: Regular rate/rhythm Gastrointestinal: Soft and benign, Non-distended Musculoskeletal: No swelling Neurological: Other (No focal deficit) Assessment And Plan - Current Problems (Diagnosis) (1) Pneumonia due to COVID-19 virus Current Visit: Yes Status: Acute (2) Influenza B Current Visit: Yes Status: Acute (3) NSTEMI (non-ST elevated myocardial infarction) Current Visit: Yes Status: Acute (4) Acute respiratory failure due to severe acute respiratory syndrome coronavirus 2 (SARS-CoV-2) infection Current Visit: Yes Status: Acute (5) Acute kidney injury Current Visit: Yes Status: Acute - Plan Dyspnea secondary to acute respiratory failure related to Bilateral COVID19 pneumonia/Influenza B: -continue BiPAP, non-rebreather mask and high-flow oxygen as tolerated. prednisone 20 BID. -prolonged hospitalization. -overall she's had some clinical improvement. -completed 7 days levaquin per Pulm -pulmonology following -transferred out of ICU on 10/14 -continue to monitor for improvement. Lower GI bleed on aspirin and eliquis Aspirin discontinued. Patient at high risk for thromboembolism.. H/o hemorrhoids. Continue Eliquis Monitor CBC. Monitor for active bleeding. Hyperglycemia -steroid induced. -NG tube for feeding replaced. -Continue Glucerna -insulin sliding scale, titrate Lantus. -oral feeding as tolerated. Parotitis, resolved resolved, completed initial IV Abx and then 7 days total of levaquin Constipation, resolved -miralax PRN NSTEMI -Echo: Normal EF, moderate pulmonary hypertension. no plans for further intervention at this time Acute renal failure secondary to above, resolved: Acute renal failure resolved. Hypothyroidism, HLD, GERD, Chronic Shingles, h/o vocal cord nodules: stable, continue home meds Physician Review Additional Text: Physical Exam: Gen: NAD HEENT: no swelling CV: RRR, no edema Pulm: non-labored on BIPAP Abd: soft, nontender, nondistended Ext: no yanni
[2020-10-23] MEDS: hydrOXYzine HCL 25 MG TAB PO PRN (22:51)
--- NOTE | 2020-10-24 00:42 | PN ---
Date of Progress Note: 10/23/2020 Chief Complaint: Acute on chronic kidney injury. BUN was up to 42, creatinine 2.14. History Of Present Illness: The patient has nonoliguric urine output. The patient has multiple medi zoie problems including COVID pneumonia, influenza B. Troponin level was elevated. The patient is a 74-year-old woman with history of hypothyroidism, hypertension, GERD, hyperlipidemia, shingles, COPD, on home oxygen. Review of Systems: Unobtainable. The patient is lethargic. Physical Examination: Lungs: Normal respiratory effort. Abdomen: Soft. Extremities: No edema. Impression And Plan: 1.Acute kidney injury. Renal function improved to baseline. The patient is off IV fluids. Adjust medication to renal dose. The patient may need Lasix for volume control. 2.Currently, the patient has metabolic alkalosis. Diamox dose was increased. Hold Lasix due to met abolic alkalosis secondary to diuretic. 3.Chronic obstructive pulmonary disease, on oxygen therapy and BiPAP. Monitor ABG. 4.COVID pneumonia per primary team. The patient completed remdesivir. The patient is on home oxyge n. EB/MODL Voice ID: [id number] Report ID: [id number]
[2020-10-24] MEDS: METOPROLOL TAR 25 MG TAB PO SCH ×2 (05:16→17:21)
[2020-10-24] MEDS: ASCORBIC ACID 500 MG TABLET PO SCH ×3 (07:43→22:15)
[2020-10-24] MEDS: THIAMINE HCL 100 MG TABLET PO SCH (07:43)
[2020-10-24] MEDS: VITAMIN D 1000 UNIT TAB PO SCH (07:43)
[2020-10-24] MEDS: acetaZOLAMIDE 250 MG TAB PO SCH (07:43)
[2020-10-24] MEDS: METHYLPREDNISOLONE 40 MG INJ IV SCH ×2 (07:44→22:15)
[2020-10-24] MEDS: FOLIC ACID 1 MG TABLET PO SCH (07:44)
[2020-10-24] MEDS: APIXABAN 5 MG TABLET PO SCH ×2 (07:44→22:15)
[2020-10-24] MEDS: INSULIN -REGULAR HUMAN 50 UNIT/0.5 ML ML SQ SCH ×4 (07:44→21:00)
[2020-10-24] MEDS: INSULIN GLARGINE 100 UNITS/ML SQ SCH ×2 (07:45→22:15)
[2020-10-24] MEDS: FLUCONAZOLE 100 MG TAB PO SCH (07:47)
--- NOTE | 2020-10-24 16:51 | P.PN ---
Subjective Date of Service: 10/24/20 Primary Care Provider: Dr. Lopez; Pulmonary-Dr. Cristobal; Cardiology-Dr. Westbrook Chief Complaint: Respiratory failure No new changes. Patient sometimes use high-flow oxygen with 100% non-rebreather mask, alternating with BiPAP. . Physical Examination - Vital Signs Temperature: 98.3 F Blood Pressure: 168/84 Pulse: 102 Respirations: 22 Pulse Ox (%): 93 - Physical Exam General: Alert, In no apparent distress, Oriented x3 Cardiovascular: No edema, Regular rate/rhythm, Normal S1 S2 Gastrointestinal: Soft and benign, Non-distended Musculoskeletal: No swelling Neurological: Other (No focal motor deficit.) Assessment And Plan - Current Problems (Diagnosis) (1) Pneumonia due to COVID-19 virus Current Visit: Yes Status: Acute (2) Influenza B Current Visit: Yes Status: Acute (3) NSTEMI (non-ST elevated myocardial infarction) Current Visit: Yes Status: Acute (4) Acute respiratory failure due to severe acute respiratory syndrome coronavirus 2 (SARS-CoV-2) infection Current Visit: Yes Status: Acute (5) Acute kidney injury Current Visit: Yes Status: Acute - Plan Dyspnea secondary to acute respiratory failure related to Bilateral COVID19 pneumonia/Influenza B: -continue BiPAP, non-rebreather mask and high-flow oxygen as tolerated. -prolonged hospitalization. -overall she's had some clinical improvement. -completed 7 days levaquin per Pulm -pulmonology following. Patient given a dose of Ivermectin yesterday -continue to monitor for improvement. Lower GI bleed on aspirin and eliquis Aspirin discontinued. Patient at high risk for thromboembolism.. H/o hemorrhoids. Continue Eliquis Monitor CBC. No active bleeding. Hyperglycemia -steroid induced. -NG tube for feeding replaced. -patient is also tolerating oral feeding. -Continue Glucerna -insulin sliding scale, titrate Lantus. Parotitis, resolved resolved, completed initial IV Abx and then 7 days total of levaquin Constipation, resolved -miralax PRN NSTEMI -Echo: Normal EF, moderate pulmonary hypertension. no plans for further intervention at this time Acute renal failure secondary to above, resolved: Acute renal failure resolved. Hypothyroidism, HLD, GERD, Chronic Shingles, h/o vocal cord nodules: stable, continue home meds
[2020-10-24] MEDS: hydrOXYzine HCL 25 MG TAB PO PRN (22:14)
--- NOTE | 2020-10-24 22:29 | PN ---
Date of Progress Note: 10/24/2020 Chief Complaint: Acute on chronic kidney injury, nonoliguric. History Of Present Illness: Renal function has improved over the last several days. On arrival to [facility], creatinine was 2.14, BUN 42. The patient has underlying benign nephrosclerosis, hyperte nsive heart and kidney. The patient was found to have fluid overload and was started on Lasix. Subs equently due to metabolic alkalosis, Lasix was stopped. The patient is on Diamox and Diamox dose was increased. Metabolic alkalosis is gradually improving. Review of Systems: Denies complaints. The patient is lethargic. Cannot provide review of systems. Physical Examination: Lung: Normal respiratory effort. Abdomen: Soft. Extremities: No edema. Impression And Plan: 1.Acute kidney injury. Renal function has improved to baseline. The patient is currently off IV fl uids. Plan is to adjust medication to renal dose as needed. The patient may need diuretic for volum e control. Currently, she is off Lasix due to metabolic alkalosis. Monitor electrolytes. Resume La six accordingly. 2.Chronic obstructive pulmonary disease, on oxygen and BiPAP. Monitor ABG. 3.COVID pneumonia per primary team. The patient completed remdesivir. The patient is on home O2 nagi. EB/MODL Voice ID: [id number] Report ID: [id number]
[2020-10-25] MEDS: METOPROLOL TAR 25 MG TAB PO SCH ×2 (05:02→17:32)
[2020-10-25 06:35] LABS: Albumin 2.4 g/dL (3.4-5.0); BUN Blood Urea Nitrogen 24 mg/dL (7-18); Bicarbonate 39 mmol/L (21-32); Glucose Level 168 mg/dL (74-106); Potassium 4.3 mmol/L (3.5-5.1); Sodium Level 135 mmol/L (136-145)
[2020-10-25] MEDS: INSULIN -REGULAR HUMAN 50 UNIT/0.5 ML ML SQ SCH ×4 (07:30→20:53)
[2020-10-25] MEDS: METHYLPREDNISOLONE 40 MG INJ IV SCH (08:43)
[2020-10-25] MEDS: FOLIC ACID 1 MG TABLET PO SCH (08:43)
[2020-10-25] MEDS: INSULIN GLARGINE 100 UNITS/ML SQ SCH ×2 (08:43→20:52)
[2020-10-25] MEDS: APIXABAN 5 MG TABLET PO SCH ×2 (08:43→20:52)
[2020-10-25] MEDS: ASCORBIC ACID 500 MG TABLET PO SCH ×3 (08:43→20:53)
[2020-10-25] MEDS: THIAMINE HCL 100 MG TABLET PO SCH (08:44)
[2020-10-25] MEDS: acetaZOLAMIDE 250 MG TAB PO SCH (08:44)
[2020-10-25] MEDS: FLUCONAZOLE 100 MG TAB PO SCH (08:44)
[2020-10-25] MEDS: VITAMIN D 1000 UNIT TAB PO SCH (08:44)
--- NOTE | 2020-10-25 08:49 | P.PN ---
Subjective Date of Service: 10/25/20 Primary Care Provider: Dr. Lopez; Pulmonary-Dr. Cristobal; Cardiology-Dr. Westbrook Chief Complaint: Respiratory failure Patient is very alert responsive cooperative requiring high-flow 100% oxygen in addition to a non-rebreather Review of Systems General: Weakness Respiratory: Shortness of Breath Physical Examination - Vital Signs Temperature: 97.8 F Blood Pressure: 121/61 Pulse: 88 Respirations: 20 Pulse Ox (%): 80 Assessment & Plan - Problems (Diagnosis) (1) Acute respiratory failure due to severe acute respiratory syndrome coronavirus 2 (SARS-CoV-2) infection Current Visit: Yes Status: Acute Plan: Respiratory failure subjectively improving although her oxygen requirement have not changed will Dc the Farrell catheter see if she can be managed with diapers patient is tolerating tube feeds with bedside physical therapy will change patient to p.o. prednisone Dc IV Solu-Medrol Physician Review Additional Text: Physical Exam: Gen: NAD HEENT: no swelling CV: RRR, no edema Pulm: non-labored on BIPAP Abd: soft, nontender, nondistended Ext: no yanni
--- NOTE | 2020-10-25 09:53 | P.PN ---
Subjective Date of Service: 10/25/20 Primary Care Provider: Dr. Lopez; Pulmonary-Dr. Cristobal; Cardiology-Dr. Westbrook Chief Complaint: Respiratory failure Subjective: No new changes (Patient reports feeling okay, breathing okay on high-flow nasal cannula, worked with physical therapy yesterday) Review of Systems 10-point ROS is otherwise unremarkable Physical Examination - Vital Signs Temperature: 97.8 F Blood Pressure: 121/61 Pulse: 88 Respirations: 20 Pulse Ox (%): 80 Assessment & Plan Physician Review Additional Text: Physical Exam: Gen: NAD, AAOx3 HEENT: no facial swelling CV: RRR, no edema Pulm: non-labored on HFNC, FiO2: 100% Abd: soft, nontender, nondistended Ext: no rash/edema Problem List: acute hypoxemic respiratory failure related to Bilateral COVID19 pneumonia/Inf luenza B Lower GI bleed Hyperglycemia Partotitis, resolved Constipation, resolved Acute renal failure,resolved Hypothyroidism Hyperlipidemia GERD History of chronic shingles History of vocal cord nodules Dyspnea secondary to acute respiratory failure related to Bilateral COVID19 pneumonia/Influenza B: -continue HFNC, wean as tolerated -prolonged hospitalization. -overall she's had some clinical improvement, slowly -pulmonology following. switching to oral steroids Lower GI bleed, hemorrhoids was on aspirin and eliquis; aspirin dc'd continue eilquis given high risk of VTE No active bleeding. Hyperglycemia -steroid induced. -NG tube for feeding, patient is also tolerating oral feeding. -Continue Glucerna -insulin sliding scale, titrate Lantus. NSTEMI -Echo: Normal EF, moderate pulmonary hypertension. no plans for further intervention at this time Parotitis, resolved, resolved, completed initial IV Abx and then 7 days total of levaquin Constipation, resolved -miralax PRN Acute renal failure secondary to above, resolved: Acute renal failure resolved. Hypothyroidism, HLD, GERD, Chronic Shingles, h/o vocal cord nodules: stable, continue home meds Dispo: pending insurance approval for medispa, LTAC denied by insurance Time Spent Managing Pts Care (In Minutes): 35
[2020-10-25] MEDS: ZINC SULFATE 220 MG CAP PO SCH (10:25)
[2020-10-25] MEDS: predniSONE 20 MG TAB PO SCH ×2 (10:25→20:52)
[2020-10-25] MEDS ORDERED: FUROSEMIDE 40 MG/4 ML VIAL IV ONE (11:48)
--- NOTE | 2020-10-25 12:12 | PN ---
Date of Progress Note: 10/25/2020 Subjective: The patient was admitted with COVID pneumonia, intubated, extubated. The patient transferred to the floor. Currently on non-rebreather. Physical Examination: Vital Signs: Blood pressure 121/61, pulse of 88. The patient had good urine output of 3500. Chest: Faint rales on the left base. Heart S1, S2. Systolic murmur. Abdomen: Soft, nontender. Extremities: Trace edema, much better than before. Neurologic: Alert. No focality. Laboratory Data: WBC 5.4, H and H 10.7/32.3. Sodium 135, potassium 4.3, bicarb 39, BUN 24, creatinine 0.3, calcium 8.5, phos 4. Current Medications: The patient on include hydroxyzine, fluconazole, Eliquis, metoprolol 25 b.i.d., Ensure, folic acid, insulin, vitamin C, vitamin D, thiamin. Assessment And Plan: 1. Acute kidney injury secondary to prerenal, COVID pneumonia, resolved. Slight peripheral edema. I am going to go ahead and give the patient a single dose of Lasix today. 2. Hypertension, controlled, optimal. Continue current medication. 3. COVID pneumonia. Continue supportive care. Follow up with Pulmonary. time spend discussing with the patient face to face , placing order , discusse with the patient and other rn team leader including hospitalist 45 min. MARQUITA Voice ID: [id number] Report ID: [id number] MTDD
--- NOTE | 2020-10-25 14:04 | RAD REPORT ---
EXAM DESCRIPTION: RAD - Chest Single View - 10/25/2020 1:45 pm CLINICAL HISTORY: COPD COMPARISON: KUB October 21, portable chest October 19 TECHNIQUE: AP portable chest image was obtained 10/25/2020 1:45 pm . FINDINGS: Interstitial opacification present throughout the lung rivas improved from prior imaging. Alveolar component has substantially reduced in size. Vascular engorgement has cleared centrally. He art size is normal. Trachea is midline. Feeding tube has been retracted. Tip is in the midthoracic esophagus. No measurable pleural effusion and no pneumothorax. IMPRESSION: Patient's feeding tube has been retracted and is positioned in the midthoracic esophagus . Substantial clearing of the interstitial and alveolar opacities since October 19 imaging.
--- NOTE | 2020-10-25 17:46 | RAD REPORT ---
EXAM DESCRIPTION: RAD - Abdomen 1 View (KUB) - 10/25/2020 4:54 pm CLINICAL HISTORY: NGT placement COMPARISON: Abdomen 1 View (KUB) dated 10/21/2020; Abdomen 1 View (KUB) dated 09/27/2020 FINDINGS: Single-view of of the abdomen shows feeding tube in place. Tip traverses the GE junction. Distal most tip is only minimally into the gastric lumen. No free air or pneumatosis confirmed. Multiple skin fold artifacts are seen in the abdomen. Bowel gas pattern is nonspecific. No suspicious calcifications. IMPRESSION: Distal feeding tube traverses the GE junction with the distal most tip only minimally wi thin the lumen of the stomach.
[2020-10-25] MEDS: hydrOXYzine HCL 25 MG TAB PO PRN (20:54)
[2020-10-26 05:32] LABS: Hematocrit 33.2 % (36.0-45.0); MPV 7.5 fL (7.6-11.3); RBC Red Blood Cell Count 3.42 M/uL (3.86-4.86)
[2020-10-26 05:54] LABS: ALT/SGPT 88 U/L (12-78); AST/SGOT 45 U/L (15-37); Albumin 2.4 g/dL (3.4-5.0); Alkaline Phosphatase 62 U/L (45-117); BUN Blood Urea Nitrogen 24 mg/dL (7-18); Bilirubin Total 0.5 mg/dL (0.2-1.0); Ferritin 484.6 ng/mL (8-388); Glucose Level 155 mg/dL (74-106); Magnesium 2.2 mg/dL (1.8-2.4); Phosphorus 4.2 mg/dL (2.5-4.9); Potassium 4.4 mmol/L (3.5-5.1); Protein, Total 5.8 g/dL (6.4-8.2); Sodium Level 137 mmol/L (136-145)
[2020-10-26 06:09] LABS: Bicarbonate 42 mmol/L (21-32); C-Reactive Protein < 2.90 mg/L (<3.00)
[2020-10-26] MEDS: METOPROLOL TAR 25 MG TAB PO SCH ×2 (06:27→17:24)
[2020-10-26] MEDS: INSULIN -REGULAR HUMAN 50 UNIT/0.5 ML ML SQ SCH ×4 (07:30→20:29)
[2020-10-26] MEDS: VITAMIN D 1000 UNIT TAB PO SCH (10:37)
[2020-10-26] MEDS: APIXABAN 5 MG TABLET PO SCH ×2 (10:38→20:38)
[2020-10-26] MEDS: ZINC SULFATE 220 MG CAP PO SCH (10:38)
[2020-10-26] MEDS: acetaZOLAMIDE 250 MG TAB PO SCH (10:38)
[2020-10-26] MEDS: THIAMINE HCL 100 MG TABLET PO SCH (10:39)
[2020-10-26] MEDS: FLUCONAZOLE 100 MG TAB PO SCH (10:39)
[2020-10-26] MEDS: FOLIC ACID 1 MG TABLET PO SCH (10:39)
[2020-10-26] MEDS: predniSONE 20 MG TAB PO SCH ×2 (10:40→20:37)
[2020-10-26] MEDS: MEDIHONEY 44 ML TOPICAL TUBE TOP SCH (10:40)
[2020-10-26] MEDS: ASCORBIC ACID 500 MG TABLET PO SCH ×3 (10:40→20:37)
[2020-10-26] MEDS: INSULIN GLARGINE 100 UNITS/ML SQ SCH ×2 (10:40→20:38)
--- NOTE | 2020-10-26 12:02 | P.PN ---
Subjective Date of Service: 10/26/20 Primary Care Provider: Dr. Lopez; Pulmonary-Dr. Cristobal; Cardiology-Dr. Westbrook Chief Complaint: Respiratory failure Subjective: No new changes (patient more tired today, CO2 elevated, placed back on BIPAP. otherwise she reports feeling ok, no new pains / swelling / complaints this morning) Review of Systems 10-point ROS is otherwise unremarkable Physical Examination - Vital Signs Temperature: 97.1 F Blood Pressure: 124/66 Pulse: 90 Respirations: 23 Pulse Ox (%): 91 Assessment & Plan Physician Review Additional Text: Physical Exam: Gen: AAOx3, sleepy / tired appearing HEENT: no facial swelling, on BIPAP CV: RRR, no edema Pulm: on BIPAP, shallow respirations Abd: soft, nontender, nondistended Ext: no rash/edema Problem List: acute hypoxemic respiratory failure related to Bilateral COVID19 pneumonia/Influenza B Lower GI bleed secondary to hemorrhoids, resolved Hyperglycemia Partotitis, resolved Constipation, resolved Acute renal failure,resolved Hypothyroidism Hyperlipidemia GERD History of chronic shingles History of vocal cord nodules Dyspnea secondary to acute respiratory failure related to Bilateral COVID19 pneumonia/Influenza B: -continue BIPAP/HFNC, wean as tolerated; prolonged hospitalization. -seems to be backtracking on her improvement -pulmonology following Lower GI bleed, hemorrhoids was on aspirin and eliquis; aspirin dc'd continue eilquis given high risk of VTE No active bleeding. Hyperglycemia -steroid induced. -NG tube for feeding, patient is also tolerating oral feeding. -Continue Glucerna -insulin sliding scale, titrate Lantus. NSTEMI -Echo: Normal EF, moderate pulmonary hypertension. no plans for further intervention at this time Parotitis, resolved, resolved, completed initial IV Abx and then 7 days total of levaquin Constipation, resolved -miralax PRN Acute renal failure secondary to above, resolved: Acute renal failure resolved. Hypothyroidism, HLD, GERD, Chronic Shingles, h/o vocal cord nodules: stable, continue home meds Dispo: pending insurance approval for medresort, LTAC denied by insurance Time Spent Managing Pts Care (In Minutes): 40
--- NOTE | 2020-10-27 02:11 | PN ---
Date of Progress Note: 10/26/2020 Subjective: The patient was admitted with COVID pneumonia, respiratory failure, extubated. The patient had altered mental status secondary to hypercapnic respiratory failure. Objective: Vital Signs: When I saw the patient, the patient on BiPAP, blood pressure 160/93, pulse of 100, afebrile. Chest: Crackles bilateral. Heart: S1, S2. Regular. Abdomen: Soft, nontender. Extremities: Trace edema. Neuro: Confused, moving 4 extremities. No focality. Laboratory Data: WBC 12.2, H and H 11/33.2. Sodium 137, potassium 4.4, bicarb 42, BUN 24, creatinine 0.4, calcium 8.6, phosphorus 4.2, magnesium of 2.2. ABG; pH 7.4, CO2 69, O2 53. Current Medications: The patient on include, 1. Fluconazole. 2. Thiamin. 3. Eliquis. 4. Metoprolol 25 b.i.d. 5. Glucerna. 6. Acetazolamide 500 daily. 7. Folic acid. 8. Ergocalciferol. Assessment And Plan: 1. Acute kidney injury secondary to COVID pneumonia, recovered, resolved, normal volume. I am going to continue to monitor the patient. 2. Alkalosis secondary compensation for respiratory acidosis. The patient was started on acetazolamide. We will continue another 24 hours, then we will discontinue. 3. Hypertension, controlled, optimal. We will monitor. 4. Altered mental status secondary to hypercapnic respiratory failure. Continue BiPAP. 5. COVID pneumonia status post treatment as by Pulmonary and Primary. time spend discussing with the patient face to face , placing order , discusse with the patient and other logistics team lead including hospitalist 45 min. MARQUITA Voice ID: [id number] Report ID: [id number] KEVIN
[2020-10-27 05:04] LABS: MPV 7.3 fL (7.6-11.3)
[2020-10-27] MEDS: INSULIN -REGULAR HUMAN 50 UNIT/0.5 ML ML SQ SCH ×3 (06:00→18:00)
[2020-10-27 06:21] LABS: Albumin 2.4 g/dL (3.4-5.0); BUN Blood Urea Nitrogen 22 mg/dL (7-18); Bicarbonate 40 mmol/L (21-32); Ferritin 596.3 ng/mL (8-388); Glucose Level 138 mg/dL (74-106); Magnesium 2.1 mg/dL (1.8-2.4); Potassium 4.5 mmol/L (3.5-5.1); Sodium Level 137 mmol/L (136-145)
[2020-10-27] MEDS: METOPROLOL TAR 25 MG TAB PO SCH ×2 (06:29→17:00)
[2020-10-27] MEDS: VITAMIN D 1000 UNIT TAB PO SCH (07:56)
[2020-10-27] MEDS: FOLIC ACID 1 MG TABLET PO SCH (07:57)
[2020-10-27] MEDS: ZINC SULFATE 220 MG CAP PO SCH (07:57)
[2020-10-27] MEDS: THIAMINE HCL 100 MG TABLET PO SCH (07:57)
[2020-10-27] MEDS: predniSONE 20 MG TAB PO SCH ×2 (07:57→21:35)
[2020-10-27] MEDS: ASCORBIC ACID 500 MG TABLET PO SCH ×3 (07:57→21:35)
[2020-10-27] MEDS: acetaZOLAMIDE 250 MG TAB PO SCH (07:58)
[2020-10-27] MEDS: MEDIHONEY 44 ML TOPICAL TUBE TOP SCH (07:58)
[2020-10-27] MEDS: APIXABAN 5 MG TABLET PO SCH ×2 (07:58→21:35)
[2020-10-27] MEDS: INSULIN GLARGINE 100 UNITS/ML SQ SCH ×2 (07:58→21:00)
[2020-10-27] MEDS: FLUCONAZOLE 100 MG TAB PO SCH (08:00)
[2020-10-27] MEDS ORDERED: D50W 25 GM/50 ML VIAL IV PRN (10:29)
[2020-10-27] MEDS ORDERED: GLUCAGON 1 MG/VIAL IM PRN (10:29)
--- NOTE | 2020-10-27 11:20 | PN ---
Date of Progress Note: 10/27/2020 Subjective: The patient was admitted with acute kidney injury, anasarca secondary to COVID nephropathy. The patient's kidney function has been improved, resolved. The patient had hypernatremia and alkalosis secondary to hypercapnic respiratory acidosis. The patient was started on acetazolamide for the last 48 hours. Physical Examination: Vital Signs: Blood pressure 119/59, pulse of 95. Chest: Clear to auscultation. Heart: S1, S2. Systolic murmur. Abdomen: Soft, nontender. Extremities: Trace edema. Neuro: Alert, follows commands. No focality. Laboratory Data: WBC 11.7, H and H 11.1/33. Chest x-ray; no cardiomegaly, mild interstitial infiltration. Sodium 137, potassium 4.5, bicarb 40 and trending down, BUN is 22, creatinine 0.3, calcium 8.6, phosphorus 4. Ferritin 596. Assessment And Plan: 1. 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 Keep holding diuresis. 2. Alkalosis secondary to hypercapnic respiratory acidosis. Continue acetazolamide for another day, then we will discontinue. 3. Hypertension, controlled, optimal. 4. Hypernatremia, resolved. 5. COVID pneumonia as by Pulmonary and Primary. time spent exam the patient face to face , place order , discussed with the nursing staff, discussing the case with other team leader/research psychologist and [employer] consultant including hospitalist 45 min. MARQUITA Voice ID: [id number] Report ID: [id number] KEVIN
--- NOTE | 2020-10-27 13:03 | P.PN ---
Subjective Date of Service: 10/27/20 Primary Care Provider: Dr. Lopez; Pulmonary-Dr. Cristobal; Cardiology-Dr. Westbrook Chief Complaint: Respiratory failure Subjective: Improving (No acute events overnight, remains on BiPAP, feels she is breathing a little bit more comfortably, not as tired, denies abdominal pain. Not eating much p.o., receiving tube feeds) Review of Systems 10-point ROS is otherwise unremarkable Physical Examination - Vital Signs Temperature: 97.5 F Blood Pressure: 119/59 Pulse: 95 Respirations: 22 Pulse Ox (%): 96 Assessment & Plan Physician Review Additional Text: Physical Exam: Gen: AAOx3, NAD, obese HEENT: on BIPAP CV: RRR, no edema Pulm: on BIPAP, shallow respirations Abd: soft, nontender, nondistended Ext: no rash/edema Problem List: acute hypoxemic respiratory failure related to Bilateral COVID19 pneumonia/Influenza B Lower GI bleed secondary to hemorrhoids, resolved Hyperglycemia Partotitis, resolved Constipation, resolved Acute renal failure,resolved Hypothyroidism Hyperlipidemia GERD History of chronic shingles History of vocal cord nodules Dyspnea secondary to acute respiratory failure related to Bilateral COVID19 pneumonia/Influenza B: -continue BIPAP/HFNC, wean as tolerated -seems to be backtracking on her improvement, good/bad days; needs to ambulate, however desats easily -pulmonology following Lower GI bleed, hemorrhoids was on aspirin and eliquis; aspirin dc'd; continue eliquis given high risk of VTE; no active bleeding Hyperglycemia -steroid induced. NGT feeds -insulin sliding scale, titrate Lantus as needed NSTEMI -Echo: Normal EF, moderate pulmonary hypertension. no plans for further intervention at this time Parotitis, resolved, resolved, completed initial IV Abx and then 7 days total of levaquin Constipation, resolved -miralax PRN Acute renal failure secondary to above, resolved: Acute renal failure resolved. Hypothyroidism, HLD, GERD, Chronic Shingles, h/o vocal cord nodules: stable, continue home meds Dispo: pending insurance approval for medresort, LTAC denied by insurance Time Spent Managing Pts Care (In Minutes): 35
[2020-10-28] MEDS: HYDROCODONE/APAP 5/325 MG TAB PO PRN (00:49)
[2020-10-28] MEDS: INSULIN -REGULAR HUMAN 50 UNIT/0.5 ML ML SQ SCH ×4 (06:00→17:25)
[2020-10-28] MEDS: METOPROLOL TAR 25 MG TAB PO SCH ×2 (06:28→16:56)
[2020-10-28] MEDS: FOLIC ACID 1 MG TABLET PO SCH (08:38)
[2020-10-28] MEDS: ZINC SULFATE 220 MG CAP PO SCH (08:38)
[2020-10-28] MEDS: THIAMINE HCL 100 MG TABLET PO SCH (08:38)
[2020-10-28] MEDS: predniSONE 20 MG TAB PO SCH ×2 (08:38→21:07)
[2020-10-28] MEDS: ASCORBIC ACID 500 MG TABLET PO SCH ×3 (08:38→21:09)
[2020-10-28] MEDS: APIXABAN 5 MG TABLET PO SCH ×2 (08:39→21:07)
[2020-10-28] MEDS: VITAMIN D 1000 UNIT TAB PO SCH (08:39)
[2020-10-28] MEDS: FLUCONAZOLE 100 MG TAB PO SCH (08:39)
[2020-10-28] MEDS: acetaZOLAMIDE 250 MG TAB PO SCH (08:39)
[2020-10-28] MEDS: INSULIN GLARGINE 100 UNITS/ML SQ SCH ×2 (08:39→21:08)
[2020-10-28] MEDS: MEDIHONEY 44 ML TOPICAL TUBE TOP SCH (08:40)
--- NOTE | 2020-10-28 11:57 | P.PN ---
Subjective Date of Service: 10/28/20 Primary Care Provider: Dr. Lopez; Pulmonary-Dr. Cristobal; Cardiology-Dr. Westbrook Chief Complaint: Respiratory failure 74-year-old female with history of hypothyroidism, hypertension, GERD, hyperlipidemia, shingles, COPD on Home O2 Patient presented to the emergency room with increasing shortness of breath with Cough BP was borderline Fluid bolus given. Patient was found to be positive for influenza B and COVID 19. 4000. Troponin 0.68. Lactic acid 3.6. Pro calcitonin 0.17. White count 9.5, hemoglobin 13. Platelet count 300. Sodium 133, potassium 4.8. BUN of 42, creatinine 2.14 Pt transferred out from ICU on 10/14 FiO2 was down to 65% , now she requires 85% Today lethargic , but arousable to verbal stimuli FiO2 90% cont current management Physical exam general: arousable to verbal stimuli Neck; Supple, No elevated JVD hear: RRR, normal S1,2 no murmur or rub Chest: increase Echophony Abdomen: Soft , Nt Extremities No edema, Assessment and plan VIDAL resolved off IVF renal dos meds metabolic alkalosis with respiratory acidosis off lasix BiPAP support cont diamox COVID 19 pneumonia bIPAP dependant now COPD cont O2 and biPAP elevated LFT resolved parotitis resolved total time spent 35min Physical Examination - Vital Signs Temperature: 97.1 F Blood Pressure: 117/58 Pulse: 84 Respirations: 23 Pulse Ox (%): 96
--- NOTE | 2020-10-28 20:34 | P.PN ---
Subjective Date of Service: 10/28/20 Primary Care Provider: Dr. Lopez; Pulmonary-Dr. Cristobal; Cardiology-Dr. Westbrook Chief Complaint: Respiratory failure Subjective: No new changes (no significant changes. remains on BIPAP, slightly lower FiO2.) Review of Systems 10-point ROS is otherwise unremarkable Physical Examination - Vital Signs Temperature: 98.3 F Blood Pressure: 129/60 Pulse: 99 Respirations: 21 Pulse Ox (%): 92 Assessment & Plan Physician Review Additional Text: Physical Exam: Gen: obese, appears tired, NAD HEENT: on BIPAP CV: RRR, no edema Pulm: on BIPAP, shallow respirations Abd: soft, nontender, nondistended Ext: no rash/edema Problem List: acute hypoxemic respiratory failure related to Bilateral COVID19 pneumonia/Influenza B Lower GI bleed secondary to hemorrhoids, resolved Hyperglycemia Partotitis, resolved Constipation, resolved Acute renal failure,resolved Hypothyroidism Hyperlipidemia GERD History of chronic shingles History of vocal cord nodules Dyspnea secondary to acute respiratory failure related to Bilateral COVID19 pneumonia/Influenza B: -continue BIPAP/HFNC, wean as tolerated -needs to ambulate, however desats easily -pulmonology following -repeat CXR tomorrow Lower GI bleed, hemorrhoids was on aspirin and eliquis; aspirin dc'd; continue eliquis given high risk of VTE; no active bleeding Hyperglycemia -steroid induced. NGT feeds , insulin sliding scale, titrate Lantus as needed NSTEMI -Echo: Normal EF, moderate pulmonary hypertension. no plans for further intervention at this time Parotitis, resolved, resolved, completed initial IV Abx and then 7 days total of levaquin Constipation, resolved -miralax PRN Acute renal failure secondary to above, resolved: Acute renal failure resolved. Hypothyroidism, HLD, GERD, Chronic Shingles, h/o vocal cord nodules: stable, continue home meds Dispo: pending insurance approval for medresort, LTAC denied by insurance. FiO2 still >90% Time Spent Managing Pts Care (In Minutes): 35
[2020-10-28] MEDS: hydrOXYzine HCL 25 MG TAB PO PRN (21:14)
[2020-10-29] MEDS: METOPROLOL TAR 25 MG TAB PO SCH ×2 (05:47→17:46)
[2020-10-29] MEDS: INSULIN -REGULAR HUMAN 50 UNIT/0.5 ML ML SQ SCH ×4 (05:48→18:00)
[2020-10-29 06:16] LABS: Absolute Lymphocytes (CBC) 1.5 K/uL (0.7-4.9); Basophils % 0.9 % (0-1.3); Hematocrit 30.9 % (36.0-45.0); MPV 7.3 fL (7.6-11.3); RBC Red Blood Cell Count 3.19 M/uL (3.86-4.86)
[2020-10-29 06:37] LABS: ALT/SGPT 95 U/L (12-78); AST/SGOT 47 U/L (15-37); Albumin 2.2 g/dL (3.4-5.0); Alkaline Phosphatase 65 U/L (45-117); BUN Blood Urea Nitrogen 19 mg/dL (7-18); Bicarbonate 40 mmol/L (21-32); Bilirubin Direct 0.1 mg/dL (0-0.2); Bilirubin Total 0.4 mg/dL (0.2-1.0); Ferritin 641.4 ng/mL (8-388); Glucose Level 138 mg/dL (74-106); Phosphorus 3.9 mg/dL (2.5-4.9); Potassium 4.5 mmol/L (3.5-5.1); Protein, Total 5.7 g/dL (6.4-8.2); Sodium Level 136 mmol/L (136-145)
--- NOTE | 2020-10-29 08:25 | RAD REPORT ---
EXAM DESCRIPTION: RAD - Chest Single View - 10/29/2020 6:45 am CLINICAL HISTORY: hypoxia COMPARISON: October 25 TECHNIQUE: AP portable chest image was obtained 10/29/2020 6:45 am . FINDINGS: Lung volumes are low. Airspace opacification is present in the mid and lower lung rivas w orse on the left. Heart size is mildly enlarged. Vasculature is prominent. Trachea is midline. Feedin g tube is present in the stomach. No pneumothorax identified. No large pleural effusion. PICC line re jose in place in the right upper extremity. No acute aortic findings suspected. IMPRESSION: Bilateral airspace opacification with prominent heart and vasculature. This is a signifi cant change from the October 25 study. Pattern is nonspecific. This can be seen with a failure or volume overload process as well as bilater al pneumonia.
[2020-10-29] MEDS: APIXABAN 5 MG TABLET PO SCH ×2 (09:35→21:38)
[2020-10-29] MEDS: acetaZOLAMIDE 250 MG TAB PO SCH (09:35)
[2020-10-29] MEDS: FLUCONAZOLE 100 MG TAB PO SCH (09:35)
[2020-10-29] MEDS: VITAMIN D 1000 UNIT TAB PO SCH (09:35)
[2020-10-29] MEDS: INSULIN GLARGINE 100 UNITS/ML SQ SCH ×2 (09:35→21:00)
[2020-10-29] MEDS: THIAMINE HCL 100 MG TABLET PO SCH (09:36)
[2020-10-29] MEDS: FOLIC ACID 1 MG TABLET PO SCH (09:37)
[2020-10-29] MEDS: predniSONE 20 MG TAB PO SCH ×2 (09:37→21:38)
[2020-10-29] MEDS: ZINC SULFATE 220 MG CAP PO SCH (09:37)
[2020-10-29] MEDS: ASCORBIC ACID 500 MG TABLET PO SCH (09:37)
[2020-10-29 10:40] LABS: Blood Morphology Comment NOT SEEN (NOT SEEN); Platelet Estimate ADEQ
--- NOTE | 2020-10-29 10:57 | P.PN ---
Subjective Date of Service: 10/29/20 Primary Care Provider: Dr. Lopez; Pulmonary-Dr. Cristobal; Cardiology-Dr. Westbrook Chief Complaint: Respiratory failure Patient alert still requiring high concentrations of oxygen complains about taking a lot of pills patient has decubitus ulcers Review of Systems General: Weakness Respiratory: Shortness of Breath Physical Examination - Vital Signs Temperature: 96.9 F Blood Pressure: 115/56 Pulse: 101 Respirations: 21 Pulse Ox (%): 95 - Physical Exam General: Alert, Cooperative Respiratory: Clear to auscultation bilaterally, Diminished Cardiovascular: Edema Assessment & Plan - Problems (Diagnosis) (1) Acute respiratory failure due to severe acute respiratory syndrome coronavirus 2 (SARS-CoV-2) infection Current Visit: Yes Status: Acute Plan: Respiratory failure still requiring high concentrations of oxygen patient is mentally alert reduce prednisone to 10 mg twice a day Dc supplemental vitamin dose continue with Diamox continued titrate O2 down
[2020-10-29] MEDS: MEDIHONEY 44 ML TOPICAL TUBE TOP SCH (11:54)
--- NOTE | 2020-10-29 12:43 | P.PN ---
Subjective Date of Service: 10/29/20 Primary Care Provider: Dr. Lopez; Pulmonary-Dr. Cristobal; Cardiology-Dr. Westbrook Chief Complaint: Respiratory failure Subjective: No new changes (feels about the same, no significant changes. remains on bipap, appears tired) Review of Systems 10-point ROS is otherwise unremarkable Physical Examination - Vital Signs Temperature: 98.0 F Blood Pressure: 118/67 Pulse: 97 Respirations: 22 Pulse Ox (%): 88 Assessment & Plan Physician Review Additional Text: Physical Exam: Gen: NAD, laying in bed HEENT: no swelling CV: sinus tachycardia, no edema Pulm: non-labored on BIPAP Abd: soft, nontender, nondistended Ext: no rash, no tenderness eason in place Problem List: acute hypoxemic respiratory failure related to Bilateral COVID19 pneumo meghan/Influenza B Lower GI bleed secondary to hemorrhoids, resolved Stage 2 sacral decubitus ulcer Hyperglycemia Partotitis, resolved Constipation, resolved Acute renal failure,resolved Hypothyroidism Hyperlipidemia GERD History of chronic shingles History of vocal cord nodules Dyspnea secondary to acute respiratory failure related to Bilateral COVID19 pneumonia/Influenza B: -continue BIPAP/HFNC, wean as tolerated -needs to ambulate, however desats easily -pulmonology following -CXR ordered for today Stage 2 sacral decubitus ulcer -reposition, wound care ordered -eason remains, pt unable to move much due to hypoxia Lower GI bleed, hemorrhoids - mid September was on aspirin and eliquis; aspirin dc'd; continue eliquis given high risk of VTE; no active bleeding Hyperglycemia -steroid induced. NGT feeds , insulin sliding scale, titrate Lantus as needed NSTEMI -Echo: Normal EF, moderate pulmonary hypertension. no plans for further intervention at this time Parotitis, resolved, resolved, completed initial IV Abx and then 7 days total of levaquin Constipation, resolved -miralax PRN Acute renal failure secondary to above, resolved: Acute renal failure resolved. Hypothyroidism, HLD, GERD, Chronic Shingles, h/o vocal cord nodules: stable, continue home meds Dispo: pending insurance approval for [facility], LTAC denied by insurance. FiO2 still >90% Time Spent Managing Pts Care (In Minutes): 35
--- NOTE | 2020-10-29 15:03 | PN ---
Date of Progress Note: 10/29/2020 Subjective: The patient was admitted with COVID pneumonia, intubated and extubated, currently on BiPAP requiring continuous. Objective: Vital Signs: Blood pressure 118/67, pulse of 97. The patient had good urine output of 2100 on acetazolamide. Chest: Clear to auscultation. Heart: S1 and S2 regular. Abdomen: Soft, nontender. Extremities: No edema. Neurologic: Alert. No focality. Laboratory Data: WBC 15, H and H 10.3/30.9, platelet 260. Sodium 136, potassium 4.5, bicarb 40, BUN 19, creatinine 0.3, calcium 8, phosphorus 3.9. Current Medications: The patient on its include Eliquis, fluconazole, metoprolol 25 b.i.d., zinc sulfate, folic acid, prednisone. Assessment/plan: 1. 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 Recovered and resolved. 2. Hypertension, controlled, optimal. Continue current treatment. 3. Alkalosis secondary to hypercapnic respiratory acidosis. Continue acetazolamide for the time being. 4. COVID pneumonia. The patient was switched to oral prednisone. We will follow up with Pulmonary. 5. Hypernatremia, resolved. time spent exam the patient face to face , place order , discussed with the nursing staff, discussing the case with other sales team leader and budget consultant including hospitalist 45 min. MARQUITA Voice ID: [id number] Report ID: [id number] KEVIN
[2020-10-29] MEDS: HYDROCODONE/APAP 5/325 MG TAB PO PRN (17:46)
[2020-10-30 05:12] LABS: Absolute Lymphocytes (CBC) 2.1 K/uL (0.7-4.9); Basophils % 0.6 % (0-1.3); Hematocrit 33.2 % (36.0-45.0); Lymphocytes % 12.4 % (15.3-44.8); MPV 7.5 fL (7.6-11.3)
[2020-10-30 05:38] LABS: BUN Blood Urea Nitrogen 18 mg/dL (7-18); Bicarbonate 37 mmol/L (21-32); Glucose Level 128 mg/dL (74-106); Magnesium 1.8 mg/dL (1.8-2.4); Potassium 4.6 mmol/L (3.5-5.1); Sodium Level 131 mmol/L (136-145)
[2020-10-30] MEDS: METOPROLOL TAR 25 MG TAB PO SCH ×2 (06:00→16:44)
[2020-10-30] MEDS: INSULIN -REGULAR HUMAN 50 UNIT/0.5 ML ML SQ SCH ×4 (06:00→16:41)
[2020-10-30] MEDS: FOLIC ACID 1 MG TABLET PO SCH (08:51)
[2020-10-30] MEDS: APIXABAN 5 MG TABLET PO SCH ×2 (08:51→19:37)
[2020-10-30] MEDS: predniSONE 20 MG TAB PO SCH ×2 (08:51→19:37)
[2020-10-30] MEDS: FLUCONAZOLE 100 MG TAB PO SCH (08:51)
[2020-10-30] MEDS: ZINC SULFATE 220 MG CAP PO SCH (08:51)
[2020-10-30] MEDS: acetaZOLAMIDE 250 MG TAB PO SCH (08:51)
[2020-10-30] MEDS: INSULIN GLARGINE 100 UNITS/ML SQ SCH (08:52)
[2020-10-30] MEDS: MEDIHONEY 44 ML TOPICAL TUBE TOP SCH (08:54)
[2020-10-30] MEDS ORDERED: MAGNESIUM SULFATE 1 gm IVPB 1 GM/100 ML BAG IV ONE (09:00)
[2020-10-30] MEDS ORDERED: NOREPINEPHRINE 4 MG in D5W 250 ML IV PRN ×2 (09:46→09:50)
[2020-10-30] MEDS ORDERED: RSI MEDICATION KIT IV ONE (09:50)
[2020-10-30] MEDS: FENTANYL CITR 100 MCG/2 ML IV PRN ×4 (10:30→22:30)
[2020-10-30] MEDS ORDERED: LORazepam 2 MG/ML VIAL IV PRN (10:35)
[2020-10-30] MEDS ORDERED: propofoL 1,000 MG/100 ML VIAL IV PRN (10:35)
[2020-10-30 10:47] LABS: Blood Gas Oxyhemoglobin 47.2 % (94-97)
[2020-10-30 10:48] LABS: Arterial Blood Carboxyhemoglob 2.4 % (0-1.5)
[2020-10-30] MEDS: HALOPERIDOL LACT 5 MG/ML INJ IV PRN ×2 (11:18→18:40)
--- NOTE | 2020-10-30 11:31 | RAD REPORT ---
EXAM DESCRIPTION: RAD - Chest Single View - 10/30/2020 10:17 am CLINICAL HISTORY: E-Tube placement Chest pain. COMPARISON: Chest Single View dated 10/29/2020; Abdomen 1 View (KUB) dated 10/25/2020; Chest Single View dated 10/25/2020; Abdomen 1 View (KUB) dated 10/21/2020 FINDINGS: Portable technique limits examination quality. Tip of the ET tube is above the sae. Enteric tube tip is in the stomach. Moderate bilateral pulmon geovany opacities are noted, mildly worsened since the comparative study. Heart size is mildly enlarged.
[2020-10-30] MEDS ORDERED: ALBUMIN HUMAN 25% 100 ML IV ONE (12:20)
[2020-10-30] MEDS ORDERED: NA CHLORIDE 0.9% 1,000 ML IV ONE (12:27)
--- NOTE | 2020-10-30 12:39 | P.PN ---
Subjective Date of Service: 10/30/20 Primary Care Provider: Dr. Lopez; Pulmonary-Dr. Cristobal; Cardiology-Dr. Westbrook Chief Complaint: Respiratory failure Subjective: Other (Patient seen early this AM - reported feeling a little better, reported some back pain, otherwise stated she was ok "nothing new". Code Brian called a few hours later, no pulse, required CPR and eventual intubation) Physical Examination - Vital Signs Temperature: 97.2 F Blood Pressure: 96/75 Pulse: 129 Respirations: 26 Pulse Ox (%): 94 Assessment & Plan Physician Review Additional Text: Physical Exam this morning: Gen: NAD, laying in bed, AAOx3 HEENT: no swelling CV: sinus tachycardia: HR: 95-105, trace edema in lower legs Pulm: non-labored on BIPAP Abd: soft, nontender, nondistended Ext: no rash, no tenderness eason in place Problem List: acute hypoxemic respiratory failure related to Bilateral COVID19 pneumonia/Influenza B Lower GI bleed secondary to hemorrhoids, resolved Stage 2 sacral decubitus ulcer Hyperglycemia HFpEF Partotitis, resolved Constipation, resolved Acute renal failure,resolved Hypothyroidism Hyperlipidemia GERD History of chronic shingles History of vocal cord nodules Dyspnea secondary to acute respiratory failure related to Bilateral COVID19 pneumonia/Influenza B: -was doing ok this morning, then code blue occurred -nurse was in room, stated patient became hypoxic down to 80s, "eyes rolled to the back of her head", patient became unresponsive and did not have a palpable pulse -code blue was initiated, patient required CPR with eventual ROSC after ~3-4 minutes. She required intubation (10/30). -SpO2 remained 40-50% for 1-2 hours. Slowly came up to 90% over 2.5-3 hours. -transferred to ICU, BP initially low, bolus was initiated; pressors as needed -family were called, agreed with full code at this time, "want everything done" -family came to hospital, discussed at length, went to bedside, want to continue with full care/treatment, but DNR if patient were to code again -pulmonology following -CXR with worsening bilateral opacities, concern for worsening pulm edema vs aspiration -pt started on meropenem and vanc, cultures obtained, remains hypotensive will give albumin Stage 2 sacral decubitus ulcer -reposition, wound care ordered -eason remains Lower GI bleed, hemorrhoids - mid September was on aspirin and eliquis; aspirin dc'd; continue eliquis given high risk of VTE; no active bleeding Hyperglycemia -steroid induced. NGT feeds , insulin sliding scale, titrate Lantus as needed NSTEMI HFpEF -Echo: Normal EF, moderate pulmonary hypertension, Diastolic dysfunction. no plans for further intervention at this time Parotitis, resolved, resolved, completed initial IV Abx and then 7 days total of levaquin Constipation, resolved -miralax PRN Acute renal failure secondary to above, resolved: Acute renal failure resolved. Hypothyroidism, HLD, GERD, Chronic Shingles, h/o vocal cord nodules: stable, continue home meds Dispo: continue ICU level of care. intubated / sedation as needed met with family - both sons. Want DNR going forward, but to continue all care / want everything they stated they will continue to discuss whether to withdraw care or not Critical Care: Yes (45 minutes) Time Spent Managing Pts Care (In Minutes): 60
[2020-10-30 14:42] LABS: Arterial Blood Carboxyhemoglob 3.2 % (0-1.5); Blood Gas Oxyhemoglobin 90.1 % (94-97); Blood O2 Saturation 94.2 % (92-98.5)
[2020-10-30] MEDS ORDERED: FUROSEMIDE 100 MG in NA CHLORIDE 0.9% 90 ML IV ONE (15:00)
[2020-10-30 15:16] LABS: CKMB Creatine Kinase MB 8.2 ng/mL (0.3-3.6); Troponin I 0.5 ng/mL (0.0-0.045)
[2020-10-30] MEDS ORDERED: FUROSEMIDE 40 MG in NA CHLORIDE 0.9% 46 ML IV SCH (16:00)
[2020-10-30] MEDS ORDERED: FUROSEMIDE 40 MG in NA CHLORIDE 0.9% 46 ML IV ONE (16:00)
[2020-10-30 16:25] LABS: Urine Appearance CLOUDY; Urine Bilirubin NEGATIVE (NEG); Urine Blood 3+ (NEG); Urine Color DK YELLOW; Urine Glucose NEGATIVE (NEG); Urine Protein 2+ (NEG); Urine Specific Gravity 1.025 (1.005-1.030); Urine pH 5.5 (5.0-7.0)
[2020-10-30 16:33] LABS: Urine Microscopic Reflex ORDER UMIC
[2020-10-30] MEDS: Meropenem 1,000 MG in NA CHLORIDE 0.9% 100 ML IV SCH (16:39)
[2020-10-30 16:58] LABS: Urine Bacteria <20 /HPF (<20); Urine Mucus MOD /HPF (NONE SEEN); Urine RBC >50 /HPF (NONE SEEN)
[2020-10-30] MEDS ORDERED: Meropenem 1000 MG/VIAL IV SCH (17:00)
[2020-10-30] MEDS: MIDAZOLAM HCL 2 MG/2 ML INJ IV PRN ×2 (17:55→20:50)
--- NOTE | 2020-10-30 18:36 | RAD REPORT ---
EXAM DESCRIPTION: US - Extrem Venous W Compress [place] - 10/30/2020 5:57 pm CLINICAL HISTORY: respiratory arrest Bilateral leg edema and swelling. COMPARISON: Extremity Venous Uni Ltd dated 04/10/2019 TECHNIQUE: Real-time sonographic interrogation of the left and right lower extremity deep venous sys tems was performed. FINDINGS: Normal compressibility, flow augmentation, phasic flow and spontaneous flow is identified in both the left and right lower extremity deep venous systems. IMPRESSION: No sonographic evidence of left or right lower extremity deep venous thrombosis.
--- NOTE | 2020-10-30 19:20 | PN ---
Date of Progress Note: 10/30/2020 Subjective: The patient was admitted with COVID pneumonia. The patient recovered, continue to require BiPAP. Apparently today, the patient had code blue with respiratory arrest. Did not lose any pulse, resuscitation happen right away. The patient had low blood pressure down to the 70. The patient was intubated. A bolus of 500. Blood pressure picked up. Did not receive any chemicals to retain pulse as the patient's pulse persist. Physical Examination: Vital Signs: Blood pressure 114/69, pulse of 110. Chest: Crackles bilateral more prominent on the right side. Heart: S1, S2. Tachy. Abdomen: Soft, nontender. Extremities: Trace edema. Neuro: The patient sleeping on exam, moving extremity without focality. Laboratory Data: WBC 16.8, H and H 10.8/33.2. Sodium 131, potassium 4.6, bicarb 37, BUN 18, creatinine 0.3, calcium 8.8, magnesium 1.8. Current Medications: The patient on include; 1. Meropenem. 2. Vancomycin. 3. The patient received albumin. 4. Metoprolol 25 b.i.d. 5. Haloperidol sedation. 6. Glucerna. 7. Folic acid. 8. Pepcid. 9. Magnesium oxide. Assessment And Plan: 1. 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 Currently over volume. I am going to give single dose of Lasix. We will monitor the patient closely. 2. Hypernatremia, currently hyponatremia secondary to dilutional decrease. We will diurese the patient again. We will monitor the patient. Continue acetazolamide. 3. Hypomagnesemia. We will supplement. 4. Cardiac arrest. We will send for cardiac enzyme. We will send for D-dimer and DVT to rule out any PE. 5. Hypercapnic respiratory failure. The patient was placed on vent. We will repeat ABG and we will follow up. 6. Possible aspiration pneumonia. The patient was placed on meropenem and vancomycin. We will follow up with the hospitalist. time spent exam the patient face to face , place order , discussed with the nursing staff, discussing the case with other team psychologist and supervisor home energy consultant including hospitalist 45 min. MARQUITA Voice ID: [id number] Report ID: [id number] [id number]
[2020-10-30] MEDS: ACETAMINOPHEN 325 MG TABLET FT PRN (19:30)
[2020-10-30] MEDS: FAMOTIDINE 20 MG/2 ML VIAL IV SCH (19:37)
[2020-10-30] MEDS: VANCOMYCIN 1.5 GM in NA CHLORIDE 0.9% 500 ML IVPB SCH (20:28)
[2020-10-30 21:49] LABS: CKMB Creatine Kinase MB 8.9 ng/mL (0.3-3.6); Troponin I 0.48 ng/mL (0.0-0.045)
[2020-10-31] MEDS: Meropenem 1,000 MG in NA CHLORIDE 0.9% 100 ML IV SCH ×2 (00:18→08:32)
[2020-10-31] MEDS: HALOPERIDOL LACT 5 MG/ML INJ IV PRN (02:30)
[2020-10-31] MEDS: MIDAZOLAM HCL 2 MG/2 ML INJ IV PRN ×3 (03:00→12:30)
[2020-10-31] MEDS: FENTANYL CITR 100 MCG/2 ML IV PRN ×2 (04:00→12:30)
[2020-10-31] MEDS: ACETAMINOPHEN 325 MG TABLET FT PRN (05:11)
[2020-10-31 05:28] LABS: Absolute Lymphocytes (CBC) 1.3 K/uL (0.7-4.9); Basophils % 0.7 % (0-1.3); Hematocrit 27.7 % (36.0-45.0); Lymphocytes % 8.4 % (15.3-44.8); MPV 7.6 fL (7.6-11.3); RBC Red Blood Cell Count 2.83 M/uL (3.86-4.86)
[2020-10-31 05:29] VITALS: BMI 38.2
[2020-10-31 05:41] LABS: CKMB Creatine Kinase MB 7.9 ng/mL (0.3-3.6); Troponin I 0.27 ng/mL (0.0-0.045)
[2020-10-31 05:43] LABS: ALT/SGPT 114 U/L (12-78); AST/SGOT 70 U/L (15-37); Albumin 2.2 g/dL (3.4-5.0); Alkaline Phosphatase 55 U/L (45-117); BUN Blood Urea Nitrogen 17 mg/dL (7-18); Bicarbonate 36 mmol/L (21-32); Bilirubin Total 0.6 mg/dL (0.2-1.0); Ferritin 968.2 ng/mL (8-388); Glucose Level 83 mg/dL (74-106); Magnesium 1.9 mg/dL (1.8-2.4); Phosphorus 3.2 mg/dL (2.5-4.9); Potassium 3.9 mmol/L (3.5-5.1); Protein, Total 5.5 g/dL (6.4-8.2); Sodium Level 135 mmol/L (136-145)
[2020-10-31] MEDS: METOPROLOL TAR 25 MG TAB PO SCH (05:46)
[2020-10-31] MEDS: INSULIN -REGULAR HUMAN 50 UNIT/0.5 ML ML SQ SCH ×3 (06:00→11:36)
[2020-10-31 06:08] LABS: Arterial Blood Carboxyhemoglob 3.6 % (0-1.5); Blood Gas Oxyhemoglobin 84.2 % (94-97); Blood O2 Saturation 88.2 % (92-98.5)
[2020-10-31 08:19] VITALS: TEMP 97.4
[2020-10-31] MEDS ORDERED: NA CHLORIDE 0.9% 500 ML IV ONE (08:23)
[2020-10-31] MEDS: FOLIC ACID 1 MG TABLET PO SCH (08:31)
[2020-10-31] MEDS: APIXABAN 5 MG TABLET PO SCH (08:31)
[2020-10-31] MEDS: acetaZOLAMIDE 250 MG TAB PO SCH (08:31)
[2020-10-31] MEDS: FAMOTIDINE 20 MG/2 ML VIAL IV SCH (08:32)
[2020-10-31] MEDS: ZINC SULFATE 220 MG CAP PO SCH (08:32)
--- NOTE | 2020-10-31 08:39 | RAD REPORT ---
EXAM DESCRIPTION: RAD - Chest Single View - 10/31/2020 5:56 am CLINICAL HISTORY: intubated Chest pain. COMPARISON: Chest Single View dated 10/30/2020; Chest Single View dated 10/29/2020; Abdomen 1 View (KUB) dated 10/25/2020; Chest Single View dated 10/25/2020 FINDINGS: Portable technique limits examination quality. Tip of the endotracheal tube is above the sae. Enteric tube descends into the stomach. Moderate bi lateral interstitial lung opacities are present, slightly progressive since the comparative study. Th e heart is upper limit normal in size.Right-sided PICC line is stable in position. IMPRESSION: Fractional worsening in lung aeration seen since comparative study.
[2020-10-31] MEDS: VANCOMYCIN 1.5 GM in NA CHLORIDE 0.9% 500 ML IVPB SCH (08:55)
[2020-10-31] MEDS: predniSONE 20 MG TAB PO SCH (08:55)
[2020-10-31] MEDS: MEDIHONEY 44 ML TOPICAL TUBE TOP SCH (09:00)
[2020-10-31] MEDS ORDERED: METHYLPREDNISOLONE 125 MG INJ IV SCH (09:00)
[2020-10-31] MEDS ORDERED: FLUCONAZOLE 100 MG TAB PO SCH (09:00)
[2020-10-31 10:23] LABS: Blood O2 Saturation 85.1 % (92-98.5)
[2020-10-31 10:24] LABS: Arterial Blood Carboxyhemoglob 3.6 % (0-1.5); Blood Gas Oxyhemoglobin 81.3 % (94-97)
[2020-10-31] MEDS ORDERED: VITAL AF 1,000 ML BOT RTH SCH (11:00)
--- NOTE | 2020-10-31 11:43 | P.PN ---
Subjective Date of Service: 10/31/20 Primary Care Provider: Dr. Lopez; Pulmonary-Dr. Cristobal; Cardiology-Dr. Westbrook Chief Complaint: Respiratory failure Patient's condition worsened yesterday and was intubated transferred here to the ICU currently on a ventilator little hypotensive Review of Systems is unable to be obtained Physical Examination - Vital Signs Temperature: 97.4 F Blood Pressure: 95/56 Pulse: 88 Respirations: 31 Pulse Ox (%): 97 - Physical Exam General: Unresponsive Respiratory: Clear to auscultation bilaterally Cardiovascular: Normal S1 S2, Edema Assessment & Plan - Problems (Diagnosis) (1) Acute respiratory failure due to severe acute respiratory syndrome coronavirus 2 (SARS-CoV-2) infection Current Visit: Yes Status: Acute Plan: Respiratory failure patient on a ventilator labs reviewed continued to remain hypoxic renal function is normal blood cultures negative sputum cultures pending chest x-ray shows some interstitial changes left worse than the right increase peep at Diflucan fungal infection prophylaxis Physician Review Additional Text: Physical Exam this morning: Gen: NAD, laying in bed, AAOx3 HEENT: no swelling CV: sinus tachycardia: HR: 95-105, trace edema in lower legs Pulm: non-labored on BIPAP Abd: soft, nontender, nondistended Ext: no rash, no tenderness eason in place Problem List: acute hypoxemic respiratory failure related to Bilateral COVID19 pneumonia/Influenza B Lower GI bleed secondary to hemorrhoids, resolved Stage 2 sacral decubitus ulcer Hyperglycemia HFpEF Partotitis, resolved Constipation, resolved Acute renal failure,resolved Hypothyroidism Hyperlipidemia GERD History of chronic shingles History of vocal cord nodules Dyspnea secondary to acute respiratory failure related to Bilateral COVID19 pneumonia/Influenza B: -was doing ok this morning, then code blue occurred -nurse was in room, stated patient became hypoxic down to 80s, "eyes rolled to the back of her head", patient became unresponsive and did not have a palpable pulse -code blue was initiated, patient required CPR with eventual ROSC after ~3-4 minutes. She required intubation (10/30). -SpO2 remained 40-50% for 1-2 hours. Slowly came up to 90% over 2.5-3 hours. -transferred to ICU, BP initially low, bolus was initiated; pressors as needed -family were called, agreed with full code at this time, "want everything done" -family came to hospital, discussed at length, went to bedside, want to continue with full care/treatment, but DNR if patient were to code again -pulmonology following -CXR with worsening bilateral opacities, concern for worsening pulm edema vs aspiration -pt started on meropenem and vanc, cultures obtained, remains hypotensive will give albumin Stage 2 sacral decubitus ulcer -reposition, wound care ordered -eason remains Lower GI bleed, hemorrhoids - mid September was on aspirin and eliquis; aspirin dc'd; continue eliquis given high risk of VTE; no active bleeding Hyperglycemia -steroid induced. NGT feeds , insulin sliding scale, titrate Lantus as needed NSTEMI HFpEF -Echo: Normal EF, moderate pulmonary hypertension, Diastolic dysfunction. no plans for further intervention at this time Parotitis, resolved, resolved, completed initial IV Abx and then 7 days total of levaquin Constipation, resolved -miralax PRN Acute renal failure secondary to above, resolved: Acute renal failure resolved. Hypothyroidism, HLD, GERD, Chronic Shingles, h/o vocal cord nodules: stable, continue home meds Dispo: continue ICU level of care. intubated / sedation as needed met with family - both sons. Want DNR going forward, but to continue all care / want everything they stated they will continue to discuss whether to withdraw care or not
[2020-10-31] MEDS ORDERED: EPINEPHrine 1 MG/10 ML SYR IV ONE (12:07)
[2020-10-31] MEDS ORDERED: NA CHLORIDE 0.9% 1,000 ML IV ONE (12:07)
[2020-10-31 12:18] VITALS: O2SAT 88
--- NOTE | 2020-10-31 12:56 | P.DS ---
Admission Date: 09/16/20 Discharge Date: 10/31/20 Primary Care Provider: Dr. Lopez; Pulmonary-Dr. Cristobal; Cardiology-Dr. Westbrook Disposition: Discharge Condition: Reason for Admission: Respiratory failure - COVID 19 pneumonia Consultations: Pulmonology - Dr. Richards Cardiology - Dr. Allison / [facility] - Enrique Mosher Aldujaili ENT: Dr. Dotson Procedures: Problem List: Acute cardiopulmonary arrest secondary to possible acute CHF exacerbation vs possible aspiration / developing aspiration pneumonia complicated by COVID-19 pneumonia Acute hypoxemic respiratory failure related to Bilateral COVID19 pneumonia/Influenza B on admission Stage 2 sacral decubitus ulcer steroid induced hyperglycemia HFpEF NSTEMI COPD Partotitis, resolved Constipation, resolved Acute renal failure, resolved Lower GI bleed secondary to hemorrhoids, resolved Hypothyroidism Hyperlipidemia GERD History of chronic shingles History of vocal cord nodules Brief History of Present Illness: 74-year-old female with history of hypothyroidism, hypertension, GERD, hyperlipidemia, shingles, COPD. Patient presented to the emergency room with increasing shortness of breath. She also reported cough. Shortness of breath had been present for several days in got worse today. Patient mentions that she has had a fever. No significant chest pain noted. No nausea, vomiting, diarrhea or constipation. Patient came to the ER for further evaluation and treatment. Patient was found to be hypoxic. In the ER patient was evaluated. Patient found to be slightly hypotensive. Fluid bolus given. Patient was found to be positive for influenza B and COVID 19. Chest x-ray shows COVID pattern. Lab significant for elevated BNP above 4000. Troponin 0.68. Lactic acid 3.6. Pro calcitonin 0.17. White count 9.5, hemoglobin 13. Platelet count 300. Sodium 133, potassium 4.8. BUN of 42, creatinine 2.14 with a GFR of 23. Glucose 153. As mentioned above patient given fluid bolus. Patient also started on Levaquin. Patient required BiPAP in the emergency room. Patient admitted for further evaluation and treatment. Prior to admission transfer to [facility] for continuity as the majority of her specialists are there. No beds available. Patient admitted to the hospital. Hospital Course: Patient had a significantly prolonged hospitalization. She was in the COVID ICU for several weeks. She was treated for COVID-19 pneumona and influenza, noted to have an VIDAL and elevated troponin on admission. Cardiology, pulmonology, nephrology were all consulted. Hospitalization complicated by significant left facial swelling which was due to parotitis which resolved with antibiotics (ENT was consulted, and no surgical procedure was needed / indicated). Patient was hospitalized for nearly 45 days and was unable to come off BIPAP for more than a few days. She was consistently requiring FiO2 >90%. In the last few days, she was requiring BIPAP with FiO2 >90%. Her CXR was noted to have slightly increased bilateral opacities and I/O's notable to be net positive. She was actively being diuresed with diamox, however difficult to be more aggressive due to hypotension. Her diuresis was increased. Case was discussed with Pulmonology who did not feel this was a new bacterial pneumonia. On 10/30, she was noted to be her usual self, slightly depressed, and reported no new concerns. Later in the morning, patient was noted to have SpO2: 91% on BIPAP, was placed on max HFNC with NRB and given AM pills with small amount of pudding and water. SpO2 noted to be 78-86%, placed back on BIPAP with SpO2 back up to 88%. Patient was talking fine and then suddently stopped speaking, eyes rolled back, became unresponsive, and was found to have no pulse. Code blue was initiated and patient underwent chest compressions with eventual ROSC, however her SpO2 remained ~50% and MAPS in 50s. Patient underwent intubation, and ED physician intubating noted some food particles in her posterior pharynx. Patient was given normal saline bolus with improvement of her blood pressure. Patient was transferred to ICU for further care. Her SpO2 remained ~50% for 1 1/2 hours and slowly began to increase up to the 80s. Patient was started on broad spectrum antibiotics. Family were called and both sons came to bedside. Decision was made to change code status to DNR should her heart stop again, but to continue with full care/treatment. Overnight patient's clinical status continued to deteriorate with labile SpO2, BP, tachycardia, and fever up to 102.1. On 10/31, patient was noted to be hypoxic in the 70s, ETT was suctioned and returned with bright red blood. Her Hgb was noted to be 8.9 down from 10.8 the morning before. Repeat D-dimer, ferritin, and CRP were significantly elevated. Procalcitonin was noted to be elevated as well, with worsening CXR. Patient's family were updated again and after brief discussion stated their mother would not want to continue with "all of this". The decision was made to withdraw care. Patient at 1238 on 10/31. Vital Signs/Physical Exam: Temp Pulse Resp BP Pulse Ox 97.4 F 88 36 H 95/56 L 89 L 10/31/20 11:43 10/31/20 11:43 10/31/20 12:30 10/31/20 11:43 10/31/20 12:30 General: Unresponsive HEENT: Other (bloody secretions in ETT / suction tube) Respiratory: Diminished, Crackles/rales Cardiovascular: Edema (trace to ankles) Gastrointestinal: Soft and benign, Non-distended Musculoskeletal: No tenderness Integumentary: No rashes, Pressure ulcer (stage 2, large sacral decubitus, no evidence of infection) Urinary: Farrell catheter Laboratory Data at Discharge: WBC 15.10 K/uL (4.3-10.9) H 10/31/20 04:30 Hgb 8.9 g/dL (12.0-15.0) L 10/31/20 04:30 Hct 27.7 % (36.0-45.0) L D 10/31/20 04:30 Plt Count 250 K/uL (152-406) 10/31/20 04:30 PT 15.6 SECONDS (9.5-12.5) H 10/10/20 18:45 INR 1.33 10/10/20 18:45 APTT 27.5 SECONDS (24.3-36.9) 09/16/20 16:48 Sodium 135 mmol/L (136-145) L 10/31/20 04:30 Potassium 3.9 mmol/L (3.5-5.1) 10/31/20 04:30 BUN 17 mg/dL (7-18) 10/31/20 04:30 Creatinine 0.16 mg/dL (0.55-1.3) L 10/31/20 04:30 Glucose 83 mg/dL (74-106) 10/31/20 04:30 Uric Acid 4.7 mg/dL (2.6-6.0) 09/28/20 05:00 Phosphorus 3.2 mg/dL (2.5-4.9) 10/31/20 04:30 Magnesium 1.9 mg/dL (1.8-2.4) 10/31/20 04:30 Total Bilirubin 0.6 mg/dL (0.2-1.0) 10/31/20 04:30 AST 70 U/L (15-37) H 10/31/20 04:30 ALT 114 U/L (12-78) H 10/31/20 04:30 Alkaline Phosphatase 55 U/L (45-117) 10/31/20 04:30 Troponin I 0.27 ng/mL (0.0-0.045) H 10/31/20 04:30 Triglycerides 108 mg/dL (<150) 09/17/20 05:32 Cholesterol 118 mg/dL (<200) 09/17/20 05:32 HDL Cholesterol 39 mg/dL (40-60) L 09/17/20 05:32 Cholesterol/HDL Ratio 3.03 09/17/20 05:32 Amylase 33 U/L (25-115) 09/16/20 12:49 Lipase 131 U/L (73-393) 09/16/20 12:49 Home Medications: Acyclovir [Zovirax] 200 mg PO BEDTIME 09/17/20 Albuterol Inhaler [Ventolin Inhaler] 2 puff IH Q6H PRN 09/17/20 Albuterol Sulfate [Proair Hfa] 8.5 gm IH Q6HP PRN 09/17/20 B-Complex with Vitamin C [Super B Complex-Vitamin C] 1 each PO DAILY 09/17/20 Calcium Carbonate/Vitamin D3 [Calcium 500 + Vit D 400 Tablet] 1 tab PO BID 09/17/20 Cholecalciferol (Vitamin D3) [Vitamin D 5,000 Iu Cap] 5,000 unit PO DAILY 09/17/20 Cranberry Fruit Extract [Cranberry] 425 mg PO BID 09/17/20 Cyanocobalamin (Vitamin B-12) [Vitamin B12] 2,500 mcg PO DAILY 09/17/20 Esomeprazole Mag Trihydrate [Nexium] 20 mg PO DAILY 09/17/20 Fluticasone/Umeclidin/Vilanter [Trelegy Ellipta 200-62.5-25] 1 puff IH DAILY 09/17/20 Gabapentin [Neurontin] 2 tab PO DAILY 09/17/20 Gabapentin [Neurontin] 3 tab PO BEDTIME 09/17/20 Levothyroxine [Synthroid] 125 mcg PO [id number] 09/17/20 Lisinopril/Hydrochlorothiazide [Lisinopril-Hctz 10-12.5 mg Tab] 1 each PO BEDTIME 09/17/20 RX: Aspirin 81 mg PO DAILY 09/17/20 RX: Magnesium Oxide 500 mg PO DAILY 09/17/20 RX: Montelukast Sodium [Singulair] 10 mg PO BEDTIME 09/17/20 RX: Simvastatin 40 mg PO BEDTIME 09/17/20 Sodium Chloride/Sodium Bicarb [Neilmed Sinus Rinse Kit Refill] 1 each NS PRN PRN 09/17/20 Tramadol HCl [Ultram] 50 mg PO DAILYPRN PRN 09/17/20 Viteyes Areds 2 1 tab PO BID 09/17/20 Followup: Parish Lopez MD [Primary Care Provider] - Time spent managing pt's care (in minutes): 60 (ICU level of care)
[2020-10-31 13:30] VITALS: BP 111/62
[2020-10-31] MEDS ORDERED: SUCCINYLCHOLINE 20 MG/ML (10 ML) IV ONE (15:33)
[2020-10-31] MEDS ORDERED: ETOMIDATE 20 MG/10 ML VIAL IV ONE (15:33)
--- NOTE | 2020-10-31 19:42 | PN ---
Date of Progress Note: 10/31/2020 Chief Complaint: Acute kidney injury. History Of Present Illness: The patient has COVID pneumonia. The patient is oxygen dependent. She required BiPAP. She had code blue yesterday and blood pressure was down to 70. She received bolus o f normal saline. Blood pressure stabilized. Review of Systems: Unobtainable. Physical Examination: Lungs: Crackles bilaterally present at bases. Heart: S1, S2. Tachycardia. Abdomen: Soft, benign. Extremities: Trace edema. Laboratory Data: Sodium 131, potassium 4.6, BUN 18, creatinine 0.3, and calcium 8.6. Magnesium 1.8. 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 The patient recovered. Acute kidney injury r esolved. Renal function is back to baseline. 2.Hypernatremia, currently sodium level is in the hyponatremic territory. The patient received diur etics and currently IV fluids were adjusted according to lab results. 3.Metabolic changes, stable. The patient was treated for metabolic alkalosis. In setting of respir atory acidosis, the patient will continue acetazolamide. 4.Hypomagnesemia. Supplementation was provided. EB/MODL Voice ID: [id number] Report ID: [id number]
== END 2020-10-31 15:34 | disposition expired | DRG 208 ==
LOC: ER 11:49 → ERHOLD 16:04 → 3RD-ICU 18:17 → 2ND 10-14 16:45 → 4TH 10-14 20:21 → 3RD-ICU 10-30 09:50
PROVIDERS: ADMIT Family Medicine; ATTEND Hospitalist
PROC: XW033E5 Introduction of Remdesivir Anti-infective into Peripheral Vein, Percutaneous Approach, New Technology Group 5 (ICD-10-PCS; 2020-09-16)
PROC: 02H633Z Insertion of Infusion Device into Right Atrium, Percutaneous Approach (ICD-10-PCS; 2020-09-24)
PROC: 5A1945Z Respiratory Ventilation, 24-96 Consecutive Hours (ICD-10-PCS; principal; 2020-10-30)
PROC: 0BH17EZ Insertion of Endotracheal Airway into Trachea, Via Natural or Artificial Opening (ICD-10-PCS; 2020-10-30)
PROC: 5A12012 Performance of Cardiac Output, Single, Manual (ICD-10-PCS; 2020-10-31)
DX: U07.1 COVID-19 (principal); J96.01 Acute respiratory failure with hypoxia; J12.82 Pneumonia due to coronavirus disease 2019; J10.08 Influenza due to other identified influenza virus with other specified pneumonia; I21.A1 Myocardial infarction type 2; N17.0 Acute kidney failure with tubular necrosis; I50.33 Acute on chronic diastolic (congestive) heart failure; J69.0 Pneumonitis due to inhalation of food and vomit; M62.82 Rhabdomyolysis; E87.2 Acidosis; J44.0 Chronic obstructive pulmonary disease with (acute) lower respiratory infection; E87.0 Hyperosmolality and hypernatremia; E87.1 Hypo-osmolality and hyponatremia; I11.0 Hypertensive heart disease with heart failure; E78.5 Hyperlipidemia, unspecified; E03.9 Hypothyroidism, unspecified; K21.9 Gastro-esophageal reflux disease without esophagitis; L89.312 Pressure ulcer of right buttock, stage 2; L89.892 Pressure ulcer of other site, stage 2; I05.0 Rheumatic mitral stenosis; I35.0 Nonrheumatic aortic (valve) stenosis; I27.29 Other secondary pulmonary hypertension; E87.5 Hyperkalemia; R73.9 Hyperglycemia, unspecified; K59.00 Constipation, unspecified; K11.20 Sialoadenitis, unspecified; E86.0 Dehydration; K64.9 Unspecified hemorrhoids; L89.152 Pressure ulcer of sacral region, stage 2; E83.42 Hypomagnesemia; I46.9 Cardiac arrest, cause unspecified; T38.0X5A Adverse effect of glucocorticoids and synthetic analogues, initial encounter; Z88.0 Allergy status to penicillin; Z66 Do not resuscitate; Z79.899 Other long term (current) drug therapy; Z79.890 Hormone replacement therapy; Z88.1 Allergy status to other antibiotic agents; Z79.82 Long term (current) use of aspirin; Z96.653 Presence of artificial knee joint, bilateral; Z99.81 Dependence on supplemental oxygen
CPT/HCPCS: 36415; 36569; 71045; 74018; 76536; 80048; 80053; 80061; 80069; 80076; 80202; 81003; 81015; 82150; 82274; 82550; 82553; 82570; 82728; 82805; 82947; 83605; 83690; 83735; 83880; 84100; 84145; 84156; 84439; 84443; 84450; 84484; 84550; 85025; 85027; 85379; 85610; 85730; 86140; 87040; 87070; 87077; 87086; 87088; 87186; 87205; 87804; 93005; 93306; 93970; 94002; 94003; 94640; 94660; 94760; 96374; 96375; 97110; 97112; 97161; 97530; 99251; 99285; J0171; J0330; J0696; J1120; J1630; J1650; J1815; J1940; J2185; J2250; J2270; J2920; J2930; J3010; J3370; J3411; J3475; J7030; J7040; J7050; J7060; J7512; J7605; P9047; U0003